=== PATIENT | female | born 1950 | race Caucasian/White ===

== ENCOUNTER 2016-09-05 17:24 | Emergency (ER) | payer MEDICARE, MEDICAID ==
[2016-09-05 17:39] VITALS: BP 122/73
[2016-09-05] MEDS ORDERED: Morphine INJ* 4 MG/ML 1 ML CARPUJECT IM ONE (18:06)
--- NOTE | 2016-09-05 18:09 | ED ---
Lower Extremity - HPI Summary HPI Summary: The patient is a 65 year old female presenting to the ED for complaint of right ankle twisting injury after accidental fall tonight. Reports she was seated in chair for prolonged time with development of paresthesias in left leg. Upon attempting to stand upright, left leg bulged causing her twist her left ankle and land against left hip. Admits to swelling and inability to bear weight on left ankle. Denies significant left hip pain. Denies head injury, chest or abdominal pain, nausea, vomiting, gross hematuria. Chronic paresthesias bilateral arms secondary to cervical radiculopathy. History significant for Breast CA s/p lumpectomy, Uterine CA s/p total hysterectomy, Diverticulitis with perforation s/p partial colectomy, Spinal Stenosis s/p cervical surgery, chronic pain receiving methadone [address] Vargas. Brother with asthma. SH: Current smoker. No alcohol or substance use. - History of Current Complaint Chief Complaint: EDExtremityLower Stated Complaint: ANKLE INJURY Time Seen by Provider: 09/05/16 17:41 Pain Intensity: 7 - Allergies/Home Medications Allergies/Adverse Reactions: Allergies Allergy/AdvReac Type Severity Reaction Status Date / Time Iodine Allergy Intermediate Hives Verified 07/08/16 15:07 Adhesive Tape Allergy See Comment Verified 07/08/16 15:07 PMH/Surg Hx/FS Hx/Imm Hx Endocrine/Hematology History: Denies: Hx Anticoagulant Therapy, Hx Diabetes, Hx Thyroid Disease Cardiovascular History: Denies: Hx Congestive Heart Failure, Hx Coronary Artery Disease, Hx Hypertension, Hx Pacemaker/ICD Respiratory History: Reports: Hx Asthma, Hx Chronic Obstructive Pulmonary Disease (COPD), Other Respiratory Problems/Disorders - nodules seen on recent CT scan of chest Denies: Hx Chronic Bronchitis, Hx Cystic Fibrosis, Hx Lung Cancer, Hx Pleural Effusion, Hx Pneumonia, Hx Pulmonary Edema, Hx Pulmonary Embolism, Hx Seasonal Allergies, Hx Sleep Apnea GI History: Reports: Hx Diverticulosis, Hx Gastroesophageal Reflux Disease, Other GI Disorders - DIVERTICULITIS/COLOSTOMY/REVERSAL Denies: Hx Cirrhosis, Hx Crohn's Disease, Hx Gall Bladder Disease, Hx Gastrointestinal Bleed, Hx Hiatal Hernia, Hx Irritable Bowel, Hx Jaundice, Hx Obstructive Bowel, Hx Ileostomy, Hx Pyloric Stenosis, Hx Ulcer History: Denies: Hx Dialysis, Hx Renal Disease Musculoskeletal History: Reports: Hx Back Problems - cervical degenerative disk disease, Hx Osteoporosis Denies: Hx Arthritis, Hx Rheumatoid Arthritis, Hx Bursitis, Hx Congenital Bone Abnormalities, Hx Fibromyalgia, Hx Gout, Hx Orthopedic Injury, Hx Scoliosis , Hx Tendonitis, Other Musculoskeletal History Sensory History: Reports: Hx Contacts or Glasses - GLASSES Denies: Hx Hearing Aid Opthamlomology History: Reports: Hx Contacts or Glasses - GLASSES Neurological History: Reports: Hx Spinal Cord Injury - per pt Denies: Hx Dementia, Hx Developmental Delay, Hx Headaches, Hx Migraine, Hx Seizures, Hx Transient Ischemic Attacks (TIA), Other Neuro Impairments/Disorders Psychiatric History: Reports: Hx Anxiety, Hx Depression, Hx Bipolar Disorder, Hx Substance Abuse Denies: Hx Eating Disorder, Hx Panic Disorder, Hx of Violent Episodes Against Others - Cancer History Cancer Type, Location and Year: breast cancer; uterine cancer Hx Chemotherapy: No Hx Radiation Therapy: Yes - Surgical History Surgery Procedure, Year, and Place: breast ca- left lumpectomy 2008, hysterectomy 2009, 4 neck surgeries 2010, COLON SURGERY Hx Anesthesia Reactions: No Infectious Disease History: No Infectious Disease History: Denies: Hx Clostridium Difficile, Hx Hepatitis, Hx Human Immunodeficiency Virus (HIV), Hx Shingles, Hx Tuberculosis, Traveled Outside the [place] in Last 30 Days - Family History Known Family History: Positive: Cardiac Disease - Social History Alcohol Use: None Substance Use Type: Reports: None Substance Use Comment - Amount & Last Used: methadone 15mg tid and 10mg qhs. Hx Tobacco Use: Yes Smoking Status (MU): Light Every Day Tobacco Smoker Type: eCigarettes Amount Used/How Often: 1/2 ppd Have You Smoked in the Last Year: Yes Review of Systems Constitutional: Negative Cardiovascular: Negative Respiratory: Negative Gastrointestinal: Negative Genitourinary: Negative Positive: Arthralgia, Decreased ROM, Edema Skin: Negative Positive: Paresthesia Psychological: Normal All Other Systems Reviewed And Are Negative: Yes Physical Exam Triage Information Reviewed: Yes Vital Signs On Initial Exam: Initial Vitals Temp Pulse Resp BP Pulse Ox 98.0 F 86 16 122/73 95 09/05/16 17:29 09/05/16 17:29 09/05/16 17:29 09/05/16 17:29 09/05/16 17:29 Vital Signs Reviewed: Yes Appearance: Positive: Well-Appearing, Pain Distress - Speaking calmly with mild guarded movement of left ankle without grimace, in mild pain., Obese Skin: Positive: Warm, Skin Color Reflects Adequate Perfusion, Dry Head/Face: Positive: Normal Head/Face Inspection Eyes: Positive: Other: - Anicteric ENT: Positive: Hearing grossly normal Neck: Positive: Supple Respiratory/Lung Sounds: Positive: Other - Normal respirations Cardiovascular: Positive: RRR - DP pulse 2+. Negative: Leg Edema Left, Leg Edema Right Musculoskeletal: Positive: Limited @ - decreased AROM left ankle, Pain @ - tenderness left lateral malleolus with 1+ edema without ecchymosis Neurological: Positive: Sensory/Motor Intact, NV Bundle Intact Distally Psychiatric: Positive: Normal AVPU Assessment: Alert Diagnostics - Vital Signs Vital Signs Temp Pulse Resp BP Pulse Ox 09/05/16 17:29 98.0 F 86 16 122/73 95 - Laboratory Lab Statement: Any lab studies that have been ordered have been reviewed, and results considered in the medical decision making process. Lower Extremity Course/Dx - Course Assessment/Plan: X-ray left ankle with nondisplaced distal fibula fracture which is closed. X-ray left hip/pelvis without fracture. Give age and history of spinal stenosis, safest treatment plan to place in cam boot with weight bearing as tolerated. Advised to continue with methadone as Rx by pain specialist and if breakthrough pain, to contact Dr. Vargas for further pain management. Given referral to orthopedist for follow-up within 1 week. - Diagnoses Provider Diagnoses: Fracture, fibula Discharge - Discharge Plan Condition: Stable Disposition: HOME Patient Education Materials: Ankle Fracture (ED) Referrals: Monique Bucio MD [Primary Care Provider] - Anibal Villaseñor MD [Medical Doctor] - 1 Week
--- NOTE | 2016-09-05 19:00 | RAD ---
Indication: Ankle injury. 3 views of the left ankle demonstrates fracture through the distal fibula without significant displacement. Soft tissue swelling is noted. IMPRESSION: Fracture of the distal fibula with soft tissue swelling. No significant displacement is noted.
--- NOTE | 2016-09-05 19:01 | RAD ---
Indication: Blunt injury. Single view of the pelvis and 2 views of the left hip demonstrates no fracture. No other bone or joint abnormality is noted. IMPRESSION: No fracture of the pelvis or left hip is noted.
== END 2016-09-05 21:15 | disposition home or self-care (01) ==
LOC: ED 17:24
DX: S82.402A Unspecified fracture of shaft of left fibula, initial encounter for closed fracture (principal); R20.9 Unspecified disturbances of skin sensation; W19.XXXA Unspecified fall, initial encounter; Y93.9 Activity, unspecified; Y92.9 Unspecified place or not applicable; Y99.9 Unspecified external cause status
CPT/HCPCS: 96372; 99282; J2270

== ENCOUNTER 2017-02-04 18:35 | Observation (INO) | payer MEDICARE, MEDICAID ==
[2017-02-04] MEDS ORDERED: Aspirin Low Dose CHEW TAB* 81 MG PO ONE (18:53)
--- NOTE | 2017-02-04 19:20 | RAD ---
HISTORY: Chest pain COMPARISONS: June 13, 2015 VIEWS:1: Single frontal portable view of the chest at 7:00 PM FINDINGS: LINES AND TUBES: None. CARDIOMEDIASTINAL SILHOUETTE: The cardiomediastinal silhouette is normal for portable technique. PLEURA: The costophrenic angles are sharp. No pleural abnormalities are noted. LUNG PARENCHYMA: There is hyperinflation. ABDOMEN: The upper abdomen is clear. There is no subphrenic gas. BONES AND SOFT TISSUES: The patient is status post anterior cervical fusion IMPRESSION: NO ACTIVE CARDIOPULMONARY DISEASE.
[2017-02-04 19:43] LABS: Hematocrit 39 % (35-47); Hemoglobin 13.2 g/dl (12.0-16.0); Mean Corpuscular HGB Conc 34 g/dl (31-36); Mean Corpuscular Hemoglobin 31 pg (27-31); Mean Corpuscular Volume 90 fL (80-97); Mean Platelet Volume 9 um3 (7.4-10.4); Red Blood Count 4.32 10^6/ul (4.0-5.4); Red Cell Distribution Width 14 % (10.5-15)
[2017-02-04 19:59] LABS: Albumin 3.7 g/dL (3.2-5.2); BUN/Creatinine Ratio 15.2 (8-20); Calcium 9.2 mg/dL (8.6-10.3); EGFR African American 94.2 (>60); EGFR Non-African American 73.3 (>60); Globulin 3.2 g/dL (2-4); Total Bilirubin 0.7 mg/dL (0.2-1.0); Total Protein 6.9 g/dL (6.4-8.9)
[2017-02-04] MEDS ORDERED: HYDROmorphone* 2 MG/ML 1 ML SYR IV SLOW PU ONE (20:14)
[2017-02-04] MEDS ORDERED: Enoxaparin(*) 100 MG/ML SYR SUBCUT ONE (20:16)
[2017-02-04] MEDS ORDERED: Acetaminophen TAB* 325 MG PO PRN (21:21)
[2017-02-04] MEDS ORDERED: Ondansetron INJ* 2 MG/ML VIAL IV PRN (21:21)
[2017-02-04] MEDS ORDERED: HYDROmorphone* 1 MG/ML 1 ML SYR IV SLOW PU PRN (21:27)
[2017-02-04] MEDS ORDERED: Ketorolac INJ* 15 MG/ML 1 ML VIAL IV PUSH ONE (21:27)
[2017-02-04] MEDS ORDERED: LORazepam TAB(*) 1 MG PO PRN (21:28)
[2017-02-04] MEDS ORDERED: Albuterol 2.5 MG/3 ML NEB.SOL* (0.083%) INH PRN (21:32)
[2017-02-04] MEDS: predniSONE TAB* 20 MG PO ONE (21:34)
[2017-02-04] MEDS: predniSONE TAB* 10 MG PO ONE (22:31)
[2017-02-04] MEDS ORDERED: Zolpidem TAB* 10 MG PO PRN (22:37)
[2017-02-04] MEDS: Methadone TAB* 5 MG PO SCH (22:56)
[2017-02-04] MEDS: Docusate CAP* 100 MG PO SCH (22:56)
[2017-02-04] MEDS: Gabapentin CAP(*) 300 MG PO SCH (22:57)
[2017-02-04] MEDS: Ferrous Gluconate TAB* 324 MG TAB PO SCH (22:58)
[2017-02-04] MEDS ORDERED: traZODone TAB* 100 MG PO SCH (23:00)
[2017-02-04] MEDS: Mometasone/Formoter 200/5 MDI INH SCH (23:08)
--- NOTE | 2017-02-05 00:40 | HP ---
CC: Dr. Gilmore * HISTORY AND PHYSICAL: DATE OF ADMISSION: 02/04/17 PRIMARY CARE PROVIDER: Dr. Gilmore. ATTENDING PHYSICIAN WHILE IN THE HOSPITAL: Dr. Pool Ayala * (report dictated by Miguel A Lozada NP). CHIEF COMPLAINT: Chest pain. HISTORY OF PRESENT ILLNESS: Ms. Lomeli is a 66-year-old female patient with history of chronic pain, osteoporosis, asthma, depression, acid reflux, bipolar , breast cancer, and uterine cancer, coming into the ER today with complaints of chest discomfort with sudden onset, right side, worse with taking a deep breath with no associated nausea or chest pain with exertion. She said it is really hard for her to take a deep breath. She denies having any recent trips or travel. Denies having any recent surgeries. States that because of her chronic pain issue, she does not ambulate as much as she probably should. She does sit a lot. She denied having any recent upper respiratory-type symptoms, fevers, or cough. She says that she was concerned because the symptoms just were not getting any better, so she decided to come in today. She came into the ER. She was evaluated and was noted that she had an elevated D-dimer. Unfortunately, she does have an allergy to IV DYE and we were asked to evaluate for admission. PAST MEDICAL HISTORY: Significant for: 1. Osteoporosis. 2. Asthma. 3. Depression. 4. GERD. 5. Chronic pain. 6. Bipolar. 7. Breast cancer. 8. Uterine cancer. PAST SURGICAL HISTORY: 1. She has had exploratory laparotomy. 2. She has had hysterectomy. 3. Lumpectomy. 4. She has had four neck surgeries. MEDICATIONS: Home medications include according to her recall: 1. Trazodone 300 mg p.o. at bedtime. 2. Ambien 10 mg p.o. at bedtime as needed. 3. Singulair 10 mg p.o. daily. 4. Robaxin 500 to 1000 mg p.o. four times a day as needed. 5. Methadone 1-1/2 tablets p.o. t.i.d. 6. Ativan 2 mg p.o. at bedtime as needed. 7. Atrovent 0.5 mg inhaled t.i.d. as needed. 8. Neurontin 900 mg p.o. t.i.d. 9. Ferrous gluconate 325 mg p.o. b.i.d. 10. Nexium 40 mg daily. 11. Colace 100 mg p.o. b.i.d. 12. Cymbalta 60 mg daily. 13. Cod liver oil 1 capsule p.o. daily. 14. Vitamin D 2000 units daily. 15. Symbicort 2 puffs inhaled b.i.d. 16. Vitamin C 1000 mg daily. 17. Fosamax 70 mg p.o. weekly. ALLERGIES TO MEDICATIONS: Include IODINE and CT DYE. FAMILY HISTORY: Her mother had a history of cancer. Father had a history of peritonitis. SOCIAL HISTORY: She is a former smoker. She does not drink alcohol. Surrogate decision maker is her [id number] and daughter. REVIEW OF SYSTEMS: There is no documented fever. She denied having any significant weight change. There was no double vision. She denies having any ear discharge. There was no rhinorrhea. There was no sore throat, no thyroid enlargement. There is chest pain from HPI. There is no chest pain with exertion. There was no orthopnea. There was no nocturnal dyspnea. There was no abdominal pain. No nausea, no vomiting. No dysuria, no frequency. No seizure, there was no loss of consciousness. No pruritus and no skin ulcerations. Review of 14 systems completed, all others negative. PHYSICAL EXAMINATION GENERAL: At this time, Ms. Lomeli is a 66-year-old female patient. She is sitting in the ER stretcher. She does not appear to be in any acute distress. VITAL SIGNS: Blood pressure 108/60 with pulse of 74, respirations 14, O2 sat 94 %, temperature 98.8. HEENT: Head is atraumatic, normocephalic. Eyes: EOMs are intact. Sclerae anicteric, not pale. Throat: Oral mucosa appears to be moist. No oropharyngeal erythema. NECK: Supple. LUNGS: Clear to auscultation bilaterally. No wheezes, rales, or rhonchi. HEART: Sounds S1, S2. Regular rate and rhythm. No murmurs, rubs, or gallops. ABDOMEN: Soft. It was flat, nontender. Bowel sounds present. EXTREMITIES: Pulses 2+ throughout. She had no peripheral edema noted. She is able to move all 4 extremities with 5/5 strength. NEUROLOGIC: The patient is awake, she is alert, she is oriented x3. Tongue midline. Peanut Picker were equal. No gross focal deficits. SKIN: Intact. DIAGNOSTIC STUDIES/LAB DATA: Today revealed WBC 9.0, RBC of 4.32, hemoglobin of 13.2, hematocrit of 39, platelet count of 180. D-dimer was 329. Sodium was 134, potassium was 4, chloride of 105, bicarb 23, BUN 12, creatinine of 0.79, glucose 112, lactate 0.6, calcium 9.2. Total bili 0.7, AST 10, ALT 13, Troponin 0. She had a chest x-ray obtained today, which revealed no active cardiopulmonary disease. There was an EKG, which revealed a normal sinus rhythm with rate of 81. No ST elevations or T-wave inversions were noted. Old medical records reviewed. ASSESSMENT AND PLAN: Ms. Lomeli is a 66-year-old female patient coming into the ER today with complaints of chest pain, sudden onset, to the right side. She will be admitted under observation status for: 1. Chest pain: Again, concerned that this is probably pleuritic-type chest pain. She certainly has risk factors for pulmonary embolism. Unfortunately, she is allergic to IV DYE. My plan is at this point we will premedicate her. She did get a dose because there is high likelihood of possibly having a blood clot. She was premedicated with Lovenox here in the ER. I will go ahead and give her Lovenox again tomorrow morning. We will premedicate her with prednisone and Benadryl per recommendation of Radiology with CTA of the chest. I am ordering ultrasound of the lower extremities. If those are positive, then we do not need to do the CTA presumably as the treatments are the same. I am still going to get an echo because of chest pain. I will trend her troponins and place her on telemetry and continue to follow. 2. Osteoporosis. She can continue with her current medical regimen. 3. Asthma. Continue with inhalers and Symbicort as prescribed. 4. Depression and bipolar. Continue with supportive care and meds as prescribed. 5. Chronic pain. Continue methadone. 6. Gastroesophageal reflux disease. Continue PPI therapy. 7. History of breast cancer and uterine cancer. Follow with primary. 8. DVT prophylaxis. She will be on therapeutic Lovenox, again pending the CTA , I did put her on and give her a dose tomorrow morning. 9. Code status. Full code. 10. Fluids, electrolytes, and nutrition. She can have a regular diet. TIME SPENT: On the admission was approximately 60 minutes; greater than half the time was spent [id number] with the patient obtaining my history and physical, other half the time spent going over the plan of care with the patient and implementing plan of care. I did discuss the plan of care with my attending, Dr. Ayala; he is in agreement. MIGUEL A LOZADA, [employer] EXAMINER [id number]/CPS #: [id number] SARAH
[2017-02-05] MEDS: predniSONE TAB* 10 MG PO ONE (03:13)
[2017-02-05] MEDS: predniSONE TAB* 20 MG PO ONE (03:14)
[2017-02-05] MEDS ORDERED: Omeprazole CAP* 20 MG PO SCH (07:30)
[2017-02-05 07:38] LABS: Hematocrit 38 % (35-47); Hemoglobin 12.9 g/dl (12.0-16.0); Mean Corpuscular HGB Conc 34 g/dl (31-36); Mean Corpuscular Hemoglobin 31 pg (27-31); Mean Corpuscular Volume 91 fL (80-97); Mean Platelet Volume 10 um3 (7.4-10.4); Red Blood Count 4.17 10^6/ul (4.0-5.4); Red Cell Distribution Width 14 % (10.5-15); White Blood Count 6.5 10^3/ul (3.5-10.8)
[2017-02-05 08:00] LABS: BUN/Creatinine Ratio 18.9 (8-20); Calcium 9.2 mg/dL (8.6-10.3); EGFR African American 81.1 (>60); Potassium 4.4 mmol/L (3.5-5.0)
[2017-02-05] MEDS: Mometasone/Formoter 200/5 MDI INH SCH (08:10)
[2017-02-05] MEDS: Gabapentin CAP(*) 300 MG PO SCH ×2 (08:28→14:11)
[2017-02-05] MEDS: Methadone TAB* 5 MG PO SCH ×2 (08:30→14:12)
[2017-02-05] MEDS: Ferrous Gluconate TAB* 324 MG TAB PO SCH (08:32)
[2017-02-05] MEDS: Docusate CAP* 100 MG PO SCH (08:33)
[2017-02-05] MEDS ORDERED: DULoxetine DR CAP* 30 MG CAP.DR PO SCH (09:00)
[2017-02-05] MEDS ORDERED: diPHENhydraMINE PO* 25 MG PO ONE (09:00)
[2017-02-05] MEDS ORDERED: predniSONE TAB* 50 MG PO ONE (09:00)
[2017-02-05] MEDS ORDERED: Enoxaparin(*) 100 MG/ML SYR SUBCUT SCH (09:00)
[2017-02-05] MEDS ORDERED: Iohexol 350* (CONTRAST) 500 ML MDV IV ONE (10:04)
--- NOTE | 2017-02-05 10:42 | RAD ---
INDICATION: Stabbing RIGHT side chest pain with inspiration. Elevated d-dimer. History of breast and uterine cancer. COMPARISON: February 04, 2017 chest radiograph and June 13, 2016 CT. TECHNIQUE: Multidetector CT images were obtained from the lung apices to the upper abdomen with 80 mL Omnipaque 350 IV contrast. Pulmonary angiogram protocol. Multiplanar reformation including with maximum intensity projection. REPORT: Bilateral mild subsegmental atelectasis most prominent at the dependent lung bases. Focal subsegmental peripheral airspace consolidation at the lateral segment of the RIGHT middle lobe. No suspicious focal pulmonary lesions. Only trace bilateral pleural fluid. Negative for thoracic lymphadenopathy, cardiomegaly, pericardial effusion. Upper normal diameter ascending thoracic aorta measuring up to 3.9 cm transverse diameter. Negative for aortic dissection. Multiple acute appearing pulmonary emboli at the segmental pulmonary artery bifurcations with bilateral involvement and corresponding peripheral airspace consolidation at the lateral segment of the RIGHT middle lobe. Negative for thrombus within the RIGHT or LEFT main pulmonary arteries. Limited images through the upper abdomen are remarkable for cholelithiasis. Negative for suspicious thoracic osseous lesions. IMPRESSION: 1. Multiple acute appearing pulmonary emboli at the segmental pulmonary artery bifurcations with bilateral involvement and corresponding peripheral airspace consolidation at the lateral segment of the RIGHT middle lobe consistent with pulmonary ischemia/infarct. Mild to moderate burden of pulmonary embolism. 2. No suspicious focal pulmonary lesions or thoracic lymphadenopathy. Results discussed with Nurse Coto 02/05/2017 10:37 AM EDT
--- NOTE | 2017-02-05 12:29 | PN ---
Subjective Date of Service: 02/05/17 Interval History: Patient seen and examined at bedside. Reports pain with inspiration but feels it is better today. Denies fever/chills, worsening chest pain or SOB, abd pain, n/v. She reports that she does "sit a lot." She denies any recent long travel or recent surgery. Telemetry: SR 70s Family History: Unchanged from Admission Social History: Unchanged from Admission Past Medical History: Unchanged from Admission Objective Active Medications: Acetaminophen (Tylenol Tab*) 650 mg PO Q4H PRN PRN Reason: FEVER/PAIN Albuterol (Ventolin 2.5 Mg/3 Ml Neb.Sia*) 2.5 mg INH Q2H PRN PRN Reason: SOB/WHEEZING Docusate Sodium (Colace Cap*) 100 mg PO BID [facility] Last Admin: 02/05/17 08:33 Dose: 100 mg Duloxetine HCl (Cymbalta Cap*) 60 mg PO DAILY [facility] Last Admin: 02/05/17 08:26 Dose: 60 mg Enoxaparin Sodium (Lovenox(*)) 95 mg SUBCUT Q12H [facility] Last Admin: 02/05/17 08:27 Dose: 95 mg Ferrous Gluconate (Fergon Tab*) 325 mg PO BID [facility] Last Admin: 02/05/17 08:32 Dose: 325 mg Gabapentin (Neurontin Cap(*)) 900 mg PO TID [facility] Last Admin: 02/05/17 08:28 Dose: 900 mg Hydromorphone HCl (Dilaudid Iv*) 1 mg IV SLOW PU Q4H PRN PRN Reason: PAIN Lorazepam (Ativan Tab(*)) 2 mg PO BEDTIME PRN PRN Reason: ANXIETY Last Admin: 02/04/17 22:57 Dose: 2 mg Methadone HCl (Dolophine Tab*) 15 mg PO TID [facility] Last Admin: 02/05/17 08:30 Dose: 15 mg Mometasone Furoate/Formoterol Fumar (Dulera 200/5 Mdi*) 2 puff INH BID [facility] PRN Reason: Protocol Last Admin: 02/05/17 08:10 Dose: 2 puff Montelukast Sodium (Singulair Tab*) 10 mg PO BEDTIME [facility] Omeprazole (Prilosec Cap*) 20 mg PO DAILY@0730 [facility] PRN Reason: Protocol Last Admin: 02/05/17 08:30 Dose: 20 mg Ondansetron HCl (Zofran Inj*) 4 mg IV Q6H PRN PRN Reason: NAUSEA Trazodone HCl (Desyrel Tab*) 300 mg PO BEDTIME [facility] Last Admin: 02/05/17 00:47 Dose: 300 mg Zolpidem Tartrate (Ambien Tab*) 10 mg PO BEDTIME PRN PRN Reason: SLEEP Last Admin: 02/05/17 00:47 Dose: 10 mg Vital Signs 02/04/17 02/04/17 02/04/17 21:12 21:53 22:56 Temperature 98.7 F Pulse Rate 73 Respiratory 16 20 20 Rate Blood Pressure 125/70 (mmHg) O2 Sat by Pulse 97 Oximetry 02/04/17 02/04/17 02/05/17 22:57 23:11 00:11 Temperature 98.7 F Pulse Rate 87 78 Respiratory 20 20 16 Rate Blood Pressure 104/61 (mmHg) O2 Sat by Pulse 98 96 Oximetry 02/05/17 02/05/17 02/05/17 00:56 00:57 02:40 Temperature Pulse Rate 79 Respiratory 18 18 Rate Blood Pressure (mmHg) O2 Sat by Pulse Oximetry 02/05/17 02/05/17 02/05/17 02:57 03:44 03:47 Temperature 98.9 F Pulse Rate 75 Respiratory 18 16 Rate Blood Pressure 113/60 (mmHg) O2 Sat by Pulse 98 92 Oximetry 02/05/17 02/05/17 02/05/17 07:20 08:11 08:12 Temperature 98.2 F Pulse Rate 75 86 75 Respiratory 18 18 18 Rate Blood Pressure 103/62 (mmHg) O2 Sat by Pulse 92 92 92 Oximetry 02/05/17 02/05/17 02/05/17 08:28 08:29 08:30 Temperature Pulse Rate Respiratory 16 16 16 Rate Blood Pressure (mmHg) O2 Sat by Pulse Oximetry 02/05/17 02/05/17 02/05/17 10:28 10:29 10:30 Temperature Pulse Rate Respiratory 16 16 16 Rate Blood Pressure (mmHg) O2 Sat by Pulse Oximetry Oxygen Devices in Use Now: None Appearance: Middle aged female, lying flat in bed, NAD. Speaking in full sentences. Eyes: PERRLA Ears/Nose/Mouth/Throat: Mucous Membranes Moist Respiratory: Symmetrical Chest Expansion and Respiratory Effort, Clear to Auscultation Cardiovascular: NL Sounds; No Murmurs; No JVD, RRR Abdominal: NL Sounds; No Tenderness; No Distention Extremities: No Edema Skin: - - Psoriasis to BLE Neurological: Alert and Oriented x 3 Lines/Tubes/Other Access: Clean, Dry and Intact Peripheral IV Nutrition: Taking PO's Result Diagrams: 02/05/17 07:03 02/05/17 07:03 Diagnostic Imaging: CTA Chest - multiple acute appearing pulmonary emboli at the segmental pulmonary artery bifurcations with bilateral involvement and corresponding peripheral airspace consolidation at the lateral segment of the right middle lobe consistent with pulmonary ischemia/infarct. Mild to moderate burden of pulmonary embolism. Assess/Plan/Problems-Billing Assessment: Ms. Lomeli is a 66 yo female with a PMH significant for OA, asthma, depression, GERD, chronic pain, bipolar disorder, breast and uterine cancer who presented to the ED on 02/05/17 with concern for chest pain and was found to have pulmonary emboli. - Patient Problems (1) Multiple pulmonary emboli Code(s): I26.99 - OTHER PULMONARY EMBOLISM WITHOUT ACUTE COR PULMONALE Comment : Patient started on BID Lovenox on admission. Switch to Xarelto 15 mg BID for 21 days then 20 mg daily. No previous history of provoked or unprovoked PE. CTA chest shows multiple acute appearing pulmonary emboli at the segmental pulmonary artery bifurcations with bilateral involvement and corresponding peripheral airspace consolidation at the lateral segment of the right middle lobe consistent with pulmonary ischemia/infarct. Mild to moderate burden of pulmonary embolism. (2) Chest pain Code(s): R07.9 - CHEST PAIN, UNSPECIFIED Comment: Suspect pleuritic pain secondary to acute PE Troponins negative, no ischemic changes noted to EKG Echocardiogram pending (3) Chronic pain Code(s): G89.29 - OTHER CHRONIC PAIN Comment: Continue home duloxetine, gabapentin, methadone. Hold home prn Robaxin at this time. (4) Asthma Code(s): J45.909 - UNSPECIFIED ASTHMA, UNCOMPLICATED Comment: Stable Continue Dulera and prn albuterol. (5) GERD (gastroesophageal reflux disease) Code(s): K21.9 - GASTRO-ESOPHAGEAL REFLUX DISEASE WITHOUT ESOPHAGITIS Comment : Continue omeprazole. (6) Osteoporosis Code(s): M81.0 - AGE-RELATED OSTEOPOROSIS W/O CURRENT PATHOLOGICAL FRACTURE Comment: Continue alendronate and cholecalciferol. (7) Bipolar disorder Comment: Continue outpatient follow-up Continue trazodone, duloxetine, prn lorazepam (8) Depression Code(s): F32.9 - MAJOR DEPRESSIVE DISORDER, SINGLE EPISODE, UNSPECIFIED Comment: Continue trazodone, duloxetine. (9) Hx of breast cancer Code(s): Z85.3 - PERSONAL HISTORY OF MALIGNANT NEOPLASM OF BREAST Comment: s/p lumpectomy (10) History of uterine cancer Code(s): Z85.42 - PERSONAL HISTORY OF MALIGNANT NEOPLASM OF OTH PRT UTERUS Comment: s/p hysterectomy (11) DVT prophylaxis Comment: SQ Lovenox BID Switch to Xarelto Status and Disposition: OBV admit.
--- NOTE | 2017-02-05 13:01 | ECHO ---
Patient: HERSON DELEON [facility] Rec#: [id number] : 1950 Date: 02/05/2017 Age: 66y Height: 170.18 cm / 67.0 in Weight: 97.52 kg / 214.9 lbs Sex: F BSA: 2.09 Room#: 440 Admit Date#: 02/04/2017 Type: Inpatient Referring: Jerome Lozada NP Reading: Jitendra Rehman DO Reading: Jitendra Rehman DO Airport Utility Worker: Kelly Gilliam RDCS CC: Barron Gilmore MD Transthoracic Echocardiogram Indication: CP BP: 113/60 HR: 66 Rhythm: NSR Findings History: Asthma,depression,GERD,chronic pain, bipolar breast and uterine cancer,former smoker. Technical Comments: The study quality is good. Completed at 1210. Left Ventricle: The left ventricular chamber size is normal. There is no left ventricular hypertrophy. Global left ventricular wall motion and contractility are within normal limits. There is normal left ventricular systolic function. The estimated ejection fraction is 60-65%. Normal left atrial size makes clinically significant diastolic dysfunction unlikely. Left Atrium: The left atrial chamber size is normal. Right Ventricle: The right ventricular chamber size and systolic function are within normal limits. Right Atrium: The right atrial cavity size is normal. Aortic Valve: The aortic valve is trileaflet. There is no evidence of aortic regurgitation. There is no evidence of aortic stenosis. Mitral Valve: The mitral valve leaflets appear normal. There is no evidence of mitral regurgitation. There is no evidence of mitral stenosis. Tricuspid Valve: The tricuspid valve leaflets are normal. There is mild tricuspid regurgitation. No pulmonary hypertension is noted. There is no tricuspid stenosis. Pulmonic Valve: The pulmonic valve structure is not well visualized. There is no evidence of pulmonic regurgitation. There is no pulmonic stenosis. Pericardium: There is no significant pericardial effusion. Aorta: There is mild dilatation of the ascending aorta. There is no dilatation of the aortic arch. There is mild dilatation of the aortic root. Pulmonary Artery: The main pulmonary artery is not well visualized. Venous: The inferior vena cava appears normal in size. There is a greater than 50% respiratory change in the inferior vena cava dimension. Conclusions The left ventricular chamber size is normal. There is normal left ventricular systolic function. The estimated ejection fraction is 60-65%. The left atrial chamber size is normal. The right ventricular chamber size and systolic function are within normal limits. There is mild tricuspid regurgitation. No pulmonary hypertension is noted. There is mild dilatation of the aortic root and ascending aorta. No prior studies available for comparison at time of interpretation. Measurements Name Value Normal Range RVIDd (AP) 2D 2.1 cm (0.9 - 2.6) RVDdMajor (2D) 3.1 cm (2.2 - 4.4) RAd ISD 4CH 5.3 cm (3.4 - 4.9) RA (A4C)W 3.7 cm (2.9 - 4.6) IVSd (2D) 1 cm (0.6 - 1) LVPWd (2D) 1 cm (0.6 - 1) LVIDd (2D) 3.8 cm (3.6 - 5.4) LVIDs (2D) 3.2 cm - Aortic Annulus 2 cm (1.4 - 2.6) Ao root diameter (2D) 3.8 cm (2.1 - 3.5) Ascending Ao 4.1 cm (2.1 - 3.4) Aortic arch 2.5 cm (1.8 - 3.4) Descending Ao 0.7 cm - LA dimension (AP) 2D 3.7 cm (2.3 - 3.8) LAd ISD 4CH 5.9 cm (2.9 - 5.3) LA ISD 4CH W 3.8 cm (2.5 - 4.5) Name Value Normal Range LA ESV SP 4CH (A/L) 33 ml - LA ESV SP 2CH (A/L) 33 ml - LA ESV BP (A/L) 38 ml - LA ESV BP (A/L) index 18.38 ml/m2 - LA ESV SP 4CH (MOD) 30 ml - LA ESV SP 2CH (MOD) 31 ml - Name Value Normal Range MV E-wave Vmax 0.8 m/sec - MV deceleration time 311 msec - MV A-wave Vmax 1.1 m/sec - MV E:A ratio 0.74 ratio - LV septal e' Vmax 0.07 m/sec - LV lateral e' Vmax 0.12 m/sec - LV E:e' septal ratio 11.42 ratio - LV E:e' lateral ratio 6.67 ratio - Name Value Normal Range AV Vmax 1.8 m/sec - AV VTI 45.7 cm - AV peak gradient 13.23 mmHg - AV mean gradient 6.06 mmHg - LVOT Vmax 1.4 m/sec - LVOT VTI 32.1 cm - LVOT peak gradient 7.86 mmHg - LVOT mean gradient 3.58 mmHg - Name Value Normal Range TR Vmax 2.3 m/sec - TR peak gradient 22 mmHg - RAP 3 mmHg - RVSP 25 mmHg - IVC diameter 1.4 cm - Name Value Normal Range PV Vmax 1 m/sec - PV peak gradient 3.96 mmHg -
--- NOTE | 2017-02-05 15:10 | RAD ---
INDICATION: Pulmonary embolus on CT pulmonary angiogram performed today. RIGHT leg symptoms. COMPARISON: February 15, 2016 ultrasound. TECHNIQUE: Lundy scale, color Doppler, and spectral analysis of the deep veins of the BILATERAL lower extremities. Vessel compression, phasicity, and augmentation assessed. REPORT: The RIGHT common femoral, great saphenous, profunda femoral, femoral, popliteal, paired peroneal, and one of the posterior tibial veins appear patent. The second posterior tibial vein could not be visualized. The LEFT common femoral, great saphenous, profunda femoral, femoral, popliteal, paired peroneal, and one of the posterior tibial veins appear patent. The second posterior tibial vein could not be visualized. IMPRESSION: 1. No evidence for RIGHT or LEFT DVT through the popliteal level. 2. Only one of the RIGHT and one of the LEFT posterior tibial veins couldn't be visualized which is a new finding compared with the February 15, 2016 exam. Especially given presence of acute PE documented on CT occlusive thrombosis of solitary bilateral posterior tibial veins likely.
--- NOTE | 2017-02-05 15:43 | ED ---
Van Hamilton Auryana, scribed for Jamarcus Garnica MD on 02/04/17 at 1916 . HPI Chest Pain - HPI Summary HPI Summary: Patient is a 66-year-old female presenting to the ED with a CC of chest pain starting at 00:00 today. Patient reports chest pain with deep breaths, which is located under the right breast. Patient reports she has been at home all day sitting in her recliner chair, which is typical for her. She did not come into the ED immediately because she believed the pain would resolve, but it did not. Patient does report fatigue and mild cough, with no sputum production. She denies fever, chills, diaphoresis, dizziness, lightheadedness, SOB, pain or swelling in her legs. Patient does state she has not been eating and drinking well. Patient denies recent travel or hormone therapy. She states a Hx of breast CA with lumpectomy and uterine CA - pt states she is in remission, and is followed by Dr. Davis. Hx depression. Hx COPD - uses an inhaler. Pt denies Hx CAD, CABG, DVT, PE, cholecystectomy. Pt states she takes methadone. She reports difficulty walking after a neck surgery. - History of Current Complaint Chief Complaint: EDChestPainROMI Time Seen by Provider: 02/04/17 18:53 Hx Obtained From: Patient Onset/Duration: Started Hours Ago, Atraumatic, Still Present Current Severity: Moderate Pain Intensity: 8 Pain Scale Used: 0-10 Numeric Chest Pain Location: Right Anterior Chest Pain Radiates: No Aggravating Factor(s): Deep Breaths Alleviating Factor(s): Nothing Associated Signs and Symptoms: Positive: Cough, Other: - Fatigue. Negative: Dizziness, Shortness of Breath, Fever, Chills, Lightheadedness, Diaphoresis, Nausea - Allergy/Home Medications Allergies/Adverse Reactions: Allergies Allergy/AdvReac Type Severity Reaction Status Date / Time Iodine Allergy Mild Hives Verified 02/04/17 20:53 Iodixanol Allergy Mild Hives Verified 02/04/17 20:53 Adhesive Tape AdvReac Mild See Comment Verified 02/04/17 20:53 Home Medications: Home Medications LORazepam TAB(*) [Ativan 1 MG TAB (*)] 2 mg PO BEDTIME PRN 02/04/17 [History Confirmed 02/04/17] PMH/Surg Hx/FS Hx/Imm Hx Endocrine/Hematology History: Denies: Hx Anticoagulant Therapy, Hx Diabetes, Hx Thyroid Disease Cardiovascular History: Denies: Hx Congestive Heart Failure, Hx Coronary Artery Disease, Hx Hypertension, Hx Pacemaker/ICD Respiratory History: Reports: Hx Asthma, Hx Chronic Obstructive Pulmonary Disease (COPD) GI History: Reports: Hx Diverticulosis, Hx Gastroesophageal Reflux Disease, Other GI Disorders - DIVERTICULITIS/COLOSTOMY/REVERSAL History: Denies: Hx Dialysis, Hx Renal Disease Musculoskeletal History: Reports: Hx Back Problems - cervical degenerative disk disease, Hx Osteoporosis Sensory History: Reports: Hx Contacts or Glasses - GLASSES Denies: Hx Hearing Aid Opthamlomology History: Reports: Hx Contacts or Glasses - GLASSES Neurological History: Reports: Hx Spinal Cord Injury - per pt Psychiatric History: Reports: Hx Anxiety, Hx Depression, Hx Bipolar Disorder, Hx Substance Abuse Denies: Hx Eating Disorder, Hx Panic Disorder, Hx of Violent Episodes Against Others - Cancer History Cancer Type, Location and Year: breast cancer; uterine cancer Hx Chemotherapy: No Hx Radiation Therapy: Yes - Surgical History Surgery Procedure, Year, and Place: breast ca- left lumpectomy 2008, hysterectomy 2009, 4 neck surgeries 2010, COLON SURGERY Hx Anesthesia Reactions: No Infectious Disease History: No Infectious Disease History: Denies: Hx Clostridium Difficile, Hx Hepatitis, Hx Human Immunodeficiency Virus (HIV), Hx Shingles, Hx Tuberculosis, Traveled Outside the [place] in Last 30 Days - Family History Known Family History: Positive: Cardiac Disease - Social History Alcohol Use: None Hx Tobacco Use: Yes Smoking Status (MU): Former Smoker Type: eCigarettes Amount Used/How Often: 1/2 ppd Have You Smoked in the Last Year: Yes Review of Systems Positive: Fatigue. Negative: Fever, Chills, Skin Diaphoresis Negative: Erythema Negative: Sore Throat Positive: Chest Pain Positive: Cough. Negative: Shortness Of Breath Gastrointestinal: Other - decreased PO intake Negative: Abdominal Pain, Vomiting, Nausea Negative: dysuria, hematuria Negative: Myalgia Negative: Rash Neurological: Other - Denies dizziness All Other Systems Reviewed And Are Negative: Yes Physical Exam - Summary Physical Exam Summary: Constitutional: Well-developed, Well-nourished, Alert. (-) Distressed Skin: Warm, Dry HENT: Normocephalic; Atraumatic Eyes: Conjunctiva normal Neck: Musculoskeletal ROM normal neck. (-) JVD, (-) Stridor, (-) Tracheal deviation Cardio: Rhythm regular, rate normal, Heart sounds normal; Intact distal pulses; The pedal pulses are 2+ and symmetric. Radial pulses are 2+ and symmetric. (-) Murmur Pulmonary/Chest wall: Effort normal. (-) Respiratory distress, (-) Wheezes, (+) Crackles in the right lower lung Abd: Soft, (-) Tenderness, (-) Distension, (-) Guarding, (-) Rebound Musculoskeletal: (+) Trace edema in the bilateral extremities Lymph: (-) Cervical adenopathy Neuro: Alert, Oriented x3 Psych: Mood and affect Normal Triage Information Reviewed: Yes Vital Signs On Initial Exam: Initial Vitals Temp Pulse Resp BP Pulse Ox 98.8 F 90 18 119/83 92 02/04/17 18:46 02/04/17 18:46 02/04/17 18:46 02/04/17 18:46 02/04/17 18:46 Vital Signs Reviewed: Yes - [place] Coma Scale Coma Scale Total: 15 Diagnostics - Vital Signs Vital Signs Temp Pulse Resp BP Pulse Ox 02/04/17 18:46 98.8 F 90 18 119/83 92 - Laboratory Result Diagrams: 02/04/17 19:30 02/04/17 19:30 Lab Statement: Any lab studies that have been ordered have been reviewed, and results considered in the medical decision making process. - Radiology CXR Radiology Interpretation Completed By: Radiologist - IMPRESSION: NO ACTIVE CARDIOPULMONARY DISEASE. - EKG 19:09 Cardiac Rate: NL - at 81 bpm EKG Rhythm: Sinus Rhythm EKG Interpretation: No STEMI Re-Evaluation - Re-Evaluation First Eval Re-Evaluation Time: 20:37 Comment: Discussed test results and need for admission with patient. Chest Pain Course/Dx - Course Assessment/Plan: A 66 y/o F presents to the ED with a CC of right anterior chest pain with deep breathing starting at 00:00 today. Pt states she spends most of her time sitting in a recliner chair, and has a Hx breast CA. CXR shows no active disease. EKG shows NSR. D dimer is 329. Case discussed with Dr. Ayala who agrees to admit for further work up and management. - Chest Pain Differential Diagnosis/HQI/PQRI: Pulmonary Embolism, Other: - Pneumonia; Pleurisy - Diagnoses Provider Diagnoses: Elevated d-dimer, Chest pain, unspecified - Provider Notifications Discussed Care Of Patient With: Pool Ayala - Hospitalist Time Discussed With Above Provider: 20:31 - Agrees to admit Discharge - Discharge Plan Condition: Stable Disposition: ADMITTED TO [facility] The documentation as recorded by the Van villar Auryana accurately reflects the service I personally performed and the decisions made by , Jamarcus Garnica MD.
[2017-02-05 17:16] VITALS: BP 113/69
[2017-02-05] MEDS ORDERED: Rivaroxaban TAB(*) 15 MG PO SCH (21:00)
[2017-02-05] MEDS ORDERED: Montelukast Sodium TAB* 10 MG PO SCH (21:00)
--- NOTE | 2017-02-06 03:32 | DS ---
CC: Dr. Gilmore * MEDICINE DISCHARGE SUMMARY: DATE OF ADMISSION: 02/04/17 DATE OF DISCHARGE: 02/05/17 PRIMARY CARE PHYSICIAN: Dr. Gilmore. PROVIDER: Adriana Gray NP ATTENDING PHYSICIAN: Dr. Chacho Garcia *(as dictated by Adriana Gray NP) PRIMARY DISCHARGE DIAGNOSES: 1. Pulmonary emboli. 2. Suspected bilateral deep venous thrombosis. SECONDARY DISCHARGE DIAGNOSES: 1. Osteoporosis. 2. Asthma. 3. Depression. 4. Gastroesophageal reflux disease. 5. Chronic pain. 6. Bipolar disorder. 7. Breast cancer, status post lumpectomy. 8. Uterine cancer, status post hysterectomy. MEDICATIONS AT DISCHARGE: 1. Trazodone 300 mg at bedtime. 2. Zolpidem 10 mg at bedtime p.r.n. 3. Singulair 10 mg daily. 4. Robaxin 500 to 1000 mg four times a day p.r.n. 5. Methadone 15 mg t.i.d. 6. Lorazepam 2 mg at bedtime p.r.n. 7. Atrovent 0.5 mg inhaled t.i.d. p.r.n. 8. Gabapentin 900 mg t.i.d. 9. Ferrous gluconate 325 mg b.i.d. 10. Esomeprazole 40 mg daily. 11. Docusate 100 mg b.i.d. 12. Duloxetine 60 mg daily. 13. Cod liver oil 1 capsule daily. 14. Cholecalciferol 2000 units daily. 15. Symbicort 2 puffs inhaled b.i.d. 16. Ascorbic acid 1000 mg daily. 17. Alendronate 70 mg weekly. 18. Xarelto 15 mg b.i.d. for 21 days, and then start 20 mg daily. This is a new medication. DIAGNOSTIC TESTING DURING THIS ADMISSION: 1. thorax, impression: a. Multiple acute-appearing pulmonary emboli at the segments of pulmonary artery bifurcation with bilateral involvement and corresponding peripheral airspace consolidation at the lateral segment of the right middle lobe consistent with pulmonary ischemia/infarct. [id number] burden of pulmonary embolism. b. No suspicious focal pulmonary lesions or thoracic lymphadenopathy. 2. Venous Doppler study: Impression: a. No evidence for right or left DVT at the popliteal level. b. Only one of the right and one of the left posterior tibial veins could be visualized which is a new finding compared with 02/15/16 exam. Especially given presence of acute PE documented on CT, occlusive thrombosis of solitary bilateral posterior tibial vein is likely. 3. Transthoracic echocardiogram. Conclusion: The left ventricular chamber size is normal. There is normal left ventricular systolic function. The estimated ejection fraction is 60% to 65%. The left atrial chamber size is normal. The right ventricular chamber size and systolic function are within normal limits. There is mild tricuspid regurgitation. No pulmonary hypertension is noted. There is mild dilatation of the aortic root and ascending aorta. No prior studies available for comparison at the time of interpretation. 4. Chest x-ray: No active cardiopulmonary disease. HOSPITAL COURSE OF STAY: For full details, please refer to the H and P provided by Jerome Lozada NP, on 02/04/17. In summary, Ms. Lomeli is a 66-year- old female who presented to the hospital with concern for chest pain. She reports chest discomfort was sudden onset, right sided, that was more with taking a deep breath with no associated nausea or chest pain with exertion. She denied any recent surgeries or trips or travel. She does report being relatively sedentary due to chronic pain issues. She did have elevated D- dimer. The patient was admitted under observation. Her troponins were trended and were negative. No ischemic changes noted to her EKG. The patient was premedicated due to her allergy to IV DYE. She was able to undergo a CTA without difficulty. The findings as previously mentioned showed multiple pulmonary emboli. The patient was admitted and started on Lovenox b.i.d. prophylactically. She was then converted to Xarelto. Prior to starting the Xarelto, the patient and I discussed the medication as well as the diagnosis and importance of being on her Xarelto. We did discuss the risks and benefits of the Xarelto including the risk of bleeding such as gastrointestinal bleeding , bruising, bleeding from gums, and risk for internal bleeding in the case of fall or trauma. The patient verbalized understanding of this. She is in agreement with starting the therapy. Though the patient does have PE, she is tolerating this rather well. Her vital signs are stable. The patient does demonstrate tachycardia with ambulation, but is asymptomatic. She did recover with rest relatively quickly. She is not hypoxic and is able to ambulate. Her O2 sat following ambulation was 91%. Her O2 saturation at rest is 94% and above. The patient's respiratory rate has been recorded as 16 to 20 during her stay. She denies any tachypnea. She does state that she fatigues more easily, has been resting in between activity and does well with this. The patient does not wish to utilize oxygen. She would like to go home and feel safe enough to do so. She is a resident of [facility]. She does report her pain is somewhat better today. She is already on multiple pain medications and has not required much in the way of additional pain medication for her pain. At this time, we have agreed to not add on any additional pain medication, but the patient was advised to follow up with her PCP this week and to certainly inquire about other pain medication in addition to Tylenol and ibuprofen in the event that her pain becomes worse. CONCERNS AT DISCHARGE: Ms. Lomeli will be discharged to home. She has been advised to call her PCP tomorrow to have a followup appointment this week. Her vital signs are stable. She is able to maintain appropriate oxygen saturation, she is stable with ambulation. DIET: Heart-healthy diet. ACTIVITY: As tolerated. CONDITION: Improved, stable. DISPOSITION: To home. TIME SPENT: On this discharge was approximately 45 minutes. Again, this is only a brief summary of the patient's hospital course of stay. For full details, please refer to the full medical record. If you have any further questions or need further assistance, please feel free to contact me at . ADRIANA GRAY NP [id number]/[facility] #: [id number] SARAH
== END 2017-02-05 17:00 | disposition home or self-care (01) ==
LOC: ED 18:35 → MEDTELE 20:33
PROVIDERS: ADMIT Hospitalist; ATTEND Internal Medicine
DX: I26.99 Other pulmonary embolism without acute cor pulmonale (principal); M81.0 Age-related osteoporosis without current pathological fracture; F32.9 Major depressive disorder, single episode, unspecified; G89.29 Other chronic pain; K21.9 Gastro-esophageal reflux disease without esophagitis; R10.9 Unspecified abdominal pain; C50.919 Malignant neoplasm of unspecified site of unspecified female breast; C55 Malignant neoplasm of uterus, part unspecified; K80.80 Other cholelithiasis without obstruction; R53.81 Other malaise; R94.31 Abnormal electrocardiogram [ECG] [EKG]; Z90.12 Acquired absence of left breast and nipple; Z90.710 Acquired absence of both cervix and uterus
CPT/HCPCS: 36415; 71010; 71275; 80048; 80053; 83605; 84484; 85025; 85379; 93005; 93306; 93970; 94640; 94760; 96374; 96375; 99283; A9270-GY; G0378; J1170; J1650; J1885; J7512; Q9967

== ENCOUNTER 2017-06-08 18:48 | Emergency (ER) | payer MEDICARE, MEDICAID ==
--- NOTE | 2017-06-08 19:14 | ED ---
Respiratory - HPI Summary HPI Summary: fell 4 days ago landed on arm of chair with left ribs---hurts to cough and take a deep breath - History of Current Complaint Chief Complaint: EDFlankPain Stated Complaint: RIB PAIN Time Seen by Provider: 06/08/17 19:10 Hx Obtained From: Patient Onset/Duration: Sudden Onset, Lasting Days - 4, Still Present Initial Severity: Moderate Current Severity: Moderate Pain Intensity: 7 Character: Cough (Nonproductive) Sputum Amount: None Aggravating Factor(s): Movement, Deep Breaths Alleviating Factor(s): Other - Methadone Associated Signs and Symptoms: Negative - Allergy/Home Medications Allergies/Adverse Reactions: Allergies Allergy/AdvReac Type Severity Reaction Status Date / Time Iodine Allergy Mild Hives Verified 03/15/17 14:16 Iodixanol Allergy Mild Hives Verified 03/15/17 14:16 Adhesive Tape AdvReac Mild See Comment Verified 03/15/17 14:16 PMH/Surg Hx/FS Hx/Imm Hx Previously Healthy: No Endocrine/Hematology History: Denies: Hx Anticoagulant Therapy, Hx Diabetes, Hx Thyroid Disease Cardiovascular History: Reports: Other Cardiovascular Problems/Disorders - on xarelto for PE Denies: Hx Congestive Heart Failure, Hx Coronary Artery Disease, Hx Hypertension, Hx Pacemaker/ICD Respiratory History: Reports: Hx Asthma, Hx Chronic Obstructive Pulmonary Disease (COPD), Hx Pulmonary Embolism, Other Respiratory Problems/Disorders - lung nodules Denies: Hx Chronic Bronchitis, Hx Cystic Fibrosis, Hx Lung Cancer, Hx Pleural Effusion, Hx Pneumonia, Hx Pulmonary Edema, Hx Seasonal Allergies, Hx Sleep Apnea GI History: Reports: Hx Diverticulosis, Hx Gastroesophageal Reflux Disease, Other GI Disorders - DIVERTICULITIS/COLOSTOMY/REVERSAL Denies: Hx Cirrhosis, Hx Crohn's Disease, Hx Gall Bladder Disease, Hx Gastrointestinal Bleed, Hx Hiatal Hernia, Hx Irritable Bowel, Hx Jaundice, Hx Obstructive Bowel, Hx Ileostomy, Hx Pyloric Stenosis, Hx Ulcer History: Denies: Hx Dialysis, Hx Renal Disease Musculoskeletal History: Reports: Hx Back Problems - cervical degenerative disk disease, Hx Osteoporosis Denies: Hx Arthritis, Hx Rheumatoid Arthritis, Hx Bursitis, Hx Congenital Bone Abnormalities, Hx Fibromyalgia, Hx Gout, Hx Orthopedic Injury, Hx Scoliosis , Hx Tendonitis, Other Musculoskeletal History Sensory History: Reports: Hx Contacts or Glasses - GLASSES Denies: Hx Hearing Aid Opthamlomology History: Reports: Hx Contacts or Glasses - GLASSES Neurological History: Reports: Hx Spinal Cord Injury - per pt Denies: Hx Dementia, Hx Developmental Delay, Hx Headaches, Hx Migraine, Hx Seizures, Hx Transient Ischemic Attacks (TIA), Other Neuro Impairments/Disorders Psychiatric History: Reports: Hx Anxiety, Hx Depression, Hx Bipolar Disorder, Hx Substance Abuse Denies: Hx Eating Disorder, Hx Panic Disorder, Hx of Violent Episodes Against Others - Cancer History Cancer Type, Location and Year: breast cancer; uterine cancer Hx Chemotherapy: No Hx Radiation Therapy: Yes - Surgical History Surgery Procedure, Year, and Place: breast ca- left lumpectomy 2008, hysterectomy 2009, 4 neck surgeries 2010, COLON SURGERY Hx Anesthesia Reactions: No Infectious Disease History: No Infectious Disease History: Denies: Hx Clostridium Difficile, Hx Hepatitis, Hx Human Immunodeficiency Virus (HIV), Hx Shingles, Hx Tuberculosis, Traveled Outside the in Last 30 Days - Family History Known Family History: Positive: Cardiac Disease - Social History Occupation: Retired Lives: With Family Alcohol Use: None Substance Use Type: Reports: None Substance Use Comment - Amount & Last Used: methadone 15mg tid and 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 Hx Tobacco Use: Yes Smoking Status (MU): Light Every Day Tobacco Smoker Type: eCigarettes Amount Used/How Often: 10 cig per day Have You Smoked in the Last Year: Yes Review of Systems Constitutional: Negative Eyes: Negative ENT: Negative Cardiovascular: Negative Respiratory: Other Positive: Cough Gastrointestinal: Negative Genitourinary: Negative Positive: no symptoms reported Musculoskeletal: Other Positive: Arthralgia Skin: Negative Neurological: Negative Psychological: Normal All Other Systems Reviewed And Are Negative: Yes Physical Exam Triage Information Reviewed: Yes Vital Signs On Initial Exam: Initial Vitals Temp Pulse Resp BP Pulse Ox 97.6 F 80 16 113/64 95 06/08/17 18:57 06/08/17 18:57 06/08/17 18:57 06/08/17 18:57 06/08/17 18:57 Vital Signs Reviewed: Yes Appearance: Positive: Well-Appearing, Well-Nourished, Pain Distress - mild Skin: Positive: Warm, Skin Color Reflects Adequate Perfusion Head/Face: Positive: Normal Head/Face Inspection Eyes: Positive: Normal, EOMI, CANDI, Conjunctiva Clear ENT: Positive: Normal ENT inspection, Hearing grossly normal. Negative: Nasal congestion, Nasal drainage, TMs normal, Trismus, Muffled/hoarse voice Neck: Positive: Supple, Nontender, No Lymphadenopathy Respiratory/Lung Sounds: Positive: Clear to Auscultation, Breath Sounds Present Cardiovascular: Positive: Normal, RRR, Pulses are Symmetrical in both Upper and Lower Extremities Abdomen Description: Positive: Nontender, No Organomegaly, Soft. Negative: CVA Tenderness (R), CVA Tenderness (L) Bowel Sounds: Positive: Present Musculoskeletal: Positive: Normal, Strength/ROM Intact, Limited @ Neurological: Positive: Normal, Sensory/Motor Intact, Alert, Oriented to Person Place, Time, CN Intact II-III Psychiatric: Positive: Normal, Affect/Mood Appropriate AVPU Assessment: Alert - [place] Coma Scale Best Eye Response: 4 - Spontaneous Best Motor Response: 6 - Obeys Commands Best Verbal Response: 5 - Oriented Diagnostics - Vital Signs Vital Signs Temp Pulse Resp BP Pulse Ox 06/08/17 18:57 97.6 F 80 16 113/64 95 - Laboratory Lab Statement: Any lab studies that have been ordered have been reviewed, and results considered in the medical decision making process. - Radiology No standard instances Xray Interpretation: Positive (See Comments) - left rib fx Radiology Interpretation Completed By: Radiologist Disposition - Course Assessment/Plan: incentive spirometry, ice, continue pain med as rx, follow with pcp - Diagnoses Provider Diagnoses: Rib fracture Discharge - Discharge Plan Condition: Stable Disposition: HOME Patient Education Materials: How to Use an Incentive Spirometer (ED), Insect Bite or Sting (ED), Rib Fracture (ED), Warm Compress or Soak (ED) Referrals: Barron Gilmore MD [Primary Care Provider] - If Needed
--- NOTE | 2017-06-08 20:02 | RAD ---
Indication: LEFT side chest pain. On Xarelto for PE. Comparison: February 05, 2017 CT. Technique: Dual energy PA chest and 3 dedicated LEFT rib views. Report: Inferior lateral skin marker noted indicating the site of clinical concern. Subtle contour irregularity at the LEFT seventh rib anterolaterally consistent with a nondisplaced fracture. No additional rib fractures evident. Elevated lung volumes. Small LEFT dependent pleural effusion and basilar atelectasis similar magnitude to the prior CT. The heart, pulmonary vasculature, and mediastinal contours are unremarkable. Anterior cervical fusion hardware. IMPRESSION: 1. Subtle nondisplaced LEFT anterolateral rib fracture. 2. Small dependent LEFT pleural effusion and basilar atelectasis similar magnitude to the prior CT.
[2017-06-08] MEDS ORDERED: Mupirocin 2% CREAM* 15 GM TOPICAL ONE (20:30)
[2017-06-08] MEDS ORDERED: Mupirocin 2% OINT* TUBE TOPICAL ONE (21:00)
[2017-06-08 21:12] VITALS: BP 117/69
== END 2017-06-08 21:11 | disposition home or self-care (01) ==
LOC: ED 18:48
DX: S22.32XA Fracture of one rib, left side, initial encounter for closed fracture (principal); X58.XXXA Exposure to other specified factors, initial encounter; Y93.9 Activity, unspecified; Y92.9 Unspecified place or not applicable; F17.210 Nicotine dependence, cigarettes, uncomplicated
CPT/HCPCS: 99282; A9270-GY

== ENCOUNTER 2017-08-12 19:42 | Emergency (ER) | payer MEDICARE, MEDICAID ==
--- NOTE | 2017-08-12 21:05 | RAD ---
INDICATION: Diverticulitis COMPARISON: None TECHNIQUE: Erect and supine views of the abdomen are submitted. FINDINGS: Bones: There are no acute bony findings. There is a scoliotic deformity. Soft tissues: The soft tissues appear normal. The psoas margins are sharp. Bowel gas pattern: Air within both large and small bowel without distention. Scattered air-fluid levels. Early small bowel obstruction is not excluded. Calcifications: There are no abnormal calcifications. Other: None IMPRESSION: SCATTERED AIR-FLUID LEVELS. EARLY OR PARTIAL SMALL BOWEL OBSTRUCTION NOT EXCLUDED. SUGGEST FOLLOW-UP INDICATED.
--- NOTE | 2017-08-12 21:06 | RAD ---
INDICATION: Increasing shortness of breath COMPARISON: February 04, 2017 TECHNIQUE: PA and lateral dual-energy views were obtained. FINDINGS: Bones/Soft Tissues: There are no acute bony findings. Cardiomediastinal: The cardiomediastinal silhouette is normal. Lungs: There are no infiltrates. Pleura: There are no pleural effusions. Other: None IMPRESSION: NO ACTIVE DISEASE.
[2017-08-12 21:29] LABS: Urine Appearance Clear; Urine Blood Negative (Negative); Urine Color Yellow; Urine Ketones Negative (Negative); Urine Protein Negative (Negative); Urine Specific Gravity 1.002 (1.010-1.030); Urine Urobilinogen Negative (Negative)
[2017-08-12 21:54] LABS: ABS Basophils 0 10^3/ul (0-0.2); ABS Eosinophils 0.1 10^3/ul (0-0.6); ABS Lymphocytes 1.3 10^3/ul (1.0-4.8); ABS Monocytes 0.4 10^3/ul (0-0.8); ABS Neutrophils 4.4 10^3/ul (1.5-7.7); ABS Nucleated RBC 0 10^3/ul; Eosinophil % 1.5 % (0-6); Hematocrit 37 % (35-47); Hemoglobin 12.8 g/dl (12.0-16.0); Lymphocyte % 21.1 % (25-47); Mean Corpuscular HGB Conc 34 g/dl (31-36); Mean Corpuscular Hemoglobin 31 pg (27-31); Mean Corpuscular Volume 91 fL (80-97); Mean Platelet Volume 8 um3 (7.4-10.4); Nucleated Red Blood Cells % 0; Platelet Count 209 10^3/ul (150-450); Red Blood Count 4.09 10^6/ul (4.0-5.4); Red Cell Distribution Width 13 % (10.5-15); White Blood Count 6.3 10^3/ul (3.5-10.8)
[2017-08-12 22:06] LABS: EGFR Non-African American 71.2 (>60)
[2017-08-13 03:10] VITALS: BP 118/62
--- NOTE | 2017-08-13 03:41 | ED ---
Baldo Hamilton Jason, scribed for Orville Jean Baptiste on 08/13/17 at 0216 . Progress - Progress Note Progress Note: This patient was signed out from Dr. Paiz, pending disposition, awaiting Troponin and CT abdomen and Pelvis without contrast. Troponin is normal and CT Abdomen and Pelvis without contrast reveals Punctate stones bilateral kidneys, new on left compared to 06/05/15. No ureterolithiasis or obstructive uropathy. No blader calculi. Unremarkable pancreas. Cholelithiasis. No bowel obstruction, colitis, free fluid or free air. Normal appendix. Diverticulosis colon without acute diverticulitis. The patients condition is stable and will be discharged to home with Dx of non specific abdominal pain and gallstones. The patient is agreeable with this plan. - Results/Orders Results/Orders: CT Abdomen and Pelvis without contrast reveals Punctate stones bilateral kidneys , new on left compared to 06/05/15. No ureterolithiasis or obstructive uropathy. No blader calculi. Unremarkable pancreas. Cholelithiasis. No bowel obstruction, colitis, free fluid or free air. Normal appendix. Diverticulosis colon without acute diverticulitis. ED physician has reviewed this radiology report. - EKG/XRAY/CT CT: Abdomen and Pelvis Course/Dx - Diagnoses Provider Diagnoses: Abdominal pain, Cholelithiasis The documentation as recorded by the Baldo villar Jason accurately reflects the service I personally performed and the decisions made by Ita talavera Emmanuel.
--- NOTE | 2017-08-13 08:03 | RAD ---
CLINICAL HISTORY: Abnormal plain film, abdominal pain COMPARISON: CT dated November 27, 2013, abdominal series dated August 12, 2017 TECHNIQUE: Multiple contiguous axial CT scans were obtained of the abdomen and pelvis, without intravenous contrast enhancement. Coronal and sagittal multiplanar reformations are submitted for review. Oral contrast was administered. FINDINGS: The study is limited by the lack of intravenous contrast. This limits evaluation of the solid organs and vasculature. LUNG BASES: There is minimal linear atelectasis of the right lung base. There is a small pericardial effusion. LIVER: The liver is normal in shape, size, contour, and attenuation. BILE DUCTS: There is no intrahepatic or extrahepatic biliary dilatation. GALLBLADDER: A gallstone is noted. There is no pericholecystic inflammatory change. PANCREAS: The pancreas is normal, without mass or ductal dilatation. SPLEEN: Normal in size and appearance. UPPER GI TRACT: Evaluation of the gastrointestinal tract is limited by incomplete gastric distention. The upper GI tract is unremarkable. SMALL BOWEL AND MESENTERY: The small bowel is normal in contour, course, and caliber. There is no obstruction or dilatation. COLON: There are multiple diverticula of the sigmoid colon. There is no pericolonic inflammatory change. There is a tubular, vermiform, hollow viscus that is blind ending, and originates from the cecum, consistent with a normal appendix. There is no periappendiceal inflammatory change. This is best seen on axial image 52 through 56. ADRENALS: Normal bilaterally. KIDNEYS: There are punctate bilateral renal calyceal stones measuring up to 0.2 cm. There is no hydronephrosis. BLADDER: The bladder is smooth in contour. PELVIC ORGANS: The pelvic organs are not visualized. AORTA: There is calcific atherosclerotic disease of the abdominal aorta and its branches, without aneurysmal dilatation IVC: Unremarkable LYMPH NODES: There is no lymphadenopathy by size criteria. ABDOMINAL WALL: There are fat-containing ventral and umbilical hernias. BONES AND SOFT TISSUES: There is a scoliotic curvature of the spine. Degenerative changes are noted. OTHER: None IMPRESSION: 1. CHOLELITHIASIS. 2. DIVERTICULOSIS. 3. FAT-CONTAINING VENTRAL AND UMBILICAL HERNIAS. 4. BILATERAL NEPHROLITHIASIS WITHOUT HYDRONEPHROSIS.
--- NOTE | 2017-08-31 18:24 | ED ---
Janae Hamilton Gabriel, scribed for Jonathan Paiz MD on 08/12/17 at 2035 . Respiratory - HPI Summary HPI Summary: This patient is a 66 year old F [facility] to [facility] with a chief complaint of chest congestion pain since 5 days ago. The patient rates the pain 5/10 in severity. Patient reports cough, SOB, ABD pain, and constipation. Patient denies fever, CP, and chills. Pt saw her PCP and was put on Augmentin recently. She is also using a Neb 3 times a day. She has a history of diverticulitis and 4 years ago had surgery for it. - History of Current Complaint Chief Complaint: EDAbdPain Stated Complaint: ABD PAIN Time Seen by Provider: 08/12/17 19:58 Hx Obtained From: Patient Onset/Duration: Lasting Days - 5, Still Present Pain Intensity: 5 Character: Cough (Nonproductive) Sputum Amount: None Associated Signs and Symptoms: SOB, Chest Pain, Wheezing - Allergy/Home Medications Allergies/Adverse Reactions: Allergies Allergy/AdvReac Type Severity Reaction Status Date / Time Iodine Allergy Mild Hives Verified 08/07/17 15:20 Iodixanol Allergy Mild Hives Verified 08/07/17 15:20 Adhesive Tape AdvReac Mild See Comment Verified 08/07/17 15:20 PMH/Surg Hx/FS Hx/Imm Hx Previously Healthy: No Endocrine/Hematology History: Denies: Hx Anticoagulant Therapy, Hx Diabetes, Hx Thyroid Disease Cardiovascular History: Reports: Other Cardiovascular Problems/Disorders - on xarelto for PE Denies: Hx Congestive Heart Failure, Hx Coronary Artery Disease, Hx Hypertension, Hx Pacemaker/ICD Respiratory History: Reports: Hx Asthma, Hx Chronic Obstructive Pulmonary Disease (COPD), Hx Pulmonary Embolism, Other Respiratory Problems/Disorders - lung nodules Denies: Hx Chronic Bronchitis, Hx Cystic Fibrosis, Hx Lung Cancer, Hx Pleural Effusion, Hx Pneumonia, Hx Pulmonary Edema, Hx Seasonal Allergies, Hx Sleep Apnea GI History: Reports: Hx Diverticulosis, Hx Gastroesophageal Reflux Disease, Other GI Disorders - DIVERTICULITIS/COLOSTOMY/REVERSAL Denies: Hx Cirrhosis, Hx Crohn's Disease, Hx Gall Bladder Disease, Hx Gastrointestinal Bleed, Hx Hiatal Hernia, Hx Irritable Bowel, Hx Jaundice, Hx Obstructive Bowel, Hx Ileostomy, Hx Pyloric Stenosis, Hx Ulcer History: Denies: Hx Dialysis, Hx Renal Disease Musculoskeletal History: Reports: Hx Back Problems - cervical degenerative disk disease, Hx Osteoporosis Denies: Hx Arthritis, Hx Rheumatoid Arthritis, Hx Bursitis, Hx Congenital Bone Abnormalities, Hx Fibromyalgia, Hx Gout, Hx Orthopedic Injury, Hx Scoliosis , Hx Tendonitis, Other Musculoskeletal History Sensory History: Reports: Hx Contacts or Glasses - GLASSES Denies: Hx Hearing Aid Opthamlomology History: Reports: Hx Contacts or Glasses - GLASSES Neurological History: Reports: Hx Spinal Cord Injury - per pt Denies: Hx Dementia, Hx Developmental Delay, Hx Headaches, Hx Migraine, Hx Seizures, Hx Transient Ischemic Attacks (TIA), Other Neuro Impairments/Disorders Psychiatric History: Reports: Hx Anxiety, Hx Depression, Hx Bipolar Disorder, Hx Substance Abuse Denies: Hx Eating Disorder, Hx Panic Disorder, Hx of Violent Episodes Against Others - Cancer History Cancer Type, Location and Year: breast cancer; uterine cancer Hx Chemotherapy: No Hx Radiation Therapy: Yes - Surgical History Surgery Procedure, Year, and Place: breast ca- left lumpectomy 2008, hysterectomy 2009, 4 neck surgeries 2010, COLON SURGERY Hx Anesthesia Reactions: No Infectious Disease History: No Infectious Disease History: Denies: Hx Clostridium Difficile, Hx Hepatitis, Hx Human Immunodeficiency Virus (HIV), Hx Shingles, Hx Tuberculosis, Traveled Outside the [place] in Last 30 Days - Family History Known Family History: Positive: Cardiac Disease - Social History Alcohol Use: None Substance Use Type: Reports: None Substance Use Comment - Amount & Last Used: methadone 15mg tid and 10mg qhs. Hx Tobacco Use: Yes Smoking Status (MU): Current Every Day Smoker Type: eCigarettes Amount Used/How Often: Less then 10 cigarettes daily Have You Smoked in the Last Year: Yes Review of Systems Negative: Fever, Chills Negative: Chest Pain Positive: Shortness Of Breath, Cough, Other - chest congestion Positive: Abdominal Pain, Other - constipated All Other Systems Reviewed And Are Negative: Yes Physical Exam - Summary Physical Exam Summary: Appearance: Well-appearing, Well-nourished Skin: Warm, Dry, No rash Eyes: Normal, PERRL, EOMI, sclera anicteric ENT: Normal Neck: Supple, nontender Respiratory: Clear to auscultation . Expiratory wheezing Cardiovascular: S1, S2, no murmur, no rub, no gallop Abdomen: Soft, nontender, no organomegaly Bowel sounds: Present Musculoskeletal: Normal, Strength/ROM Intact, no edema, pulses symmetrical Neurological: Normal, A&Ox3, cranial nerves II-XII WNL, follows commands, gait not tested, sensation intact to pin and light touch Psychiatric: affect normal, behavior appropriate, dressed appropriately, judgment intact Triage Information Reviewed: Yes Vital Signs On Initial Exam: Initial Vitals Temp Pulse Resp BP Pulse Ox 98.5 F 95 16 111/71 92 08/12/17 19:56 08/12/17 19:56 08/12/17 19:56 08/12/17 19:56 08/12/17 19:56 Vital Signs Reviewed: Yes - [place] Coma Scale Coma Scale Total: 15 Diagnostics - Vital Signs Vital Signs Temp Pulse Resp BP Pulse Ox 08/12/17 20:08 96 132/106 93 08/12/17 19:56 98.5 F 95 16 111/71 92 - Laboratory Lab Results: Lab Results 08/12/17 08/12/17 08/12/17 Range/Units 21:14 21:14 21:14 WBC 6.3 (3.5-10.8) 10^3/ul RBC 4.09 (4.0-5.4) 10^6/ul Hgb 12.8 (12.0-16.0) g/dl Hct 37 (35-47) % MCV 91 (80-97) fL MCH 31 (27-31) pg MCHC 34 (31-36) g/dl RDW 13 (10.5-15) % Plt Count 209 (150-450) 10^3/ul MPV 8 (7.4-10.4) um3 Neut % (Auto) 69.9 (38-83) % Lymph % (Auto) 21.1 L (25-47) % [place] % (Auto) 6.8 (1-9) % Eos % (Auto) 1.5 (0-6) % Baso % (Auto) 0.7 (0-2) % Absolute Neuts (auto) 4.4 (1.5-7.7) 10^3/ul Absolute Lymphs (auto) 1.3 (1.0-4.8) 10^3/ul Absolute Monos (auto) 0.4 (0-0.8) 10^3/ul Absolute Eos (auto) 0.1 (0-0.6) 10^3/ul Absolute Basos (auto) 0 (0-0.2) 10^3/ul Absolute Nucleated RBC 0 10^3/ul Nucleated RBC % 0 Sodium 134 (133-145) mmol/L Potassium 3.8 (3.5-5.0) mmol/L Chloride 104 (101-111) mmol/L Carbon Dioxide 23 (22-32) mmol/L Anion Gap 7 (2-11) mmol/L BUN 7 (6-24) mg/dL Creatinine 0.81 (0.51-0.95) mg/dL Est GFR ( Amer) 91.6 (>60) Est GFR (Non-Af Amer) 71.2 (>60) BUN/Creatinine Ratio 8.6 (8-20) Glucose 96 (70-100) mg/dL Calcium 9.2 (8.6-10.3) mg/dL Total Bilirubin 0.40 (0.2-1.0) mg/dL AST 13 (13-39) U/L ALT 14 (7-52) U/L Alkaline Phosphatase 63 (34-104) U/L Troponin I 0.00 (<0.04) ng/mL Total Protein 6.8 (6.4-8.9) g/dL Albumin 3.6 (3.2-5.2) g/dL Globulin 3.2 (2-4) g/dL Albumin/Globulin Ratio 1.1 (1-3) Lipase < 10 L (11.0-82.0) U/L Urine Color Yellow Urine Appearance Clear Urine pH 6.0 (5-9) Ur Specific [place] 1.002 L (1.010-1.030) Urine Protein Negative (Negative) Urine Ketones Negative (Negative) Urine Blood Negative (Negative) Urine Nitrate Negative (Negative) Urine Bilirubin Negative (Negative) Urine Urobilinogen Negative (Negative) Ur Leukocyte Esterase Negative (Negative) Urine Glucose Negative (Negative) Urine Ascorbic Acid * H (Negative) Result Diagrams: 08/12/17 21:14 08/12/17 21:14 Lab Statement: Any lab studies that have been ordered have been reviewed, and results considered in the medical decision making process. - Radiology ABD Xray Radiology Interpretation Completed By: Radiologist - SCATTERED AIR-FLUID LEVELS. EARLY OR PARTIAL SMALL BOWEL OBSTRUCTION NOT EXCLUDED. SUGGEST FOLLOW- UP INDICATED. ED physician has reviewed this radiology report. CXR Radiology Interpretation Completed By: Radiologist - NO ACTIVE DISEASE. ED physician has reviewed this radiology report. - EKG 2038 Cardiac Rate: NL EKG Rhythm: Sinus Rhythm - at 84 BPM EKG Interpretation: abnormal R wave progression in the anterior lead Disposition - Diagnoses Provider Diagnoses: Abdominal pain, Cholelithiasis Discharge - Discharge Plan Condition: Stable Disposition: HOME Discharge Disposition Comment: Patient is signed out to Dr. Jean Baptiste, pending disposition, awaiting CT. Prescriptions: Pantoprazole TAB (NF) [Protonix TAB (NF)] 40 mg PO DAILY #30 tab Patient Education Materials: Gallstones (ED), Abdominal Pain (ED) Referrals: Barron Gilmore MD [Primary Care Provider] - 3 Days Additional Instructions: Follow up with PCP in 3 days. RETURN TO THE EMERGENCY DEPARTMENT FOR CHANGING OR WORSENING SYMPTOMS. The documentation as recorded by the Janae villar Gabriel accurately reflects the service I personally performed and the decisions made by me, Jonathan Paiz MD.
== END 2017-08-13 03:09 ==
LOC: ED 19:42
DX: K80.20 Calculus of gallbladder without cholecystitis without obstruction (principal); K57.30 Diverticulosis of large intestine without perforation or abscess without bleeding; K43.9 Ventral hernia without obstruction or gangrene; K42.9 Umbilical hernia without obstruction or gangrene; N20.0 Calculus of kidney; F17.210 Nicotine dependence, cigarettes, uncomplicated; Z88.8 Allergy status to other drugs, medicaments and biological substances
CPT/HCPCS: 36415; 71020; 74020; 74176; 80053; 81003; 83690; 84484; 85025; 93005; 99284

== ENCOUNTER 2018-10-14 07:16 | Inpatient (IN) | payer MEDICARE, MEDICAID ==
[2018-10-14 07:47] LABS: ABS Basophils 0 10^3/ul (0-0.2); ABS Eosinophils 0.1 10^3/ul (0-0.6); ABS Lymphocytes 0.8 10^3/ul (1.0-4.8); ABS Monocytes 0.3 10^3/ul (0-0.8); ABS Neutrophils 2.9 10^3/ul (1.5-7.7); ABS Nucleated RBC 0 10^3/ul; Eosinophil % 1.4 %; Hematocrit 35 % (35-47); Hemoglobin 12.3 g/dl (12.0-16.0); Lymphocyte % 20.8 %; Mean Corpuscular HGB Conc 35 g/dl (31-36); Mean Corpuscular Hemoglobin 32 pg (27-31); Mean Corpuscular Volume 92 fL (80-97); Mean Platelet Volume 8.9 fL (7.4-10.4); Nucleated Red Blood Cells % 0.2; Platelet Count 169 10^3/ul (150-450); Red Blood Count 3.86 10^6/ul (4.00-5.40); Red Cell Distribution Width 14 % (10.5-15)
[2018-10-14 07:57] LABS: Activated Partial Thrombo Time 26.7 seconds (26.0-36.3); INR 0.93 (0.77-1.02)
[2018-10-14 08:03] LABS: Influenza A Molecular NEGATIVE (Negative); Influenza B Molecular NEGATIVE (Negative)
--- OUTSIDE RECORDS SUMMARY | 2018-10-14 08:07 | XMS REPORT | Continuity of Care Document ---
:1950 External Reference #:[id number] Author Name Arlette Carlos Care Team Providers Name Role Phone Barron Gilmore MD Primary Care Physician Unavailable Payers Date Identification Numbers Payment Provider Subscriber Effective: 2000 Policy Number: [id number] Medicare Herson Lomeli PayID: [id number] [address] [place] [address] Policy Number: [id number] Medicaid Herson Lomeli PayID: [id number] [address] [place] [address] Advance Directives Description No Information Available Problems Date Description Provider Status Onset: 08/06/2013 Spinal stenosis in cervical region Ayo Chase M.D. Active Onset: 08/06/2013 Postsurgical Status Other Ayo Chase M.D. Active Onset: 08/06/2013 Cervical spondylosis with myelopathy Ayo Chase M.D. Active Onset: 08/19/2015 Arthrodesis status Ayo Chase M.D. Active Onset: 09/23/2015 Dyspnea Ashly Pryor MD Active Onset: 09/23/2015 Obstructive sleep apnea syndrome Ashly Pryor MD Active Onset: 09/23/2015 Disorder of lung Ashly Pryor MD Active Onset: 09/23/2015 Tobacco user Ashly Pryor MD Active Onset: 11/30/2015 Obesity Ashly Pryor MD Active Onset: 06/20/2016 Emphysema, unspecified Ashly Pryor MD Active Onset: 06/25/2018 Localized, primary osteoarthritis Michelle Petersen M.D. Active Onset: 06/25/2018 Acquired genu cornelius Michelle Petersen M.D. Active Family History Date Family Member(s) Observation Comments General Cancer Father at age 35 peritonitis Mother Breast cancer at age 56 Siblings 3 Siblings All healthy Social History Type Date Description Comments Sex Unknown Marital Status Single Lives With Alone Occupation Not working Tobacco Use Start: Unknown Light tobacco smoker (10 or fewer cigarettes/day) Smoking Status Reviewed: 10/05/18 Light tobacco smoker (10 or fewer cigarettes/day) ETOH Use Denies alcohol use Tobacco Use Start: Unknown Light tobacco smoker (10 or fewer cigarettes/day) Recreational Drug Use Denies Drug Use Exercise Type/Frequency Exercises sporadically Allergies, Adverse Reactions, Alerts Date Description Reaction Status Severity Comments 03/23/2012 Tizanidine drowsiness Active Mild 08/06/2013 Contrast Dye Active 09/16/2016 Latex Active 09/16/2016 Adhesive Tape Active Medications Medication Date Status Form Strength Qnty SIG Indications Ordering Provider Metolazone 08/28/ Active Tablets 2.5mg 1 every Jitendra S. 2019 other day DO KATHE Rehman Ibuprofen 06/27/ Active Tablets 800mg 60tab take 1 by Michelle 2018 s mouth three Nicola, times a day M.D. as needed for pain. take with food Trelegy Ellipta 05/17/ Active Aerosol 100-62.5- 60uni 1 puff Ashly 2018 25mcg/Inh ts daily MD Roya Ipratropium 09/01/ Active Solution 0.02% 187.5 1 vial in J43.9 Ashly [place] 2018 ml nebulizer 2 Roya, times a day Vitamin D3 11/26/ Active Capsules 1000Unit 30cap po qd Unknown 2015 s Robaxin 11/26/ Active Tablets 500mg 1 four Unknown 2016 times a day as needed Mucinex 11/26/ Active Tablets ER 600mg 1 tab twice Unknown 2015 12HR a day by mouth as needed Zofran Odt 11/26/ Active Tablets 4mg 1 tab by Unknown 2016 Dispers mouth every 6 hours as needed nausea Miralax 11/26/ Active Powder 3350NF 17 gm every Unknown 2016 day mixed w/ 8 oz water/juice Clobetasol 11/26/ Active topical Unknown Propionate 2015 every day as needed Cinnamon 09/22/ Active Tablets 500mg by mouth Unknown 2016 once a day Gabapentin / Active Tablets 600mg 90tab 1 po tid Unknown 0000 s (take with 300 for total of 900 tid) Gabapentin / Active Capsules 300mg 90cap 1 po tid Unknown 0000 s with the 600 mg dose for a total of 900 mg tid Methadone HCL / Active Tablets 5mg 90tab 2 tablets Unknown 0000 s Am and PM, 1 tablets 2pm Aspirin / Active Tablets 81mg 100ta 1 po qd Unknown 0000 bs Docqlace / Active Capsules 100mg 90cap 1 po tid Unknown 0000 s Singulair / Active Tablets 10mg 90tab 1 po qd Unknown 0000 s Nexium / Active Capsules DR 40mg 30cap 1 po qd Unknown 0000 s Alendronate / Active Tablets 70mg 12tab 1 po weekly Unknown Sodium 0000 s Ambien / Active Tablets 10mg 30tab 1 po qhs Unknown 0000 s prn sleep insomnia Ativan / Active Tablets 1mg 3tabs 1 tab by Unknown 0000 mouth during the day and 1-2 at bedtime. Ferrous / Active Tablets 324(38Fe) 60tab po daily Unknown Gluconate 0000 mg s Vitamin C / Active Tablets 2000mg 1 po qd Unknown 0000 Cod Liver Oil / Active Tablet 1 tab daily Unknown 0000 Pristiq / Active Tablets ER 100mg 1 by mouth Unknown 0000 24HR every day Furosemide / Active Tablets 40mg 1 by mouth Unknown 0000 every day Calcium 600+D / Active Tablets 600-400mg 1 by mouth Unknown High Potency 0000 -Unit daily Bactrim DS 09/05/ Hx Tablets 800-160mg 6tabs take 1 by Michelle 2019 - mouth twice Nicola, 10/04/ a day for 3 M.D. 2019 days [place] 06/21/ Hx Capsules 150mg take 1 Unknown Carbonate 2016 - capsule by 05/13/ mouth 2018 daily Duloxetine HCL 11/26/ Hx Caps DR 60mg 1 by mouth Unknown 2015 - Part every day 2015 Zyrtec Allergy 11/26/ Hx Tablets 10mg 1 by mouth Unknown 2016 - every day 2017 Acyclovir 11/26/ Hx Ointment 5% apply as Unknown 2015 - directed/as 08/29/ needed 2019 Lamotrigine 11/26/ Hx Tablets 150mg 1 by mouth Unknown 2015 - once a day 2017 Omnaris 11/26/ Hx Suspension 50mcg/Act 1 sprays Unknown 2015 - each eltitia 05/13/ daily 2018 Xopenex 11/26/ Hx Nebulizer 0.63mg/3M 144ml instill to [facility] 2016 - L nebulizer Roya, 05/13/ three times MD 2018 per day and as needed for shortness of breath. Symbicort 09/22/ Hx Aerosol 160-4.5mc 2 puff Unknown 2015 - g/Act inhaled 05/17/ twice a day 2018 Tizanidine HCL 12/10/ Hx Capsules 4mg 60cap Take 2 Ayo Gr 2012 - s capsules by Salvatore, 08/06/ mouth every M.D. 2013 6 hours prn for muscle spasm up toTID. Start at 1 tab tid and increase as needed. Baclofen 03/23/ Hx Tablets 10mg 90tab 1/2 to 1 Ayo Gr 2011 - s tablet po Salvatore, 12/10/ tid prn. M.D. 2012 start with 1/2 tablet at bedtime x 3 days then increase as tolerated. Tizanidine HCL 10/25/ Hx Tablets 4mg 60tab take 1 Ayo Gr 2011 - s tablet po Salvatore, 03/23/ tid for M.D. 2012 spasm. may add one additional pill every two days up to 8 mg tid Methocarbamol 09/26/ Hx Tablets 750mg 60tab one to two Ayo Gr 2011 - s qid prn Salvatore, 08/06/ spasm M.D. 2013 Oxycodone HCL 05/09/ Hx Tablets 5mg 240ta 1-2 po qid Ayo Gr 2010 - bs prn Salvatore, 08/06/ M.D. 2013 [place] 03/31/ Hx Tablets 5-325mg 40tab 1-2 po q4h Ayo Gr 2010 - s prn Salvatore, 08/06/ M.D. 2013 Methocarbamol 03/10/ Hx Tablets 500mg 90tab one to two Ayo Gr 2010 - s up to qid Salvatore, 09/26/ prn for M.D. 2011 spasm Oxycodone HCL / Hx Tablets 10mg 1 tablet po Unknown 0000 - q6hrs prn 2014 Cymbalta 00/00/ Hx Caps DR 60mg 90cap 1 po qd Unknown 0000 - Part s 2017 Lamictal 00/ Hx Tablets 150mg 30tab 1/2 po qd Unknown 0000 - s 2017 Trazodone HCL /00/ Hx Tablets 400mg 1 po daily Unknown 0000 - 2017 Bevespi 00/00/ Hx Aerosol 9-4.8mcg/ 2 puffs Unknown Aerosphere 0000 - Act twice daily 2018 Xopenex HFA /00/ Hx Aerosol 45mcg/Act 2 puffs Unknown 0000 - inhaled 08/29/ every 4-6h 2018 as needed for shortness of breath. Trazodone HCL 00/ Hx Tablets 100mg take 4 Unknown 0000 - tablet by 08/29/ mouth every 2018 night bedtime for insomnia Immunizations CPT Code Status Date Vaccine Lot # [id number] Given 05/11/2016 Influenza Virus Vaccine, Quadrivalent, Split, Preservative Free [id number] Given 09/23/2015 Fluvirin Im 3Yrs And Older [id number] Given 09/23/2015 Pneumonia Vaccine Vital Signs Date Vital Result Comment 10/05/2018 1:21pm Height 67 inches 5'7" Weight 215.00 lb BP Systolic 117 mmHg BP Diastolic 79 mmHg Respiratory Rate 16 /min Pain Level 4 BMI (Body Mass Index) 33.7 kg/m2 09/03/2018 1:12pm Height 67 inches 5'7" Weight 220.00 lb BP Systolic 126 mmHg BP Diastolic 83 mmHg Respiratory Rate 16 /min Pain Level 8 BMI (Body Mass Index) 34.5 kg/m2 08/30/2018 2:51pm Height 67 inches 5'7" Weight 217.00 lb Heart Rate 76 /min BP Systolic Sitting 100 mmHg Lue lg cuff BP Diastolic Sitting 70 mmHg Lue lg cuff BP Systolic Standing 98 mmHg Lue lg cuff BP Diastolic Standing 62 mmHg Lue lg cuff BMI (Body Mass Index) 34.0 kg/m2 Ejection Fraction 55-60% Echo 08/06/18 06/25/2018 1:13pm Height 67 inches 5'7" Weight 225.00 lb Heart Rate 82 /min BP Systolic 130 mmHg BP Diastolic 64 mmHg Body Temperature 98.1 F Pain Level 8 BMI (Body Mass Index) 35.2 kg/m2 05/14/2018 2:10pm Height 67 inches 5'7" Weight 233.00 lb Heart Rate 76 /min BP Systolic Sitting 126 mmHg BP Diastolic Sitting 80 mmHg Respiratory Rate 14 /min O2 % BldC Oximetry 97 % BMI (Body Mass Index) 36.5 kg/m2 04/11/2017 3:10pm Height 67 inches 5'7" Weight 212.00 lb Heart Rate 84 /min BP Systolic Sitting 108 mmHg BP Diastolic Sitting 70 mmHg Respiratory Rate 14 /min O2 % BldC Oximetry 96 % BMI (Body Mass Index) 33.2 kg/m2 10/14/2016 3:21pm Height 67 inches 5'7" Weight 220.00 lb Heart Rate 81 /min BP Systolic Sitting 127 mmHg BP Diastolic Sitting 80 mmHg Respiratory Rate 16 /min Body Temperature 99.3 F Pain Level 0 BMI (Body Mass Index) 34.5 kg/m2 09/16/2016 2:20pm Height 67 inches 5'7" Weight 220.00 lb Heart Rate 80 /min BP Systolic 119 mmHg BP Diastolic 89 mmHg Pain Level 1 BMI (Body Mass Index) 34.5 kg/m2 06/20/2016 1:52pm Height 67 inches 5'7" Weight 218.00 lb Heart Rate 94 /min BP Systolic 130 mmHg BP Diastolic 84 mmHg Respiratory Rate 14 /min O2 % BldC Oximetry 98 % BMI (Body Mass Index) 34.1 kg/m2 02/22/2016 2:59pm Weight 217.00 lb Heart Rate 90 /min BP Systolic Sitting 132 mmHg BP Diastolic Sitting 80 mmHg Respiratory Rate 15 /min Pain Level 3 O2 % BldC Oximetry 97 % 11/30/2015 1:20pm Height 67 inches 5'7" Weight 220.00 lb Heart Rate 96 /min BP Systolic Sitting 134 mmHg BP Diastolic Sitting 80 mmHg Respiratory Rate 20 /min O2 % BldC Oximetry 98 % BMI (Body Mass Index) 34.5 kg/m2 09/23/2015 2:33pm Height 67 inches 5'7" Weight 220.00 lb Heart Rate 69 /min BP Systolic Sitting 136 mmHg BP Diastolic Sitting 84 mmHg Respiratory Rate 18 /min O2 % BldC Oximetry 96 % BMI (Body Mass Index) 34.5 kg/m2 08/19/2015 3:28pm Height 67 inches 5'7" Weight 215.00 lb Heart Rate 82 /min BP Systolic Sitting 130 mmHg BP Diastolic Sitting 86 mmHg BMI (Body Mass Index) 33.7 kg/m2 12/16/2014 3:18pm Height 67 inches 5'7" Weight 217.00 lb Heart Rate 68 /min BP Systolic Sitting 118 mmHg BP Diastolic Sitting 72 mmHg Respiratory Rate 16 /min BMI (Body Mass Index) 34.0 kg/m2 09/01/2014 3:31pm Height 67 inches 5'7" Weight 214.00 lb Heart Rate 76 /min BP Systolic Sitting 130 mmHg BP Diastolic Sitting 88 mmHg Pain Level 3 neck BMI (Body Mass Index) 33.5 kg/m2 08/06/2013 1:56pm Height 67 inches 5'7" Weight 207.00 lb BP Systolic 110 mmHg BP Diastolic 70 mmHg Pain Level 3 arms and legs BMI (Body Mass Index) 32.4 kg/m2 Results Test Date Facility Test Result H/L Range Note CBC Auto Diff 09/03/2018 [facility] White Blood 6.5 10^3/uL N 3.5-10.[address] [place] [address] [phone] Red Blood Count 4.51 10^6/uL N 4.00-5.40 Hemoglobin 14.8 g/dL N 12.0-16.0 Hematocrit 41 % N 35-47 Mean Corpuscular Volume 91 fL N 80-97 Mean Corpuscular Hemoglobin 33 pg High 27-31 Mean Corpuscular HGB Conc 36 g/dL N 31-36 Red Cell Distribution Width 13 % N 10.5-15 Platelet Count 272 10^3/uL N 150-450 Mean Platelet Volume 9.2 fL N 7.4-10.4 Abs Neutrophils 3.7 10^3/uL N 1.5-7.7 Abs Lymphocytes 1.9 10^3/uL N 1.0-4.8 Abs Monocytes 0.5 10^3/uL N 0-0.8 Abs Eosinophils 0.3 10^3/uL N 0-0.6 Abs Basophils 0.1 10^3/uL N 0-0.2 Abs Nucleated RBC 0 10^3/uL Granulocyte % 57.1 % Lymphocyte % 29.8 % Monocyte % 7.6 % Eosinophil % 4.3 % Basophil % 1.2 % Nucleated Red Blood Cells % 0 Urinalysis Profile 09/03/2018 [facility] Urine Color Yellow [address] [place] [address] [phone] Urine Appearance Cloudy Urine Specific [place] 1.013 N 1.010-1.030 Urine pH 7.0 N 5-9 Urine Urobilinogen Negative Negative Urine Ketones Negative Negative Urine Protein Negative Negative Urine Leukocytes 1+ Abnormal Negative Urine Blood Negative Negative * * Abnormal Negative 1 Urine Nitrite Negative Negative Urine Bilirubin Negative Negative Urine Glucose Negative Negative Urine White Blood Cell Trace(0-5/hpf) Absent Urine Red Blood Cell Absent Absent Urine Bacteria Absent Absent Urine Squamous Epithelial Cell Present Abnormal Absent Urine Renal Epithelial Cells Present Abnormal Absent Urine Hyaline Casts Present Abnormal Absent Inr/Protime 09/03/2018 [facility] Inr 0.91 N 0.77-1.[address] [place] [address] [phone] Laboratory test 09/03/2018 [facility] Partial 28.6 seconds N 26.0-36.[address] [place] [address] PTT [phone] Type & Screen 09/03/2018 [facility] Patient A Positive DRIVE Blood Type [place], [place] [id number] [phone] Antibody Screen NEGATIVE Urine Culture And 09/03/2018 [facility] Urine Culture SEE RESULT [address] [place] [address] [phone] Comp Metabolic 09/03/2018 [facility] Sodium 138 mmol/L N 135- [address] [place] [address] [phone] Potassium 3.4 mmol/L Low 3.5-5.0 Chloride 97 mmol/L Low 101-111 Co2 Carbon Dioxide 31 mmol/L N 22-32 Anion Gap 10 mmol/L N 2-11 Glucose 91 mg/dL N 70-100 Blood Urea Nitrogen 15 mg/dL N 6-24 Creatinine 0.84 mg/dL N 0.51-0.95 BUN/Creatinine Ratio 17.9 N 8-20 Calcium 9.8 mg/dL N 8.6-10.3 Total Protein 6.7 g/dL N 6.4-8.9 Albumin 4.1 g/dL N 3.2-5.2 Globulin 2.6 g/dL N 2-4 Albumin/Globulin Ratio 1.6 N 1-3 Total Bilirubin 0.50 mg/dL N 0.2-1.0 Alkaline Phosphatase 91 U/L N 34-104 Alt 21 U/L N 7-52 Ast 19 U/L N 13-39 Egfr Non- 68.0 >60 Egfr 82.3 >60 3 Lipid Profile 09/03/2018 [facility] Triglycerides 225 mg/dL 4 (Trig/Chol/HDL) [address] [place] [address] [phone] Cholesterol 198 mg/dL 5 HDL Cholesterol 51.1 mg/dL 6 LDL Cholesterol 102 mg/dL 7 Laboratory test 09/03/2018 [facility] Magnesium 2.2 mg/dL N 1.9-2.[address] [place] [address] [phone] Iron (Fe) 75 g/dL N 50-212 TSH (Thyroid Stim Horm) 0.83 mcIU/mL N 0.34-5.60 Xray 08/03/[address] [facility] [address] Lung <pending> [address] Screening[place] [address] [phone] CBC Auto 04/01/2014 [facility] White Blood Count 6.0 10^3/uL N 4.8-[address] [place] [address] [phone] Red Blood Count 4.02 10^6/uL N 4.0-5.4 Hemoglobin 12.7 g/dL N 12.0-16.0 Hematocrit 36 % N 35-47 Mean Corpuscular Volume 90 fL N 80-97 Mean Corpuscular Hemoglobin 32 pg High 27-31 Mean Corpuscular HGB Conc 35 g/dL N 31-36 Red Cell Distribution Width 14 % N 10.5-15 Platelet Count 233 10^3/uL N 150-450 Mean Platelet Volume 8 um3 N 7.4-10.4 Abs Neutrophils 4.4 10^3/uL N 1.5-7.7 Abs Lymphocytes 1.1 10^3/uL N 1.0-4.8 Abs Monocytes 0.4 10^3/uL N 0-0.8 Abs Eosinophils 0.1 10^3/uL N 0-0.6 Abs Basophils 0.1 10^3/uL N 0-0.2 Abs Nucleated RBC 0 10^3/uL N Granulocyte % 72.3 % N 38-83 Lymphocyte % 17.7 % Low 25-47 Monocyte % 6.6 % N 1-9 Eosinophil % 2.3 % N 0-6 Basophil % 1.1 % N 0-2 Nucleated Red Blood Cells % 0 N Comp Metabolic Panel 04/01/2014 [facility] Sodium 136 mmol/L N 133-[address] [place] [address] [phone] Potassium 3.8 mmol/L N 3.7-5.6 Chloride 105 mmol/L N 101-111 Co2 Carbon Dioxide 25 mmol/L N 22-32 Anion Gap 6 mmol/L N 2-11 Glucose 104 mg/dL High 70-100 Blood Urea Nitrogen 7 mg/dL N 6-24 Creatinine 0.69 mg/dL N 0.51-0.95 BUN/Creatinine Ratio 10.1 N 8-20 Calcium 8.7 mg/dL N 8.6-10.3 Total Protein 6.7 g/dL N 6.4-8.9 Albumin 3.7 g/dL N 3.2-5.2 Globulin 3.0 g/dL N 2-4 Albumin/Globulin Ratio 1.2 N 1-3 Total Bilirubin 0.30 mg/dL N 0.2-1.0 Alkaline Phosphatase 65 U/L N 34-104 Alt 14 U/L N 7-52 Ast 13 U/L N 13-39 Egfr Non- 86.5 N >60 Egfr 111.2 N >60 8 Laboratory test 04/01/2014 [facility] B Type 57 pg/mL N [address] [place] [address] Peptide [phone] Surgical 06/30/2011 [facility] Surgical [address] Pathology ------ [place] [address] <SEE NOTE> [phone] CBC No Diff 06/23/2011 [facility] White Blood 3.7 CUMM Low 4.8 -[address] Count 0[address]8 [place] [address] [phone] Red Cell Count 4.23 CUMM 4.2-5.4 Hemoglobin 13.1 g/dL 12.0-16.0 Hematocrit 38 % 35-47 Mean Corpuscular Volume 89 um3 79-97 Mean Corpuscular Hemoglob 31 pg 27-31 Mean Corpuscular HGB Cone 35 g/dL 32-36 Redcell Distribution WDTH 14 % 10.5-15 Platelet Count 231 CUMM 150-450 Mean Platelet Volume 8.9 um3 7.4-10.4 Protime 06/23/2011 [facility] Inr 0.91 0.88-1.[address] [place] [address] [phone] Protime 10.7 SEC 10.3-13.5 13 Laboratory test 06/23/2011 [facility] PTT (Aptt) 27.2 25.15- 38.[address] [place] [address] [phone] Basic Metabolic 06/23/2011 [facility] Sodium 136 mmol/L 135- [address] [place] [address] [phone] Potassium 4.4 mmol/L 3.5-5.0 Chloride 104 mmol/L 101-111 Co2 (Carbon Dioxide) 24.0 mmol/L 22-32 Anion Gap 8.0 mmol/L 2-11 14 Glucose 90 mg/dL 70-100 BUN 13 mg/dL 6-24 Creatinine 0.8 mg/dL 0.50-1.40 One Over Creatinine 1.25 BUN/Creatinine Ratio 16.3 8-20 Calcium 9.3 mg/dL 8.1-9.9 eGFR Non- 73.7 > 60 eGFR 94.7 > 60 15 Type And Screen 06/23/2011 [facility] Patient Blood A POSITIVE (Pre-Adm) [address] [place] [address] [phone] Antibody Screen NEGATIVE Specimen Discard Date 07/07/11 16 Surgical 04/05/2011 [facility] Surgical [address] Pathology <SEE NOTE> [place] [address] [phone] Surgical 03/24/2011 [facility] Surgical [address] Pathology <SEE NOTE> [place] [address] [phone] Type And 03/17/2011 [facility] Patient Blood A POSITIVE 19 Screen Type (Pre-Adm) [place] [address] [phone] Antibody Screen NEGATIVE Specimen Discard Date 03/31/11 20 Basic Metabolic Panel 03/17/2011 [facility] Sodium 136 mmol/L 135-[address] [place] [address] [phone] Potassium 4.0 mmol/L 3.5-5.0 Chloride 104 mmol/L 101-111 Co2 (Carbon Dioxide) 23.0 mmol/L 22-32 Anion Gap 9.0 mmol/L 2-11 21 Glucose 166 mg/dL High 70-100 BUN 10 mg/dL 6-24 Creatinine 1.00 mg/dL 0.50-1.40 One Over Creatinine 1.00 BUN/Creatinine Ratio 10.0 8-20 Calcium 9.2 mg/dL 8.1-9.9 eGFR Non- 56.9 > 60 eGFR 73.2 > 60 22 Laboratory test 03/17/2011 [facility] PTT (Aptt) 27.8 25.15- 38.[address] [place] [address] [phone] Protime 03/17/2011 [facility] Inr 0.94 0.82-1.17 [address] [place] [address] [phone] Protime 11.0 SEC 10.2-14.8 24 CBC No Diff 03/17/2011 [facility] White Blood 4.3 CUMM Low 4.8 -10.8 [place] [address] [phone] Red Cell Count 4.05 CUMM Low 4.2-5.4 Hemoglobin 12.6 g/dL 12.0-16.0 Hematocrit 37 % 35-47 Mean Corpuscular Volume 92 um3 79-97 Mean Corpuscular Hemoglob 31 pg 27-31 Mean Corpuscular HGB Cone 34 g/dL 32-36 Redcell Distribution WDTH 13 % 10.5-15 Platelet Count 225 CUMM 150-450 Mean Platelet Volume 8.8 um3 7.4-10.4 1 *Ascorbic acid is present which may interfere with detection of blood. 2 SEE RESULT BELOW Name: HERSON LOMELI : [address]: Michelle Petersen MD Acct: [id number] Unit: [id number] AGE: 67 Location: [facility] Re09/03/18 SEX: F Status: REG REF SPEC: [id number] XENIA: 09/03/18-160 [facility] DR: Michelle Petersen MD REQ: [id number] RECD: 09/03/18 STATUS: DEEPAK PEPPER DR: Barron Gilmore MD _ SOURCE: URINE SPDESC: ORDERED: Urine Culture QUERIES: Urine Source: Clean Catch Procedure Result Reported Site Urine Culture Final 09/04/18- 1242 ML Organism 1 STREP GROUP B [place] Count 10-25,000 (Moderate) CFU/ML Susceptibility testing of penicillins and other B-lactams approved by FDA for treatment of Streptococcus pyogenes (Group A Strep) and Streptococcus agalactiae (Group B Strep) is not necessary for clinical purposes and need not be done routinely, since as with vancomycin, resistant strains have not been recognized. (CLSI P132-U83;p.66) Positive isolates will be saved for one week. Please call the Microbiology Laboratory if further susceptibility testing is needed. * ML - Main Lab . END OF REPORT DEPARTMENT OF PATHOLOGY, [address] [place] [address] Ion Trotter M.D. Director [facility] # [id number] 3 Because ethnic data is not always readily available, this report includes an eGFR for both -Americans and non- Americans. The National Kidney Disease Education Program (NKDEP) does not endorse the use of the MDRD equation for patients that are not between the ages of 18 and 70, are , have extremes of body size, muscle mass, or nutritional status, or are non- or non-. According to the National Kidney Foundation, irrespective of diagnosis, the stage of the disease is based on the level of kidney function: Stage Description GFR(mL/min/1.73 m(2)) 1 Kidney damage with normal or decreased GFR 90 2 Kidney damage with mild decrease in GFR 60-89 3 Moderate decrease in GFR 30-59 4 Severe decrease in GFR 15-29 5 Kidney failure <15 (or dialysis) 4 Desirable: <150 Borderline High: 150-199 High: 200-499 Very High: >500 5 Desirable: <200 Borderline High: 200-239 High: >239 6 Low: <40 Desirable: 40-60 High: >60 7 Desirable: <100 Near Optimal: 100-129 Borderline High: 130-159 High: 160-189 Very High: >189 8 Because ethnic data is not always readily available, this report includes an eGFR for both -Americans and non- Americans. The National Kidney Disease Education Program (NKDEP) does not endorse the use of the MDRD equation for patients that are not between the ages of 18 and 70, are , have extremes of body size, muscle mass, or nutritional status, or are non- or non-. According to the National Kidney Foundation, irrespective of diagnosis, the stage of the disease is based on the level of kidney function: Stage Description GFR(mL/min/1.73 m(2)) 1 Kidney damage with normal or decreased GFR 90 2 Kidney damage with mild decrease in GFR 60-89 3 Moderate decrease in GFR 30-59 4 Severe decrease in GFR 15-29 5 Kidney failure <15 (or dialysis) 9 >100 to <200 pg/mL: likely compensated congestive heart failure (CHF) 200 to 400 pg/mL: likely moderate CHF >400 pg/mL: likely moderate to severe CHF [facility] ---- RUN DATE: 07/12/11 [facility] NMI LIVE PAGE 1 RUN TIME: 1528 Specimen Inquiry RUN USER: INTERFACE -- [id number] Status: DIS IN Re06/30/11 Age/Sex: 60/F Unit#: [id number] Location: [facility]. : 54 -- Specimen: [id number] SOUT Spec Date: 06/30/[address]: Aoy ott MD Spec Type: SURGICAL P Received: 07/01/11 Copies to: SPECIMEN C3-C4 LAMINA HISTORY PRE-OP DIAGNOSIS: C3/4 cervical stenosis GROSS DESCRIPTION The specimen is received in formalin labelled Herson Lomeli, C3-C4 Lamina, and consists of several fragments of bone measuring in aggregate 3.5 x 2.5 x 2.0 cm. Wool Classer section, one cassette after decalcification. DIAGNOSIS Bone, C3-C4, laminectomy: A. Bone and ligament tissue with severe degenerative osteoarthritic changes. B. Reactive bony changes. C. Normocellular bone marrow elements with mixed trilineal hematopoiesis. Signed Electronically by: ION TROTTER MD 07/12/11 1522 -- -- DEPARTMENT OF PATHOLOGY, [address] [place] [address] [facility] Permit #[id number] Ion Trotter M.D. Director May Sanderson M.D. Package Wrapper Dir lynda -- 11 06/30 12 Recommended INR for Patients on Oral Anticoagulants Prophylaxis 2.0 - 3.0 Treatment of thrombosis 2.0 - 3.0 Prevention of embolism 2.0 - 3.0 Prevention of embolism from prosthetic heart valves 2.5 - 3.5 13 DIAGNOSIS,TREATMENT,AND THERAPY MUST BE BASED ON THE INR VALUE ALONE. 14 Anion gap measurement may be of limited value in the presence of any alkalosis, especially in a combined acid base disorder. . 15 Because ethnic data is not always readily available, this report includes an eGFR for both -Americans and non- Americans. The National Kidney Disease Education Program (NKDEP) does not endorse the use of the MDRD equation for patients that are not between the ages of 18 and 70, are , have extremes of body size, muscle mass, or nutritional status, or are non- or non-. According to the National Kidney Foundation, irrespective of diagnosis, the stage of the disease is based on the level of kidney function: Stage Description GFR(mL/min/1.73 m(2)) 1 Kidney damage with normal or decreased GFR 90 2 Kidney damage with mild decrease in GFR 60-89 3 Moderate decrease in GFR 30-59 4 Severe decrease in GFR 15-29 5 Kidney failure <15 (or dialysis) 16 PREADMISSION TESTING SAMPLES FOR BLOOD BANK WILL BE HELD FOR 14 DAYS FROM THE DATE OF COLLECTION *IF* THE FOLLOWING CRITERIA ARE MET: 1) THE PATIENT HAS *NOT* BEEN IN THE LAST 3 MONTHS. 2) THE PATIENT HAS *NOT* BEEN TRANSFUSED IN THE LAST 3 MONTHS. PREADMISSION TESTING SAMPLES WILL *NOT* BE HELD FOR 14 DAYS FROM PATIENTS WHO IN THE LAST 3 MONTHS: 1) HAVE BEEN 2) HAVE BEEN TRANSFUSED THESE PATIENTS *MUST* BE COLLECTED WITHIN 3 DAYS OF THE SURGERY DATE. 17 ---- RUN DATE: 04/08/11 [facility] NMI LIVE PAGE 1 RUN TIME: 1997 Specimen Inquiry RUN USER: INTERFACE -- Name: HERSON LOMELI Acc[place]#: [id number] Status: DIS IN Re04/03/11 Age/Sex: 60/F Unit#: [id number] Location: [facility] : 52 -- Specimen: [id number] SOUT Spec Date: 04/05/11 Woodrow Mclean: Stephon Ngo MD Spec Type: SURGICAL P Received: 04/06/11 Copies to: SPECIMEN C5-C6 LAMINA HISTORY PRE-OP DIAGNOSIS: Neck pain GROSS DESCRIPTION The specimen is received in formalin labelled Herson Villagran [place], C5-C6 Lamina, and consists of two bone and soft tissue fragments measuring 4.2 x 2.5 x 1.8 cm. Wool Classer section, one cassette after decal. DIAGNOSIS C5-6 vertebral lamina, laminectomy: A. Degenerative osteoarthritic changes. B. Bony remodeling. C. Normocellular bone marrow with mixed trilineal hematopoiesis. Signed Electronically by: ION TROTTER MD 04/08/11 1504 -- -- DEPARTMENT OF PATHOLOGY, [address] [place] [address] [facility] Permit #[id number] Ion Trotter M.D. Director May Sanderson M.D. Package Wrapper Dir howell -- 18 ---- RUN DATE: 03/25/11 [facility] NMI LIVE PAGE 1 RUN TIME: 1322 Specimen Inquiry RUN USER: INTERFACE -- Name: HERSON LOMELI Status: DIS IN Re03/24/11 Age/Sex: 60/F Unit#: [id number] Location: [facility]. : 52 -- Specimen: [id number] SOUT Spec Date: 03/24/[address]: Ayo ott MD Spec Type: SURGICAL P Received: 03/24/11-4806 Copies to: SPECIMEN C5-6 DISC HISTORY PRE-OP DIAGNOSIS: C5-6 cord compression. GROSS DESCRIPTION The specimen is received in formalin labelled Herson Lomeli, C5-C6 Disc, and consists of multiple fragments of firm pink tissue measuring in aggregate 2.0 x 2.0 x 0.8 cm. Wool Classer section, one cassette. DIAGNOSIS Disc, C5-C6, discectomy: Fibrohyaline cartilage with regenerative changes. Signed Electronically by: MAY SANDERSON 03/25/11 1322 -- -- DEPARTMENT OF PATHOLOGY, [address] [place] [address] [facility] Permit #[id number] Ion Trotter M.D. Director May Sanderson M.D. Package Wrapper Dir howell -- 01/22/11 20 PREADMISSION TESTING SAMPLES FOR BLOOD BANK WILL BE HELD FOR 14 DAYS FROM THE DATE OF COLLECTION *IF* THE FOLLOWING CRITERIA ARE MET: 1) THE PATIENT HAS *NOT* BEEN IN THE LAST 3 MONTHS. 2) THE PATIENT HAS *NOT* BEEN TRANSFUSED IN THE LAST 3 MONTHS. PREADMISSION TESTING SAMPLES WILL *NOT* BE HELD FOR 14 DAYS FROM PATIENTS WHO IN THE LAST 3 MONTHS: 1) HAVE BEEN 2) HAVE BEEN TRANSFUSED THESE PATIENTS *MUST* BE COLLECTED WITHIN 3 DAYS OF THE SURGERY DATE. 21 Anion gap measurement may be of limited value in the presence of any alkalosis, especially in a combined acid base disorder. . 22 Because ethnic data is not always readily available, this report includes an eGFR for both -Americans and non- Americans. The National Kidney Disease Education Program (NKDEP) does not endorse the use of the MDRD equation for patients that are not between the ages of 18 and 70, are , have extremes of body size, muscle mass, or nutritional status, or are non- or non-. According to the National Kidney Foundation, irrespective of diagnosis, the stage of the disease is based on the level of kidney function: Stage Description GFR(mL/min/1.73 m(2)) 1 Kidney damage with normal or decreased GFR 90 2 Kidney damage with mild decrease in GFR 60-89 3 Moderate decrease in GFR 30-59 4 Severe decrease in GFR 15-29 5 Kidney failure <15 (or dialysis) 23 Recommended INR for Patients on Oral Anticoagulants Prophylaxis 2.0 - 3.0 Treatment of thrombosis 2.0 - 3.0 Prevention of embolism 2.0 - 3.0 Prevention of embolism from prosthetic heart valves 2.5 - 3.5 24 DIAGNOSIS,TREATMENT,AND THERAPY MUST BE BASED ON THE INR VALUE ALONE. Procedures Date Code Description Status 09/06/2018 18613 Treadmill Interp/Report Only Completed 09/06/2018 76313 Treadmill Interp/Report Only Completed 09/06/2018 27277 Stress Test Supervsn W/Out I/R Completed 09/06/2018 26986 Stress Test Supervsn W/Out I/R Completed 08/30/2018 97967 EKG Tracing & Interpretation Completed 08/06/2018 59538 ECHO Transthoracic, Real-Time 2D With Doppler And Color Completed Flow 08/06/2018 31453 ECHO Transthoracic, Real-Time 2D With Doppler And Color Completed Flow 06/06/2018 36738 Diffusing Capacity Completed 06/06/2018 54821 Plethysmography Determination Lung Volumes & Per Airway Completed Resist 06/06/2018 43482 Pulmonary Stress Testing, Inc Measurement Heart Rate, Completed Oximetry 02/05/2017 05834 ECHO Transthorasic Realtime 2D W Doppler & Color Flow Hosp Completed 02/05/2017 34251 EKG, Interpretation Only Completed 09/16/2016 58001 CLSD TX Distal Fib FX (Lateral Malleolus) w/o manipulation Completed 10/14/2015 06168 Pulmonary Function><Bronchodil Completed 10/14/2015 27865 Plethysmography Determination Lung Volumes & Per Airway Completed Resist 10/14/2015 82777 Diffusing Capacity Completed 06/30/2011 02774 Silva/Facet/Foraminotomy;Ea Addl Segment; Cerv, Thora, Or Completed Lumbar 06/30/2011 62334 Silva/Facet/Forainotomy;Single Vertebral Segment; Cervical Completed 04/05/2011 77263 Silva/Facet/Foraminotomy;Ea Addl Segment; Cerv, Thora, Or Completed Lumbar 04/05/2011 14351 Silva/Facet/Forainotomy;Single Vertebral Segment; Cervical Completed 04/03/2011 93585 Removal Of Anterior Instrumentation Completed 04/03/201172554 Anterior Instrumentation 2-3 Vertebral Segments Completed 04/03/2011 44728 arthrodesis,anterior interbody incl disc space Completed prep,discectomy,de 04/03/201133699 Allograft For Spine Surgery,Structural (Bone Bank) Completed 03/24/201167800 Anterior Instrumentation 2-3 Vertebral Segments Completed 03/24/2011 91719 arthrodesis,anterior interbody incl disc space Completed prep,discectomy,de 03/24/2011 42141 Allograft For Spine Surgery,Structural (Bone Bank) Completed Encounters Type Date Location Provider Dx Diagnosis Office Visit 08/30/2018 [facility] Jitendra Rehman, R06.02 Shortness of 3:00p Of Policy Services Representative DO FACC breath Z72.0 Tobacco use J44.9 Chronic obstructive pulmonary disease, unspecified G47.33 Obstructive sleep apnea (adult) (pediatric) E66.8 Other obesity Z86.711 Personal history of pulmonary embolism Office Visit 06/25/2018 1:00p [facility] Michelle Petersen, M25.561 Pain in right [facility] M.D. knee M25.461 Effusion, right knee M17.11 Unilateral primary osteoarthritis, right knee M21.061 Valgus deformity, not elsewhere classified, right knee Office Visit 05/14/2018 2:30p Pulmonology And Ashly R06.02 Shortness of Sleep Services Of MD maximus Pryor Policy Services Representative J44.9 Chronic obstructive pulmonary disease, unspecified Office Visit 04/11/2017 3:15p Pulmonology And Ashly G47.33 Obstructive sleep Sleep Services Of MD Roya apnea (adult) Policy Services Representative (pediatric) J43.9 Emphysema, unspecified Office Visit 02/05/2017 12:37p [facility] I26.99 Other pulmonary Assoc,pc Etta, BL[employer]ER embolism Hospitalists without acute cor pulmonale R07.9 Chest pain, unspecified M81.0 Age-related osteoporosis w/o current pathological fracture F32.9 Major depressive disorder, single episode, unspecified Office Visit 02/04/2017 [facility] Artem R07.9 Chest pain, 12:36p Assoc,pc Neville, N.P. unspecified Hospitalists G89.29 Other chronic pain M81.0 Age-related osteoporosis w/o current pathological fracture F32.9 Major depressive disorder, single episode, unspecified Office Visit 06/20/2016 1:45p Pulmonology And Ashly J43.9 Emphysema, Sleep Services Of MD Roya unspecified Policy Services Representative G47.33 Obstructive sleep apnea (adult) (pediatric) Office Visit 02/22/2016 Neurosurgery Rajiv Narvaez, M47.12 Other spondylosis 3:00p Services Of Liseth Torres with myelopathy, cervical region Office Visit 11/30/2015 Pulmonology And Ashly R06.02 Shortness of 1:15p Sleep Services Of MD maximus Pryor Policy Services Representative G47.33 Obstructive sleep apnea (adult) (pediatric) F17.210 Nicotine dependence, cigarettes, uncomplicated E66.09 Other obesity due to excess calories Office Visit 09/23/2015 2:45p Pulmonology And Ashly R06.02 Shortness of Sleep Services Of MD maximus Pryor Policy Services Representative G47.33 Obstructive sleep apnea (adult) (pediatric) J98.4 Other disorders of lung F17.210 Nicotine dependence, cigarettes, uncomplicated Office Visit 08/19/2015 Neurosurgery Ayo Gr M47.12 Other spondylosis 3:40p Services Of Liseth Chase M.D. with myelopathy, cervical region Z98.1 Arthrodesis status Office Visit 12/16/2014 3:00p [facility] Rajiv S. 721.1 Spondylosis Services Of Liseth Palma M.D. Cervical W/ Myelopathy 338.0 Central Pain Syndrome Office Visit 09/01/2014 3:20p Neurosurgery Ayo Gr 721.1 Spondylosis Services Of Liseth Chase M.D. Cervical W/ Myelopathy Office Visit 08/06/2013 1:40p Neurosurgery Ayo Gr 723.0 Stenosis Spinal Services Of Liseth Chase M.D. Cervical Region V45.89 Postsurgical Status Other 721.1 Spondylosis Cervical W/ Myelopathy Office Visit 12/10/2012 Neurosurgery Ayo JKatelin 723.0 Stenosis Spinal 3:20p Services Of Liseth Chase M.D. Cervical Region Office Visit 04/23/2012 Neurosurgery Ayo Gr 723.0 Stenosis Spinal 2:00p Services Of Liseth Chase M.D. Cervical Region Office Visit 01/24/2012 Neurosurgery Ayo Gr 723.0 Stenosis Spinal 3:00p Services Of Liseth Chase M.D. Cervical Region Office Visit 10/25/2011 Neurosurgery Ayo Gr 723.0 Stenosis Spinal 3:00p Services Of Liseth Chase M.D. Cervical Region Office Visit 03/10/2011 Neurosurgery Ayo Gr 722.0 Intervertebral Disc 2:00p Services Of Liseth Chase M.D. Displacement Cervical W/O Myelopathy Plan of Treatment Future Appointment(s):10/26/2018 2:00 pm - Michelle Petersen M.D. at [facility]10/16/2018 2:30 pm - YENIFER Velasquez at [facility]10/16/2018 2:30 pm - RIGOBERTO White at [facility]10/16/2018 2:30 pm - Michelle Petersen M.D. at [facility]
[2018-10-14 08:09] LABS: Albumin 3.4 g/dL (3.2-5.2); Albumin/Globulin Ratio 1.1 (1-3); BUN/Creatinine Ratio 14.5 (8-20); Calcium 8.6 mg/dL (8.6-10.3); EGFR African American 83.2 (>60); EGFR Non-African American 68.8 (>60); Magnesium 1.8 mg/dL (1.9-2.7); Potassium 3.2 mmol/L (3.5-5.0); Total Bilirubin 0.4 mg/dL (0.2-1.0); Total Protein 6.4 g/dL (6.4-8.9)
[2018-10-14 08:27] LABS: T4, Total 9.16 g/dL (6.09-12.23)
[2018-10-14 08:31] LABS: TSH (Thyroid Stimulating Horm) 1.97 mcIU/mL (0.34-5.60)
[2018-10-14] MEDS ORDERED: Dexamethasone IV* 10 MG in NS 0.9% 50 ML* 50 ML IVPB ONE (09:14)
[2018-10-14] MEDS ORDERED: Albuterol/Ipratropium NEB.SOL* Albuterol 2.5 MG/Ipratropium 0.5 MG 3 ML INH ONE ×2 (09:15→10:02)
[2018-10-14] MEDS ORDERED: ED Azithromycn 500 mg/250 ml 500 MG/250 ML PREMIX.SET IVPB ONE (09:15)
--- NOTE | 2018-10-14 09:19 | ED ---
Influenza-Like Illness - HPI Summary HPI Summary: This patient is a 68 year old female brought in by [facility] to [facility] with a CC of flu like sx that began a week ago and have gotten worse. Pt states a week ago she began having n/v and was unable to keep food down. She then began having myalgia and weakness. A few days after this she began having increasing cough and SOB. She does have hx of COPD but does not use O2 at home. Pt also c/ o of an intermittent fever with a max temp of 102 Fahrenheit that is responsive to ibuprofen. This morning she states she was so weak that she was unable to walk and this prompted her to contact EMS. Pt denies CP, ABD pain, and urinary sx. NKDA She is having knee replacement surgery in two days with Dr Petersen and is concerned she may not be able to have them. Hx PE and is not on blood thinners - History of Current Complaint Chief Complaint: EDFluSymptoms Time Seen by Provider: 10/14/18 07:20 Hx Obtained From: Patient Onset/Duration: Lasting Weeks, Still Present Severity: Moderate Associated Signs & Symptoms: Fever, Myalgia, Cough, Vomiting - Allergy/Home Medications Allergies/Adverse Reactions: Allergies Allergy/AdvReac Type Severity Reaction Status Date / Time Iodinated Contrast- Oral and Allergy Hives Verified 10/14/18 13:45 IV Dye iodine Allergy Hives Verified 10/14/18 13:45 iodixanol Allergy Hives Verified 10/14/18 13:45 Adhesive Tape AdvReac Mild See Comment Verified 10/14/18 13:45 Home Medications: Home Medications Alendronate (NF) [Fosamax (NF)] 70 mg PO SA 10/14/18 [History Confirmed 10/14/18 ] PMH/Surg Hx/FS Hx/Imm Hx Endocrine/Hematology History: Denies: Hx Anticoagulant Therapy, Hx Diabetes, Hx Thyroid Disease Cardiovascular History: Reports: Other Cardiovascular Problems/Disorders - on xarelto for PE Denies: Hx Congestive Heart Failure, Hx Coronary Artery Disease, Hx Hypertension, Hx Pacemaker/ICD Respiratory History: Reports: Hx Asthma, Hx Chronic Obstructive Pulmonary Disease (COPD) - INHAILER, Hx Pulmonary Embolism, Other Respiratory Problems/ Disorders - lung nodules Denies: Hx Chronic Bronchitis, Hx Cystic Fibrosis, Hx Lung Cancer, Hx Pleural Effusion, Hx Pneumonia, Hx Pulmonary Edema, Hx Seasonal Allergies, Hx Sleep Apnea GI History: Reports: Hx Diverticulosis, Hx Gastroesophageal Reflux Disease, Other GI Disorders - DIVERTICULITIS/COLOSTOMY/REVERSAL Denies: Hx Cirrhosis, Hx Crohn's Disease, Hx Gall Bladder Disease, Hx Gastrointestinal Bleed, Hx Hiatal Hernia, Hx Irritable Bowel, Hx Jaundice, Hx Obstructive Bowel, Hx Ileostomy, Hx Pyloric Stenosis, Hx Ulcer History: Denies: Hx Dialysis, Hx Renal Disease Musculoskeletal History: Reports: Hx Back Problems - cervical degenerative disk disease, Hx Osteoporosis Denies: Hx Arthritis, Hx Rheumatoid Arthritis, Hx Bursitis, Hx Congenital Bone Abnormalities, Hx Fibromyalgia, Hx Gout, Hx Orthopedic Injury, Hx Scoliosis , Hx Tendonitis, Other Musculoskeletal History Sensory History: Reports: Hx Contacts or Glasses - GLASSES Denies: Hx Hearing Aid Opthamlomology History: Reports: Hx Contacts or Glasses - GLASSES Neurological History: Reports: Hx Spinal Cord Injury - per pt Denies: Hx Dementia, Hx Developmental Delay, Hx Headaches, Hx Migraine, Hx Seizures, Hx Transient Ischemic Attacks (TIA), Other Neuro Impairments/Disorders Psychiatric History: Reports: Hx Anxiety, Hx Depression, Hx Bipolar Disorder, Hx Substance Abuse Denies: Hx Eating Disorder, Hx Panic Disorder, Hx of Violent Episodes Against Others - Cancer History Cancer Type, Location and Year: breast cancer; uterine cancer Hx Chemotherapy: No Hx Radiation Therapy: Yes - Surgical History Surgery Procedure, Year, and Place: breast ca- left lumpectomy 2008, hysterectomy 2009, 4 neck surgeries 2010, COLON SURGERY Hx Anesthesia Reactions: No Infectious Disease History: No Infectious Disease History: Denies: Hx Clostridium Difficile, Hx Hepatitis, Hx Human Immunodeficiency Virus (HIV), Hx Shingles, Hx Tuberculosis, Traveled Outside the [place] in Last 30 Days - Family History Known Family History: Positive: Cardiac Disease - Social History Alcohol Use: None Substance Use Type: Reports: 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 Negative: Abdominal Pain Positive: no symptoms reported Positive: Myalgia Positive: Weakness All Other Systems Reviewed And Are Negative: Yes Physical Exam - Summary Physical Exam Summary: GENERAL: Patient is a well-developed and nourished F who is lying comfortable in the stretcher. Patient is not in any acute respiratory distress. Pt does appear ill HEAD AND FACE: Normocephalic EYES: PERRLA, EOMI x 2. EARS: Hearing grossly intact. MOUTH: Oropharynx within normal limits. NECK: Supple, trachea is midline, no adenopathy, no JVD, no carotid bruit. CHEST: Symmetric, no tenderness at palpation LUNGS: general wheezing through out. CVS: Regular rate and rhythm, S1 and S2 present, no murmurs or gallops appreciated. ABDOMEN: Soft, non-tender. Bowel sounds are normal. No abdominal abnormal pulsations. EXTREMITIES: Full ROM in all major joints, no edema, no cyanosis or clubbing. NEURO: Alert and oriented x 3. No acute neurological deficits. Speech is normal and follows commands. SKIN: Dry and warm Triage Information Reviewed: Yes Vital Signs On Initial Exam: Initial Vitals Temp Pulse Resp BP Pulse Ox 99.6 F 88 22 108/68 94 10/14/18 07:24 10/14/18 07:24 10/14/18 07:24 10/14/18 07:24 10/14/18 07:24 Vital Signs Reviewed: Yes Diagnostics - Vital Signs Vital Signs Temp Pulse Resp BP Pulse Ox 10/14/18 09:00 84 13 91 10/14/18 08:54 80 25 103/63 95 10/14/18 08:42 95 10/14/18 08:24 80 26 112/67 96 10/14/18 08:00 23 10/14/18 07:54 95 19 95/69 96 10/14/18 07:24 99.6 F 95 22 108/68 93 - Laboratory Lab Results: Lab Results 10/14/18 10/14/18 10/14/18 Range/Units 07:30 07:30 07:30 WBC 4.0 (3.5-10.8) 10^3/ul RBC 3.86 L (4.00-5.40) 10^6/ul Hgb 12.3 (12.0-16.0) g/dl Hct 35 (35-47) % MCV 92 (80-97) fL MCH 32 H (27-31) pg MCHC 35 (31-36) g/dl RDW 14 (10.5-15) % Plt Count 169 (150-450) 10^3/ul MPV 8.9 (7.4-10.4) fL Neut % (Auto) 70.5 % Lymph % (Auto) 20.8 % Rowan % (Auto) 6.7 % Eos % (Auto) 1.4 % Baso % (Auto) 0.6 % Absolute Neuts (auto) 2.9 (1.5-7.7) 10^3/ul Absolute Lymphs (auto) 0.8 L (1.0-4.8) 10^3/ul Absolute Monos (auto) 0.3 (0-0.8) 10^3/ul Absolute Eos (auto) 0.1 (0-0.6) 10^3/ul Absolute Basos (auto) 0 (0-0.2) 10^3/ul Absolute Nucleated RBC 0 10^3/ul Nucleated RBC % 0.2 INR (Anticoag Therapy) 0.93 (0.77-1.02) APTT 26.7 (26.0-36.3) seconds Sodium 133 L (135-145) mmol/L Potassium 3.2 L (3.5-5.0) mmol/L Chloride 97 L (101-111) mmol/L Carbon Dioxide 27 (22-32) mmol/L Anion Gap 9 (2-11) mmol/L BUN 12 (6-24) mg/dL Creatinine 0.83 (0.51-0.95) mg/dL Est GFR ( Amer) 83.2 (>60) Est GFR (Non-Af Amer) 68.8 (>60) BUN/Creatinine Ratio 14.5 (8-20) Glucose 119 H (70-100) mg/dL Lactic Acid (0.5-2.0) mmol/L Calcium 8.6 (8.6-10.3) mg/dL Magnesium 1.8 L (1.9-2.7) mg/dL Total Bilirubin 0.40 (0.2-1.0) mg/dL AST 24 (13-39) U/L ALT 25 (7-52) U/L Alkaline Phosphatase 69 (34-104) U/L Troponin I 0.00 (<0.04) ng/mL B-Natriuretic Peptide (<=100) pg/mL Total Protein 6.4 (6.4-8.9) g/dL Albumin 3.4 (3.2-5.2) g/dL Globulin 3.0 (2-4) g/dL Albumin/Globulin Ratio 1.1 (1-3) TSH 1.97 (0.34-5.60) mcIU/mL Thyroxine (T4) 9.16 (6.09-12.23) g/dL Influenza A (Rapid) (Negative) Influenza B (Rapid) (Negative) 10/14/18 10/14/18 10/14/18 Range/Units 07:30 07:30 07:52 WBC (3.5-10.8) 10^3/ul RBC (4.00-5.40) 10^6/ul Hgb (12.0-16.0) g/dl Hct (35-47) % MCV (80-97) fL MCH (27-31) pg MCHC (31-36) g/dl RDW (10.5-15) % Plt Count (150-450) 10^3/ul MPV (7.4-10.4) fL Neut % (Auto) % Lymph % (Auto) % Rowan % (Auto) % Eos % (Auto) % Baso % (Auto) % Absolute Neuts (auto) (1.5-7.7) 10^3/ul Absolute Lymphs (auto) (1.0-4.8) 10^3/ul Absolute Monos (auto) (0-0.8) 10^3/ul Absolute Eos (auto) (0-0.6) 10^3/ul Absolute Basos (auto) (0-0.2) 10^3/ul Absolute Nucleated RBC 10^3/ul Nucleated RBC % INR (Anticoag Therapy) (0.77-1.02) APTT (26.0-36.3) seconds Sodium (135-145) mmol/L Potassium (3.5-5.0) mmol/L Chloride (101-111) mmol/L Carbon Dioxide (22-32) mmol/L Anion Gap (2-11) mmol/L BUN (6-24) mg/dL Creatinine (0.51-0.95) mg/dL Est GFR ( Amer) (>60) Est GFR (Non-Af Amer) (>60) BUN/Creatinine Ratio (8-20) Glucose (70-100) mg/dL Lactic Acid 1.6 (0.5-2.0) mmol/L Calcium (8.6-10.3) mg/dL Magnesium (1.9-2.7) mg/dL Total Bilirubin (0.2-1.0) mg/dL AST (13-39) U/L ALT (7-52) U/L Alkaline Phosphatase (34-104) U/L Troponin I (<0.04) ng/mL B-Natriuretic Peptide 65 (<=100) pg/mL Total Protein (6.4-8.9) g/dL Albumin (3.2-5.2) g/dL Globulin (2-4) g/dL Albumin/Globulin Ratio (1-3) TSH (0.34-5.60) mcIU/mL Thyroxine (T4) (6.09-12.23) g/dL Influenza A (Rapid) Negative (Negative) Influenza B (Rapid) Negative (Negative) Result Diagrams: 10/15/18 07:35 10/15/18 07:35 Lab Statement: Any lab studies that have been ordered have been reviewed, and results considered in the medical decision making process. - Radiology CXR Radiology Interpretation Completed By: Radiologist Summary of Radiographic Findings: HYPERINFLATION, CONSISTENT WITH COPD. NO ACTIVE CARDIOPULMONARY DISEASE. ED physician has reviewed this report. - EKG 0746 Cardiac Rate: NL EKG Rhythm: Sinus Rhythm - at 85 BPM Summary of EKG Findings: nml axis. Flu Symptom Course/Dx - Course Assessment/Plan: This patient is a 68 year old female brought in by [facility] to [facility] with a CC of flu like sx that began a week ago and have gotten worse. CXR reveals, HYPERINFLATION, CONSISTENT WITH COPD. NO ACTIVE CARDIOPULMONARY DISEASE. EKG shows NSR. Bloodwork reviewed and patient was mildly deficient in magnesium and potassium. She was given both in the ED. Along with those she was given breathing treatments and IV fluids with improvement. Pt was negative for influenza. Albterol given in the ED course. At this point I discussed the case with the hospitalist, Dr Marquez and he has accepted the patient for admission. - Diagnoses Provider Diagnoses: COPD (chronic obstructive pulmonary disease) - Physician Notifications Discussed Care Of Patient With: Javi Marquez Time Discussed With Above Provider: 11:06 Instructed by Provider To: Admit As Inpatient Discharge - Sign-Out/Discharge Documenting (check all that apply): Patient Departure - admitted All imaging exams completed and their final reports reviewed: Yes Patient Received Moderate/Deep Sedation with Procedure: No - Discharge Plan Condition: Fair Disposition: ADMITTED TO [facility] - Billing Disposition and Condition Condition: FAIR Disposition: Admitted to [facility] - Attestation Statements Document Initiated by Scribe: Yes Documenting Scribe: Syd Cardoso Provider For Whom Scribe is Documenting (Include Credential): Opal Blake MD Scribe Attestation: Syd Hamilton , scribed for Opal Blake MD on 10/15/18 at 1722. Scribe Documentation Reviewed: Yes Provider Attestation: The documentation as recorded by the scribeSyd accurately reflects the service I personally performed and the decisions made by me, Opal Blake MD Status of Scribe Document: Viewed
[2018-10-14] MEDS ORDERED: Dexamethasone IV* 4 MG/ML 5 ML VIAL (20 MG) IVPB ONE (09:30)
[2018-10-14] MEDS: NS 0.9% 1000 ML** 1,000 ML IV ONE ×2 (09:51→11:37)
[2018-10-14] MEDS ORDERED: Magnesium Sulfate IV* 0.5 GM/ML 2 ML VIAL (1 GM) IVPB ONE (09:56)
[2018-10-14] MEDS ORDERED: Potassium Chlor TAB* 20 MEQ TAB.ER PO ONE (09:56)
[2018-10-14] MEDS ORDERED: Magnesium Sulfate 2 GM IV* 2 GM/50 ML BAG ONE (11:34)
[2018-10-14] MEDS ORDERED: Ibuprofen TAB* 800 MG PO PRN (14:26)
--- NOTE | 2018-10-14 16:51 | HP ---
CC: Dr. Barron Gilmore * HISTORY AND PHYSICAL: DATE OF ADMISSION: 10/14/18 PRIMARY CARE PROVIDER: Dr. Barron Gilmore. ATTENDING PHYSICIAN: Dr. Javi Marquez * (dictated by Michaela Murillo NP) . CHIEF COMPLAINT: Flu-like symptoms for 1 week. HISTORY OF PRESENT ILLNESS: Ms. Lomeli is a 68-year-old female with a past medical history significant for COPD, PE in 2017, diverticulosis, GERD, osteoporosis, chronic pain, cervical degenerative disk disease, anxiety, depression, bipolar disorder, breast cancer, and uterine cancer who presented to the emergency room with complaints of flu-like symptoms for 1 week. Ms. Lomeli states that when her illness started approximately a week ago, she was having fevers and chills with a temperature max of 102 at home, but these have resolved. She denies any chest pain. She reports cough for a week with production of clear to spivey sputum. She has shortness of breath mostly with exertion, but occasionally at rest. She has also had nausea and vomiting for 1 week. She denies abdominal pain. She denies urinary symptoms such as urgency, dysuria, or changes in urinary frequency. She reports myalgia and arthralgias. She is feeling generally weak. She reports being unable to keep p.o. fluids down. She denies any rashes. She also reports that she is scheduled for a knee surgery in [address] Petersen. Due to her symptoms, she presented to the emergency room for further evaluation. While in the emergency room, she had labs showing hypokalemia, hypomagnesium, troponin of 0.00 x2, mild hyponatremia, influenza A and B negative, no leukocytosis. She was not tachycardic. She was afebrile. She was noted to have intermittent tachypnea. Her oxygen saturation is in the 90s on 3 L of oxygen via nasal cannula. Her blood pressures have been on the soft side with systolic blood pressures in the 90s to 100s. She received 2 DuoNebs, azithromycin, Decadron, magnesium, potassium. She states she is feeling better after receiving these treatments. Due to her presentation, she was referred to the hospitalist service for admission. PAST MEDICAL HISTORY: 1. COPD. 2. Pulmonary embolus in 2017. 3. Diverticulosis. 4. GERD. 5. Osteoporosis. 6. Chronic pain. 7. Cervical degenerative disk disease. 8. Anxiety. 9. Depression. 10. Bipolar disorder. 11. Breast cancer. 12. Uterine cancer. PAST SURGICAL HISTORY: 1. Status post a bowel resection and colostomy and subsequent colostomy reversal. 2. Left breast lumpectomy. 3. Status post hysterectomy. 4. Status post 4 neck surgeries. HOME MEDICATIONS: Include: 1. Metolazone 25 mg oral every other day. 2. Ambien 10 mg oral daily at bedtime as needed for sleep. 3. Multivitamin with minerals 1 tablet oral daily at bedtime. 4. Robaxin 500 to 1000 mg by mouth 4 times daily as needed for muscle spasms. 5. Methadone 20 mg oral in the morning, 10 mg oral at noon, 15 mg oral at 5 p.m., and 15 mg oral at bedtime. 6. Xopenex 1.25 mg/0.5 mL nebulizer 1.25 mg inhalation every 6 hours as needed for shortness of breath. 7. Lorazepam 1 mg oral 3 times daily as needed for anxiety. 8. Ibuprofen 800 mg oral every 8 hours as needed for pain. 9. Neurontin 900 mg oral 3 times daily. 10. Furosemide 40 mg oral every morning. 11. Trelegy Ellipta 100/6.25/25 one puff inhalation every morning. 12. Ferrous gluconate 325 mg oral twice daily. 13. Colace 100 mg oral twice daily. 14. Pristiq 100 mg oral every morning. 15. Cod liver oil 1 capsule oral daily. 16. Cinnamon bark 1 packet by mouth daily. 17. Vitamin D3 2000 units oral daily at bedtime. 18. Calcium carbonate 600 mg oral daily at bedtime. 19. Aspirin 81 mg oral every morning. 20. Vitamin C 2000 mg oral every morning. 21. Fosamax 70 mg by mouth every Monday. ALLERGIES: CONTRAST DYE and adhesive tape. FAMILY HISTORY: She denies family history of heart disease or diabetes. Her mother with a history of breast cancer. SOCIAL HISTORY: She is a former smoker. She had a 15 year 1 pack a day smoking history, then quit for 10 years and then smoked again for 5 years, smoking approximately half a pack a day. She reports quitting 1 month ago. She denies alcohol or recreational drug use. She does not want to elect a surrogate decision maker at this time. REVIEW OF SYSTEMS: I performed an 11-point review of systems. All the pertinent positives and negatives are mentioned in the history of present illness. Remaining review of systems are negative. PHYSICAL EXAMINATION GENERAL APPEARANCE: The patient is alert, pleasant, appears to be in no acute distress. VITAL SIGNS: Temperature 99.6, heart rate 84, respiratory rate 16, O2 sat 95% on 3 L via nasal cannula, blood pressure 90/59. HEENT: Normocephalic, atraumatic. Pupils are equal and reactive to light. Extraocular movements are intact. RESPIRATORY: There is no accessory muscle use. The lungs have expiratory wheezing bilateral throughout. CARDIOVASCULAR: Regular rate and rhythm. S1 and S2 present. There are no murmurs, rubs, or gallops heard. ABDOMEN: Soft, nontender, nondistended. There are bowel sounds present x4. EXTREMITIES: There is trace bilateral lower extremity edema. DP and PT pulses are 1+ and symmetric. MUSCULOSKELETAL: There is no clubbing or cyanosis noted. There is no edema or redness of any extremities. NEUROLOGIC: The patient is alert and oriented x4. Cranial nerves II through XII are grossly intact. PSYCHOLOGICAL: Calm and cooperative. SKIN: There are no rashes or abnormalities seen. DIAGNOSTIC STUDIES/LAB DATA: Sodium 133, potassium 3.2, chloride 97, CO2 of 27 , BUN 12, creatinine 0.83, glucose 119. Magnesium 1.8. Troponin 0.00 x2. Influenza A and B negative. White blood cell count 4.0, hemoglobin 12.3, hematocrit 35, platelet count 169. ABG; pH 7.48, pCO2 of 38, pO2 of 82, HCO3 of 28.5, O2 sat 98.3 on 3 L nasal cannula, base excess 4.6. EKG shows a sinus rhythm, rate of 85. There are no acute signs of ischemia. This EKG is similar to previous EKG from 08/12/17. Chest x-ray from today. Radiologist's impression: Hypoinflation, consistent with COPD. No active cardiopulmonary disease. IMPRESSION: Ms. Lomeli is a 68-year-old female with past medical history significant for chronic obstructive pulmonary disease, pulmonary embolus, diverticulosis, gastroesophageal reflux disease, osteoporosis, chronic pain, cervical degenerative disk disease, anxiety, depression, bipolar disorder, breast cancer, uterine cancer who presented to the emergency room with complaints of flu-like symptoms. She will be admitted as an inpatient for chronic obstructive pulmonary disease exacerbation and weakness. ASSESSMENT/PLAN: 1. Chronic obstructive pulmonary disease exacerbation. The patient is afebrile , has no leukocytosis with significant wheezing. I suspect this represents a chronic obstructive pulmonary disease exacerbation. Continue her on azithromycin, Xopenex nebulizers around the clock while awake, Solu-Medrol, supplemental oxygen as needed. We will also continue her on her Trelegy Ellipta or hospital equivalent. 2. Dehydration. I suspect that the patient is dehydrated in the setting of vomiting for 4 days. We placed her on some IV fluids. We will recheck her labs in the morning. I am going to hold her metolazone and furosemide while we give her hydration, this can be resumed when she no longer needs hydration. 3. Mild hyponatremia. I suspect this is secondary to dehydration. 4. Electrolyte abnormality. She has hypokalemia and hypomagnesium. I suspect this is secondary to her vomiting. She has received replacement in the ER. We will recheck her labs tomorrow. 5. Weakness. The patient has generalized weakness. I suspect this is secondary to her chronic obstructive pulmonary disease exacerbation and possible viral illness that contributed to her chronic obstructive pulmonary disease exacerbation. We will ask for physical therapy evaluation. 6. Right knee pain. The patient is scheduled to have a right total knee arthroplasty with Dr. Petersen on 10/16/18. I feel at this time the surgery should be cancelled until she is recovered from this chronic obstructive pulmonary disease exacerbation, at which time the surgery can be rescheduled. I have discussed this with the patient and she is agreeable to the plan. 7. Pulmonary embolus. She had a pulmonary embolus in 2017. She is no longer anticoagulated. I do not feel that her shortness of breath represents a pulmonary embolus at this time, but we will follow her closely and will have a low threshold for a CTA if her shortness of breath changes, if she has other symptoms of a pulmonary embolism. 8. Gastroesophageal reflux disease. She is not currently on medications, will have supportive care. 9. Osteoporosis. I am going to hold her Fosamax while she is in the hospital. 10. Anxiety, depression, and bipolar disorder. She will be continued on Pristiq, Ativan as needed. We will hold for this sedation. 11. Breast cancer and uterine cancer. Noted she should continue to follow with her PCP for followup. 12. Chronic pain. We will continue her on her home methadone dosing, but with parameters to hold for sedation. 13. Fluids, electrolytes, and nutrition. She will be on a regular diet. 14. Code status. Full code. 15. DVT prophylaxis. She is a high risk, will have subcu heparin. 16. Disposition: Inpatient. TIME SPENT: Time for this admission was approximately 60 minutes, greater than half of that was spent with the patient discussing medications, past medical history, the events leading to her arrival today, and performing a physical examination. The case has been reviewed with the attending, Dr. Marquez, who agrees with the plan of care. MICHAELA MURILLO, SHEREE [id number]/CPS #: [id number] SARAH
[2018-10-14 17:21] LABS: Urine Appearance Clear; Urine Bilirubin Negative (Negative); Urine Blood Negative (Negative); Urine Color Yellow; Urine Glucose Negative (Negative); Urine Ketones Negative (Negative); Urine Nitrite Negative (Negative); Urine Protein Negative (Negative); Urine Specific Gravity 1.008 (1.010-1.030); Urine Urobilinogen Negative (Negative)
[2018-10-14] MEDS: Methadone TAB* 10 MG PO SCH ×2 (17:27→20:55)
[2018-10-14] MEDS: Heparin VIAL(*) 5000 UNITS/ML VIAL (FIVE THOUSAND) SUBCUT SCH ×2 (17:29→22:11)
[2018-10-14] MEDS: Levalbuterol 1.25MG/0.5ML NEB INH SCH (19:29)
[2018-10-14] MEDS: Multivitamins/Minerals TAB PO SCH (20:58)
[2018-10-14] MEDS: Gabapentin CAP(*) 300 MG PO SCH (20:58)
[2018-10-14] MEDS: Ferrous Gluconate TAB* 324 MG TAB PO SCH (20:59)
[2018-10-14] MEDS: Cholecalciferol TAB* 1000 UNITS PO SCH (20:59)
[2018-10-14] MEDS ORDERED: LORazepam TAB(*) 1 MG PO SCH (21:00)
[2018-10-14] MEDS: Docusate CAP* 100 MG PO SCH (21:00)
[2018-10-14] MEDS: Zolpidem TAB* 10 MG PO PRN ×2 (21:01→23:11)
[2018-10-14] MEDS: LORazepam TAB(*) 1 MG PO PRN (23:11)
[2018-10-15] MEDS: NS 0.9% 1000 ML** 1,000 ML IV SCH ×2 (01:11→13:42)
[2018-10-15] MEDS: Levalbuterol 1.25MG/0.5ML NEB INH SCH ×5 (01:42→19:31)
[2018-10-15] MEDS: Heparin VIAL(*) 5000 UNITS/ML VIAL (FIVE THOUSAND) SUBCUT SCH ×2 (06:01→15:32)
[2018-10-15 07:47] LABS: ABS Basophils 0 10^3/ul (0-0.2); ABS Eosinophils 0 10^3/ul (0-0.6); ABS Monocytes 0.3 10^3/ul (0-0.8); ABS Neutrophils 2.3 10^3/ul (1.5-7.7); ABS Nucleated RBC 0 10^3/ul; Eosinophil % 0.1 %; Hematocrit 30 % (35-47); Hemoglobin 10.7 g/dl (12.0-16.0); Mean Corpuscular HGB Conc 35 g/dl (31-36); Mean Corpuscular Hemoglobin 33 pg (27-31); Mean Corpuscular Volume 92 fL (80-97); Mean Platelet Volume 8.4 fL (7.4-10.4); Nucleated Red Blood Cells % 0.1; Platelet Count 177 10^3/ul (150-450); Red Blood Count 3.28 10^6/ul (4.00-5.40); Red Cell Distribution Width 14 % (10.5-15); White Blood Count 3.6 10^3/ul (3.5-10.8)
[2018-10-15 08:06] LABS: BUN/Creatinine Ratio 18.6 (8-20); Calcium 8.2 mg/dL (8.6-10.3); EGFR African American 123.4 (>60); Magnesium 2.1 mg/dL (1.9-2.7); Potassium 3.6 mmol/L (3.5-5.0)
[2018-10-15] MEDS: Ascorbic Acid TAB* 500 MG PO SCH (09:37)
[2018-10-15] MEDS: Ferrous Gluconate TAB* 324 MG TAB PO SCH ×3 (09:38→21:45)
[2018-10-15] MEDS: Aspirin EC TAB* 81 MG TAB.EC PO SCH (09:38)
[2018-10-15] MEDS: Docusate CAP* 100 MG PO SCH ×2 (09:39→21:44)
[2018-10-15] MEDS: CMC: Desvenlafaxine (NF) 50 MG TAB PO SCH (09:39)
[2018-10-15] MEDS: methylPREDNISolone SOD 40 MG* 1 ML VIAL IV SCH ×2 (09:44→17:23)
[2018-10-15] MEDS: Azithromycin IV(*) 250 MG in NS 0.9% 250 ML* 250 ML IVPB SCH (09:47)
[2018-10-15] MEDS: Gabapentin CAP(*) 300 MG PO SCH ×3 (09:55→21:43)
[2018-10-15] MEDS: Methadone TAB* 10 MG PO SCH ×4 (09:56→21:45)
[2018-10-15] MEDS: VILANTER INH SCH (11:22)
[2018-10-15] MEDS: FLUTICASONE INH SCH (11:22)
[2018-10-15] MEDS: UMECLIDIN INH SCH (11:22)
--- NOTE | 2018-10-15 16:40 | PN ---
Subjective Date of Service: 10/15/18 Interval History: Notified by nurse that Methodone has been held occasionally due to over sedation. I agree with this plan. On assessment patient is resting in chair. Reports she feels very fatigued and continues to have shortness of breath with exertion. In addition she continues to have occasional non productive cough. Denies cp, palpitations, nausea, vomiting, diarrhea, abd pain, fever, chills, urinary symptoms Objective Active Medications: Ascorbic Acid (Vitamin C Tab*) 2,000 mg PO QAM [facility] Last Admin: 10/15/18 09:37 Dose: 2,000 mg Aspirin (Aspirin Ec Tab*) 81 mg PO QAM [facility] Last Admin: 10/15/18 09:38 Dose: 81 mg Cholecalciferol (Vitamin D Tab*) 2,000 units PO BEDTIME [facility] Last Admin: 10/14/18 20:59 Dose: 2,000 units Desvenlafaxine Succinate (Pristiq (Nf)) [facility] Last Admin: 10/15/18 09:39 Dose: 100 mg Docusate Sodium (Colace Cap*) 100 mg PO BID [facility] Last Admin: 10/15/18 09:39 Dose: 100 mg Ferrous Gluconate (Fergon Tab*) 324 mg PO BID [facility] Last Admin: 10/15/18 09:57 Dose: Not Given Gabapentin (Neurontin Cap(*)) 900 mg PO TID [facility] Last Admin: 10/15/18 15:31 Dose: 900 mg Heparin Sodium (Porcine) (Heparin Vial(*)) 5,000 units SUBCUT Q8HR [facility] Last Admin: 10/15/18 15:32 Dose: 5,000 units Sodium Chloride (Ns 0.9% 1000 Ml) 1,000 mls @ 100 mls/hr IV PER RATE [facility] Last Admin: 10/15/18 13:42 Dose: 100 mls/hr Azithromycin 250 mg/ Sodium (Chloride) 250 mls @ 250 mls/hr IVPB Q24H [facility] Last Admin: 10/15/18 09:47 Dose: 250 mls/hr Ibuprofen (Motrin Tab*) 800 mg PO Q8H PRN PRN Reason: PAIN Levalbuterol HCl (Xopenex 1.25 Mg/0.5 Ml Neb.Sia*) 1.25 mg INH [id number] AWAKE [facility] Last Admin: 10/15/18 16:02 Dose: 1.25 mg Lorazepam (Ativan Tab(*)) 1 mg PO TID PRN PRN Reason: ANXIETY Last Admin: 10/14/18 23:11 Dose: 1 mg Lorazepam (Ativan Tab(*)) 2 mg PO BEDTIME [facility] Last Admin: 10/14/18 20:58 Dose: 2 mg Methadone HCl (Dolophine Tab*) 10 mg PO 1200 [facility] Last Admin: 10/15/18 11:33 Dose: Not Given Methadone HCl (Dolophine Tab*) 15 mg PO 1700 [facility] Last Admin: 10/14/18 17:27 Dose: 15 mg Methadone HCl (Dolophine Tab*) 15 mg PO BEDTIME [facility] Last Admin: 10/14/18 20:55 Dose: 15 mg Methadone HCl (Dolophine Tab*) 20 mg PO QAM [facility] Last Admin: 10/15/18 09:56 Dose: Not Given Methylprednisolone Sodium Succinate (Solu-Medrol 40 Mg) 40 mg IV Q8H [facility] Last Admin: 10/15/18 09:44 Dose: 40 mg Multivitamins/Minerals (Theragran/Minerals Tab*) 1 tab PO BEDTIME [facility] Last Admin: 10/14/18 20:58 Dose: 1 tab Pto: (Fluticasone/Umeclidin/Vilanter [ Trelegy Ellipta 100- 62.5-25] 1 Puff) 1 puff INH QAM [facility] Last Admin: 10/15/18 11:22 Dose: Not Given Zolpidem Tartrate (Ambien Tab*) 10 mg PO BEDTIME PRN PRN Reason: SLEEP Last Admin: 10/14/18 23:11 Dose: 10 mg Vital Signs - 8 hr 10/15/18 10/15/18 10/15/18 10:54 15:31 15:55 Temperature 97.8 F Pulse Rate 65 74 Respiratory 16 20 Rate Blood Pressure 92/49 (mmHg) O2 Sat by Pulse 98 100 Oximetry Oxygen Devices in Use Now: Nasal Cannula Appearance: NAD Eyes: No Scleral Icterus Ears/Nose/Mouth/Throat: Clear Oropharnyx, Mucous Membranes Moist Neck: NL Appearance and Movements; NL JVP Respiratory: Symmetrical Chest Expansion and Respiratory Effort, - - Wheezing and rhonchi throughout. Rhonchi improves mildly with cough. Cardiovascular: NL Sounds; No Murmurs; No JVD, RRR, No Edema Abdominal: NL Sounds; No Tenderness; No Distention Lymphatic: No Cervical Adenopathy Extremities: No Edema Skin: No Rash or Ulcers Neurological: Alert and Oriented x 3 Nutrition: Taking PO's Result Diagrams: 10/15/18 07:35 10/15/18 07:35 Additional Lab and Data: Laboratory Results - last 24 hr 10/14/18 10/15/18 10/15/18 16:06 07:35 07:35 WBC 3.6 RBC 3.28 L Hgb 10.7 L Hct 30 L MCV 92 MCH 33 H MCHC 35 RDW 14 Plt Count 177 MPV 8.4 Neut % (Auto) 63.1 Lymph % (Auto) 28.0 [place] % (Auto) 8.0 Eos % (Auto) 0.1 Baso % (Auto) 0.8 Absolute Neuts (auto) 2.3 Absolute Lymphs (auto) 1.0 Absolute Monos (auto) 0.3 Absolute Eos (auto) 0 Absolute Basos (auto) 0 Absolute Nucleated RBC 0 Nucleated RBC % 0.1 Sodium 136 Potassium 3.6 Chloride 107 Carbon Dioxide 26 Anion Gap 3 BUN 11 Creatinine 0.59 Est GFR ( Amer) 123.4 Est GFR (Non-Af Amer) 102.0 BUN/Creatinine Ratio 18.6 Glucose 102 H Calcium 8.2 L Magnesium 2.1 Urine Color Yellow Urine Appearance Clear Urine pH 6.0 Ur Specific [place] 1.008 L Urine Protein Negative Urine Ketones Negative Urine Blood Negative Urine Nitrate Negative Urine Bilirubin Negative Urine Urobilinogen Negative Ur Leukocyte Esterase Negative Urine Glucose Negative Microbiology and Other Data: Microbiology 10/14/18 10:54 Blood Venous Aerobic Blood Culture - Preliminary No Growth Day 1 10/14/18 10:54 Blood Venous Anaerobic Blood Culture - Preliminary No Growth Day 1 10/14/18 07:53 Blood Venous Aerobic Blood Culture - Preliminary No Growth Day 1 10/14/18 07:53 Blood Venous Anaerobic Blood Culture - Preliminary No Growth Day 1 10/14/18 07:35 Nasal Influenza Types A,B Antigen - Final Specimen received for Influenza A/B Molecular testing Assess/Plan/Problems-Billing Assessment: 68 yr old female with pmh significant for COPD, PE, diverticulitis, Gerd, Osteoporosis; who presented to the ED with c/o flu like symptoms x 1 week - Patient Problems (1) COPD (chronic obstructive pulmonary disease) Comment: - Chest Xray consistent with COPD - Requiring supplemental O2, although she is 100% on 2L currently so order placed to wean and maintain O2 saturation > 92% - Cont scheduled nebs - Cont Azithromycin - Cont IV steriods, start taper when more improvement noted - Cont home inhalers (2) Dehydration Comment: - 2/2 4 days of vomiting. - Labs improving with IVF. - Consider restarting Metolozone and Furosimide tomorrow (3) Hyponatremia Comment: - Resolved with IVF (4) Electrolyte abnormality Comment: - K+ and Mag low on admission and replaced. Now wnl. - Cont to monitor and replace as needed (5) Weakness Comment: - 2/2 COPD exacerbation - PT consulting (6) Right knee pain Comment: - Had planned Right TKR for 10/16/18, but cancelled given patient's current condition (7) History of pulmonary embolus (PE) Comment: - Hx of PE in 2017 and no longer on anticoaguation - Low suspicion for PE currently - Monitor closely and have low thershold for CTA (8) Chronic pain Comment: - Continue home methadone; I have called patient's pharmacy and adjusted medications accordingly (20 mg morning, 10 mg after, and 15 mg evening) - Cont to hold for sedation - Cont Gabapentin (9) GERD (gastroesophageal reflux disease) Comment: - Supportive care (10) Osteoporosis Comment: - Hold Fosamax while hospitalized (11) Depression Comment: - Cont Prestiqu. - Cont Ativan PRN. Verified with pharmacy and dose is 1 mg TID PRN, therefore, bedtime dose discontinued given sedation (12) Insomnia Comment: - Ambien prn - Hold for sedation (13) DVT prophylaxis Comment: - Cont subq Heparin Attending: Pranav Bradley
[2018-10-15] MEDS: LORazepam TAB(*) 1 MG PO PRN ×2 (16:42→21:44)
[2018-10-15] MEDS ORDERED: NS 0.9% 1000 ML** 1,000 ML IV SCH (16:47)
[2018-10-15] MEDS: Multivitamins/Minerals TAB PO SCH (21:44)
[2018-10-15] MEDS: Cholecalciferol TAB* 1000 UNITS PO SCH (21:45)
[2018-10-15] MEDS: Zolpidem TAB* 10 MG PO PRN (21:45)
[2018-10-16] MEDS: Zolpidem TAB* 10 MG PO PRN
[2018-10-16] MEDS: methylPREDNISolone SOD 40 MG* 1 ML VIAL IV SCH ×2 (01:06→09:46)
[2018-10-16] MEDS: Levalbuterol 1.25MG/0.5ML NEB INH SCH ×4 (01:53→21:13)
[2018-10-16] MEDS: LORazepam TAB(*) 1 MG PO PRN ×4 (03:50→20:21)
[2018-10-16] MEDS: Heparin VIAL(*) 5000 UNITS/ML VIAL (FIVE THOUSAND) SUBCUT SCH ×4 (06:01→22:14)
[2018-10-16 07:44] LABS: ABS Basophils 0 10^3/ul (0-0.2); ABS Eosinophils 0 10^3/ul (0-0.6); ABS Lymphocytes 0.7 10^3/ul (1.0-4.8); ABS Monocytes 0.4 10^3/ul (0-0.8); ABS Neutrophils 4.4 10^3/ul (1.5-7.7); ABS Nucleated RBC 0 10^3/ul; Eosinophil % 0 %; Hematocrit 30 % (35-47); Hemoglobin 10.4 g/dl (12.0-16.0); Lymphocyte % 12.8 %; Mean Corpuscular HGB Conc 35 g/dl (31-36); Mean Corpuscular Hemoglobin 32 pg (27-31); Mean Corpuscular Volume 92 fL (80-97); Mean Platelet Volume 8.5 fL (7.4-10.4); Nucleated Red Blood Cells % 0; Platelet Count 186 10^3/ul (150-450); Red Blood Count 3.23 10^6/ul (4.00-5.40); Red Cell Distribution Width 14 % (10.5-15); White Blood Count 5.5 10^3/ul (3.5-10.8)
[2018-10-16 07:55] LABS: BUN/Creatinine Ratio 21.8 (8-20); Calcium 8.5 mg/dL (8.6-10.3); EGFR African American 133.8 (>60); EGFR Non-African American 110.6 (>60); Potassium 4.5 mmol/L (3.5-5.0)
[2018-10-16] MEDS: Ascorbic Acid TAB* 500 MG PO SCH (09:36)
[2018-10-16] MEDS: Aspirin EC TAB* 81 MG TAB.EC PO SCH (09:37)
[2018-10-16] MEDS: Docusate CAP* 100 MG PO SCH ×2 (09:38→20:07)
[2018-10-16] MEDS: CMC: Desvenlafaxine (NF) 50 MG TAB PO SCH (09:38)
[2018-10-16] MEDS: Ferrous Gluconate TAB* 324 MG TAB PO SCH ×2 (09:39→20:07)
[2018-10-16] MEDS: Gabapentin CAP(*) 300 MG PO SCH ×3 (09:40→20:07)
[2018-10-16] MEDS: Methadone TAB* 10 MG PO SCH ×3 (09:42→20:08)
[2018-10-16] MEDS: Azithromycin IV(*) 250 MG in NS 0.9% 250 ML* 250 ML IVPB SCH (09:46)
[2018-10-16] MEDS: FLUTICASONE INH SCH (12:04)
[2018-10-16] MEDS: UMECLIDIN INH SCH (12:04)
[2018-10-16] MEDS: VILANTER INH SCH (12:04)
--- NOTE | 2018-10-16 16:34 | PN ---
Subjective Date of Service: 10/16/18 Interval History: Patient is much more alert today. Reports shortness of breath with exertion has improved since yesterday. Per nursing notes patient ambulated to bathroom without s/s of dyspnia. In addition patient has maintain O2 saturation on room air. Patient continues to have occasional cough. Denies dizziness, weakness, cp, palpitations, nausea, vomiting, diarrhea, fever , chills Objective Active Medications: Ascorbic Acid (Vitamin C Tab*) 2,000 mg PO QAM [facility] Last Admin: 10/16/18 09:36 Dose: 2,000 mg Aspirin (A[facility]in Ec Tab*) [facility] Last Admin: 10/16/18 09:37 Dose: 81 mg Cholecalciferol (Vitamin D Tab*) 2,000 units PO BEDTIME [facility] Last Admin: 10/15/18 21:45 Dose: 2,000 units Desvenlafaxine Succinate (Pristiq (Nf)) 100 mg PO [facility] Last Admin: 10/16/18 09:38 Dose: 100 mg Docusate Sodium (Colace Cap*) 100 mg PO BID [facility] Last Admin: 10/16/18 09:38 Dose: 100 mg Ferrous Gluconate (Fergon Tab*) 324 mg PO BID [facility] Last Admin: 10/16/18 09:39 Dose: 324 mg Gabapentin (Neurontin Cap(*)) 900 mg PO TID [facility] Last Admin: 10/16/18 13:44 Dose: 900 mg Heparin Sodium (Porcine) (Heparin Vial(*)) 5,000 units SUBCUT Q8HR [facility] Last Admin: 10/16/18 13:45 Dose: 5,000 units Azithromycin 250 mg/ Sodium (Chloride) 250 mls @ 250 mls/hr IVPB Q24H [facility] Last Admin: 10/16/18 09:46 Dose: 250 mls/hr Ibuprofen (Motrin Tab*) 800 mg PO Q8H PRN PRN Reason: PAIN Levalbuterol HCl (Xopenex 1.25 Mg/0.5 Ml Neb.Sia*) 1.25 mg INH [id number] AWAKE [facility] Last Admin: 10/16/18 13:15 Dose: 1.25 mg Lorazepam (Ativan Tab(*)) 1 mg PO TID PRN PRN Reason: ANXIETY Last Admin: 10/16/18 11:17 Dose: 1 mg Methadone HCl (Dolophine Tab*) 10 mg PO 1200 [facility] Last Admin: 10/16/18 12:06 Dose: 10 mg Methadone HCl (Dolophine Tab*) 15 mg PO BEDTIME [facility] Last Admin: 10/15/18 21:45 Dose: 15 mg Methadone HCl (Dolophine Tab*) 20 mg PO QAM [facility] Last Admin: 10/16/18 09:42 Dose: 20 mg Methylprednisolone Sodium Succinate (Solu-Medrol 40 Mg) 40 mg IV Q12H [facility] Stop: 10/17/18 00:01 Multivitamins/Minerals (Theragran/Minerals Tab*) 1 tab PO BEDTIME [facility] Last Admin: 10/15/18 21:44 Dose: 1 tab Pto: (Fluticasone/Umeclidin/Vilanter [ Trelegy Ellipta 100- 62.5-25] 1 Puff) 1 puff INH QAM [facility] Last Admin: 10/16/18 12:04 Dose: Not Given Prednisone (Deltasone Tab*) 60 mg PO DAILY [facility] Zolpidem Tartrate (Ambien Tab*) 10 mg PO BEDTIME PRN PRN Reason: SLEEP Last Admin: 10/16/18 00:00 Dose: 10 mg Vital Signs - 8 hr 10/16/18 10/16/18 10/16/18 08:49 09:40 09:42 Temperature 98.0 F Pulse Rate 57 Respiratory 16 16 16 Rate Blood Pressure 117/60 (mmHg) O2 Sat by Pulse 98 Oximetry 10/16/18 10/16/18 10/16/18 11:17 11:51 12:06 Temperature 98.3 F Pulse Rate 53 Respiratory 16 20 16 Rate Blood Pressure 142/62 (mmHg) O2 Sat by Pulse 99 Oximetry 10/16/18 10/16/18 10/16/18 13:17 13:44 15:37 Temperature 98.3 F Pulse Rate 68 51 Respiratory 18 18 18 Rate Blood Pressure 139/68 (mmHg) O2 Sat by Pulse 99 96 Oximetry Oxygen Devices in Use Now: Nasal Cannula Appearance: Comfortable, NAD Eyes: No Scleral Icterus Ears/Nose/Mouth/Throat: Clear Oropharnyx, Mucous Membranes Moist Neck: NL Appearance and Movements; NL JVP Respiratory: Symmetrical Chest Expansion and Respiratory Effort, - - Wheezing and rhonchi throughout. Rhonchi clears mildly with cough. Cardiovascular: NL Sounds; No Murmurs; No JVD, RRR, No Edema Abdominal: NL Sounds; No Tenderness; No Distention Lymphatic: No Cervical Adenopathy Extremities: No Clubbing, Cyanosis Skin: No Rash or Ulcers Neurological: Alert and Oriented x 3 Nutrition: Taking PO's Result Diagrams: 10/16/18 07:12 10/16/18 07:12 Additional Lab and Data: Laboratory Results - last 24 hr 10/16/18 10/16/18 07:12 07:12 WBC 5.5 RBC 3.23 L Hgb 10.4 L Hct 30 L MCV 92 MCH 32 H MCHC 35 RDW 14 Plt Count 186 MPV 8.5 Neut % (Auto) 80.1 Lymph % (Auto) 12.8 [place] % (Auto) 6.9 Eos % (Auto) 0 Baso % (Auto) 0.2 Absolute Neuts (auto) 4.4 Absolute Lymphs (auto) 0.7 L Absolute Monos (auto) 0.4 Absolute Eos (auto) 0 Absolute Basos (auto) 0 Absolute Nucleated RBC 0 Nucleated RBC % 0 Sodium 136 Potassium 4.5 Chloride 108 Carbon Dioxide 23 Anion Gap 5 BUN 12 Creatinine 0.55 Est GFR ( Amer) 133.8 Est GFR (Non-Af Amer) 110.6 BUN/Creatinine Ratio 21.8 H Glucose 152 H Calcium 8.5 L Magnesium 2.0 Microbiology and Other Data: Microbiology 10/14/18 10:54 Blood Venous Aerobic Blood Culture - Preliminary No Growth Day 2 10/14/18 10:54 Blood Venous Anaerobic Blood Culture - Preliminary No Growth Day 2 10/14/18 07:53 Blood Venous Aerobic Blood Culture - Preliminary No Growth Day 2 10/14/18 07:53 Blood Venous Anaerobic Blood Culture - Preliminary No Growth Day 2 Assess/Plan/Problems-Billing Assessment: 68 yr old female with pmh significant for COPD, PE, diverticulitis, Gerd, Osteoporosis; who presented to the ED with c/o flu like symptoms x 1 week - Patient Problems (1) COPD (chronic obstructive pulmonary disease) Comment: - Chest Xray consistent with COPD - Per nursing notes patient has been weaned successfully off of O2 and maintaining O2 saturation > 92%. - Order placed to ambulate patient on room air while monitoring O2 - Cont scheduled nebs; patient has nebs at home - Cont Azithromycin - Cont IV steriods, start taper - Cont home inhalers (2) Dehydration Comment: - Improved - Restart home Metolozone and Furosimide tomorrow (3) Hyponatremia Comment: - Resolved (4) Electrolyte abnormality Comment: - K+ and Mag low on admission and replaced. Now wnl. - Cont to monitor and replace as needed (5) Weakness Comment: - Improving - 2/2 COPD exacerbation - PT consulted - At baseline (6) Right knee pain Comment: - Had planned Right TKR for 10/16/18, but cancelled given patient's current condition (7) History of pulmonary embolus (PE) Comment: - Hx of PE in 2017 and no longer on anticoaguation - Low suspicion for PE currently - Monitor closely and have low thershold for CTA (8) Chronic pain Comment: - Continue home methadone; I have called patient's pharmacy and adjusted medications accordingly (20 mg morning, 10 mg after, and 15 mg evening) - Cont to hold for sedation - Cont Gabapentin - Less sedated today (9) GERD (gastroesophageal reflux disease) Comment: - Supportive care (10) Osteoporosis Comment: - Hold Fosamax while hospitalized (11) Depression Comment: - Cont Prestiqu. - Cont Ativan PRN. Verified with pharmacy and dose is 1 mg TID PRN, therefore, bedtime dose discontinued given sedation (12) Insomnia Comment: - Ambien prn - Hold for sedation (13) DVT prophylaxis Comment: - Cont subq Heparin Attending: Javi Marquez
[2018-10-16] MEDS: Cholecalciferol TAB* 1000 UNITS PO SCH (20:06)
[2018-10-16] MEDS: Multivitamins/Minerals TAB PO SCH (20:07)
[2018-10-16] MEDS ORDERED: methylPREDNISolone SOD 40 MG* 1 ML VIAL IV SCH (21:00)
[2018-10-17] MEDS: Levalbuterol 1.25MG/0.5ML NEB INH SCH ×2 (01:46→06:31)
[2018-10-17] MEDS: Zolpidem TAB* 10 MG PO PRN ×2 (01:47→22:51)
[2018-10-17] MEDS: LORazepam TAB(*) 1 MG PO PRN ×2 (01:47→22:51)
[2018-10-17 04:32] LABS: ABS Basophils 0.1 10^3/ul (0-0.2); ABS Eosinophils 0 10^3/ul (0-0.6); ABS Lymphocytes 0.9 10^3/ul (1.0-4.8); ABS Monocytes 0.4 10^3/ul (0-0.8); ABS Neutrophils 5.5 10^3/ul (1.5-7.7); ABS Nucleated RBC 0 10^3/ul; Eosinophil % 0.1 %; Hematocrit 32 % (35-47); Lymphocyte % 12.8 %; Mean Corpuscular HGB Conc 35 g/dl (31-36); Mean Corpuscular Hemoglobin 32 pg (27-31); Mean Corpuscular Volume 93 fL (80-97); Mean Platelet Volume 8.1 fL (7.4-10.4); Nucleated Red Blood Cells % 0; Platelet Count 226 10^3/ul (150-450); Red Blood Count 3.42 10^6/ul (4.00-5.40); Red Cell Distribution Width 14 % (10.5-15); White Blood Count 6.9 10^3/ul (3.5-10.8)
[2018-10-17] MEDS: Heparin VIAL(*) 5000 UNITS/ML VIAL (FIVE THOUSAND) SUBCUT SCH ×2 (06:03→13:57)
[2018-10-17] MEDS: predniSONE TAB* 20 MG PO SCH (08:27)
[2018-10-17] MEDS: Furosemide TAB* 40 MG PO SCH (08:27)
[2018-10-17] MEDS: Ferrous Gluconate TAB* 324 MG TAB PO SCH ×2 (08:27→22:52)
[2018-10-17] MEDS: Ascorbic Acid TAB* 500 MG PO SCH (08:28)
[2018-10-17] MEDS: Methadone TAB* 10 MG PO SCH ×3 (08:30→22:53)
[2018-10-17] MEDS: Docusate CAP* 100 MG PO SCH ×2 (08:31→22:52)
[2018-10-17] MEDS: Gabapentin CAP(*) 300 MG PO SCH ×3 (08:31→22:51)
[2018-10-17] MEDS: Aspirin EC TAB* 81 MG TAB.EC PO SCH (08:32)
[2018-10-17] MEDS: CMC: Desvenlafaxine (NF) 50 MG TAB PO SCH (08:40)
[2018-10-17] MEDS ORDERED: Metolazone TAB* 5 MG PO SCH (09:00)
[2018-10-17] MEDS: UMECLIDIN INH SCH (09:52)
[2018-10-17] MEDS: FLUTICASONE INH SCH (09:52)
[2018-10-17] MEDS: VILANTER INH SCH (09:52)
[2018-10-17] MEDS: Azithromycin IV(*) 250 MG in NS 0.9% 250 ML* 250 ML IVPB SCH (11:33)
--- NOTE | 2018-10-17 16:44 | PN ---
Subjective Date of Service: 10/17/18 Interval History: Per nursing patient ambulated unit on room air and saturation remained above 90% . Nursing also states that patient had significant shortness of breath after ambulating the entire unit. Patient reports she continues to have sob with exertion especially long distances. Fortunately patient lives in a small, one level apartment and has an elevator to get to her floor. Patient is no longer on supplemental O2 at rest or with exertion. Patient reports she continues to also have weakness and occasional cough Patient reports she has had mild improvement since admission. Denies cp, palpitations, fever, chills, dizziness, headache, sore throat, congestion, n/v/d. Objective Active Medications: Ascorbic Acid (Vitamin C Tab*) [facility] [place] [place] Admin: 10/17/18 08:28 Dose: 2,000 mg Aspirin (Aspirin Ec Tab*) [facility] [place] Admin: 10/17/18 08:32 Dose: 81 mg Cholecalciferol (Vitamin D Tab*) 2,000 units PO BEDTIME [facility] Last Admin: 10/16/18 20:06 Dose: 2,000 units Desvenlafaxine Succinate (Pristiq (Nf)) 100 [facility] [place] Admin: 10/17/18 08:40 Dose: 100 mg Docusate Sodium (Colace Cap*) 100 mg PO BID [facility] Last Admin: 10/17/18 08:31 Dose: 100 mg Ferrous Gluconate (Fergon Tab*) 324 mg PO BID [facility] Last Admin: 10/17/18 08:27 Dose: 324 mg Furosemide (Lasix Tab*) 40 mg PO QAM [facility] Last Admin: 10/17/18 08:27 Dose: 40 mg Gabapentin (Neurontin Cap(*)) 900 mg PO TID [facility] Last Admin: 10/17/18 13:56 Dose: 900 mg Heparin Sodium (Porcine) (Heparin Vial(*)) 5,000 units SUBCUT Q8HR [facility] Last Admin: 10/17/18 13:57 Dose: 5,000 units Azithromycin 250 mg/ Sodium (Chloride) 250 mls @ 250 mls/hr IVPB Q24H [facility] Last Admin: 10/17/18 11:33 Dose: 250 mls/hr Ibuprofen (Motrin Tab*) 800 mg PO Q8H PRN PRN Reason: PAIN Last Admin: 10/17/18 13:29 Dose: 800 mg Lorazepam (Ativan Tab(*)) 1 mg PO TID PRN PRN Reason: ANXIETY Last Admin: 10/17/18 01:47 Dose: 1 mg Methadone HCl (Dolophine Tab*) 10 mg PO 1200 [facility] Last Admin: 10/17/18 13:29 Dose: 10 mg Methadone HCl (Dolophine Tab*) 15 mg PO BEDTIME [facility] Last Admin: 10/16/18 20:08 Dose: 15 mg Methadone HCl (Dolophine Tab*) 20 mg PO QAM [facility] Last Admin: 10/17/18 08:30 Dose: 20 mg Metolazone (Zaroxolyn Tab*) 2.5 mg PO EVERY OTHER DAY [facility] Last Admin: 10/17/18 08:34 Dose: 2.5 mg Multivitamins/Minerals (Theragran/Minerals Tab*) 1 tab PO BEDTIME [facility] Last Admin: 10/16/18 20:07 Dose: 1 tab Pto: (Fluticasone/Umeclidin/Vilanter [ Trelegy Ellipta 100- 62.5-25] 1 Puff) 1 puff INH QAM [facility] Last Admin: 10/17/18 09:52 Dose: Not Given Prednisone (Deltasone Tab*) 60 mg PO DAILY [facility] Last Admin: 10/17/18 08:27 Dose: 60 mg Zolpidem Tartrate (Ambien Tab*) 10 mg PO BEDTIME PRN PRN Reason: SLEEP Last Admin: 10/17/18 01:47 Dose: 10 mg Vital Signs - 8 hr 10/17/18 10/17/18 10/17/18 10:30 11:14 13:29 Temperature 98.5 F Pulse Rate 64 Respiratory 20 16 18 Rate Blood Pressure 137/72 (mmHg) O2 Sat by Pulse 98 Oximetry 10/17/18 10/17/18 13:56 14:20 Temperature 97.9 F Pulse Rate 59 Respiratory 18 18 Rate Blood Pressure 125/67 (mmHg) O2 Sat by Pulse Oximetry Oxygen Devices in Use Now: None Appearance: Comfortable, NAD Eyes: No Scleral Icterus Ears/Nose/Mouth/Throat: Clear Oropharnyx, Mucous Membranes Moist Neck: NL Appearance and Movements; NL JVP Respiratory: Symmetrical Chest Expansion and Respiratory Effort, - - Rhonchi and wheezing throughout Cardiovascular: NL Sounds; No Murmurs; No JVD, RRR, No Edema Abdominal: NL Sounds; No Tenderness; No Distention Lymphatic: No Cervical Adenopathy Extremities: No Clubbing, Cyanosis Skin: No Rash or Ulcers Neurological: Alert and Oriented x 3 Nutrition: Taking PO's Result Diagrams: 10/17/18 04:26 10/16/18 07:12 Additional Lab and Data: Laboratory Results - last 24 hr 10/17/18 04:26 WBC 6.9 RBC 3.42 L Hgb 11.0 L Hct 32 L MCV 93 MCH 32 H MCHC 35 RDW 14 Plt Count 226 MPV 8.1 Neut % (Auto) 79.8 Lymph % (Auto) 12.8 [place] % (Auto) 6.4 Eos % (Auto) 0.1 Baso % (Auto) 0.9 Absolute Neuts (auto) 5.5 Absolute Lymphs (auto) 0.9 L Absolute Monos (auto) 0.4 Absolute Eos (auto) 0 Absolute Basos (auto) 0.1 Absolute Nucleated RBC 0 Nucleated RBC % 0 Microbiology and Other Data: Microbiology 10/14/18 10:54 Blood Venous Aerobic Blood Culture - Preliminary No Growth Day 3 10/14/18 10:54 Blood Venous Anaerobic Blood Culture - Preliminary No Growth Day 3 10/14/18 07:53 Blood Venous Aerobic Blood Culture - Preliminary No Growth Day 3 10/14/18 07:53 Blood Venous Anaerobic Blood Culture - Preliminary No Growth Day 3 Assess/Plan/Problems-Billing Assessment: 68 yr old female with pmh significant for COPD, PE, diverticulitis, Gerd, Osteoporosis; who presented to the ED with c/o flu like symptoms x 1 week - Patient Problems (1) COPD (chronic obstructive pulmonary disease) Comment: - Chest Xray consistent with COPD - Per nursing notes patient has been weaned successfully off of O2 and maintaining O2 saturation > 92%. - Ambulated unit on room air and maintained O2 saturation, but was short of breath - Cont scheduled nebs; patient has nebs at home - Cont Azithromycin - Cont PO steriods - Cont home inhalers - If no more improvement in lung sounds tomorrow may obtain CT of chest (2) Dehydration Comment: - Improved - Cont Metolozone and Furosimide (3) Hyponatremia Comment: - Resolved (4) Electrolyte abnormality Comment: - K+ and Mag low on admission and replaced. Now wnl. - Cont to monitor and replace as needed (5) Weakness Comment: - Improving - 2/2 COPD exacerbation - PT consulted - At baseline (6) Right knee pain Comment: - Had planned Right TKR for 10/16/18, but cancelled given patient's current condition (7) History of pulmonary embolus (PE) Comment: - Hx of PE in 2017 and no longer on anticoaguation - Low suspicion for PE currently - Monitor closely and have low thershold for CTA (8) Chronic pain Comment: - Continue home methadone; I have called patient's pharmacy and adjusted medications accordingly (20 mg morning, 10 mg after, and 15 mg evening) - Cont to hold for sedation - Cont Gabapentin - Less sedated today (9) GERD (gastroesophageal reflux disease) Comment: - Supportive care (10) Osteoporosis Comment: - Hold Fosamax while hospitalized (11) Depression Comment: - Cont Prestiqu. - Cont Ativan PRN. Verified with pharmacy and dose is 1 mg TID PRN, therefore, bedtime dose discontinued given sedation (12) Insomnia Comment: - Ambien prn - Hold for sedation (13) DVT prophylaxis Comment: - Cont subq Heparin Attending: Albino Victoria
[2018-10-17] MEDS: Multivitamins/Minerals TAB PO SCH (22:52)
[2018-10-17] MEDS: Cholecalciferol TAB* 1000 UNITS PO SCH (22:53)
[2018-10-18] MEDS: Heparin VIAL(*) 5000 UNITS/ML VIAL (FIVE THOUSAND) SUBCUT SCH ×3 (00:30→13:24)
[2018-10-18] MEDS ORDERED: Albuterol 2.5 MG/3 ML NEB.SOL* (0.083%) INH PRN (01:40)
[2018-10-18] MEDS: LORazepam TAB(*) 1 MG PO PRN (04:45)
[2018-10-18 06:12] LABS: ABS Basophils 0 10^3/ul (0-0.2); ABS Eosinophils 0 10^3/ul (0-0.6); ABS Lymphocytes 2.1 10^3/ul (1.0-4.8); ABS Monocytes 0.8 10^3/ul (0-0.8); ABS Neutrophils 5.3 10^3/ul (1.5-7.7); ABS Nucleated RBC 0 10^3/ul; Eosinophil % 0.2 %; Hematocrit 35 % (35-47); Hemoglobin 11.7 g/dl (12.0-16.0); Lymphocyte % 25.5 %; Mean Corpuscular HGB Conc 34 g/dl (31-36); Mean Corpuscular Hemoglobin 31 pg (27-31); Mean Corpuscular Volume 93 fL (80-97); Mean Platelet Volume 8.4 fL (7.4-10.4); Nucleated Red Blood Cells % 0.1; Platelet Count 258 10^3/ul (150-450); Red Blood Count 3.76 10^6/ul (4.00-5.40); Red Cell Distribution Width 14 % (10.5-15); White Blood Count 8.2 10^3/ul (3.5-10.8)
[2018-10-18 06:29] LABS: BUN/Creatinine Ratio 24.7 (8-20); EGFR African American 96.5 (>60); EGFR Non-African American 79.8 (>60); Potassium 3.2 mmol/L (3.5-5.0)
[2018-10-18] MEDS ORDERED: Potassium Chlor TAB* 20 MEQ TAB.ER PO ONE (08:10)
[2018-10-18] MEDS: UMECLIDIN INH SCH (09:36)
[2018-10-18] MEDS: VILANTER INH SCH (09:36)
[2018-10-18] MEDS: FLUTICASONE INH SCH (09:36)
[2018-10-18] MEDS: Ascorbic Acid TAB* 500 MG PO SCH (09:37)
[2018-10-18] MEDS: Gabapentin CAP(*) 300 MG PO SCH ×2 (09:37→13:22)
[2018-10-18] MEDS: predniSONE TAB* 20 MG PO SCH (09:38)
[2018-10-18] MEDS: Docusate CAP* 100 MG PO SCH (09:38)
[2018-10-18] MEDS: Methadone TAB* 10 MG PO SCH ×2 (09:38→13:51)
[2018-10-18] MEDS: Ferrous Gluconate TAB* 324 MG TAB PO SCH (09:38)
[2018-10-18] MEDS: Aspirin EC TAB* 81 MG TAB.EC PO SCH (09:39)
[2018-10-18] MEDS: Furosemide TAB* 40 MG PO SCH (09:39)
[2018-10-18] MEDS: CMC: Desvenlafaxine (NF) 50 MG TAB PO SCH (09:39)
[2018-10-18] MEDS: Azithromycin IV(*) 250 MG in NS 0.9% 250 ML* 250 ML IVPB SCH (09:58)
[2018-10-18] MEDS ORDERED: Azithromycin TAB* 250 MG PO SCH (10:00)
[2018-10-18 13:41] VITALS: BP 101/69
--- NOTE | 2018-10-18 20:34 | DS ---
CC: Dr. Barron Gilmore; Dr. Pryor.* DISCHARGE SUMMARY: DATE OF ADMISSION: 10/14/18 DATE OF DISCHARGE: 10/18/18 PRIMARY CARE PROVIDER: Dr. Gilmore. OUTSIDE FENCE INSTALLER FOREMAN: Dr. Pryor. ATTENDING PHYSICIAN: Dr. Albino Victoria * (dictated by Marek Majano NP). PRIMARY DIAGNOSES: 1. Chronic obstructive pulmonary disease exacerbation. 2. Dehydration. 3. Electrolyte abnormality. 4. Weakness. SECONDARY DIAGNOSES: 1. Right knee pain. 2. Pulmonary embolism. 3. Gastroesophageal reflux disease. 4. Osteoporosis. 5. Anxiety, depression and bipolar. 6. Breast cancer and uterine cancer. 7. Chronic pain. CONSULTATIONS WHILE IN THE HOSPITAL: No consultations. PROCEDURES DONE WHILE IN THE HOSPITAL: No procedures. STUDIES DONE WHILE IN THE HOSPITAL: 1. Chest x-ray. Impression: Hyperinflation with COPD. No active cardiopulmonary disease. Obtained on 10/14/18. 2. Chest x-ray. Impression: Hyperinflation consistent with COPD. No active cardiopulmonary disease. Exam date 10/18/18. DISCHARGE HOME MEDICATIONS: New home medication: Prednisone taper 60 mg x3 days, 40 mg x3 days, 20 mg x3 days, 10 mg x3 days. Continued home medications: 1. Metolazone 25 mg orally every other day. 2. Ambien 10 mg orally daily at bedtime. 3. Multivitamin with minerals 1 tablet oral daily at bedtime. 4. Robaxin 500 to 1000 mg by mouth 4 times a day as needed for muscle spasms. 5. Methadone 20 mg in the morning, 10 mg afternoon, 15 mg in the evening. 6. Xopenex 1.25 mg/0.5 mL nebulizer every 6 hours as needed for shortness of breath. 7. Xanax 1 mg orally t.i.d. as needed for anxiety. 8. Ibuprofen 800 mg orally every 8 hours as needed for pain. 9. Neurontin 900 mg orally 2 times a day. 10. Furosemide 40 mg orally every day. 11. Trelegy Ellipta 100/6.25/25 one puff inhalation every morning. 12. Ferrous gluconate 325 mg orally twice a day. 13. Colace 100 mg orally twice a day. 14. Pristiq 100 mg orally every day. 15. Cod liver oil 1 capsule orally every day. 16. Cinnamon bark 1 pack by mouth daily. 17. Vitamin D3 2000 units orally at bedtime. 18. Calcium carbonate 600 mg orally at bedtime. 19. Aspirin 81 mg orally every morning. 20. Vitamin C 2000 mg orally every morning. 21. Fosamax 70 mg by mouth every Monday. Changed home medications: No home medications changed. Discontinued home medications: No home medications discontinued. HISTORY OF PRESENT ILLNESS/HOSPITAL COURSE: Ms. Lomeli is a 68-year-old female with past medical history significant for COPD, PE in 2017, diverticulosis, GERD , osteoporosis, chronic pain, cervical degenerative disk disease, anxiety, depression, bipolar disorder, breast cancer, uterine cancer who presents to the emergency room on 10/14/18 with a week of flu-like symptoms. Please see the history and physical by Selina Mcdonald for a complete summary of events leading to hospitalization, but in short, the patient reported that about a week prior to presenting to the emergency department, she started having fever and chills, with a max temp of 102 at home, which had resolved. In addition, she reports a cough for about a week with clear to spivey sputum and shortness of breath with exertion, but occasionally at rest. In addition, she also reported some nausea and vomiting prior to her presentation to the emergency department. She also reported some myalgias and arthralgias. While in the emergency room, labs revealed hypokalemia, hypomagnesia and mild hyponatremia. Her flu A and B were negative. She had no leukocytosis and she was not tachycardic. She complained of no chest pain. The troponins were 0.00 x2. She was also afebrile. She was noted to require 3 L of nasal cannula in order to maintain a saturation above 90 and her blood pressure also soft. Therefore, hospitalist team was asked to evaluate her for admission. While inpatient, the patient has received nebulizers, azithromycin, steroids, magnesium, potassium, IV fluids. Over the past several days, the patient has improved as she is no longer experiencing the significant shortness of breath as she was on admission. In addition, she is no longer requiring oxygen to maintain her oxygen saturation. For example, the patient has been reported to ambulate in the unit on room air and maintaining a saturation of 95% or greater. The patient is no longer hypotensive. Her blood pressures have normalized. The patient has also not been afebrile or had any episodes of tachycardia. The patient had a chest x-ray on admission as mentioned above. The reason I repeated this chest x-ray as even though patient clinically is improving, lung sounds still continue to have some wheezing and rhonchi. Rhonchi did clear with cough, which was reassuring, but I did repeat a chest x- ray to be sure. There is no change in the chest x-ray and no concern for bacterial process. In addition, the patient has had no leukocytosis, no tachycardia and no fever. I also was considering pulmonary embolism due to the patient's history, but this is a very low suspicion. The patient's D-dimer is 288, which I suspect is only mildly elevated due to her COPD, but not greater than that would be corrected for age. In addition, she is not tachycardic. Also, she has maintained oxygen saturation on room air. She is able to ambulate without difficulty. Hence, her Wells score for a PE is low risk at 1.5. Therefore, I had held off on obtaining a CTA as this is a very low risk. The patient is stable for discharge home today. The patient reports she feels ready for discharge home today. Vital Signs: Temp 97.2, pulse 57, RR 16, O2 sat 97% on room air, BP 121/65. REVIEW OF SYSTEMS: The patient reports occasional cough, but less severe and less frequent than previously. The patient reports very minor shortness of breath with exertion, but once again this has improved since admission. The patient denied chest pain, palpitations, nausea, vomiting, diaphoresis, weakness , dizziness, fever, chills. A 12-point review of systems was completed and all were negative. PHYSICAL EXAMINATION: General: Ms. Lomeli is a 68-year-old female who was seen in bed on room air. She appears to be in no acute distress. She appears stated age. HEENT: EOMs intact. PERRLA. Oral mucosa is moist without lesions. Posterior pharynx is clear without erythema, exudate or lesions. Neck : Supple. No lymphadenopathy. Cardiac: S1 and S2 present. Regular rate and rhythm. No murmurs, rubs or gallops. Respiratory: The patient has sporadic wheezes and rhonchi throughout, but improved from previously. Rhonchi also does clear greatly with cough. The patient has good aeration. No signs of dyspnea. No crackles or rubs. Abdomen: Soft, nontender. Bowel sounds x4. Extremities: No edema. No clubbing or cyanosis. No pain or deformities. Skin : Skin is intact. Neuro: No focal weakness or deficits. Ambulating with a steady gait. LABORATORY DATA: WBC 8.2, hemoglobin 11.7, hematocrit 35, platelets 268,000. Sodium 134, potassium 3.2, chloride 99, carbon dioxide 27, BUN 18, creatinine 0.73, glucose 82, magnesium 2.0. DISCHARGE PLAN/FOLLOWUP: 1. COPD exacerbation. The patient is slowly improving. She has completed a course of azithromycin. I will discharge her on a long steroid taper. I have also set up an appointment for her to see Dr. Pryor on 10/26/18 at 10:30. I have encouraged the patient to continue her nebulizers at home, deep breaths, cough. I have also encouraged the patient to stay hydrated. The patient should also continue her home inhalers as seen. 2. Dehydration. She was initially dehydrated on presentation to the emergency room due to vomiting x4 days. She was placed on IV fluids and has responded well. 3. Mild hyponatremia. Again, the patient did respond well to IV fluids today. She is only slightly hyponatremic with a sodium of 134. Therefore, I will encourage the patient to continue to drink fluids and eat her normal diet. 4. Electrolyte abnormality. The patient was noted to have hypomagnesium on admission with a magnesium of 1.8. This is repleted and her magnesium is now 2.0. The patient is mildly hypokalemic today at 3.2. I have provided her with p.o. potassium this morning. I have encouraged the patient to follow up with her primary care next week and have a repeat BMP. 5. Weakness. The patient was initially weak on presentation, which was suspected to be secondary to her viral illness. The patient has improved greatly and has been noted to ambulate in the unit with steady gait and rolling walker, which is her baseline. The patient has a single-level apartment and an elevator to get to her apartment at [employer]. The patient reports her apartment is small, therefore she is not needed to walk long distances. 6. Right knee pain. The patient was initially scheduled to have a right total knee arthroplasty with Dr. Petersen on 10/16/18, but this was canceled due to the patient's COPD exacerbation. The patient will need to follow up with primary care regarding being cleared to reschedule. 7. History of pulmonary embolism. The patient has a history of pulmonary embolism in 2017 as she is no longer anticoagulated. Once again, I do not feel that the patient's symptoms are consistent with pulmonary embolism at this time as she has a low Wells score, is not tachycardic, has maintained her O2 saturation, and has decent endurance. 8. GERD. The patient should continue diet appropriate for GERD at home. 9. Osteoporosis. The patient could resume her Fosamax at home. 10. Anxiety/depression and bipolar disorder. The patient should continue her home medication as seen. 11. History of breast cancer and uterine cancer. The patient should continue to follow with her PCP. 12. Chronic pain. The patient should continue her methadone dosing at home for sedation. 13. Education: I discussed signs and symptoms of worsening condition and when to return to the emergency department at length with the patient. She states understanding. PLAN: This plan was discussed with my attending, Dr. Albino Victoria, who agrees with my plan. TIME SPENT: Approximately 35 minutes was spent on this discharge, greater than half of that time was spent [id number] with the patient discussing discharge plan and instructions. MAREK MAJANO, SHEREE [id number]/CPS #: [id number] SARAH
== END 2018-10-18 18:00 | disposition home or self-care (01) | DRG 191 ==
LOC: ED 07:16 → MED 12:03
PROVIDERS: ADMIT Internal Medicine; ATTEND Internal Medicine
DX: J44.1 Chronic obstructive pulmonary disease with (acute) exacerbation (principal); E87.1 Hypo-osmolality and hyponatremia; E86.0 Dehydration; M25.561 Pain in right knee; K21.9 Gastro-esophageal reflux disease without esophagitis; M81.0 Age-related osteoporosis without current pathological fracture; K57.90 Diverticulosis of intestine, part unspecified, without perforation or abscess without bleeding; F41.9 Anxiety disorder, unspecified; F31.9 Bipolar disorder, unspecified; G89.29 Other chronic pain; G47.00 Insomnia, unspecified; M50.30 Other cervical disc degeneration, unspecified cervical region; E87.6 Hypokalemia; E83.42 Hypomagnesemia; B34.9 Viral infection, unspecified; Z91.041 Radiographic dye allergy status; Z88.8 Allergy status to other drugs, medicaments and biological substances; Z91.048 Other nonmedicinal substance allergy status; R91.8 Other nonspecific abnormal finding of lung field; Z92.3 Personal history of irradiation; Z90.710 Acquired absence of both cervix and uterus; Z82.49 Family history of ischemic heart disease and other diseases of the circulatory system; Z87.891 Personal history of nicotine dependence; Z80.3 Family history of malignant neoplasm of breast; Z53.09 Procedure and treatment not carried out because of other contraindication; Z85.3 Personal history of malignant neoplasm of breast; Z85.42 Personal history of malignant neoplasm of other parts of uterus; Z79.51 Long term (current) use of inhaled steroids; Z79.82 Long term (current) use of aspirin; Z86.711 Personal history of pulmonary embolism
CPT/HCPCS: 36415; 71046; 80048; 80053; 81003; 82803; 83605; 83735; 83880; 84436; 84443; 84484; 85025; 85379; 85610; 85730; 87040; 93005; 94640; 99283; A9270-GY; G8978-GP-CI; G8979-GP-CI; G8980-GP-CI; J0456; J1100; J1644; J2920; J3475; J7512

== ENCOUNTER 2018-10-16 13:30 | Inpatient (IN) | payer MEDICARE, MEDICAID ==
--- NOTE | 2018-10-09 12:03 | HP ---
HISTORY AND PHYSICAL: DATE OF ADMISSION/SURGERY: 10/16/18. DATE OF OFFICE VISIT: 10/05/18. SURGEON: Dr. Michelle Petersen.* (DICTATED BY RIGOBERTO NELSON) PROCEDURE: Right total knee arthroplasty. CHIEF COMPLAINT: Right knee pain. HISTORY OF PRESENT ILLNESS: Ms. Lomeli is a 68-year-old female with continued complaints of right knee pain secondary to endstage osteoarthritis. She has failed conservative treatment and elected to proceed with a right total knee arthroplasty. PAST MEDICAL HISTORY: Pulmonary embolism, COPD, depression, anxiety, breast and uterine cancer, spinal cord injury, diverticulitis. PAST SURGICAL HISTORY: Cervical surgery x4, colostomy, hysterectomy, and lumpectomy. CURRENT MEDICATIONS: 1. Metolazone 2.5 mg every other day. 2. Ibuprofen 800 mg as needed. 3. Trelegy Ellipta inhaler. 4. Ipratropium bromide 2 times a day. 5. Vitamin D3. 6. Robaxin 500 mg 4 times a day as needed. 7. Mucinex 600 mg twice a day as needed. 8. Zofran 4 mg every 6 hours as needed. 9. MiraLAX as needed. 10. Clobetasol as needed. 11. Cinnamon 500 mg daily. 12. Gabapentin 900 mg 3 times a day. 13. Methadone 5 mg 2 tabs in the morning, 2 tabs in the evening, 1 tab at 2 p.m. 14. Aspirin 81 mg daily. 15. Dulcolax 100 mg 3 times a day. 16. Singulair 10 mg daily. 17. Nexium 40 mg daily. 18. Alendronate sodium 70 mg weekly. 19. Ambien 10 mg nightly as needed. 20. Ativan 1 mg as needed. 21. Ferrous gluconate daily. 22. Vitamin C. 23. Cod liver oil. 24. Pristiq 100 mg daily. 25. Furosemide 40 mg daily. 26. Calcium with vitamin D. ALLERGIES: To CONTRAST DYE, LATEX, and ADHESIVE TAPE. FAMILY HISTORY: Of cancer. SOCIAL HISTORY: She is a 68-year-old female. She lives alone. She smokes 12 to 15 cigarettes per day. She denies use of drugs or alcohol. REVIEW OF SYSTEMS: A complete 14-point review of systems was reviewed with the patient. It was positive for history of a pulmonary embolism, shortness of breath, and COPD. She denies a history of hepatitis, HIV, or anesthesia problems. PHYSICAL EXAMINATION GENERAL: She is well-developed, well-nourished, in no acute distress. VITAL SIGNS: She stands 67 inches tall, weighs 215 pounds. Her blood pressure is 117/79 and her heart rate is 72. HEENT: Normocephalic, atraumatic. NECK: Supple. No palpable lymph nodes. PULMONARY: There is expiratory wheezes along the right lung bases. CARDIO: Regular rate and rhythm. Strong S1, S2. ABDOMEN: Soft, nontender, and nondistended. NEUROLOGICAL: She is alert and oriented x3. MUSCULOSKELETAL: Right lower extremity, the skin is intact. There are no wounds or abrasions. There is a moderate joint effusion of the right knee. Tenderness over the medial and lateral joint lines. She has some decreased range of motion from the knee. Her calf is soft and nontender. She has 2+ dorsalis pedis pulse. Lower extremity muscle groups' strength is intact at 5/5. She has intact sensation. ASSESSMENT AND PLAN: Ms. Lomeli is a 68-year-old female with endstage osteoarthritis of the right knee. She is scheduled for a right total knee arthroplasty with Dr. Petersen on 10/16/18. Dr. Petersen discussed the risks and benefits of the surgery at today's visit and all of her questions were answered. She will follow up with Dr. Petersen 2 weeks after the surgery. We will not use TXA with this patient. RIGOBERTO NELSON [id number]/[facility] #: [id number] [facility] HOSPITALRomario
--- NOTE | 2019-05-05 19:11 | HP ---
PREOPERATIVE HISTORY AND PHYSICAL: DATE OF ADMISSION/SURGERY: 05/09/19 SURGEON: Michelle Petersen MD.* (DICTATED BY RIGOBERTO HUGHES) PROCEDURE: Right total knee replacement. CHIEF COMPLAINT: Right knee pain. HISTORY OF PRESENT ILLNESS: Ms. Lomeli is a 68-year-old female with severe right knee osteoarthritis that has been managed conservatively without relief. She has 8/10 pain along the joint lines that becomes severe with any walking, even 1 block. She has difficulty with stair climbing, prolonged standing, and has failed conservative treatment. She is seeking surgical intervention with Dr. Petersen. PAST MEDICAL HISTORY: 1. Cervical stenosis. 2. Breast cancer. 3. Uterine cancer. 4. Anxiety. 5. Depression. 6. Osteopenia. 7. COPD. 8. Emphysema. 9. Chronic pain syndrome. 10. Morbid obesity. 11. Right leg, left arm fractures as well as broken ribs. 12. She has had a pulmonary embolus in the past but no DVT. PAST SURGICAL HISTORY: 1. Cervical spine surgery. 2. Left breast surgery for cancer. 3. Total abdominal hysterectomy in 2009. 4. She did have a colostomy bag in place with subsequent reversal. She denies anesthetic complication with any of these procedures. CURRENT MEDICATIONS: 1. Ventolin HFA 108 (90 base) mcg/act 1 to 2 inhalations every 4 to 6 hours as needed. 2. Metolazone 2.5 mg 1 tab every other day. 3. Ibuprofen 800 mg 1 tab by mouth 3 times daily as needed for pain. 4. Trelegy Ellipta 100/62.5/25 mcg/inhalation 1 puff daily. 5. Ipratropium bromide 0.02% 1 vial nebulizers 2 times daily as needed. 6. Vitamin D3 1000 units p.o. daily. 7. Robaxin 500 mg 1 tab 4 times daily as needed. 8. Mucinex 600 mg 1 tab twice daily by mouth as needed. 9. Zofran ODT 4 mg 1 tab by mouth every 6 hours as needed for nausea. 10. MiraLAX 3350 NF 17 g every day mixed with 8 ounces of water/juice p.r.n. 11. Clobetasol propionate topical, use topically daily as needed. 12. Gabapentin 600 mg 1 tab p.o. 3 times daily. 13. Gabapentin 300 mg 1 tab p.o. 3 times daily in addition to the 600 mg dose. 14. Methadone HCl 10 mg 1 tab p.o. 3 times daily. 15. Aspirin 81 mg 1 tab p.o. daily. 16. 100 mg 1 tab p.o. 3 times daily. 17. Singulair 10 mg 1 tab p.o. daily. 18. Ambien 10 mg 1 tab p.o. q.h.s. p.r.n. sleep insomnia. 19. Ativan 1 mg 1 tab by mouth during the day and 1 to 2 at bedtime. 20. Ferrous gluconate 324 (38 Fe) mg 1 tab p.o. daily. 21. Vitamin C 2000 mg 1 tab p.o. daily. 22. Cod liver oil 1 tab p.o. daily. 23. Pristiq 100 mg 1 tab p.o. daily. 24. Furosemide 400 mg 1 tab p.o. every other day. 25. Calcium 600 plus D, high potency 600/400 mg per unit 1 tab p.o. daily. ALLERGIES: TIZANIDINE, CONTRAST DYE, ADHESIVE TAPE. FAMILY HISTORY: Positive for cancer. No diabetes or heart disease. SOCIAL HISTORY: She lives alone and will have friends helping to care for her postoperatively. She does not work. She smokes e-cigarettes regularly, less than a pack a day, and denies alcohol or recreational drug use. She normally ambulates with a cane at baseline. REVIEW OF SYSTEMS: Fourteen systems were reviewed with the patient and are positive for right knee pain, chronic back and neck pain, anxiety, shortness of breath related to her COPD and emphysema. She denies fevers, chills, chest pain , and all other systems are negative today. PHYSICAL EXAMINATION GENERAL: The patient is a well-developed, heavy set female, seated in exam chair, in no acute distress with appropriate affect. VITAL SIGNS: Height is 67 inches, weight 223, pulse 60, blood pressure 108/82 with respirations of 16. HEENT: Normocephalic, atraumatic. Hearing and vision are grossly intact with extraocular movements intact. NECK: The trachea is midline and symmetrical. LUNGS: Clear to auscultation. No wheezes, rales, or rhonchi appreciated. CARDIO: Regular rate and rhythm. Normal S1, S2. No murmurs, rubs, or gallops noted. ABDOMEN: Nondistended, although body habitus is limiting. Bowel sounds present. GENITOURINARY: Deferred. MUSCULOSKELETAL: The right lower extremity skin is pink, dry, and intact with no abrasions or open wounds. There is a valgus deformity present with moderate effusion and tenderness along the medial and lateral joint lines. She has some MCL laxity, but no varus or valgus instability. She extends the knee to 5 degrees, flexes to 120 with pain and patello-femoral crepitus. She has 5/5 strength against resistance in 4 planes in the ankle with intact sensation and 2 + dorsalis pedis pulse. IMPRESSION: Right knee severe end-stage arthritis and valgus deformity. PLAN: Right total knee replacement with Dr. Petersen. The patient's questions were answered and she would like to proceed. Dr. Petersen discussed the risks and benefits of surgery at today's visit. The patient will follow up postoperatively. RIGOBERTO HUGHES [id number]/CPS #: [id number] MTDD
[2019-05-08] MEDS ORDERED: Buffered Lidocaine 1% SYRIN* 1 ML/SYRINGE INTRADERM ONE (10:20)
[2019-05-09] MEDS ORDERED: Lactated Ringers 1000 ML Bag* 1,000 ML IV SCH (06:00)
--- OUTSIDE RECORDS SUMMARY | 2019-05-09 07:30 | XMS REPORT | Continuity of Care Document ---
:1950 External Reference #:[id number] Author Name Michelle Petersen M.D. 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 Onset: 08/06/2013 Postsurgical Status Other Ayo Chase M.D. Onset: 08/06/2013 Cervical spondylosis with myelopathy Ayo Chase M.D. Onset: 08/06/2013 Arthrodesis status Ayo Chase M.D. Onset: 08/19/2015 Dyspnea Ashly Pryor MD Onset: 09/23/2015 Obstructive sleep apnea syndrome Ashly Pryor MD Onset: 09/23/2015 Disorder of lung Ashly Pryor MD Onset: 09/23/2015 Tobacco user Ashly Pyror MD Onset: 09/23/2015 Obesity Ashly Pryor MD Onset: 11/30/2015 Emphysema, unspecified Ashly Pryor MD Onset: 06/20/2016 Localized, primary osteoarthritis Michelle Petersen M.D. Onset: 06/25/2018 Acquired genu valgum Michelle Petersen M.D. Onset: 06/25/2018 Social History Type Date Description Comments Sex Unknown Tobacco Use Start: Unknown End: Former Cigarette Smoker Unknown ETOH Use Denies alcohol use Recreational Drug Use Denies Drug Use Tobacco Use Start: Unknown Patient is a current smoker, smokes some days Smoking Status Reviewed: 05/03/19 Patient is a current smoker, smokes some days Exercise Type/Frequency Exercises sporadically Allergies, Adverse Reactions, Alerts Active Allergies Reaction Severity Comments Date Tizanidine drowsiness Mild 03/23/2012 Contrast Dye 08/06/2013 Latex 09/16/2016 Adhesive Tape 09/16/2016 Medications Active Medications SIG Qnty Indications Ordering Date Provider Neelam HFA 1 to 2 inhalations 8gm J44.9 Santa 12/10/2018 every 4 to 6 hours SHEREE Pan 108(90Base) mcg/Act as needed Aerosol Metolazone 1 every other day Jitendra Rehman, 08/28/2018 2.5mg DO FACC Tablets Ibuprofen Take 1 Tablet By 90tabs Michelle Petersen, 06/27/2018 800mg Mouth Three Times M.D. Tablets Daily With Food as Needed For Pain. Maximum Daily Dose Is 3 Trelegy Ellipta 1 puff daily 60units Ashly Pryor, 05/17/2018 100-62.5-25mcg/Inh Aerosol Ipratropium [place] 1 vial in nebulizer 187.5ml J43.9 Ashly Pryor, 12/2017 2 times a day 0.02% Solution Clobetasol topical every day Unknown 11/27/2015 Propionate as needed Miralax 17 gm every day Unknown 11/27/2015 3350NF mixed w/ 8 oz Powder water/juice prn Zofran Odt 1 tab by mouth Unknown 11/27/2015 4mg every 6 hours as Tablets Dispers needed nausea Mucinex 1 tab twice a day Unknown 11/27/2015 600mg by mouth as needed Tablets ER 12HR Robaxin 1 four times a day Unknown 11/27/2015 500mg as needed Tablets Vitamin D3 po qd 30caps Unknown 11/27/2015 1000Unit Capsules Cinnamon by mouth once a day Unknown 09/22/2015 500mg Tablets Calcium 600+D High 1 by mouth daily Unknown Potency [id number] Tablets Furosemide 1 by mouth every Unknown 40mg other day Tablets Pristiq 1 by mouth every Unknown 100mg day Tablets ER 24HR Cod Liver Oil 1 tab daily Unknown Tablet Vitamin C 1 po qd Unknown 2000mg Tablets Ferrous Gluconate po daily 60tabs Unknown 324(38Fe) mg Tablets Ativan 1 tab by mouth 3tabs Unknown 1mg Tablets during the day and 1-2 at bedtime. Ambien 1 po qhs prn sleep 30tabs Unknown 10mg Tablets insomnia Singulair 1 po qd 90tabs Unknown 10mg Tablets Docqlace 1 po tid 90caps Unknown 100mg Capsules Aspirin 1 po qd 100tabs Unknown 81mg Tablets Methadone HCL 1 tab po tid 90tabs Unknown 10mg Tablets Gabapentin 1 po tid with the 90caps Unknown 300mg 600 mg dose for a Capsules total of 900 mg tid Gabapentin 1 po tid (take with 90tabs Unknown 600mg 300 for total of Tablets 900 tid) History Medications Hypersal use as needed for 720ml J44.9 Santa 12/10/2018 - 3.5% loosening SHEREE Pan 03/20/2019 Nebulizer secretions after albuterol treatment Medications Administered in Office Medication SIG Qnty Indications Ordering Provider Date Depomedrol 40MG Michelle Petersen M.D. 02/01/2019 Injection Immunizations CPT Code Status Date Vaccine Lot # [id number] Given 05/11/2016 Influenza Virus Vaccine, Quadrivalent, Split, Preservative Free [id number] Given 09/23/2015 Fluvirin Im 3Yrs And Older [id number] Given 09/23/2015 Pneumonia Vaccine Vital Signs Date Vital Result Comment 05/03/2019 1:21pm Height 67 inches 5'7" Weight 223.00 lb Heart Rate 60 /min BP Systolic 108 mmHg BP Diastolic 82 mmHg Respiratory Rate 16 /min Body Temperature 97.8 F Pain Level 8 BMI (Body Mass Index) 34.9 kg/m2 04/01/2019 3:25pm Height 67 inches 5'7" Weight 220.00 lb Heart Rate 88 /min BP Systolic 138 mmHg BP Diastolic 78 mmHg Body Temperature 97.2 F Pain Level 8 BMI (Body Mass Index) 34.5 kg/m2 Results Description No Information Available Procedures Date Code Description Status 03/21/2019 70892 EKG Tracing & Interpretation Completed 02/01/2019 91942 Inject/Drain Joint/Bursa Major W/O US Completed Medical Devices Description No Information Available Encounters Type Date Location Provider Dx Diagnosis Office Visit 04/01/2019 Orthopedic Michelle Nicola, M25.561 Pain in right 3:00p [facility] Torres knee M25.461 Effusion, right knee M17.11 Unilateral primary osteoarthritis, right knee Office Visit 03/21/2019 Lida Flanagan Z01.811 Encounter for 3:40p Cardiology Of DO Ori preprocedural [facility] FACC respiratory examination Z72.0 Tobacco use J44.9 Chronic obstructive pulmonary disease, unspecified E66.8 Other obesity R60.0 Localized edema G47.33 Obstructive sleep apnea (adult) (pediatric) Z86.711 Personal history of pulmonary embolism Office Visit 02/12/2019 Pulmonology And Ashly Z01.811 Encounter for 1:45p Sleep [facility] Of [facility] Roya preprocedural [facility] respiratory examination J44.9 Chronic obstructive pulmonary disease, unspecified F17.210 Nicotine dependence, cigarettes, uncomplicated Office Visit 02/01/2019 3:00p Orthopedic Services Michelle Petersen, M25.561 Pain in right Of C.Rakesh VillagranDKatelin knee M25.461 Effusion, right knee M17.11 Unilateral primary osteoarthritis, right knee M21.061 Valgus deformity, not elsewhere classified, right knee Office Visit 12/10/2018 2:15p Pulmonology And Ashly J44.9 Chronic Sleep [facility] obstructive Journalism Instructor pulmonary disease, unspecified F17.210 Nicotine dependence, cigarettes, uncomplicated Z12.2 Encntr screen for malignant neoplasm of respiratory organs Assessments Date Code Description Provider 05/03/2019 M25.561 Pain in right knee Michelle Petersen M.D. 05/03/2019 M17.11 Unilateral primary osteoarthritis, right Michelle Petersen M.D. knee 04/01/2019 M25.561 Pain in right knee Michelle Petersen M.D. 04/01/2019 M25.461 Effusion, right knee Michelle Petersen M.D. 04/01/2019 M17.11 Unilateral primary osteoarthritis, right Michelle Petersen M.D. knee 03/21/2019 Z01.811 Encounter for preprocedural respiratory Jitendra Rehman DO FACC examination 03/21/2019 Z72.0 Tobacco use Jitendra Rehman, DO [facility] 03/21/2019 J44.9 Chronic obstructive pulmonary disease, Jitendra Rehman, DO [facility] unspecified 03/21/2019 E66.8 Other obesity Jitendra Rehman, DO [facility] 03/21/2019 R60.0 Localized edema Jitendra Rehman, DO [facility] 03/21/2019 G47.33 Obstructive sleep apnea (adult) Jitendra Rehman, DO [facility] (pediatric) 03/21/2019 Z86.711 Personal history of pulmonary embolism Jitendra Rehman, DO [facility] 02/12/2019 Z01.811 Encounter for preprocedural respiratory Ashly Pryor MD examination 02/12/2019 J44.9 Chronic obstructive pulmonary disease, Ashly Pryor MD unspecified 02/12/2019 F17.210 Nicotine dependence, cigarettes, Ashly Pryor MD uncomplicated 02/01/2019 M25.561 Pain in right knee Michelle Petersen M.D. 02/01/2019 M25.461 Effusion, right knee Michelle Petersen M.D. 02/01/2019 M17.11 Unilateral primary osteoarthritis, right Michelle Petersen M.D. knee 02/01/2019 M21.061 Valgus deformity, not elsewhere Michelle Peteresn M.D. classified, right knee 12/10/2018 J44.9 Chronic obstructive pulmonary disease, Ashly Pryor MD unspecified 12/10/2018 F17.210 Nicotine dependence, cigarettes, Ashly Pryor MD uncomplicated 12/10/2018 Z12.2 Encounter for screening for malignant Ashly Pryor MD neoplasm of respirator Plan of Treatment Future Appointment(s):05/20/2019 3:15 pm - Michelle Petersen M.D. at [facility]05/09/2019 9:30 am - [facility] 9:30 am - Tank Osei PA-C at [facility].05/09/2019 9:30 am - Michelle Petersen M.D. at [facility]/03/2019 - Michelle Petersen M.D.M25.561 Pain in right kneeNew Xrays:Kneeright 4+ VWS, Ordered: 05/03/19Follow up:Follow up: 10 -14 days [id number] Unilateral primary osteoarthritis, right kneeNew Xrays: Kneeright 4+ VWS, Ordered: 05/03/19 Functional Status Description No Information Available Mental Status Description No Information Available Referrals Description No Information Available
--- OUTSIDE RECORDS SUMMARY | 2019-05-09 07:30 | XMS REPORT | Continuity of Care Document ---
:1950 External Reference #:[id number] Author Name Barron Gilmore M.D. Address [address] [place] [address] Care Team Providers Name Role Phone Barron Gilmore MD - Family Medicine Care Team Information Source Water Protection Specialist [phone] certified paralegal - Obstetrics & Gynecology Care Team Information Source Water Protection Specialist [phone] [facility] - Care Team Information Source Water Protection Specialist [phone] [place] [facility] [place] - Diagnostic Care Team Information Source Water Protection Specialist [phone] Radiology Weston Blair - Endocrinology, Diabetes & Care Team Information Source Water Protection Specialist Metabolism Efra Davis - Oncology Care Team Information Source Water Protection Specialist [phone] Rajiv Narvaez MD - Neurological Care Team Information Source [employer] Protection Specialist Surgery Sander Newman MD - Dermatology Care Team Information Source Water Protection Specialist [phone] Mary Jo Mayorga MD - Psychiatry Care Team Information Source [employer] Protection Specialist Antonieta Hatch MD - Cardiovascular Care Team Information Source Water Protection Specialist Disease Problems Active Problems Provider Date Depressive disorder Carissa Suárez M.D. Onset: 05/18/2011 Personal history of primary malignant Barron Gilmore M.D. Onset: 2011 neoplasm of breast Gastroesophageal reflux disease Barron Gilmore M.D. Onset: 09/20/2011 Hyperlipidemia Barron Gilmore M.D. Onset: 06/28/2012 History of malignant neoplasm of female Barron Gilmore M.D. Onset: 2012 genital organ Backache Barron Gilmore M.D. Onset: 03/18/2013 Chronic pain syndrome Barron Gilmore M.D. Onset: 07/04/2017 Edema Barron Gilmore M.D. Onset: 06/26/2018 Obstructive sleep apnea syndrome Barron Gilmore M.D. 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 Onset: 11/20/2018 Knee pain Barron Gilmore M.D. Onset: 11/20/2018 Restless legs Barron Gilmore M.D. Onset: 04/25/2019 Inactive Problems Disorder of bone Barron Gilmore M.D. Onset: 11/20/2018 Inactive: 04/25/2019 Social History Type Date Description Comments Sex Unknown Tobacco Use Start: Unknown End: Former Cigarette Smoker Now using nicotine Unknown 1/2 Pack Daily vapor Smoking Status Reviewed: 06/22/18 Former Cigarette Smoker Now using nicotine 1/2 Pack Daily vapor Tobacco Use Start: Unknown Patient has never smoked Allergies, Adverse Reactions, Alerts Active Allergies Reaction Severity Comments Date Adhesives 04/19/2010 IV Iodine Contrast [id number] 08/17/2010 Medications Active Medications SIG Qnty Indications Ordering Date Provider Desvenlafaxine take 1 tablet by 90tabs Barron FKatelin 02/15/2019 Succinate ER mouth at bedtime Brian Gilmore 100mg Tablets ER 24HR Furosemide take 1 tablet by 90tabs I50.22 Barron FKatelin 02/09/2019 40mg Tablets mouth once daily Brian Gilmore Clonidine HCL Take 1 Tablet By 60tabs Barron FKatelin 01/25/2019 0.1mg Mouth Twice Daily Brian Gilmore Tablets as Needed Montelukast Sodium 1 by mouth every 90tabs Barron FKatelin 01/15/2019 10mg day Brian Gilmore Tablets Note needs Acapella 1units Barron FKatelin 11/20/2018 valve for copd Brian Gilmore Trelegy Ellipta inhale 1 puff by 60units Barron FKatelin 08/23/2018 mouth once daily Brian Gilmore 100-62.5-25mcg/Inh for obstructive Aerosol lung disease Metolazone take 1 tablet by 60tabs Barron FKatelin 07/31/2018 2.5mg mouth once daily Brian Gilmore Tablets with furosemide Rojelio Aspirin Ec Low 1 by mouth every 100tabs Barron FKatelin 07/03/2018 Dose day Brian Gilmore 81mg Tablets DR Mucinex 1 tab by mouth 30tabs Barron F. 06/26/2018 600mg Tablets twice daily as Brian Gilmore ER 12HR needed for congestion mdd=2x/day/x2days Zolpidem Tartrate take 1 tablet by 30tabs Nini CKatelin 04/04/2018 10mg mouth at bedtime SHEREE Manzano Tablets if needed for sleep maximum daily dose of 1 Ativan 1 by mouth three 90tabs Nini CKatelin 10/10/2017 1mg Tablets times a day as SHEREE Manzano needed Calcium 600 High 1 tablet by mouth Barron FKatelin 06/06/2017 Potency daily Brian Gilmore 600mg Tablets Zofran Odt 1-2 by mouth every 60tabs R11.0 Anamika 03/11/2014 4mg Tablets 6 hours as needed JONELLE Montemayor Dispers nausea mdd 8 Gabapentin 1 by mouth three 90caps Barron F. 02/19/2014 300mg times a day Brian Gilmore Capsules Gabapentin take 1 tablet by 90tabs Barron FKatelin 08/03/2013 600mg mouth three times Brian Gilmore Tablets a day Miralax 17 gm in 8 oz 527units Barron F. 03/26/2013 3350NF Powder water daily as Brian Gilmore needed for constipation Ferrous Gluconate 1 by mouth twice a 60tabs R53.83 Barron FKatelin 12/28/2012 day Brian Gilmore 324(38Fe) mg Tablets Thera M Plus 1 by mouth every 100tabs Anamika 12/05/2012 Tablets day JONELLE Montemayor Docqlace take one capsule 60caps Barron F. 09/28/2012 100mg Capsules by mouth twice a Brian Gilmore day Nexium take 1 capsule by 30caps Barron F. 09/13/[address] mouth once daily Brian Gilmore Clobetasol Propionate Apply To The 180units Barron FKatelin 02/18/2010 Affected Area Brian Gilmore 0.05% Cream Twice A Day Robaxin 1 by mouth four 60tabs Barronkateryna Cornelius 500mg Tablets times a day as Brian Gilmore needed Vitamin D-3 1 po qd Unknown 1000Unit Capsules Vitamin C 1 po qd Unknown Capsules Methadone HCL 2 in the morning, Unknown 10mg 1 1/2 in the Tablets afternoon and [facility] History Medications Alendronate Sodium Take 1 Tablet By 12tabs Barron Gilmore, 01/25/2019 - 70mg Mouth Every Week M.DKatelin 02/23/2019 Tablets Medications Administered in Office Medication SIG Qnty Indications Ordering Provider Date TB Intradermal Test [place]ira Wilks 01/27/1997 Injection Immunizations CPT Code Status Date Vaccine Lot # [id number] Given 06/03/2018 Influenza Vac, Quad[place], [place] [address] Given 05/12/2017 Influenza Vac, Quadrivalent, Slit Virus, Im [id number] 85985 Given 10/06/2016 Pneumococcal Immunization [id number] 86820 Given 05/13/2016 Influenza Vac, Quadrivalent, Slit Virus, Im [id number] 26712 Given 06/04/2015 Influenza Vac, [place], [place] [address] Given 06/04/2015 Pneumococcal Conjugate Vacc-13 56827 Given 06/23/2014 Zostivax [id number] 95788 Given 04/11/2014 DO Not Use Split Influenza Virus Vaccine Q2038 Given 06/17/2013 Split Influenza Medicare: Fluzone [id number] 29705 Given 06/28/2012 DO Not Use Split Influenza Virus Vaccine [id number] 97448 Given 06/28/2012 Tdap Tetanus, W Pertussis [id number] Q2038 Given 06/14/2012 Split Influenza Medicare: Fluzone [id number] Q2038 Given 06/16/2011 Split Influenza Medicare: Fluzone [id number] Q2036 Given 09/22/2010 Split Influenza Medicare Flulaval [id number] 48588 Given 06/21/2007 DO Not Use Split Influenza Virus Vaccine 30168 Given 06/28/2006 DO Not Use Split Influenza Virus Vaccine 20529 Given 07/06/2004 Pneumococcal Immunization 90261 Given 06/28/2004 DO Not Use Split Influenza Virus Vaccine 31021 Given 06/24/2003 Td Immunization, For Use In Individuals 7 Years Or Older 12168 Given 06/24/2003 DO Not Use Split Influenza Virus Vaccine Vital Signs Date Vital Result Comment 04/25/2019 4:18pm BP Systolic 118 mmHg BP Diastolic 72 mmHg Heart Rate 86 /min Body Temperature 97.3 F Respiratory Rate 20 /min Height 67.5 inches 5'7.50" Weight 221.00 lb BMI (Body Mass Index) 34.1 kg/m2 02/23/2019 10:14am BP Systolic 112 mmHg BP Diastolic 68 mmHg Heart Rate 80 /min Body Temperature 97.9 F Respiratory Rate 16 /min Height 67.5 inches 5'7.50" Weight 213.00 lb BMI (Body Mass Index) 32.9 kg/m2 Results Description No Information Available Procedures Date Code Description Status 03/28/2018 14333182 Mammogram Completed 03/14/2017 [id number] Mammogram Completed 10/19/2015 [id number] Mammogram Completed 07/30/2015 775930616 Bone Mineral Density Test Completed 09/11/2014 66828069 Mammogram Completed 08/23/2013 [id number] Mammogram Completed 07/06/2012 [id number] Mammogram Completed 11/21/2011 [id number] Colonoscopy Completed 10/06/2011 [id number] Mammogram Completed 05/26/2010 [id number] Mammogram Completed 11/20/2009 96010130 Mammogram Completed 10/07/2009 20393666 Mammogram Completed 11/20/2008 [id number] Mammogram Completed 05/22/2007 [id number] Colonoscopy Completed Medical Devices Description No Information Available Encounters Type Date Location Provider Dx Diagnosis Office Visit 02/23/2019 [facility] Office Allyson Dove J44.9 Chronic obstructive 10:15a SHEREE Atkins pulmonary disease, unspecified M85.80 Oth disrd of bone density and structure, unspecified site Z85.44 Personal history of malig neoplasm of female genital organs F32.89 Other specified depressive episodes G89.4 Chronic pain syndrome R60.0 Localized edema M17.11 Unilateral primary osteoarthritis, right knee Office Visit 11/20/2018 6:40p Main Office Barron Gilmore, J44.9 Chronic obstructive M.D. pulmonary disease, unspecified M85.80 Oth disrd of bone density and structure, unspecified site Z85.44 Personal history of malig neoplasm of female genital organs F32.89 Other specified depressive episodes M25.561 Pain in right knee G89.4 Chronic pain syndrome Assessments Date Code Description Provider 04/25/2019 J44.9 Chronic obstructive pulmonary disease, Barron Gilmore M.D. unspecified 04/25/2019 Z85.44 Personal history of malignant neoplasm of Barron Gilmore M.D. other female genit 04/25/2019 F32.89 Other specified depressive episodes Barron Gilmore M.D. 04/25/2019 G89.4 Chronic pain syndrome Barron Gilmore M.D. 04/25/2019 M25.561 Pain in right knee Barron Gilmore M.D. 04/25/2019 G25.81 Restless legs syndrome Barron Gilmore M.D. 02/23/2019 J44.9 Chronic obstructive pulmonary disease, Allyson Atkins NP unspecified 02/23/2019 M85.80 Other specified disorders of bone density Allyson Atkins NP and structure, uns 02/23/2019 Z85.44 Personal history of malignant neoplasm of Allyson Atkins NP other female genit 02/23/2019 F32.89 Other specified depressive episodes Allyson Atkins NP 02/23/2019 G89.4 Chronic pain syndrome Allyson Atkins NP 02/23/2019 R60.0 Localized edema Allyson Atkins NP 02/23/2019 M17.11 Unilateral primary osteoarthritis, right Allyson Atkins NP knee 11/20/2018 J44.9 Chronic obstructive pulmonary disease, Barron Gilmore M.D. unspecified 11/20/2018 M85.80 Other specified disorders of bone density Barron Gilmore M.D. and structure, uns 11/20/2018 Z85.44 Personal history of malignant neoplasm of Barron Gilmore M.D. other female genit 11/20/2018 F32.89 Other specified depressive episodes Barron Gilmore M.D. 11/20/2018 M25.561 Pain in right knee Barron Gilmore M.D. 11/20/2018 G89.4 Chronic pain syndrome Barron Gilmore M.D. Plan of Treatment 04/25/2019 - Barron Gilmore M.D.J44.9 Chronic obstructive pulmonary disease, unspecifiedComments:Patient had a recent consultation with Dr. Pryor and is cleared from a pulmonary standpoint for herright knee boswhdnF16.44 Personal history of malignant neoplasm of other female genitComments:Continue followup with Dr. DavisF32.89 Other specified depressive episodesComments:Continue present jnycigcvuzlQ13.4 Chronic pain syndromeComments:Is a patient of Dr. Vargas at the pain clinic,continues on methadone, patient had a [address] Palma regarding her left-sided pcqbbcqoT52.561 Pain in right kneeNew Labs:Urinalysis W/RFL To Micro, Ordered: 04/25/19Urine Culture ( [facility]), Ordered: 04/25/19Comments:I feel she is medically stable for the planned total right knee replacement by Dr. PetersenG25.81 Restless legs syndromeNew Labs:Iron, Total ([facility]), Ordered: 04/25/19TSH ([facility]), Ordered: 04/25/19CBC Electronic ([facility] New), Ordered: 04/25/19Comp Metabolic-ALL Lab [facility], Ordered: 04/25/19B12 ([facility]), Ordered: 04/25/19Comments: Check iron studies, consider ropinirole if symptoms persistAllComments: Medication Management Patient Understands medications she's taking? Yes No Are there Barriers to Adherence? Yes No Has the patient been asked about herbal supplements and therapies, and OTC meds? Yes NoFollow up: 3 months Functional Status Description No Information Available Mental Status Description No Information Available Referrals Refer to Reason for Referral Status Appt Date Nicola SOLANO, Michelle right knee arthritis jw Scheduled 12/03/2018 [facility] [address] [address] [phone]
[2019-05-09] MEDS ORDERED: Bupivacaine 0.25% SDV* 30 ML ONE (07:42)
[2019-05-09] MEDS ORDERED: ceFAZolin 2 GM in NS PREMIX(*) 2 GM/100 ML BAG IVPB ONE (07:58)
[2019-05-09] MEDS ORDERED: Midazolam* 1 MG/ML 5 ML VIAL (5 MG) ONE ×2 (10:24→11:02)
[2019-05-09] MEDS ORDERED: ROPIVACAINE 5 MG/ML 30 ML BTL (0.5%) ONE ×2 (10:25→11:12)
[2019-05-09] MEDS ORDERED: fentaNYL* 50 MCG/ML 2 ML VIAL (100 MCG VIAL) ONE ×4 (10:51→14:25)
[2019-05-09] MEDS ORDERED: Dexamethasone IV* 4 MG/ML 1 ML (4 MG) ONE (11:18)
[2019-05-09] MEDS ORDERED: Naloxone* 0.4 MG/ML 1 ML VIAL IV PRN (12:13)
[2019-05-09] MEDS ORDERED: HYDROmorphone INJ1* 1 MG/ML SYRINGE IV PRN (12:13)
[2019-05-09] MEDS ORDERED: Ondansetron INJ* 2 MG/ML VIAL IV PRN ×2 (12:13→13:32)
[2019-05-09] MEDS ORDERED: fentaNYL* 50 MCG/ML 2 ML VIAL (100 MCG VIAL) IV PRN (12:13)
[2019-05-09] MEDS ORDERED: DiMENhydriNATE IV* 50 MG/ML VIAL IV PUSH PRN (12:13)
[2019-05-09] MEDS ORDERED: Acetaminophen IV 1GM/100ML * 1,000 MG/100 ML VIAL IVPB ONE (12:13)
[2019-05-09] MEDS ORDERED: Morphine INJ* 2 MG/ML 1 ML SYRINGE (TWO MG - NEW SYRINGE VERSION) IV PRN (13:32)
[2019-05-09] MEDS ORDERED: diPHENhydraMINE PO* 25 MG PO PRN (13:32)
[2019-05-09] MEDS ORDERED: Ondansetron ODT TAB* 4 MG PO PRN (13:32)
[2019-05-09] MEDS ORDERED: Temazepam CAP* 15 MG PO PRN (13:32)
[2019-05-09] MEDS ORDERED: oxyCODONE/Acetamin 5/325 MG* TAB PO PRN (13:32)
[2019-05-09] MEDS ORDERED: Polyethylene Glycol 3350* 17 GM PACKET PO PRN (13:32)
[2019-05-09] MEDS ORDERED: diPHENhydraMINE IV* 50 MG/ML 1 ml VIAL (BENADRYL) IV PRN (13:32)
[2019-05-09] MEDS ORDERED: Magnesium Hydroxide LIQ* 30 ML UDC PO PRN (13:32)
[2019-05-09] MEDS ORDERED: Levalbuterol 1.25MG/0.5ML NEB INH PRN (14:25)
[2019-05-09] MEDS: Cyclobenzaprine TAB* 10 MG PO PRN ×2 (15:47→23:44)
[2019-05-09] MEDS: oxyCODONE/Acetamin 5/325 MG* TAB PO PRN ×3 (15:47→23:43)
[2019-05-09] MEDS: Lactated Ringers 1000 ML Bag* 1,000 ML IV SCH (15:51)
[2019-05-09] MEDS: Methadone TAB* 10 MG PO SCH ×2 (16:05→21:27)
[2019-05-09] MEDS: LORazepam TAB(*) 1 MG PO PRN (16:05)
--- NOTE | 2019-05-09 16:14 | CONS ---
CC: Dr. Gilmore; Dr. Petersen * CONSULTATION REPORT: DATE OF CONSULT: 05/09/19 PRIMARY CARE PROVIDER: Dr. Gilmore. REQUESTING PHYSICIAN: Dr. Petersen. REASON FOR CONSULT: Medicine co-management of a patient status post elective right knee replacement. CHIEF COMPLAINT: "Still numb." HISTORY OF PRESENT ILLNESS: Tiffanie Lomeli is a 68-year-old female with history of osteoarthritis as well as chronic pain, under the care of Dr. Vargas, who is status post elective right knee replacement with Dr. Petersen. She received spinal anesthesia and she still feels numb in bilateral lower extremities. She also feels very cold postoperatively, but otherwise she has no complaints. She is going to be seen by our service for medical co-management of her history of COPD and PE. Of note, please note that the patient is not using oxygen at home at baseline. PAST MEDICAL HISTORY: 1. History of COPD, not oxygen dependent. 2. History of PE in 2017. 3. Diverticulosis. 4. Gastroesophageal reflux disease. 5. Osteoporosis with chronic pain. 6. Cervical degenerative disk disease. 7. Anxiety. 8. Depression. 9. Bipolar disorder. 10. Breast cancer. 11. Uterine cancer. PAST SURGICAL HISTORY: 1. History of bowel resection and colostomy and colostomy reversal for colon cancer. 2. History of breast lumpectomy. 3. Hysterectomy. 4. History of 4 neck surgeries. MEDICATIONS AT HOME: Include: 1. Ventolin inhaler on a p.r.n. basis. 2. Metolazone 2.5 mg, take before furosemide on a daily basis. 3. Acetaminophen on a p.r.n. basis. 4. Ambien 10 mg at bedtime p.r.n. 5. Oregano oil 1 tablet daily. 6. Methadone 10 mg 3 times a day. 7. Xopenex nebulizer every 6 hours p.r.n. 8. Lorazepam 1 mg t.i.d. p.r.n. 9. Gabapentin 900 mg 3 times a day. 10. Furosemide 40 mg in the a.m. 11. Trelegy Ellipta 100/62.5/25 one puff inhalation in the a.m. 12. Ferrous gluconate 325 mg b.i.d. 13. Colace 100 mg b.i.d. 14. Pristiq 100 mg daily. 15. Cod liver oil 1 capsule daily. 16. Cinnamon bark 1 packet daily. 17. Vitamin D3 2000 units daily. 18. Calcium carbonate 600 mg at bedtime. 19. Aspirin 81 mg q.a.m. 20. Ascorbic acid 2000 mg q.a.m. ALLERGIES: CONTRAST DYE and ADHESIVE TAPE. FAMILY HISTORY: Mother with history of breast cancer. SOCIAL HISTORY: The patient has history of 15-pack year smoking and she quit several months ago. She denies any alcohol use. She denies any drug use. She does not have a surrogate decision maker at this time. REVIEW OF SYSTEMS: Please see history of present illness. All the remaining 12 systems were reviewed with the patient and were otherwise negative. PHYSICAL EXAM: Blood pressure of 138/75, heart rate of 78 and regular, respiratory rate 16, oxygen saturation 97% on room air, temperature of 99.5. General: The patient is a very pleasant 68-year-old female who is in no acute distress. The patient is alert and oriented x3, mildly sedated. HEENT: Head: Atraumatic, normocephalic. Eyes: Pupils are equal, reactive to light and accommodation. Oropharynx is clear. Mucosa moist. Neck: Supple. No JVD. No bruits bilaterally. Cardiovascular: Regular rate and rhythm. No murmur. Respiratory: Clear to auscultation bilaterally. Abdomen: Soft, nontender. Bowel sounds are present in all 4 quadrants. Extremities: There is bilateral nonpitting pedal edema at +1. No clubbing, no cyanosis. The right knee has postoperative dressings in place that were not removed for evaluation. LABORATORY DATA: None obtained today. ASSESSMENT AND PLAN: 1. In regards to the patient's postoperative management status post knee replacement, it is up to Dr. Petersen's service. 2. In regards to the patient's pain management, the patient is going to be continued on her methadone as well as narcotic painkillers as prescribed by the orthopedic service. 3. The patient has chronic obstructive pulmonary disease, does not appear to be in exacerbation. The patient is going to be continued on her outpatient medications and inhalers. 4. The patient has history of chronic leg edema, for which she takes metolazone and furosemide. The diuretics are going to be continued throughout her hospital stay. 5. In regards to the patient's DVT prophylaxis, the patient already was started on Eliquis by the primary service, which I agree with. Thank you very much for allowing me to see your patient in Medicine consultation. We will follow on a daily basis. TIME SPENT: Approximately 65 minutes was spent on consultation of this patient. [id number] #: [id number] [email or web address]
[2019-05-09] MEDS: Acetaminophen TAB* 325 MG PO SCH (17:15)
--- NOTE | 2019-05-09 17:57 | OP ---
Operative Report - Blank - Operative Report Date of Operation: 05/09/19 Note: HERSON DELEON 1950 Date of Surgery: 05/09/19 Michelle Petersen MD Plastic Surgery Nurse: Jadon FRANKLIN did help throughout the procedure with preparation of the knee, wound retraction, manipulation of the knee, and wound closure. Anesthesiologist: Jyoti Peters Anesthesia Type: Spinal Preoperative Diagnosis: Right severe degenerative osteoarthritis of the knee with valgus deformity Postoperative Diagnosis: As above Procedure Performed: Right Total Knee Arthroplasty Tourniquet time: 39 minutes Complications: None Specimen: Bone and cartilage from the right knee joint sent to pathology. Hardware Used: Cemented [employer] total knee hardware was used - For the femur a size 5 narrow right oxinium legion posterior stabilized femoral component, for the tibia a size 3 right al II tibial baseplate, for the insert a size 11 mm 3-4 posterior stabilized articular polyethylene insert, and for the patella a size 29 3-peg all poly patella. Brief History/Indication: HERSON DELEON was known in clinic and had a history of severe right knee pain and swelling. She failed conservative treatment with anti-inflammatories, pain pills, intra-articular injections and physical therapy. She elected to undergo right total knee arthroplasty due to continued pain and decreased quality of life. Radiographs showed severe end stage osteoarthritis of the knee with bone on bone contact. Informed consent was obtained from the patient. She understood the risks of surgery included but were not limited to: bleeding, infection, damage to nearby structures, intraoperative fracture, nerve palsy, failure of the hardware, early loosening, knee stiffness or loss of motion, anesthesia complications, stroke, heart attack , blood clot and . She wished to proceed. Intra-Operative Findings: Intraoperatively the patient was noted to have severe loss of cartilage in all 3 compartments of the knee. She had preoperative valgus deformity of 15 degrees and mcl laxity. Description of the Procedure: HERSON DELEON was identified in the preanesthesia unit. Her right knee was marked as the correct operative side. Informed consent was signed and placed in the chart. The patient was taken to the operating room and placed under anesthesia without complication. A austin catheter was placed. A tourniquet was placed on the right thigh. The right lower extremity was prepped and draped in the usual sterile fashion. Preoperative time-out was made to correctly identify the patient, side and site. Appropriate intraoperative antibiotics were given within one hour of incision. Tourniquet was inflated. A midline incision was made and carried sharply down to the extensor mechanism. A new 10 blade was used to make a standard medial parapatellar arthrotomy. The patella was subluxed laterally. Electrocautery was used to dissect soft tissue off the superomedial tibia to the midsagittal plane. The knee was flexed up. The anterior horn of the lateral meniscus and the ACL were sharply incised. A drill was used to enter the distal femur. The intramedullary distal femoral cutting guide was pinned on the distal femur. The oscillating saw was used to make the distal femoral cut. The external rotation guide was pinned on the distal femur and the distal femur was sized to a size 5. The size 5 multi-cutting jig was pinned on the distal femur. The oscillating saw was used to make the appropriate 4 chamfer cuts. Next the PCL was completely released. The extramedullary tibial cutting guide was pinned on the proximal tibia and the oscillating saw was used to make the proximal tibial cut perpendicular to the mechanical axis of the tibia. The bone was carefully removed. The knee was brought out into full extension. The spacer block was placed and had excellent fit with the knee in full extension. The medial and lateral ligaments were well balanced. The flexion and extension gaps were well balanced. The knee was flexed up. Lamina video effects editor was placed both medially and laterally. Any remaining meniscus was removed with electrocautery. Curved osteotome was used to remove any posterior osteophytes. The tibial tray and drop vania were placed and confirmed a satisfactory tibial cut. The size 5 right narrow femoral trial was impacted onto the distal femur. This trial had excellent fit and stability. The box for the posterior stabilized implant was prepared using a box cut osteotome and a reamer. Next a tibial tray trial and 9 mm insert trial was placed. The knee was taken through a range of motion and had full extension to 130 degrees of flexion. Patellofemoral tracking was satisfactory. The patella was inverted and sized to a size 29. Three peg holes were drilled through the size 29 drill guide. The trial patella was placed and the knee was taken through a range of motion. There was satisfactory patellofemoral tracking. All trials were removed. The tibia was subluxed anteriorly and sized to a size 3. The proximal tibial was prepared with a size 3 keel punch. All bony cut surfaces were irrigated with sterile saline and dried. Final implants were cemented into place starting with the tibia, followed by the femur, and last the patella. A 9 mm insert trial was placed and the knee was brought into full extension. Tourniquet was turned down and the knee was copiously irrigated with sterile saline. Electrocautery was used to obtain meticulous hemostasis. Once the cement had fully cured, the insert trial was removed. Any excess cement was removed from around the hardware and capsule. Final insert chosen was a 11 mm posterior stabilized Al II articular insert size 3-4. Stability of the insert was checked and noted to be stable. The extensor mechanism was closed using number 1 vicryls. The rest of the incision was closed in a layered fashion using 0 and 2-0 vicryls. The skin was closed using 3-0 nylon suture. Sterile xeroform, 4x4s and webril were used to cover the incision. Reinier wrap and cold pack were used to cover the dressings. The patients anesthesia was reversed without difficulty. She was taken to the PACU in stable condition. Intended weight-bearing will be as tolerated.
--- NOTE | 2019-05-09 18:29 | PN ---
Progress Note - Progress Note Date of Service: 05/09/19 - Post-op Note: Post-op: Patient resting comfortably in joint chair. Denies CP, SOB or dizziness. She can actively DF/PF, sensation intact with 2+ DP pulse. Continue pain management and PT. Will monitor. Appreciate medicine's guidance.
[2019-05-09] MEDS: oxyCODONE TAB* 5 MG TAB PO PRN ×2 (19:30→23:44)
[2019-05-09] MEDS: ceFAZolin 1 GM ADVAN(*) 1 GM in NS 0.9% 50 ML* 50 ML IVPB SCH (19:30)
[2019-05-09] MEDS ORDERED: Docusate CAP* 100 MG PO SCH (21:00)
[2019-05-09] MEDS ORDERED: Ferrous Gluconate TAB* 324 MG TAB PO SCH (21:00)
[2019-05-09] MEDS ORDERED: Calcium Carbonate TAB* 1250 MG (CALCIUM 500 MG) PO SCH ×2 (21:00→21:30)
[2019-05-09] MEDS: Cholecalciferol TAB* 1000 UNITS PO SCH (21:21)
[2019-05-09] MEDS: Magnesium Hydroxide LIQ* 30 ML UDC PO SCH (21:27)
[2019-05-09] MEDS: Docusate CAP* 100 MG PO SCH (21:27)
[2019-05-09] MEDS: Gabapentin CAP(*) 300 MG PO SCH (21:27)
[2019-05-09] MEDS ORDERED: Calcium Carbonate CHEW TAB* 500 MG (TUMS) PO SCH (21:30)
[2019-05-09] MEDS: Ferrous Sulfate TAB* 325 MG PO SCH (21:34)
[2019-05-09] MEDS: Calcium Carbonate CHEW TAB* 500 MG (TUMS) PO SCH (21:36)
[2019-05-10] MEDS: LORazepam TAB(*) 1 MG PO PRN ×3 (00:09→20:42)
[2019-05-10] MEDS: Zolpidem TAB* 10 MG PO PRN (01:34)
[2019-05-10] MEDS: Lactated Ringers 1000 ML Bag* 1,000 ML IV SCH (01:35)
[2019-05-10] MEDS: Acetaminophen TAB* 325 MG PO SCH ×3 (02:20→14:25)
[2019-05-10] MEDS: ceFAZolin 1 GM ADVAN(*) 1 GM in NS 0.9% 50 ML* 50 ML IVPB SCH ×2 (03:35→11:50)
[2019-05-10] MEDS: oxyCODONE/Acetamin 5/325 MG* TAB PO PRN ×3 (03:45→12:35)
[2019-05-10] MEDS: oxyCODONE TAB* 5 MG TAB PO PRN ×3 (05:29→18:20)
[2019-05-10 06:42] LABS: Hematocrit 27 % (35-47); Hemoglobin 9.7 g/dL (12.0-16.0); Mean Platelet Volume 7.9 fL (7.4-10.4); Platelet Count 215 10^3/uL (150-450)
[2019-05-10 06:59] LABS: Calcium 8.2 mg/dL (8.6-10.3); EGFR African American 88.1 (>60); EGFR Non-African American 72.8 (>60); Potassium 3.8 mmol/L (3.5-5.0)
[2019-05-10] MEDS: CMCS: Desvenlafaxine (NF) 50 MG TAB PO SCH (07:32)
[2019-05-10] MEDS: Furosemide TAB* 40 MG PO SCH (07:33)
[2019-05-10] MEDS: Gabapentin CAP(*) 300 MG PO SCH ×3 (07:33→20:29)
[2019-05-10] MEDS: Ascorbic Acid TAB* 500 MG PO SCH (07:33)
[2019-05-10] MEDS: Ferrous Sulfate TAB* 325 MG PO SCH ×2 (07:33→20:30)
[2019-05-10] MEDS: Docusate CAP* 100 MG PO SCH ×2 (07:33→20:29)
[2019-05-10] MEDS: Vitamin THERAPEUTIC TAB PO SCH (07:33)
[2019-05-10] MEDS: Magnesium Hydroxide LIQ* 30 ML UDC PO SCH ×2 (07:34→20:30)
[2019-05-10] MEDS: Methadone TAB* 10 MG PO SCH (07:34)
[2019-05-10] MEDS: Apixaban* 2.5 MG TAB PO SCH ×2 (07:34→20:28)
[2019-05-10] MEDS: Cyclobenzaprine TAB* 10 MG PO PRN (08:18)
[2019-05-10] MEDS ORDERED: Metolazone TAB* 5 MG PO SCH (08:30)
[2019-05-10] MEDS: PTO: FLUTICASONE/UMECLIDIN/VILANTER 1 PUFF MDI INH SCH (09:52)
--- NOTE | 2019-05-10 09:57 | PN ---
Subjective Date of Service: 05/10/19 Interval History: Pt feels well, it was painful with PT, but she thinks she did well. Objective Active Medications: Acetaminophen (Tylenol Tab*) 975 mg PO Q8H [facility] Last Admin: 05/10/19 07:21 Dose: Not Given Apixaban (Eliquis*) 2.5 mg PO BID [facility] Last Admin: 05/10/19 07:34 Dose: 2.5 mg Ascorbic Acid (Vitamin C Tab*) 2,000 mg PO QAM [facility] Last Admin: 05/10/19 07:33 Dose: 2,000 mg Bisacodyl (Dulcolax Supp*) 10 mg UT DAILY PRN PRN Reason: CONSTIPATION Calcium Carbonate (Tums*) 500 mg PO 2100 [facility] Last Admin: 05/09/19 21:36 Dose: 500 mg Cholecalciferol (Vitamin D Tab*) 2,000 units PO BEDTIME [facility] Last Admin: 05/09/19 21:21 Dose: 2,000 units Cyclobenzaprine HCl (Flexeril Tab*) 10 mg PO Q6H PRN PRN Reason: SPASMS Last Admin: 05/10/19 08:18 Dose: 10 mg Desvenlafaxine Succinate (Pristiq (Nf)) 100 mg PO QAM [facility] Last Admin: 05/10/19 07:32 Dose: 100 mg Diphenhydramine HCl (Benadryl Iv*) 25 mg IV Q6H PRN PRN Reason: PRURITIS Diphenhydramine HCl (Benadryl Po*) 25 mg PO Q6H PRN PRN Reason: PRURITIS Docusate Sodium (Colace Cap*) 100 mg PO BID [facility] Last Admin: 05/10/19 07:33 Dose: 100 mg Ferrous Sulfate (Ferrous Sulfate Tab*) 325 mg PO BID [facility] Last Admin: 05/10/19 07:33 Dose: 325 mg Furosemide (Lasix Tab*) 40 mg PO QAM [facility] Last Admin: 05/10/19 07:33 Dose: 40 mg Gabapentin (Neurontin Cap(*)) 900 mg PO TID [facility] Last Admin: 05/10/19 07:33 Dose: 900 mg Cefazolin Sodium 1 gm/ Sodium (Chloride) 50 mls @ 200 mls/hr IVPB Q8H [facility] Stop: 05/10/19 11:44 Last Admin: 05/10/19 03:35 Dose: 200 mls/hr Lactated Ringer's (Lactated Ringers 1000 Ml Bag*) 1,000 mls @ 100 mls/hr IV PER RATE [facility] Last Admin: 05/10/19 01:35 Dose: 100 mls/hr Lactulose (Lactulose*) 30 ml PO BID PRN PRN Reason: CONSTIPATION Levalbuterol HCl (Xopenex 1.25 Mg/0.5 Ml Neb.Sia*) 1.25 mg INH Q6H PRN PRN Reason: SOB/WHEEZING Lorazepam (Ativan Tab(*)) 1 mg PO TID PRN PRN Reason: ANXIETY Last Admin: 05/10/19 00:09 Dose: 1 mg Magnesium Hydroxide (Milk Of Magnesia Liq*) 30 ml PO BID [facility] Last Admin: 05/10/19 07:34 Dose: 30 ml Magnesium Hydroxide (Milk Of Magnesia Liq*) 30 ml PO Q6H PRN PRN Reason: CONSTIPATION Methadone HCl (Dolophine Tab*) 10 mg PO TID [facility] Last Admin: 05/10/19 07:34 Dose: 10 mg Morphine Sulfate (Morphine Inj (Syringe))*) 2 mg IV Q4H PRN PRN Reason: Pain - Unrelieved Multivitamins (Theragran Tab*) 1 tab PO DAILY [facility] Last Admin: 05/10/19 07:33 Dose: 1 tab Ondansetron HCl (Zofran Inj*) 4 mg IV Q6H PRN PRN Reason: NAUSEA Ondansetron HCl (Zofran Odt Tab*) 4 mg PO Q6H PRN PRN Reason: NAUSEA Last Admin: 05/09/19 15:47 Dose: 4 mg Oxycodone HCl (Roxycodone Tab*) 10 mg PO Q4H PRN PRN Reason: Pain - Breakthrough Last Admin: 05/10/19 05:29 Dose: 10 mg Oxycodone/Acetaminophen (Percocet 5/325 Tab*) 1 tab PO Q4H PRN PRN Reason: PAIN - MODERATE Oxycodone/Acetaminophen (Percocet 5/325 Tab*) 2 tab PO Q4H PRN PRN Reason: PAIN - SEVERE Last Admin: 05/10/19 08:15 Dose: 2 tab Polyethylene Glycol/Electrolytes (Miralax*) 17 gm PO DAILY PRN PRN Reason: Constipation Tramadol HCl (Ultram*) 50 mg PO Q6HR PRN PRN Reason: PAIN - MODERATE Zolpidem Tartrate (Ambien Tab*) 10 mg PO BEDTIME PRN PRN Reason: SLEEP Last Admin: 05/10/19 01:34 Dose: 10 mg Vital Signs - 8 hr 05/10/19 05/10/19 05/10/19 03:31 03:36 03:37 Temperature 98.7 F Pulse Rate 89 Respiratory 17 17 17 Rate Blood Pressure 116/58 (mmHg) O2 Sat by Pulse Oximetry 05/10/19 05/10/19 05/10/19 03:45 05:29 07:31 Temperature Pulse Rate Respiratory 17 17 18 Rate Blood Pressure (mmHg) O2 Sat by Pulse Oximetry 05/10/19 05/10/19 05/10/19 07:33 07:34 07:59 Temperature 100.3 F Pulse Rate 71 Respiratory 18 18 16 Rate Blood Pressure 107/57 (mmHg) O2 Sat by Pulse 97 Oximetry 05/10/19 05/10/19 08:15 08:18 Temperature Pulse Rate Respiratory 18 18 Rate Blood Pressure (mmHg) O2 Sat by Pulse Oximetry Oxygen Devices in Use Now: None Appearance: 68 yo f in nAD, AAOx3 Eyes: No Scleral Icterus, PERRLA Ears/Nose/Mouth/Throat: NL Teeth, Lips, Gums, Mucous Membranes Moist Neck: NL Appearance and Movements; NL JVP, Trachea Midline Respiratory: Symmetrical Chest Expansion and Respiratory Effort, - - rhonchi at ARIANNE clear with cough Cardiovascular: NL Sounds; No Murmurs; No JVD Abdominal: NL Sounds; No Tenderness; No Distention, No Hepatosplenomegaly Lymphatic: No Cervical Adenopathy Extremities: No Clubbing, Cyanosis, - - b/l LE's lymphoededema , R knee in poast op dressings-not removed Skin: No Nodules or Sclerosis Neurological: Alert and Oriented x 3, NL Muscle Strength and Tone Result Diagrams: 05/10/19 06:21 05/10/19 06:21 Assess/Plan/Problems-Billing Assessment: 68 yo F with h/o lymphoedema b/l LE's((on Lasix and metolazone), COPD(ot on ), chronic pain on methadone, s/p elective R knee replacement on 08/15 - Patient Problems (1) Knee joint replacement status Comment: as per DR. Petersen (2) Postoperative anemia due to acute blood loss Comment: Hb down due to dilution and recent surgery, no evidence of hematoma, cont to monitor (3) COPD (chronic obstructive pulmonary disease) Comment: not in exacerbation, cont home meds (4) History of pulmonary embolus (PE) Comment: - Hx of PE in 2017 and no longer on anticoagulation at home (5) Hyponatremia Comment: - mild, cont to monitor (6) Acquired lymphedema of leg Comment: b/l , chronic, cont lasix from home , holding metolazone for low normal SBP today (7) DVT prophylaxis Comment: rubia
--- NOTE | 2019-05-10 10:39 | PN ---
Progress Note - Progress Note Date of Service: 05/10/19 SOAP: Subjective: Pt is doing well. Pain controlled. Doing well with PT. Reports thigh pain. Denies F/C CP/SOB or calf pain. Has not yet had BM Objective: PE- 68 y/o WDWN F NAD RLE- dressing c/d/i, calf soft NT, +DF/PF ankle, +2 DP pulse, SILT distally Vital Signs Temp Pulse Resp BP Pulse Ox 100.3 F 71 18 107/57 97 05/10/19 07:59 05/10/19 07:59 05/10/19 10:22 05/10/19 07:59 05/10/19 07:59 Laboratory Results - last 24 hr 05/10/19 05/10/19 06:21 06:21 Hgb 9.7 L Hct 27 L Plt Count 215 MPV 7.9 Sodium 132 L Potassium 3.8 Chloride 100 L Carbon Dioxide 28 Anion Gap 4 BUN 15 Creatinine 0.79 Est GFR ( Amer) 88.1 Est GFR (Non-Af Amer) 72.8 BUN/Creatinine Ratio 19.0 Glucose 154 H Calcium 8.2 L Assessment: POD 1 S/P Right total knee arthroplasty Plan: WBAT- cont PT/OT Cont to monitor labs DVT prophylaxis with Eliquis Cont pain control with percocet Spoke with therapist who states patient is unsteady sit to stand and would benefit from a few more sessions Plan DC to home with VNS 05/11
[2019-05-10] MEDS: traMADol TAB* 50 MG PO PRN ×2 (11:54→20:30)
[2019-05-10] MEDS ORDERED: HYDROmorphone INJ* 0.5 MG/0.5 ML SYRINGE IV SLOW PU PRN (11:55)
--- NOTE | 2019-05-10 13:48 | CONSULT ---
Consult Consult: INPATIENT PAIN CONSULTATION Tiffanie Lomeli is a 68 year old female. She has a medical history significant of asthma and bipolar disease. In early 2010, she developed painful upper extremity paresthesias and then progressed to difficulty walking and opening her hand. She eventually had an MRI of her cervical spine showing cord compression at C5/6. She went to the OR with Dr. Chase on 03/24/11 for an ACDF at C5/6. She was sent home after surgery but then developed more difficulty walking and using her hands. She returned to the OR for a posterior decompressive laminectomy at C5/6. She was left with pain in her neck down both arms and spasticity in her legs. She has been seeing the [facility] since 2012. She had been changed from OxyContin 40 BID to Methadone. She got as high as Methadone 20 mg TID. She was going to move in with her daughter in [place] and her daughter would not allow her to move in with her while she was on Methadone. She attempted to taper off it. She eventually decided she could not do it and was on Methadone 10 mg TID. She had a spastic gait and usually walked with a walking stick. She has had pain in both knees. She has seen Dr. ePtersen. She had x-rays showing OA. She tried injections and PT. She was admitted May 09, 2019 and had an elective Right TKA. I am asked to see her for pain control, as she has had a lot of pain post-op. She is on Percocet, 1-2 tabs Q 4 PRN, Methadone, 10 TID and Gabapentin 900 mg TID PAST MEDICAL HISTORY: Bipolar Disease, Asthma, Cervical myelopathy, COPD, Breast Cancer, Uterine Ca, Hysterectomy, JOSE JUAN, Pulmonary Embolus Allergies Allergy/AdvReac Type Severity Reaction Status Date / Time Iodinated Contrast Media Allergy Hives Verified 05/09/19 08:03 [Iodinated Contrast- Oral and IV Dye] iodine Allergy Hives Verified 05/09/19 08:03 iodixanol Allergy Hives Verified 05/09/19 08:03 Adhesive Tape AdvReac Mild See Comment Verified 05/09/19 08:03 Current Medications Acetaminophen (Tylenol Tab*) 975 mg PO Q8H [facility] Last Admin: 05/10/19 07:21 Dose: Not Given Apixaban (Eliquis*) 2.5 mg PO BID [facility] Last Admin: 05/10/19 07:34 Dose: 2.5 mg Ascorbic Acid (Vitamin C Tab*) 2,000 mg PO QAM [facility] Last Admin: 05/10/19 07:33 Dose: 2,000 mg Bisacodyl (Dulcolax Supp*) 10 mg NE DAILY PRN PRN Reason: CONSTIPATION Calcium Carbonate (Tums*) 500 mg PO 2100 [facility] Last Admin: 05/09/19 21:36 Dose: 500 mg Cholecalciferol (Vitamin D Tab*) 2,000 units PO BEDTIME [facility] Last Admin: 05/09/19 21:21 Dose: 2,000 units Cyclobenzaprine HCl (Flexeril Tab*) 10 mg PO Q6H PRN PRN Reason: SPASMS Last Admin: 05/10/19 08:18 Dose: 10 mg Desvenlafaxine Succinate (Pristiq (Nf)) [facility] [place] [facility] Last Admin: 05/10/19 07:32 Dose: 100 mg Diphenhydramine HCl (Benadryl Iv*) 25 mg IV Q6H PRN PRN Reason: PRURITIS Diphenhydramine HCl (Benadryl Po*) 25 mg PO Q6H PRN PRN Reason: PRURITIS Docusate Sodium (Colace Cap*) 100 mg PO BID [facility] Last Admin: 05/10/19 07:33 Dose: 100 mg Ferrous Sulfate (Ferrous Sulfate Tab*) 325 mg PO BID [facility] Last Admin: 05/10/19 07:33 Dose: 325 mg Furosemide (Lasix Tab*) 40 mg PO QAM [facility] Last Admin: 05/10/19 07:33 Dose: 40 mg Gabapentin (Neurontin Cap(*)) 900 mg PO TID [facility] Last Admin: 05/10/19 07:33 Dose: 900 mg Lactated Ringer's (Lactated Ringers 1000 Ml Bag*) 1,000 mls @ 100 mls/hr IV PER RATE [facility] Last Admin: 05/10/19 01:35 Dose: 100 mls/hr Lactulose (Lactulose*) 30 ml PO BID PRN PRN Reason: CONSTIPATION Levalbuterol HCl (Xopenex 1.25 Mg/0.5 Ml Neb.Sia*) 1.25 mg INH Q6H PRN PRN Reason: SOB/WHEEZING Lorazepam (Ativan Tab(*)) 1 mg PO TID PRN PRN Reason: ANXIETY Last Admin: 05/10/19 10:06 Dose: 1 mg Magnesium Hydroxide (Milk Of Magnesia Liq*) 30 ml PO BID [facility] Last Admin: 05/10/19 07:34 Dose: 30 ml Magnesium Hydroxide (Milk Of Magnesia Liq*) 30 ml PO Q6H PRN PRN Reason: CONSTIPATION Methadone HCl (Dolophine Tab*) 10 mg PO TID [facility] Multivitamins (Theragran Tab*) 1 tab PO DAILY [facility] Last Admin: 05/10/19 07:33 Dose: 1 tab Ondansetron HCl (Zofran Inj*) 4 mg IV Q6H PRN PRN Reason: NAUSEA Ondansetron HCl (Zofran Odt Tab*) 4 mg PO Q6H PRN PRN Reason: NAUSEA Last Admin: 05/09/19 15:47 Dose: 4 mg Oxycodone HCl (Roxycodone Tab*) 10 mg PO Q4H PRN PRN Reason: Pain - Breakthrough Last Admin: 05/10/19 10:37 Dose: 10 mg Oxycodone/Acetaminophen (Percocet 5/325 Tab*) 1 tab PO Q4H PRN PRN Reason: PAIN - MODERATE Oxycodone/Acetaminophen (Percocet 5/325 Tab*) 2 tab PO Q4H PRN PRN Reason: PAIN - SEVERE Last Admin: 05/10/19 12:35 Dose: 2 tab Polyethylene Glycol/Electrolytes (Miralax*) 17 gm PO DAILY PRN PRN Reason: Constipation Tramadol HCl (Ultram*) 50 mg PO Q6HR PRN PRN Reason: PAIN - MODERATE Last Admin: 05/10/19 11:54 Dose: 50 mg Zolpidem Tartrate (Ambien Tab*) 10 mg PO BEDTIME PRN PRN Reason: SLEEP Last Admin: 05/10/19 01:34 Dose: 10 mg SOCIAL HISTORY: Lives alone at [facility]. Non smoker, vapes. No alcohol Vital Signs Temp Pulse Resp BP Pulse Ox 100.8 F 76 18 98/44 95 05/10/19 11:31 05/10/19 11:31 05/10/19 12:37 05/10/19 11:31 05/10/19 11:31 EXAM: GENERAL: Minimal distress LUNGS: Clear HEART: Reg rhythm ABDOMEN: Soft EXTREMITIES: Right knee bandaged NEUROLOGIC: A&O. Can move all 4 extremities ASSESSMENT: 1. Right TKA 2. Chronic pain from cervical cord compression and myelopathy PLAN: I will increase her Methadone to 15 mg three times a day. Will d/c percocet and use oxycodone 10-15 mg every 4 hours for breakthrough pain. I will order bowel medications for constipation. She may need a muscle relaxant
[2019-05-10] MEDS ORDERED: oxyCODONE TAB* 5 MG TAB PO PRN (14:09)
[2019-05-10] MEDS: Methadone TAB* 5 MG PO SCH ×2 (14:30→20:28)
[2019-05-10] MEDS: Methocarbamol TAB* 500 MG PO PRN (20:28)
[2019-05-10] MEDS: Cholecalciferol TAB* 1000 UNITS PO SCH (20:30)
[2019-05-10] MEDS: Calcium Carbonate CHEW TAB* 500 MG (TUMS) PO SCH (20:30)
[2019-05-10] MEDS: Senna TAB 8.6 mg* TAB PO SCH (20:30)
[2019-05-11] MEDS: oxyCODONE TAB* 5 MG TAB PO PRN ×4 (00:25→19:03)
[2019-05-11] MEDS: Acetaminophen TAB* 325 MG PO SCH ×3 (00:26→17:04)
[2019-05-11] MEDS: Zolpidem TAB* 10 MG PO PRN (00:27)
[2019-05-11 06:21] LABS: Hematocrit 27 % (35-47); Hemoglobin 9.6 g/dL (12.0-16.0); Mean Platelet Volume 8.1 fL (7.4-10.4); Platelet Count 194 10^3/uL (150-450)
[2019-05-11 06:33] LABS: Calcium 8.3 mg/dL (8.6-10.3); Potassium 3.1 mmol/L (3.5-5.0)
[2019-05-11 06:39] LABS: BUN/Creatinine Ratio 16.9 (8-20); EGFR African American 83.2 (>60); EGFR Non-African American 68.8 (>60)
[2019-05-11] MEDS: PTO: FLUTICASONE/UMECLIDIN/VILANTER 1 PUFF MDI INH SCH (07:46)
[2019-05-11] MEDS: Magnesium Hydroxide LIQ* 30 ML UDC PO SCH ×2 (07:47→21:08)
[2019-05-11] MEDS: Ascorbic Acid TAB* 500 MG PO SCH (07:48)
[2019-05-11] MEDS: Ferrous Sulfate TAB* 325 MG PO SCH ×2 (07:48→21:06)
[2019-05-11] MEDS: Methadone TAB* 5 MG PO SCH ×3 (07:48→21:07)
[2019-05-11] MEDS: Furosemide TAB* 40 MG PO SCH (07:48)
[2019-05-11] MEDS: Docusate CAP* 100 MG PO SCH ×2 (07:48→21:07)
[2019-05-11] MEDS: Apixaban* 2.5 MG TAB PO SCH ×2 (07:48→21:07)
[2019-05-11] MEDS: CMCS: Desvenlafaxine (NF) 50 MG TAB PO SCH (07:48)
[2019-05-11] MEDS: Vitamin THERAPEUTIC TAB PO SCH (07:48)
[2019-05-11] MEDS: Gabapentin CAP(*) 300 MG PO SCH ×3 (07:50→21:09)
[2019-05-11] MEDS ORDERED: Potassium Chlor TAB* 20 MEQ TAB.ER PO ONE (09:10)
[2019-05-11] MEDS: traMADol TAB* 50 MG PO PRN (09:49)
[2019-05-11] MEDS: LORazepam TAB(*) 1 MG PO PRN ×2 (09:49→21:07)
--- NOTE | 2019-05-11 10:46 | PN ---
Progress Note - Progress Note Date of Service: 05/11/19 SOAP: Subjective: Pt seen at bedside. No complaint of pain. No new complaint otherwise. States she would like to go to SNF instead of going home by herself. Denies CP, SOB, F/C. Vital Signs: Temp Pulse Resp BP Pulse Ox 98.7 F 92 18 116/61 94 05/11/19 08:10 05/11/19 08:10 05/11/19 09:49 05/11/19 08:10 05/11/19 08:10 Laboratory Last Values Hgb 9.6 g/dL (12.0-16.0) L 05/11/19 06:04 Hct 27 % (35-47) L 05/11/19 06:04 Plt Count 194 10^3/uL (150-450) 05/11/19 06:04 MPV 8.1 fL (7.4-10.4) 05/11/19 06:04 Sodium 131 mmol/L (135-145) L 05/11/19 06:04 Potassium 3.1 mmol/L (3.5-5.0) L 05/11/19 06:04 Chloride 95 mmol/L (101-111) L 05/11/19 06:04 Carbon Dioxide 29 mmol/L (22-32) 05/11/19 06:04 Anion Gap 7 mmol/L (2-11) 05/11/19 06:04 BUN 14 mg/dL (6-24) 05/11/19 06:04 Creatinine 0.83 mg/dL (0.51-0.95) 05/11/19 06:04 Est GFR ( Amer) 83.2 (>60) 05/11/19 06:04 Est GFR (Non-Af Amer) 68.8 (>60) 05/11/19 06:04 BUN/Creatinine Ratio 16.9 (8-20) 05/11/19 06:04 Glucose 102 mg/dL (70-100) H 05/11/19 06:04 Calcium 8.3 mg/dL (8.6-10.3) L 05/11/19 06:04 Objective: A&O x3, NAD Dressing changed, Incision C/D/I, Calves soft and nontender, no edema, NVI distally. Assessment: 68 yo female s/p right TKA POD #2 Plan: OOB, PT/OT WBAT Pain control DVT prophylaxis - Eliquis 2.5mg BID Plan for D/C to [facility] likely Monday
[2019-05-11] MEDS ORDERED: Bisacodyl SUPP* 10 MG SUPP PR PRN (13:32)
--- NOTE | 2019-05-11 13:54 | PN ---
Subjective Date of Service: 05/11/19 Interval History: Pt feels well, no BM since admission Objective Active Medications: Acetaminophen (Tylenol Tab*) 975 mg PO Q8H [facility] Last Admin: 05/11/19 07:53 Dose: 975 mg Apixaban (Eliquis*) 2.5 mg PO BID [facility] Last Admin: 05/11/19 07:48 Dose: 2.5 mg Ascorbic Acid (Vitamin C Tab*) 2,000 mg PO QAM [facility] Last Admin: 05/11/19 07:48 Dose: 2,000 mg Bisacodyl (Dulcolax Supp*) 10 mg IN DAILY PRN PRN Reason: CONSTIPATION Calcium Carbonate (Tums*) 500 mg PO 2100 [facility] Last Admin: 05/10/19 20:30 Dose: 500 mg Cholecalciferol (Vitamin D Tab*) 2,000 units PO BEDTIME [facility] Last Admin: 05/10/19 20:30 Dose: 2,000 units Desvenlafaxine Succinate (Pristiq (Nf)) 100 mg PO QAM [facility] Last Admin: 05/11/19 07:48 Dose: 100 mg Diphenhydramine HCl (Benadryl Iv*) 25 mg IV Q6H PRN PRN Reason: PRURITIS Diphenhydramine HCl (Benadryl Po*) 25 mg PO Q6H PRN PRN Reason: PRURITIS Docusate Sodium (Colace Cap*) 100 mg PO BID [facility] Last Admin: 05/11/19 07:48 Dose: 100 mg Ferrous Sulfate (Ferrous Sulfate Tab*) 325 mg PO BID [facility] Last Admin: 05/11/19 07:48 Dose: 325 mg Furosemide (Lasix Tab*) 40 mg PO QAM [facility] Last Admin: 05/11/19 07:48 Dose: 40 mg Gabapentin (Neurontin Cap(*)) 900 mg PO TID [facility] Last Admin: 05/11/19 13:46 Dose: 900 mg Lactulose (Lactulose*) 30 ml PO BID PRN PRN Reason: CONSTIPATION Levalbuterol HCl (Xopenex 1.25 Mg/0.5 Ml Neb.Sia*) 1.25 mg INH Q6H PRN PRN Reason: SOB/WHEEZING Lorazepam (Ativan Tab(*)) 1 mg PO TID PRN PRN Reason: ANXIETY Last Admin: 05/11/19 09:49 Dose: 1 mg Magnesium Hydroxide (Milk Of Magnesia Liq*) 30 ml PO BID [facility] Last Admin: 05/11/19 07:47 Dose: 30 ml Magnesium Hydroxide (Milk Of Magnesia Liq*) 30 ml PO Q6H PRN PRN Reason: CONSTIPATION Methadone HCl (Dolophine Tab*) 15 mg PO TID [facility] Last Admin: 05/11/19 13:45 Dose: 15 mg Methocarbamol (Robaxin Tab*) 1,000 mg PO Q6H PRN PRN Reason: SPASMS Last Admin: 05/10/19 20:28 Dose: 1,000 mg Multivitamins (Theragran Tab*) 1 tab PO DAILY [facility] Last Admin: 05/11/19 07:48 Dose: 1 tab Ondansetron HCl (Zofran Inj*) 4 mg IV Q6H PRN PRN Reason: NAUSEA Ondansetron HCl (Zofran Odt Tab*) 4 mg PO Q6H PRN PRN Reason: NAUSEA Last Admin: 05/09/19 15:47 Dose: 4 mg Oxycodone HCl (Roxycodone Tab*) 10 mg PO Q4H PRN PRN Reason: PAIN - MODERATE Oxycodone HCl (Roxycodone Tab*) 15 mg PO Q4H PRN PRN Reason: PAIN - SEVERE Last Admin: 05/11/19 06:26 Dose: 15 mg Polyethylene Glycol/Electrolytes (Miralax*) 17 gm PO DAILY PRN PRN Reason: Constipation Senna (Senokot 8.6 Mg Tab*) 2 tab PO BEDTIME [facility] Last Admin: 05/10/19 20:30 Dose: 2 tab Tramadol HCl (Ultram*) 50 mg PO Q6HR PRN PRN Reason: PAIN - MODERATE Last Admin: 05/11/19 09:49 Dose: 50 mg Zolpidem Tartrate (Ambien Tab*) 10 mg PO BEDTIME PRN PRN Reason: SLEEP Last Admin: 05/11/19 00:27 Dose: 10 mg Vital Signs - 8 hr 05/11/19 05/11/19 05/11/19 06:26 07:48 07:50 Temperature Pulse Rate Respiratory 16 18 18 Rate Blood Pressure (mmHg) O2 Sat by Pulse Oximetry 05/11/19 05/11/19 05/11/19 07:59 08:00 08:10 Temperature 98.7 F Pulse Rate 92 Respiratory 18 18 18 Rate Blood Pressure 116/61 (mmHg) O2 Sat by Pulse 94 Oximetry 05/11/19 05/11/19 05/11/19 09:44 09:45 09:49 Temperature Pulse Rate Respiratory 18 18 18 Rate Blood Pressure (mmHg) O2 Sat by Pulse Oximetry 05/11/19 05/11/19 05/11/19 11:31 11:55 13:45 Temperature 98.7 F Pulse Rate 105 Respiratory 18 18 18 Rate Blood Pressure 109/54 (mmHg) O2 Sat by Pulse 93 Oximetry 05/11/19 13:46 Temperature Pulse Rate Respiratory 18 Rate Blood Pressure (mmHg) O2 Sat by Pulse Oximetry Oxygen Devices in Use Now: None Appearance: 68 yo F in NAD, aAOx3 Eyes: No Scleral Icterus, PERRLA Ears/Nose/Mouth/Throat: NL Teeth, Lips, Gums Neck: NL Appearance and Movements; NL JVP Respiratory: Symmetrical Chest Expansion and Respiratory Effort Cardiovascular: NL Sounds; No Murmurs; No JVD, RRR Abdominal: NL Sounds; No Tenderness; No Distention, No Hepatosplenomegaly Lymphatic: No Cervical Adenopathy Extremities: No Clubbing, Cyanosis, - - b/l lymphoedema Skin: No Nodules or Sclerosis, - - R knee dressings not removed Neurological: Alert and Oriented x 3, NL Muscle Strength and Tone Result Diagrams: 05/11/19 06:04 05/11/19 06:04 Assess/Plan/Problems-Billing Assessment: 68 yo F with h/o lymphoedema b/l LE's((on Lasix and metolazone), COPD(ot on ), chronic pain on methadone, s/p elective R knee replacement on 08/15 - Patient Problems (1) Knee joint replacement status Comment: as per DR. Petersen (2) Postoperative anemia due to acute blood loss Comment: Hb down due to dilution and recent surgery, no evidence of hematoma, cont to monitor (3) COPD (chronic obstructive pulmonary disease) Comment: not in exacerbation, cont home meds (4) History of pulmonary embolus (PE) Comment: - Hx of PE in 2017 and no longer on anticoagulation at home (5) Hyponatremia Comment: - mild, cont to monitor (6) Acquired lymphedema of leg Comment: b/l , chronic, cont lasix from home , holding metolazone for low normal SBP (7) DVT prophylaxis Comment: eliquis Status and Disposition: Medicine consult
[2019-05-11] MEDS: Methocarbamol TAB* 500 MG PO PRN (17:04)
[2019-05-11] MEDS: Cholecalciferol TAB* 1000 UNITS PO SCH (21:07)
[2019-05-11] MEDS: Senna TAB 8.6 mg* TAB PO SCH (21:07)
[2019-05-11] MEDS: Calcium Carbonate CHEW TAB* 500 MG (TUMS) PO SCH (21:11)
[2019-05-12] MEDS: Acetaminophen TAB* 325 MG PO SCH ×2 (00:14→08:30)
[2019-05-12] MEDS: oxyCODONE TAB* 5 MG TAB PO PRN ×2 (03:33→08:31)
[2019-05-12] MEDS: Methocarbamol TAB* 500 MG PO PRN ×2 (03:34→11:35)
[2019-05-12] MEDS: LORazepam TAB(*) 1 MG PO PRN (05:54)
[2019-05-12 06:17] LABS: Hematocrit 27 % (35-47); Hemoglobin 9.6 g/dL (12.0-16.0); Mean Platelet Volume 7.7 fL (7.4-10.4); Platelet Count 199 10^3/uL (150-450)
[2019-05-12] MEDS: PTO: FLUTICASONE/UMECLIDIN/VILANTER 1 PUFF MDI INH SCH (07:07)
[2019-05-12 07:43] VITALS: BP 96/55
[2019-05-12] MEDS: Ferrous Sulfate TAB* 325 MG PO SCH (08:30)
[2019-05-12] MEDS: Ascorbic Acid TAB* 500 MG PO SCH (08:31)
[2019-05-12] MEDS: Methadone TAB* 5 MG PO SCH (08:31)
[2019-05-12] MEDS: Vitamin THERAPEUTIC TAB PO SCH (08:31)
[2019-05-12] MEDS: Docusate CAP* 100 MG PO SCH (08:31)
[2019-05-12] MEDS: CMCS: Desvenlafaxine (NF) 50 MG TAB PO SCH (08:31)
[2019-05-12] MEDS: Magnesium Hydroxide LIQ* 30 ML UDC PO SCH (08:32)
[2019-05-12] MEDS: Furosemide TAB* 40 MG PO SCH (08:32)
[2019-05-12] MEDS: Apixaban* 2.5 MG TAB PO SCH (08:32)
[2019-05-12] MEDS: Gabapentin CAP(*) 300 MG PO SCH (08:32)
[2019-05-12] MEDS ORDERED: Influenza VAC *QUAD* 2019-20* 0.5 ML SYRINGE IM ONE (09:00)
--- NOTE | 2019-05-12 10:38 | DS ---
Orthopedic Discharge Summary - Discharge Summary Date of Admission:05/09/19 Date of Discharge: 05/12/19 Date of Surgery: 05/09/19 Attending Orthopedic Provider: Dr. Michelle Petersen Pre-operative Diagnosis: Right knee osteoarthritis Operative Procedure: Right total knee replacement Disposition of Patient: STR Condition of Patient: Stable History: HERSON DELEON is a 68 year old F with years of increasingly severe right pain. Patient has failed conservative management and has elected to undergo a right total knee replacement Hospital Course: HERSON was admitted to [facility] on 05/09/19. Patient underwent a Right total knee replacement without complication followed by a brief recovery in PACU and transfer to the Short Stay Surgical Unit in stable condition. Our hospitalist service, physical therapy and occupational therapy also participated in this patients care. Post-op day 1: patient was alert and in no acute distress. Dressing was clean, dry and intact. Operative extremity dorsiflexion and plantarflexion intact, sensation intact to light touch distally, DP2+. Post-op day two: dressing was changed, incision was clean , dry and intact. Patient wanted to go to rehab and was deemed to be medically and orthopedically stable for discharge on POD #3. Physical therapy goals were met. Home Medications Medication Instructions Recorded Confirmed Type Ascorbic Acid TAB* [Vitamin C 2,000 mg PO QAM 06/12/13 05/09/19 History TAB*] Docusate CAP* [Colace Cap*] 100 mg PO BID 12/17/14 05/09/19 History Ferrous Gluconate TAB* [Fergon 325 mg PO BID 12/17/14 05/09/19 History TAB*] Gabapentin CAP(*) [Neurontin 300 900 mg PO TID 12/17/14 05/09/19 History CAP(*)] Zolpidem TAB* [Ambien*] 10 mg PO BEDTIME PRN 12/17/14 05/09/19 History Cholecalciferol (Vitamin D3) 2,000 unit PO BEDTIME 10/05/15 05/09/19 History [Vitamin D3] Calcium Carbonate [Calcium] 600 mg PO BEDTIME 06/05/17 05/09/19 History Desvenlafaxine Succinate [Pristiq] 100 mg PO QAM 02/21/18 05/09/19 History LORazepam TAB(*) [Ativan 1 MG TAB 1 mg PO TID PRN 07/06/18 05/09/19 History (*)] Fluticasone/Umeclidin/Vilanter 1 puff INH QAM 09/03/18 05/09/19 History [Trelegy Ellipta 100-62.5-25] Furosemide TAB* [Lasix TAB*] 40 mg PO QAM 09/03/18 05/09/19 History Levalbuterol 1.25MG/0.5ML NEB* 1.25 mg INH Q6H PRN 09/03/18 05/09/19 History [Xopenex 1.25 MG/0.5 ML NEB.MELE*] Cinnamon Bark 1 pkt PO 1200 09/06/18 05/09/19 History Cod Liver Oil 1 cap PO 1200 09/06/18 05/09/19 History Methadone TAB* [Dolophine TAB*] 10 mg PO TID 09/21/18 05/09/19 History Oregano Oil [Oil of Oregano] 1,500 mg PO 1200 11/15/18 05/09/19 History Apixaban* [Eliquis*] 2.5 mg PO BID tab 05/12/19 Rx oxyCODONE TAB* [Roxycodone TAB 5 10 mg PO Q4H PRN tab 05/12/19 Rx mg*] oxyCODONE TAB* [Roxycodone TAB 5 15 mg PO Q4H PRN tab 05/12/19 Rx mg*] Discharge Instructions following Orthopedic Surgery: Activity: * Weight Bearing as tolerated * Continue physical therapy and occupational therapy exercises as shown Wound care: * OK to shower on post-op day 3, no bathing, swimming, or submerging wound. * Use gentle soap, pat dry. Cover with gauze, MERRILL wrap or tape. * Visiting home nurse to do wound checks. Call Orthopedic office for: * Increased drainage * Redness * Increased pain * Fever Go to ER with shortness of breath or chest pain. Diet: * Regular diet * Increase fluids and fiber to prevent constipation. * Continue to use stool softeners, call office if no bowel motion within 48 hours. Medications See Home Medication List in your packet for medications that you should take after discharge. DVT Prophylaxis: Eliquis Dosin.5 mg, 1 tab every 12 hours x 30 days DO NOT take aspirin or ibuprofen while on Eliquis Pain Control: Percocet Dosin/325 mg 1-2 tabs by mouth every 4-6 hours as needed for pain. Maximum of 10 tabs per day. Please note that Percocet contains Tylenol (acetaminophen). Maximum daily dose of Tylenol is 4000 mg from all sources. Continue Methodone as you would usually take it for chronic pain. Use the percocet as needed for additional pain Antibiotics are required prior to any dental work. FOLLOW UP: Follow up with Dr. Petersen Within 10-14 days, call for appointment Please call our office with any questions or concerns ([phone])
[2019-05-12] MEDS: traMADol TAB* 50 MG PO PRN (11:37)
--- NOTE | 2019-05-23 15:22 | PN ---
Progress Note - Progress Note Date of Service: 05/12/19 SOAP: Subjective: Pt seen sitting in chair. No complaint of pain. No complaint otherwise. Denies CP, SOB, F/C Vital Signs: Temp Pulse Resp BP Pulse Ox 99.3 F 93 18 96/55 92 05/12/19 07:42 05/12/19 07:42 05/12/19 11:37 05/12/19 07:42 05/12/19 08:00 Laboratory Last Values Hgb 9.6 g/dL (12.0-16.0) L 05/12/19 05:56 Hct 27 % (35-47) L 05/12/19 05:56 Plt Count 199 10^3/uL (150-450) 05/12/19 05:56 MPV 7.7 fL (7.4-10.4) 05/12/19 05:56 Sodium 131 mmol/L (135-145) L 05/11/19 06:04 Potassium 3.1 mmol/L (3.5-5.0) L 05/11/19 06:04 Chloride 95 mmol/L (101-111) L 05/11/19 06:04 Carbon Dioxide 29 mmol/L (22-32) 05/11/19 06:04 Anion Gap 7 mmol/L (2-11) 05/11/19 06:04 BUN 14 mg/dL (6-24) 05/11/19 06:04 Creatinine 0.83 mg/dL (0.51-0.95) 05/11/19 06:04 Est GFR ( Amer) 83.2 (>60) 05/11/19 06:04 Est GFR (Non-Af Amer) 68.8 (>60) 05/11/19 06:04 BUN/Creatinine Ratio 16.9 (8-20) 05/11/19 06:04 Glucose 102 mg/dL (70-100) H 05/11/19 06:04 Calcium 8.3 mg/dL (8.6-10.3) L 05/11/19 06:04 Objective: A&O X3, NAD Dressing changed, Incision C/D/I, Calves soft and nontender Assessment: 68 yo female s/p right TKA POD #3 Plan: OOB, PT/OT WBAT Pain control DVT prophylaxis PMRU today
--- NOTE | 2019-06-04 04:11 | DS ---
DISCHARGE SUMMARY: DATE OF ADMISSION: 05/09/19 DATE OF DISCHARGE: 05/12/19 ATTENDING PROVIDER: Michelle Petersen MD * (DICTATED BY RIGOBERTO RUTLEDGE) ADDENDUM: Tiffanie Lomeli was discharged on 05/12/[address] [facility] for rehab in a stable condition. RIGOBERTO RUTLEDGE [id number]/[facility] #: [id number] MTDD
== END 2019-05-12 11:45 | DRG 470 ==
LOC: AA 05-09 07:26 → SSU 05-09 14:46
PROVIDERS: ADMIT Orthopaedic Surgery Adult Reconstructive Orthopaedic Surgery; ATTEND Orthopaedic Surgery Adult Reconstructive Orthopaedic Surgery
PROC: 0SRC069 Replacement of Right Knee Joint with Oxidized Zirconium on Polyethylene Synthetic Substitute, Cemented, Open Approach (ICD-10-PCS; principal; 2019-05-09 11:00)
DX: M17.11 Unilateral primary osteoarthritis, right knee (principal); D62 Acute posthemorrhagic anemia; E87.1 Hypo-osmolality and hyponatremia; F41.9 Anxiety disorder, unspecified; J43.9 Emphysema, unspecified; G89.4 Chronic pain syndrome; E66.01 Morbid (severe) obesity due to excess calories; M85.80 Other specified disorders of bone density and structure, unspecified site; F17.290 Nicotine dependence, other tobacco product, uncomplicated; M54.9 Dorsalgia, unspecified; M54.2 Cervicalgia; M21.061 Valgus deformity, not elsewhere classified, right knee; M25.461 Effusion, right knee; K21.9 Gastro-esophageal reflux disease without esophagitis; M25.761 Osteophyte, right knee; G25.81 Restless legs syndrome; L40.9 Psoriasis, unspecified; F31.9 Bipolar disorder, unspecified; G47.33 Obstructive sleep apnea (adult) (pediatric); I89.0 Lymphedema, not elsewhere classified; K59.00 Constipation, unspecified; M81.0 Age-related osteoporosis without current pathological fracture; Z85.038 Personal history of other malignant neoplasm of large intestine; Z91.040 Latex allergy status; Z98.1 Arthrodesis status; Z68.35 Body mass index [BMI] 35.0-35.9, adult; Z86.711 Personal history of pulmonary embolism; Z85.3 Personal history of malignant neoplasm of breast; Z85.42 Personal history of malignant neoplasm of other parts of uterus; Z90.710 Acquired absence of both cervix and uterus; Z88.8 Allergy status to other drugs, medicaments and biological substances; Z91.041 Radiographic dye allergy status; Z91.048 Other nonmedicinal substance allergy status; Z80.9 Family history of malignant neoplasm, unspecified; Z80.3 Family history of malignant neoplasm of breast
CPT/HCPCS: 36415; 80048; 85014; 85018; 85049; 88305; 88311; 90686; 94640; A9270-GY; C1776; G8978-GP-CJ; G8979-GP-CI; G8987-GO-CI; G8988-GO-CI; G8989-GO-CI; J0690; J1100; J2250; J2270; J2795; J3010; J3490

== ENCOUNTER 2019-05-12 10:00 | Inpatient (IN) | payer MEDICARE, MEDICAID ==
[2019-05-12] MEDS ORDERED: Acetaminophen TAB* 325 MG PO PRN (12:08)
[2019-05-12] MEDS ORDERED: Magnesium Hydroxide LIQ* 30 ML UDC PO PRN (12:18)
[2019-05-12] MEDS ORDERED: Polyethylene Glycol 3350* 17 GM PACKET PO PRN (12:25)
[2019-05-12] MEDS ORDERED: Ipratropium 0.5MG/2.5ML NEB* 0.5 MG/2.5 ML NEB.SOLN INH PRN (12:29)
[2019-05-12] MEDS ORDERED: Ondansetron ODT TAB* 4 MG PO PRN (12:29)
--- NOTE | 2019-05-12 14:10 | HP ---
CC: Dr. Gilmore; Dr. Petersen * REHABILITATION ADMISSION: DATE OF ADMISSION: 05/12/19 PRIMARY CARE PROVIDER: Dr. Gilmore. ORTHOPEDIC SURGEON: Dr. Petersen. REASON FOR ADMISSION: Right total knee replacement secondary to osteoarthritis. 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 She was found to have osteoarthritis and failed conservative treatment. She was admitted by Dr. Petersen on 05/09/19 for elective right total knee replacement. On postop day 2, she was having difficulty mobilizing due to worsening pain. She has chronic pain and is normally followed by Dr. Vargas in the pain center at [facility]. He increased her methadone and adjusted her oxycodone. That was helpful. She has been noted to have some acute postoperative anemia, but has not required transfusion. She has had hyponatremia as well as hypokalemia. The potassium was replaced. She has had some lower blood pressures, and therefore, one of her diuretics that she normally takes for lymphedema has been held. Prior to admission, she was independent with mobility using a rolling walker. She started using the walker approximately 6 months ago when her balance worsened due to increasing right knee pain. Prior to this, she was able to use a single-point cane due to her impaired balance from cervical myelopathy. With occupational therapy, she required contact guard assistance for transfers on postop day 1, but on subsequent visits with physical therapy, she has required minimal amount of assistance for bed mobility, min to mod assist for transferring, and contact guard assistance for ambulating with a rolling walker up to 200 feet. PAST MEDICAL HISTORY: 1. Incomplete cervical spinal cord injury with chronic left greater than right arm and leg weakness and impaired sensation in the hands from 2010, status post ACDF at C5-6 and posterior laminectomy. 3. Asthma and COPD. 4. Breast cancer, status post lumpectomy in 2008 and radiation therapy. 5. Uterine cancer, status post hysterectomy in 2009. 6. Anxiety. 7. Depression. 8. Osteopenia. 9. Chronic pain and spasticity related to spinal cord injury. 10. Obesity. 11. History of fracture of right leg, left arm, and rib. 12. History of pulmonary embolism. 13. History of colostomy with reversal. 14. Lymphedema. MEDICATIONS: Currently: 1. Ventolin MDI 2 puffs q.4 hours p.r.n. shortness of breath. 2. Trelegy Ellipta 100/62.5/25 one puff q. day. 3. Ipratropium 0.2% nebulizer q.4 hours p.r.n. shortness of breath. 4. Vitamin D 2000 units q.h.s. 5. Robaxin 1000 mg q.6 hours p.r.n. muscle spasm. 6. Zofran 4 mg q.6 hours p.r.n. nausea. 7. MiraLAX p.r.n. 8. Gabapentin 900 mg t.i.d. 9. Methadone 15 mg t.i.d. scheduled. 10. Ambien 10 mg q.h.s. p.r.n. insomnia. 11. Ativan 1 mg t.i.d. p.r.n. anxiety. 12. Ferrous gluconate 324 mg q. day. 13. Vitamin C 2000 mg q. day. 14. Pristiq 100 mg q. day. 15. Furosemide 40 mg q. day. 16. Oxycodone 10 to 15 mg q.4 hours p.r.n. [id number] pain (she takes 10 mg for moderate pain and 15 mg for severe pain). 17. Acetaminophen 650 mg q.4 hours p.r.n. mild pain or temperature of greater than 101. 18. Eliquis 2.5 mg b.i.d. for DVT prophylaxis. 19. Tums 500 mg q.h.s. 20. Colace 100 mg b.i.d. 21. Senna 2 tablets q.h.s. 22. Multivitamin q. day. ALLERGIES: IODINE, IODINATED CONTRAST, TAPE, TIZANIDINE. FAMILY HISTORY: Mother, breast cancer. Sister, meningioma. SOCIAL HISTORY: She lives alone at [facility]. If she cannot make decisions for herself, her daughter, Stephani Ayala, in [place] is her healthcare proxy and next of kin. Her phone number is [phone]. She has quit her e-cigarettes and smoking with this admission. She does not want any nicotine replacement treatment. No alcohol. She lives at [facility] in a 1-level apartment. There is an elevator. She has a home health aide 2 to 3 times per week for shopping and cleaning. She has been on disability primarily since her spinal cord injury. 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 REVIEW OF SYSTEMS: The remainder of a 13-system review was completed. No other significant findings. She acknowledges having a bowel movement this morning. PHYSICAL EXAMINATION GENERAL: Well developed, well nourished, appearing stated age. Mental Status: No acute distress. Alert and oriented x3. VITAL SIGNS: Temperature 99.3, pulse 93, respirations 20, oxygenation 92% on room air, blood pressure 96/55. HEENT: Normocephalic, atraumatic. Oropharynx is clear. Moist mucous membranes. LUNGS: Clear to auscultation bilaterally. HEART: Regular rate and rhythm. ABDOMEN: Active bowel sounds. Soft, nontender, nondistended. EXTREMITIES: No clubbing or cyanosis. She has lymphedema affecting both legs. MUSCULOSKELETAL: She has functional range of motion of all of her major joints with limited testing of the right knee secondary to pain and recent surgery. She does have some increased tone in her left quadriceps. NEUROLOGICAL: Cranial nerves II through XII intact. Bilateral upper and lower extremities are 4/5 with 4-/5 at the left ECR, 3/5 ADM, and left hip flexion, left knee extension, and left dorsiflexion and EHL. Sensation is impaired in both hands, C6 through C8. SKIN: Her right knee incision is sutured. Sutures are intact and there is some mild sanguineous drainage. LABORATORY DATA: Today, her hemoglobin is 9.6, hematocrit 27, platelets 199. IMPRESSION: A 68-year-old woman with chronic incomplete cervical spinal cord injury and quadriplegia, who is now status post right total knee replacement secondary to osteoarthritis. She will be admitted to [facility] so that she can return to living independently. PLAN: 1. Status post right total knee replacement. Follow up with Dr. Petersen. She will have physical therapy and occupational therapy. 2. DVT prophylaxis and history of pulmonary embolism. Continue with Eliquis for 30 days. 3. Acute postoperative anemia. Monitor her CBC with routine labs. 4. Chronic pain management. Her methadone has already been increased from 10 to 15 mg t.i.d. She has Roxicodone on a p.r.n. basis. Hopefully, we can wean her back to her regular home regimen by discharge or soon thereafter. 5. Hyponatremia and hypokalemia. Repeat labs tomorrow and replace as necessary. 6. Lymphedema. She is currently on Lasix daily. It looks like her home dosing of this was actually every other day and she also used metolazone 2.5 mg 4 times daily. Monitor her blood pressure for the ability to restart her home regimen. In the future, she might be a candidate for Lymphedema Clinic. 7. Muscle spasm. Continue with Robaxin on an as-needed basis. This is also higher dose than she was on previously at home. 8. COPD and asthma. Continue with her current medications and as needed inhalers and nebulizers. 9. Advance directives: She is a full code. If she cannot make decisions for herself, her daughter, Stephani Ayala, in [place] is her healthcare proxy. Her number is [phone]. ESTIMATED LENGTH OF STAY: 7 to 10 days and then return to home. [id number]/[facility] #: [id number] SARAH
[2019-05-12] MEDS: Gabapentin CAP(*) 300 MG PO SCH ×2 (14:12→20:25)
[2019-05-12] MEDS: oxyCODONE TAB* 5 MG TAB PO PRN ×2 (14:13→23:37)
[2019-05-12] MEDS: Methadone TAB* 10 MG PO SCH ×2 (14:14→20:26)
[2019-05-12] MEDS: LORazepam TAB(*) 1 MG PO PRN (15:10)
[2019-05-12] MEDS: Apixaban* 2.5 MG TAB PO SCH (20:24)
[2019-05-12] MEDS: Docusate CAP* 100 MG PO SCH (20:24)
[2019-05-12] MEDS: Senna TAB 8.6 mg* TAB PO SCH (20:25)
[2019-05-12] MEDS: Calcium Carbonate CHEW TAB* 500 MG (TUMS) PO SCH (20:27)
[2019-05-12] MEDS: Zolpidem TAB* 10 MG PO PRN (23:38)
[2019-05-13] MEDS: oxyCODONE TAB* 5 MG TAB PO PRN ×2 (04:41→15:19)
[2019-05-13 05:38] LABS: Albumin 3.1 g/dL (3.2-5.2); Albumin/Globulin Ratio 1.1 (1-3); BUN/Creatinine Ratio 12.5 (8-20); Calcium 8.4 mg/dL (8.6-10.3); EGFR African American 86.8 (>60); EGFR Non-African American 71.8 (>60); Globulin 2.9 g/dL (2-4); Potassium 3.5 mmol/L (3.5-5.0); Total Bilirubin 0.6 mg/dL (0.2-1.0)
[2019-05-13 06:22] LABS: ABS Basophils 0.1 10^3/ul (0-0.2); ABS Eosinophils 0.1 10^3/ul (0-0.6); ABS Lymphocytes 1.2 10^3/ul (1.0-4.8); ABS Monocytes 0.5 10^3/ul (0-0.8); Eosinophil % 1.3 %; Hematocrit 26 % (35-47); Hemoglobin 9.5 g/dL (12.0-16.0); Lymphocyte % 14.8 %; Mean Corpuscular HGB Conc 36 g/dL (31-36); Mean Corpuscular Hemoglobin 32 pg (27-31); Mean Corpuscular Volume 90 fL (80-97); Mean Platelet Volume 8.5 fL (7.4-10.4); Platelet Count 242 10^3/uL (150-450); Red Blood Count 2.94 10^6 /uL (3.70-4.87); Red Cell Distribution Width 15 % (10-15); White Blood Count 7.8 10^3/uL (3.5-10.8)
[2019-05-13] MEDS: Methocarbamol TAB* 500 MG PO PRN ×2 (06:39→16:21)
[2019-05-13] MEDS: Gabapentin CAP(*) 300 MG PO SCH ×3 (09:49→21:30)
[2019-05-13] MEDS: Methadone TAB* 10 MG PO SCH ×3 (09:49→21:30)
[2019-05-13] MEDS: Ascorbic Acid TAB* 500 MG PO SCH (09:50)
[2019-05-13] MEDS: Apixaban* 2.5 MG TAB PO SCH ×2 (09:51→21:29)
[2019-05-13] MEDS: Cholecalciferol TAB* 1000 UNITS PO SCH (09:51)
[2019-05-13] MEDS: Vitamin THERAPEUTIC TAB PO SCH (09:51)
[2019-05-13] MEDS: Docusate CAP* 100 MG PO SCH ×2 (09:51→21:29)
[2019-05-13] MEDS: Ferrous Gluconate TAB* 324 MG TAB PO SCH (11:02)
[2019-05-13] MEDS: Furosemide TAB* 40 MG PO SCH (11:02)
[2019-05-13] MEDS: PTO:FLUTICASONE/UMECLIDIN/VILANTER 1 PUFF MDI INH SCH ×2 (11:02→11:12)
[2019-05-13] MEDS: DESVENLAFAXINE 50 MG PO SCH (11:02)
[2019-05-13] MEDS: Albuterol HFA INHALER* 8 gm MDI INH PRN (11:09)
[2019-05-13] MEDS: LORazepam TAB(*) 1 MG PO PRN ×2 (11:11→21:36)
--- NOTE | 2019-05-13 20:40 | PN ---
Progress Note Date of Service: 05/13/19 Note: HERSON DELEON was visited. Therapy notes read and reviewed. She looks better without complaints. She thinks her pain is better controlled. Her Na is a little low (127). Current Medications: Active Medications Generic Name Dose Route Start Last Admin Trade Name Freq PRN Reason Stop Dose Admin Acetaminophen 650 mg 05/12/19 12:28 Tylenol Tab* PO Q4H PRN Fever >101 or Mild pain Albuterol 2 puff 05/12/19 12:28 05/13/19 11:09 Ventolin Hfa Inhaler* INH 2 puff Q4H PRN Administration SOB/WHEEZING Apixaban 2.5 mg 05/12/19 21:00 05/13/19 09:51 Eliquis* PO 2.5 mg BID MAREN Administration Ascorbic Acid 2,000 mg 05/13/19 09:00 05/13/19 09:50 Vitamin C Tab* PO 2,000 mg DAILY MAREN Administration Calcium Carbonate 500 mg 05/12/19 21:00 05/12/19 20:27 Tums* PO 500 mg 2100 MAREN Administration Cholecalciferol 2,000 units 05/13/19 09:00 05/13/19 09:51 Vitamin D Tab* PO 2,000 units DAILY MAREN Administration Desvenlafaxine Succinate 100 mg 05/13/19 09:00 05/13/19 11:02 Pristiq (Nf) PO 100 mg DAILY [facility] Administration Docusate Sodium 100 mg 05/12/19 21:00 05/13/19 09:51 Colace Cap* PO 100 mg BID MAREN Administration Ferrous Gluconate 324 mg 05/13/19 09:00 05/13/19 11:02 Fergon Tab* PO 324 mg DAILY [facility]EN Administration Furosemide 40 mg 05/13/19 09:00 05/13/19 11:02 Lasix Tab* PO 40 mg DAILY [facility] Administration Gabapentin 900 mg 05/12/19 14:00 05/13/19 15:00 Neurontin Cap(*) PO 900 mg TID MAREN Administration Ipratropium Bailey 0.5 mg 05/12/19 12:29 Atrovent 0.5 Mg Neb.Sia* INH Q4H PRN SOB/WHEEZING Lorazepam 1 mg 05/12/19 12:24 05/13/19 11:11 Ativan Tab(*) PO 1 mg TID PRN Administration ANXIETY Magnesium Hydroxide 30 ml 05/12/19 12:18 Milk Of Magnesia Liq* PO Q6H PRN CONSTIPATION Methadone HCl 15 mg 05/12/19 14:00 05/13/19 15:01 Dolophine Tab* PO 15 mg TID MAREN Administration Methocarbamol 1,000 mg 05/12/19 12:25 05/13/19 16:21 Robaxin Tab* PO 1,000 mg Q6H PRN Administration muscle spasm Multivitamins 1 tab 05/13/19 09:00 05/13/19 09:51 Theragran Tab* PO 1 tab DAILY MAREN Administration Ondansetron HCl 4 mg 05/12/19 12:29 Zofran Odt Tab* PO Q6H PRN NAUSEA Oxycodone HCl 10 mg 05/12/19 12:26 05/13/19 15:19 Roxycodone Tab* PO 10 mg Q4H PRN Administration PAIN - MODERATE Oxycodone HCl 15 mg 05/12/19 12:27 05/13/19 04:41 Roxycodone Tab* PO 15 mg Q4H PRN Administration PAIN - SEVERE Polyethylene Glycol/Electrolytes 17 gm 05/12/19 12:25 Miralax* PO DAILY PRN CONSTIPATION Senna 2 tab 05/12/19 21:00 05/12/19 20:25 Senokot 8.6 Mg Tab* PO 2 tab BEDTIME MAREN Administration Zolpidem Tartrate 10 mg 05/12/19 12:24 05/12/19 23:38 Ambien Tab* PO 10 mg BEDTIME PRN Administration INSOMNIA Vital Signs: Vital Signs Temp Pulse Resp BP Pulse Ox 98.2 F 95 18 117/53 91 05/13/19 17:01 05/13/19 17:01 05/13/19 16:21 05/13/19 17:01 05/13/19 17:01 Lab Results: Laboratory Results - last 24 hr 05/13/19 05/13/19 05:04 05:04 WBC 7.8 RBC 2.94 L Hgb 9.5 L Hct 26 L MCV 90 MCH 32 H MCHC 36 RDW 15 Plt Count 242 MPV 8.5 Neut % (Auto) 76.4 Lymph % (Auto) 14.8 [place] % (Auto) 6.4 Eos % (Auto) 1.3 Baso % (Auto) 1.1 Absolute Neuts (auto) 6.0 Absolute Lymphs (auto) 1.2 Absolute Monos (auto) 0.5 Absolute Eos (auto) 0.1 Absolute Basos (auto) 0.1 Absolute Nucleated RBC 0.0 Nucleated RBC % 0.0 Sodium 127 L Potassium 3.5 Chloride 91 L Carbon Dioxide 28 Anion Gap 8 BUN 10 Creatinine 0.80 Est GFR ( Amer) 86.8 Est GFR (Non-Af Amer) 71.8 BUN/Creatinine Ratio 12.5 Glucose 100 Calcium 8.4 L Total Bilirubin 0.60 AST 21 ALT 16 Alkaline Phosphatase 79 Total Protein 6.0 L Albumin 3.1 L Globulin 2.9 Albumin/Globulin Ratio 1.1 Exam: GENERAL: No distress LUNGS: Clear bilaterally HEART: reg rhythm ABDOMEN: Soft +BS EXTREMITIES: Right knee wound looks clean. SOme increased tone in LEs NEUROLOGIC: A&O. Muscle strength 5/5 UE, 4+/5 LLE 4/5 RLE Assessment/Plan: 1. Right total knee replacement: PT/OT. 2. Analgesia: Have increased her methadone to 15 mg TID and she takes oxycodone 10-15 mg Q4 PRN 3. DVT Prophylaxis: Eliquis 4. Bipolar/depression: Pristiq 5. Cervical Myelopathy with spasticity: Have adjusted pain meds. Robaxin. 6. Advance Directives: Full code 7. Hyponatremia: Will recheck. COuld be SIADH from opioids. 8. History of lymphedema: On Lasix 05/13/19 20:37 05/13/19 20:39 05/13/19 20:41
[2019-05-13] MEDS: Senna TAB 8.6 mg* TAB PO SCH (21:29)
[2019-05-13] MEDS: Calcium Carbonate CHEW TAB* 500 MG (TUMS) PO SCH (21:29)
[2019-05-14] MEDS: oxyCODONE TAB* 5 MG TAB PO PRN ×3 (00:55→12:27)
[2019-05-14] MEDS: Zolpidem TAB* 10 MG PO PRN ×2 (00:55→23:18)
[2019-05-14] MEDS: Cholecalciferol TAB* 1000 UNITS PO SCH (08:15)
[2019-05-14] MEDS: Apixaban* 2.5 MG TAB PO SCH ×2 (08:15→20:14)
[2019-05-14] MEDS: Docusate CAP* 100 MG PO SCH ×2 (08:15→20:13)
[2019-05-14] MEDS: Ascorbic Acid TAB* 500 MG PO SCH (08:15)
[2019-05-14] MEDS: Vitamin THERAPEUTIC TAB PO SCH (08:15)
[2019-05-14] MEDS: Methadone TAB* 10 MG PO SCH ×3 (08:16→20:12)
[2019-05-14] MEDS: DESVENLAFAXINE 50 MG PO SCH (08:16)
[2019-05-14] MEDS: Methocarbamol TAB* 500 MG PO PRN (08:17)
[2019-05-14] MEDS: Ferrous Gluconate TAB* 324 MG TAB PO SCH (08:18)
[2019-05-14] MEDS: Gabapentin CAP(*) 300 MG PO SCH ×3 (08:18→20:13)
[2019-05-14] MEDS: Furosemide TAB* 40 MG PO SCH (08:18)
[2019-05-14] MEDS: PTO:FLUTICASONE/UMECLIDIN/VILANTER 1 PUFF MDI INH SCH (08:19)
[2019-05-14] MEDS: Albuterol HFA INHALER* 8 gm MDI INH PRN (08:19)
[2019-05-14] MEDS: LORazepam TAB(*) 1 MG PO PRN ×2 (12:27→22:35)
--- NOTE | 2019-05-14 12:45 | PMRUTEAM ---
PMRU: Team Meeting Current Status: Nursing: Current Status Skin Deviations [Right Knee] Incision Skin Deviation Description [ intact with sutures Right Knee] Bladder Current Status voiding Bowel Current Status colace given Nutrition Current Status appetite good Medication Current Status needs reinforcement Physical Therapy: Current Status Bed Mobility Assistance Supervision Transfer Mobility Assistance Supervision Transfer/Bed Mobility Rolling Walker Recommended Devices Ambulation Assistance Supervision Ambulation Assistive Devices Rolling Walker Number of Feet Patient 150 Ambulated Stairs Assistance Contact Guard Assist Stairs Recommended Devices Two Rails Number of Stairs 5 Occupational Therapy: Current Status Upper Body Dressing Supervision Lower Body Dressing Supervision Bathing Supervision Toileting Ind with Adaptive Equip Toilet Transfer Supervision Shower Transfer Supervision Eating Independent Rec Therapy: Current Status Summary of Assessment and Recreation Therapy services introduced and Clinical Impression assessment completed. Pt. is very interested in recreation groups and activities while on the unit as well as pet therapy. Provided pt. with leisure material (crocheting) for her room as she requested. Treatment Goals Pt. will engage in leisure activities while on the unit. Treatment Plan Provide recreation therapy services and encourage involvement. Goals: Physical Therapy: Initial Goals Bed Mobility Assistance Independent Transfer Mobility Assistance Independent Transfer/Bed Mobility Rolling Walker Recommended Devices Ambulation Independent Ambulation Recommended Devices Rolling Walker Ambulation Distance 150 Stairs Assistance Independent Stair Recommended Devices Two Rails Number of Stairs 5 Home Exercise Program Independent Assistance Physical Therapy: Updated Goals Transfer/Bed Mobility Rolling Walker Recommended Devices Occupational Therapy: Initial Goals Goals to be Completed in (Days 1-3 days ) Upper Body Bathing Routine Modified Independent with Lower Body Bathing Routine Modified Independent with Upper Body Dressing Routine Independent Lower Body Dressing Routine Modified Independent with Toilet Hygeine and Clothing Modified Independent with Management Routine Toilet Transfer Routine Modified Independent with Tub Transfer Routine Modified Independent with Functional Transfers for ADL Modified Independent with Grooming Routine Independent Feeding Routine Independent Nursing: Goals Bladder Goal independent Bowel Goal independent Nutrition Goal 100% of all meals consumed Medication Goal independent Care Plan: Care Plan ADL's - Improve/Maintain Start: 05/12/19 16:45 Freq: DAILY@[id number],1900 Status: Active Target: 05/15/19 Protocol: Activity Type Activity Date Activity User E-Sign Co-Sign Detail Recorded Client Recorded Date Recorded By Document 05/13/19 14:09 [id number] [email or web address] 05/13/19 14:09 [id number] 05/13/19 14:09 PMRU Outcome: ADL's/ADL Transfers Orders/Interventions Occupational Therapy Evaluation & Treatment Device Yes Patient to receive OT 5x/wk for 60-120 Therex min/day Self Care Management Group Therapy Neuromuscular ReEducation OT Therapy Orders Comment R TKA UE/LE ADL's with Assist Yes ADL Transfers with Assist Yes Toileting: Transfers,Clothing Management Yes ,Hygeine w/Assist Light Kitchen/Laundry w/Assist Yes Other Outcome/Goals Pt is a 68 y/o female s/p R TKA presenting with limited endurance, decreased strength, balance deficits and WBAT RLE affecting LB dressing, bathing and functional mobilty/ transfers. Pt lives alone but states her PARTS COUNTER ASSOCIATE will be with her 2x/week and will be able to assist with bathing as needed. Pt has a TTB at the apartment and she verbalizes understanding how to use it. Pt completesm morning ADL routine as reported above. Pt will benefit from skille OT services in a rehabiliation setting to maximize independence and safety with ADL routine. Progression Toward Outcome/Goals Progressing Cardiovascular- Improve/Maintain Start: 05/13/19 04:03 Freq: [id number] Status: Active Target: 05/13/19 Protocol: Activity Type Activity Date Activity User E-Sign Co-Sign Detail Recorded Client Recorded Date Recorded By Document 05/13/19 23:48 [id number] 05/13/19 23:48 [id number] 05/13/19 23:48 PMRU Outcome: Cardiovascular Vital Signs q Shift for 48hrs Then BID No Daily Weight Ordered Yes Current Cardiovascular Outcome/Goal Maintain/ Achieve Baseline HR, BP , Perfusion Improve HR Within Prescribed Parameters Maintain/ Improve Perfusion Progression Toward Outcome/Goal Progressing Coping/Psych-Improve/Maintain Start: 05/13/19 04:03 Freq: DAILY@[id number] Status: Active Target: 05/13/19 Protocol: Activity Type Activity Date Activity User E-Sign Co-Sign Detail Recorded Client Recorded Date Recorded By Document 05/13/19 23:48 [id number] 05/13/19 23:48 [id number] 05/13/19 23:48 PMRU Outcome: Coping/Psychosocial Current Coping Outcome/Goals Verbalization of Acceptance of Rehab Admit Verbalization of Sense of Control Over Health Status Utilization of Appropriate Problem Solving Techniques Willingness to Participate in Treatment Plan and Basic Needs Progression Toward Outcome/Goals Progressing Current Psychosocial Outcome/Goals Maintain/ Improve Emotional Health Demonstrates Knowledge of Healthy Coping Mechanisms Available Cooperate/ Participate in Plan Progression Toward Outcome/Goals Progressing Discharge Planning - Improve/Maintain Start: 05/12/19 16:45 Freq: [id number] Status: Active Target: 05/13/19 Protocol: Activity Type Activity Date Activity User E-Sign Co-Sign Detail Recorded Client Recorded Date Recorded By Document 05/13/19 23:48 [id number] 05/13/19 23:48 [id number] 05/13/19 23:48 PMRU Outcome: Discharge Planning Update Patient Family No Current Discharge Planning Outcome/Goals Demonstrates Understanding of Discharge Plan Progression Toward Outcome/Goals Progressing Education-Improve/Maintain Start: 05/12/19 16:45 Freq: [id number] Status: Active Target: 05/13/19 Protocol: Activity Type Activity Date Activity User E-Sign Co-Sign Detail Recorded Client Recorded Date Recorded By Document 05/13/19 23:48 [id number] 05/13/19 23:48 [id number] 05/13/19 23:48 PMRU Outcome: Education Current Education Outcome/Goals Demonstrate/ Verbalize Understanding of Written Discharge Instructions Demonstrates Skills Encourage Questions Progression Toward Outcome/Goals Progressing Medication Administration Start: 05/12/19 16:45 Freq: [id number] Status: Active Target: 05/13/19 Protocol: Activity Type Activity Date Activity User E-Sign Co-Sign Detail Recorded Client Recorded Date Recorded By Document 05/13/19 23:48 [id number] 05/13/19 23:48 [id number] 05/13/19 23:48 PMRU Outcome: Medication Administration Assess Patient Knowledge/Teach Med No Education for all Meds Current Director Of Community Services Outcome/Goals Patient Independent with Medication Administration at Home Demonstrates Understanding Progression Towards Outcome/Goals Progressing Is Patient Going Home on Lovenox? No Mobility- Improve/Maintain Start: 05/12/19 16:45 Freq: DAILY@[id number] Status: Active Target: 05/17/19 Protocol: Activity Type Activity Date Activity User E-Sign Co-Sign Detail Recorded Client Recorded Date Recorded By Document 05/14/19 08:43 [id number] 05/14/19 08:44 [id number] 05/14/19 08:43 PMRU Outcome: Mobility Physical Therapy Evaluation and Yes Treatment Activity OOB with Assistance Yes WBAT Yes Device Yes: FWW Assistance Yes: S-CGA Patient to be seen 5x/wk for 60-120 min/ Therex day for: Mobility Training Gait Training Balance Current Mobility Outcome/Goals Maintain/ Achieve Baseline Mobility Status Improve Mobility Status Demonstrates Proper Use of Assistive Devices Free from Complications of Immobility Progression Toward Outcome/Goals Goal Initiation Bed Mobility Yes: Ind Transfers Yes: Ind with FWW Gait x ft Yes: Ind with FWW x150ft Up/Down Stairs Yes: Ind with 1 rail [id number] With HEP Yes: Ind Pain/Comfort- Improve/Maintain Start: 05/12/19 16:45 Freq: DAILY@[id number] Status: Active Target: 05/13/19 Protocol: Activity Type Activity Date Activity User E-Sign Co-Sign Detail Recorded Client Recorded Date Recorded By Document 05/13/19 23:48 [id number] 05/13/19 23:48 [id number] 05/13/19 23:48 PMRU Outcome: Pain/Comfort Current Pain/Comfort Outcome/Goals Demonstrates Knowledge and Use of Available Comfort Measures Achieves Acceptable Comfort/Pain Level as Determined by Patient/Condit Maintain Comfort Level Allowing Patient to Fully Participate in Rehab Progression Toward Outcome/Goals Progressing Outcome/Goals Met Comment pain medication given as requested PRN Rec Therapy- Improve/Maintain Start: 05/13/19 15:08 Freq: DAILY@[id number] Status: Active Target: 05/14/19 Protocol: Activity Type Activity Date Activity User E-Sign Co-Sign Detail Recorded Client Recorded Date Recorded By Document 05/13/19 15:08 [id number] 05/13/19 15:08 [id number] 05/13/19 15:08 PMRU Outcome: Recreation Therapy Current Rec Ther Outcome/Goals Complete Rec Therapy Assessment Meet with Patient Regularly for Support Encourage Leisure Involvement Progression Toward Outcome/Goals Goal Initiation Respiratory - Improve/Maintain Start: 05/12/19 16:45 Freq: DAILY@[id number] Status: Active Target: 05/13/19 Protocol: Activity Type Activity Date Activity User E-Sign Co-Sign Detail Recorded Client Recorded Date Recorded By Document 05/13/19 23:48 [id number] 05/13/19 23:48 [id number] 05/13/19 23:48 PMRU Outcome: Respiratory Does Patient Have a Trach No Current Respiratory Outcome/Goals Maintain/ Improve O2 Sat per MD Order Maintain/ Improve Baseline Respiratory Status Maintain/ Improve Activity Tolerance Progression Toward Outcome/Goals Progressing Safety- Improve/Maintain Start: 05/12/19 13:09 Freq: DAILY@0700,1900 Status: Active Target: 05/13/19 Protocol: Activity Type Activity Date Activity User E-Sign Co-Sign Detail Recorded Client Recorded Date Recorded By Document 05/13/19 23:48 [id number] 05/13/19 23:48 [id number] 05/13/19 23:48 PMRU Outcome: Safety Current Safety Outcome/Goals Remain Free of Injury or Harm Cooperates with Safety Measures for Least Restrictive Environment Prevent Falls/ Injury Progression Toward Outcome/Goals Progressing Skin- Improve/Maintain Start: 05/12/19 16:45 Freq: DAILY@0700,1900 Status: Active Target: 05/13/19 Protocol: Activity Type Activity Date Activity User E-Sign Co-Sign Detail Recorded Client Recorded Date Recorded By Document 05/13/19 23:48 [id number] 05/13/19 23:48 [id number] 05/13/19 23:48 PMRU Outcome: Skin Skin Risk Level Mild Risk Skin Orders Dressing Change Skin Orders Comment cyro unit in use Current Skin Outcome/Goals Maintain/ Improve Skin Integrity Surgical Incisions Healing Progression Toward Outcome/Goals Progressing Medicine Note: Length of Stay: 2 days Anticipated Discharge Destination: Tentative Discharge Date: 05/16/19 Discharged to: Home
--- NOTE | 2019-05-14 14:27 | PN ---
Progress Note Date of Service: 05/14/19 Note: HERSON DELEON was visited. Therapy notes read and reviewed. She was discussed in interdisciplinary team rounds. She is having a little bit more pain but functionally is doing well. Hope to get her home by Current Medications: Active Medications Generic Name Dose Route Start Last Admin Trade Name Freq PRN Reason Stop Dose Admin Acetaminophen 650 mg 05/12/19 12:28 Tylenol Tab* PO Q4H PRN Fever >101 or Mild pain Albuterol 2 puff 05/12/19 12:28 05/14/19 08:19 Ventolin Hfa Inhaler* INH 2 puff Q4H PRN Administration SOB/WHEEZING Apixaban 2.5 mg 05/12/19 21:00 05/14/19 08:15 Eliquis* PO 2.5 mg BID MAREN Administration Ascorbic Acid 2,000 mg 05/13/19 09:00 05/14/19 08:15 Vitamin C Tab* PO 2,000 mg DAILY MAREN Administration Calcium Carbonate 500 mg 05/12/19 21:00 05/13/19 21:29 Tums* PO 500 mg 2100 MAREN Administration Cholecalciferol 2,000 units 05/13/19 09:00 05/14/19 08:15 Vitamin D Tab* PO 2,000 units DAILY MAREN Administration Desvenlafaxine Succinate 100 mg 05/13/19 09:00 05/14/19 08:16 Pristiq (Nf) PO 100 mg DAILY MAREN Administration Docusate Sodium 100 mg 05/12/19 21:00 05/14/19 08:15 Colace Cap* PO 100 mg BID MAREN Administration Ferrous Gluconate 324 mg 05/13/19 09:00 05/14/19 08:18 Fergon Tab* PO 324 mg DAILY MAREN Administration Furosemide 40 mg 05/13/19 09:00 05/14/19 08:18 Lasix Tab* PO 40 mg DAILY MAREN Administration Gabapentin 900 mg 05/12/19 14:00 05/14/19 13:41 Neurontin Cap(*) PO 900 mg TID MAREN Administration Ipratropium [place] 0.5 mg 05/12/19 12:29 Atrovent 0.5 Mg Neb.Sia* INH Q4H PRN SOB/WHEEZING Lorazepam 1 mg 05/12/19 12:24 05/14/19 12:27 Ativan Tab(*) PO 1 mg TID PRN Administration ANXIETY Magnesium Hydroxide 30 ml 05/12/19 12:18 Milk Of Magnesia Liq* PO Q6H PRN CONSTIPATION Methadone HCl 15 mg 05/12/19 14:00 05/14/19 13:39 Dolophine Tab* PO 15 mg TID MAREN Administration Methocarbamol 1,000 mg 05/12/19 12:25 05/14/19 08:17 Robaxin Tab* PO 1,000 mg Q6H PRN Administration muscle spasm Multivitamins 1 tab 05/13/19 09:00 05/14/19 08:15 Theragran Tab* PO 1 tab DAILY MAREN Administration Ondansetron HCl 4 mg 05/12/19 12:29 Zofran Odt Tab* PO Q6H PRN NAUSEA Oxycodone HCl 10 mg 05/12/19 12:26 05/14/19 00:55 Roxycodone Tab* PO 10 mg Q4H PRN Administration PAIN - MODERATE Oxycodone HCl 15 mg 05/12/19 12:27 05/14/19 12:27 Roxycodone Tab* PO 15 mg Q4H PRN Administration PAIN - SEVERE Polyethylene Glycol/Electrolytes 17 gm 05/12/19 12:25 Miralax* PO DAILY PRN CONSTIPATION Senna 2 tab 05/12/19 21:00 05/13/19 21:29 Senokot 8.6 Mg Tab* PO 2 tab BEDTIME MAREN Administration Zolpidem Tartrate 10 mg 05/12/19 12:24 05/14/19 00:55 Ambien Tab* PO 10 mg BEDTIME PRN Administration INSOMNIA Vital Signs: Vital Signs Temp Pulse Resp BP Pulse Ox 98.4 F 79 18 115/54 98 05/14/19 05:50 05/14/19 05:50 05/14/19 13:41 05/14/19 05:50 05/14/19 05:50 Exam: GENERAL: No distress LUNGS: Clear bilaterally HEART: reg rhythm ABDOMEN: Soft +BS EXTREMITIES: Right knee wound looks clean. SOme increased tone in LEs NEUROLOGIC: A&O. Muscle strength 5/5 UE, 4+/5 LLE 4/5 RLE Assessment/Plan: 1. Right total knee replacement: PT/OT. 2. Analgesia: Have increased her methadone to 15 mg TID and she takes oxycodone 10-15 mg Q4 PRN 3. DVT Prophylaxis: Eliquis 4. Bipolar/depression: Pristiq 5. Cervical Myelopathy with spasticity: Have adjusted pain meds. Robaxin. May need Baclofen 6. Advance Directives: Full code 7. Hyponatremia: Will recheck in am. Could be SIADH from opioids. 8. History of lymphedema: On Lasix 05/14/19 14:27
[2019-05-14] MEDS ORDERED: Baclofen TAB* 10 MG PO ONE (16:27)
[2019-05-14] MEDS: Baclofen TAB* 10 MG PO SCH (20:13)
[2019-05-14] MEDS: Calcium Carbonate CHEW TAB* 500 MG (TUMS) PO SCH (20:14)
[2019-05-14] MEDS: Senna TAB 8.6 mg* TAB PO SCH (20:14)
[2019-05-15 05:34] LABS: BUN/Creatinine Ratio 17.6 (8-20); Calcium 8.1 mg/dL (8.6-10.3); EGFR African American 104.7 (>60); EGFR Non-African American 86.6 (>60); Potassium 2.9 mmol/L (3.5-5.0)
[2019-05-15] MEDS: oxyCODONE TAB* 5 MG TAB PO PRN ×2 (06:17→11:13)
[2019-05-15] MEDS: Acetaminophen TAB* 325 MG PO PRN ×2 (06:23→11:40)
[2019-05-15] MEDS ORDERED: Potassium Chlor TAB* 20 MEQ TAB.ER PO ONE (09:48)
[2019-05-15] MEDS: Gabapentin CAP(*) 300 MG PO SCH ×3 (11:16→21:08)
[2019-05-15] MEDS: Methadone TAB* 10 MG PO SCH ×3 (11:19→21:07)
[2019-05-15] MEDS: DESVENLAFAXINE 50 MG PO SCH (11:39)
[2019-05-15] MEDS: Docusate CAP* 100 MG PO SCH ×2 (11:39→21:09)
[2019-05-15] MEDS: Furosemide TAB* 40 MG PO SCH (11:40)
[2019-05-15] MEDS: Ascorbic Acid TAB* 500 MG PO SCH (11:40)
[2019-05-15] MEDS: Baclofen TAB* 10 MG PO SCH ×3 (11:40→21:11)
[2019-05-15] MEDS: Ferrous Gluconate TAB* 324 MG TAB PO SCH (11:43)
[2019-05-15] MEDS: Cholecalciferol TAB* 1000 UNITS PO SCH (11:44)
[2019-05-15] MEDS: Vitamin THERAPEUTIC TAB PO SCH (11:44)
[2019-05-15] MEDS: Albuterol HFA INHALER* 8 gm MDI INH PRN (11:44)
[2019-05-15] MEDS: PTO:FLUTICASONE/UMECLIDIN/VILANTER 1 PUFF MDI INH SCH (11:45)
[2019-05-15] MEDS: Apixaban* 2.5 MG TAB PO SCH ×2 (12:02→21:09)
[2019-05-15] MEDS: LORazepam TAB(*) 1 MG PO PRN (16:36)
[2019-05-15] MEDS: Senna TAB 8.6 mg* TAB PO SCH (21:09)
[2019-05-15] MEDS: Potassium Chlor TAB* 20 MEQ TAB.ER PO SCH (21:09)
[2019-05-15] MEDS: Calcium Carbonate CHEW TAB* 500 MG (TUMS) PO SCH (21:11)
--- NOTE | 2019-05-15 21:33 | PN ---
Progress Note Date of Service: 05/15/19 Note: HERSON DELEON was visited. Therapy notes read and reviewed. She is doing much better. Pain controlled and spasms have stopped after Baclofen. Ready for d/c. Her K+ is low. Have ordered replacement. Current Medications: Active Medications Generic Name Dose Route Start Last Admin Trade Name Freq PRN Reason Stop Dose Admin Acetaminophen 650 mg 05/12/19 12:28 05/15/19 11:40 Tylenol Tab* PO 650 mg Q4H PRN Administration Fever >101 or Mild pain Albuterol 2 puff 05/12/19 12:28 05/15/19 11:44 Ventolin Hfa Inhaler* INH 2 puff Q4H PRN Administration SOB/WHEEZING Apixaban 2.5 mg 05/12/19 21:00 05/15/19 21:09 Eliquis* PO 2.5 mg BID MAREN Administration Ascorbic Acid 2,000 mg 05/13/19 09:00 05/15/19 11:40 Vitamin C Tab* PO 2,000 mg DAILY MAREN Administration Baclofen 10 mg 05/14/19 21:00 05/15/19 21:11 Lioresal Tab* PO Not Given TID MAREN Calcium Carbonate 500 mg 05/12/19 21:00 05/15/19 21:11 Tums* PO Not Given 2100 MAREN Cholecalciferol 2,000 units 05/13/19 09:00 05/15/19 11:44 Vitamin D Tab* PO 2,000 units DAILY MAREN Administration Desvenlafaxine Succinate 100 mg 05/13/19 09:00 05/15/19 11:39 Pristiq (Nf) PO 100 mg DAILY MAREN Administration Docusate Sodium 100 mg 05/12/19 21:00 05/15/19 21:09 Colace Cap* PO 100 mg BID MAREN Administration Ferrous Gluconate 324 mg 05/13/19 09:00 05/15/19 11:43 Fergon Tab* PO 324 mg DAILY MAREN Administration Furosemide 40 mg 05/13/19 09:00 05/15/19 11:40 Lasix Tab* PO 40 mg DAILY MAREN Administration Gabapentin 900 mg 05/12/19 14:00 05/15/19 21:08 Neurontin Cap(*) PO 900 mg TID MAREN Administration Ipratropium [place] 0.5 mg 05/12/19 12:29 Atrovent 0.5 Mg Neb.Sia* INH Q4H PRN SOB/WHEEZING Lorazepam 1 mg 05/12/19 12:24 05/15/19 16:36 Ativan Tab(*) PO 1 mg TID PRN Administration ANXIETY Magnesium Hydroxide 30 ml 05/12/19 12:18 Milk Of Magnesia Liq* PO Q6H PRN CONSTIPATION Methadone HCl 15 mg 05/12/19 14:00 05/15/19 21:07 Dolophine Tab* PO 15 mg TID MAREN Administration Multivitamins 1 tab 05/13/19 09:00 05/15/19 11:44 Theragran Tab* PO 1 tab DAILY MAREN Administration Ondansetron HCl 4 mg 05/12/19 12:29 Zofran Odt Tab* PO Q6H PRN NAUSEA Oxycodone HCl 10 mg 05/12/19 12:26 05/15/19 11:13 Roxycodone Tab* PO 10 mg Q4H PRN Administration PAIN - MODERATE Oxycodone HCl 15 mg 05/12/19 12:27 05/14/19 12:27 Roxycodone Tab* PO 15 mg Q4H PRN Administration PAIN - SEVERE Polyethylene Glycol/Electrolytes 17 gm 05/12/19 12:25 Miralax* PO DAILY PRN CONSTIPATION Potassium Chloride 20 meq 05/15/19 21:00 05/15/19 21:09 Klor Con Er Tab* PO 20 meq BID MAREN Administration Senna 2 tab 05/12/19 21:00 05/15/19 21:09 Senokot 8.6 Mg Tab* PO 2 tab BEDTIME MAREN Administration Zolpidem Tartrate 10 mg 05/12/19 12:24 05/14/19 23:18 Ambien Tab* PO 10 mg BEDTIME PRN Administration INSOMNIA Vital Signs: Vital Signs Temp Pulse Resp BP Pulse Ox 98.2 F 83 18 116/51 96 05/15/19 15:49 05/15/19 15:49 05/15/19 21:08 05/15/19 15:49 05/15/19 15:49 Lab Results: Laboratory Results - last 24 hr 05/15/19 04:30 Sodium 133 L Potassium 2.9 L Chloride 96 L Carbon Dioxide 33 H Anion Gap 4 BUN 12 Creatinine 0.68 Est GFR ( Amer) 104.7 Est GFR (Non-Af Amer) 86.6 BUN/Creatinine Ratio 17.6 Glucose 96 Calcium 8.1 L Exam: GENERAL: No distress LUNGS: Clear bilaterally HEART: reg rhythm ABDOMEN: Soft +BS EXTREMITIES: Right knee wound looks clean. SOme increased tone in LEs NEUROLOGIC: A&O. Muscle strength 5/5 UE, 4+/5 LLE 4+/5 RLE Assessment/Plan: 1. Right total knee replacement: PT/OT. 2. Analgesia: Have increased her methadone to 15 mg TID and she takes oxycodone 10-15 mg Q4 PRN 3. DVT Prophylaxis: Eliquis 4. Bipolar/depression: Pristiq 5. Cervical Myelopathy with spasticity: Have adjusted pain meds. Baclofen 6. Advance Directives: Full code 7. Hypokalemia: Replace K 8. History of lymphedema: On Lasix 05/15/19 21:33
[2019-05-15] MEDS ORDERED: oxyCODONE TAB* 5 MG TAB PO PRN (21:36)
[2019-05-16] MEDS: LORazepam TAB(*) 1 MG PO PRN (00:08)
[2019-05-16] MEDS: Baclofen TAB* 10 MG PO SCH ×2 (00:11→09:52)
[2019-05-16 05:54] LABS: BUN/Creatinine Ratio 13.9 (8-20); Calcium 8.6 mg/dL (8.6-10.3); EGFR African American 98.1 (>60); Potassium 3.2 mmol/L (3.5-5.0)
[2019-05-16] MEDS: oxyCODONE TAB* 5 MG TAB PO PRN ×2 (06:15→10:50)
[2019-05-16] MEDS: PTO:FLUTICASONE/UMECLIDIN/VILANTER 1 PUFF MDI INH SCH (09:46)
[2019-05-16] MEDS: Albuterol HFA INHALER* 8 gm MDI INH PRN (09:49)
[2019-05-16] MEDS: Apixaban* 2.5 MG TAB PO SCH (09:51)
[2019-05-16] MEDS: Ascorbic Acid TAB* 500 MG PO SCH (09:55)
[2019-05-16] MEDS: DESVENLAFAXINE 50 MG PO SCH (09:56)
[2019-05-16] MEDS: Furosemide TAB* 40 MG PO SCH (09:56)
[2019-05-16] MEDS: Potassium Chlor TAB* 20 MEQ TAB.ER PO SCH (09:57)
[2019-05-16] MEDS: Docusate CAP* 100 MG PO SCH (09:57)
[2019-05-16] MEDS: Cholecalciferol TAB* 1000 UNITS PO SCH (09:58)
[2019-05-16] MEDS: Gabapentin CAP(*) 300 MG PO SCH (09:59)
[2019-05-16] MEDS: Methadone TAB* 10 MG PO SCH (10:00)
[2019-05-16] MEDS: Acetaminophen TAB* 325 MG PO PRN (10:00)
[2019-05-16] MEDS: Ferrous Gluconate TAB* 324 MG TAB PO SCH (10:03)
[2019-05-16] MEDS: Vitamin THERAPEUTIC TAB PO SCH (10:03)
[2019-05-16 18:53] VITALS: BP 124/51
--- NOTE | 2019-05-16 21:48 | DS ---
CC: Dr. Barron Gilmore * DISCHARGE SUMMARY: DATE OF ADMISSION: 05/12/19 DATE OF DISCHARGE: 05/16/19 DISCHARGE DIAGNOSES: 1. Right total knee replacement. 2. Cervical myelopathy/incomplete cervical spinal cord injury. 3. Chronic obstructive pulmonary disease. 4. Bipolar disease. 5. Breast cancer. 6. Uterine cancer. 7. History of chronic opioid use. HISTORY OF ILLNESS AND HOSPITAL COURSE: For complete history of the events leading up to her rehab stay, please see the history and physical dictated by Dr. Sanam Stringer on 05/12/19. While on the rehab unit, the patient remained medically stable. She was maintained on Eliquis for DVT prophylaxis. The patient did develop an episode of hyponatremia and hypokalemia. Her sodium came back to normal. She had ongoing issues with hypokalemia. She had potassium supplementations ordered. Her potassium was 3.2 on the day of discharge. The patient otherwise was medically stable. She was seen by both physical and occupational therapy, and made good gains with both disciplines. With physical therapy at the time of admission, the patient required min-assist to bed mobility, contact guard for transfers, contact guard to ambulate with a rolling walker. With occupational therapy at the time of admission, the patient required supervision for upper body dressings, min-assist for lower body dressing, supervision for toileting and toilet transfers. By the time of discharge, the patient was independent in all activities. She was able to ambulate 150 feet with the rolling walker. Also of note, the patient had some difficulties with pain control. Her pain medications were increased accordingly. She was on chronic methadone for her neuropathic pain from her spinal cord injury. The patient was discharged to her own home on 05/16/19. DISPOSITION: Home. DISCHARGE DIET: Regular. DISCHARGE MEDICATIONS: 1. Pristiq 100 mg orally daily. 2. Lasix is 40 mg daily. 3. Zaroxolyn 2.5 mg daily. 4. Ativan 1 mg 3 times a day as needed. 5. Methadone 15 mg 3 times a day. 6. Oxycodone 5 to 10 mg every 4 hours a day with the maximum daily dose of 6. 7. Gabapentin 900 mg 3 times a day. 8. Baclofen 10 mg 3 times a day. 9. Eliquis 2.5 mg twice daily. 10. Ventolin HFA inhaler 2 puffs every 6 hours as needed. 11. Potassium chloride 20 mEq daily. SERVICES AFTER DISCHARGE: Through visiting nurse service, she will have home physical therapy, and home health aide and home nursing as well. FOLLOWUP: The patient will follow up with Dr. Petersen next week. She will also follow up with her primary care doctor, Dr. Barron Gilmore. CONDITION ON DISCHARGE: Stable. TIME SPENT: Time for this discharge was approximately 50 minutes, greater than half of that was spent with the patient explaining post-rehabilitation medications, therapies, and services. [id number]/[facility] #: [id number] MTDD
== END 2019-05-16 13:20 | disposition home health service (06) | DRG 559 ==
LOC: PMRU 13:00
PROVIDERS: ADMIT Physical Medicine & Rehabilitation; ATTEND Physical Medicine & Rehabilitation
PROC: F07Z5ZZ Bed Mobility Treatment (ICD-10-PCS; principal; 2019-05-12)
PROC: F07Z9ZZ Gait Training/Functional Ambulation Treatment (ICD-10-PCS; 2019-05-12)
PROC: F07Z8ZZ Transfer Training Treatment (ICD-10-PCS; 2019-05-12)
PROC: F08Z0ZZ Bathing/Showering Techniques Treatment (ICD-10-PCS; 2019-05-12)
PROC: F08Z1ZZ Dressing Techniques Treatment (ICD-10-PCS; 2019-05-12)
PROC: F08Z3ZZ Feeding/Eating Treatment (ICD-10-PCS; 2019-05-12)
DX: Z47.1 Aftercare following joint replacement surgery (principal); G82.54 Quadriplegia, C5-C7 incomplete; G95.89 Other specified diseases of spinal cord; E87.1 Hypo-osmolality and hyponatremia; Z96.651 Presence of right artificial knee joint; J44.9 Chronic obstructive pulmonary disease, unspecified; F31.9 Bipolar disorder, unspecified; E87.6 Hypokalemia; J45.909 Unspecified asthma, uncomplicated; F41.9 Anxiety disorder, unspecified; M85.80 Other specified disorders of bone density and structure, unspecified site; G89.29 Other chronic pain; M62.830 Muscle spasm of back; E66.9 Obesity, unspecified; I89.0 Lymphedema, not elsewhere classified; F17.290 Nicotine dependence, other tobacco product, uncomplicated; Z92.3 Personal history of irradiation; Z85.42 Personal history of malignant neoplasm of other parts of uterus; Z85.3 Personal history of malignant neoplasm of breast; Z68.34 Body mass index [BMI] 34.0-34.9, adult; Z86.711 Personal history of pulmonary embolism; Z79.1 Long term (current) use of non-steroidal anti-inflammatories (NSAID); Z79.899 Other long term (current) drug therapy; Z91.041 Radiographic dye allergy status; Z88.8 Allergy status to other drugs, medicaments and biological substances; Z91.048 Other nonmedicinal substance allergy status; Z80.3 Family history of malignant neoplasm of breast; Z80.8 Family history of malignant neoplasm of other organs or systems
CPT/HCPCS: 36415; 80048; 80053; 85025; A9270-GY

== ENCOUNTER 2019-06-11 14:21 | Emergency (ER) | payer MEDICARE, MEDICAID ==
[2019-06-11] MEDS ORDERED: NS 0.9% 1000 ML** 1,000 ML IV ONE (15:30)
[2019-06-11] MEDS ORDERED: Ondansetron INJ* 2 MG/ML VIAL IV ONE (15:33)
[2019-06-11] MEDS ORDERED: Morphine 4 MG/ML VIAL (1 ml) 4 MG/ML VIAL IV ONE (15:33)
[2019-06-11 15:47] LABS: ABS Basophils 0.1 10^3/ul (0-0.2); ABS Eosinophils 0.1 10^3/ul (0-0.6); ABS Lymphocytes 0.8 10^3/ul (1.0-4.8); ABS Monocytes 0.3 10^3/ul (0-0.8); ABS Neutrophils 3.8 10^3/ul (1.5-7.7); Eosinophil % 1.4 %; Hematocrit 29 % (35-47); Hemoglobin 9.9 g/dL (12.0-16.0); Mean Corpuscular HGB Conc 34 g/dL (31-36); Mean Corpuscular Hemoglobin 29 pg (27-31); Mean Corpuscular Volume 87 fL (80-97); Mean Platelet Volume 7.2 fL (7.4-10.4); Platelet Count 313 10^3/uL (150-450); Red Cell Distribution Width 17 % (10-15); White Blood Count 5.1 10^3/uL (3.5-10.8)
--- NOTE | 2019-06-11 15:54 | ED ---
Lower Extremity - HPI Summary HPI Summary: Pt is a 68 y/o F presenting to the ED with a chief complaint of R knee pain initially onset after her surgery on 05/09/19. She states she has been home for 3 -4 weeks after her surgery with Dr. Petersen, and has been taking 10g Oxycodone up to 4x/day without relief. She also takes Methadone for nerve pain from a spinal cord injury. The pain has increased in severity over this period of time. She denies fever. Pain aggravated by movement. - History of Current Complaint Chief Complaint: EDExtremityLower Stated Complaint: RIGHT KNEE PAIN Time Seen by Provider: 06/11/19 15:17 Hx Obtained From: Patient Mechanism Of Injury: Other - post-surgery Onset/Duration: Still Present Severity Initially: Moderate Severity Currently: Severe Pain Intensity: 8 Pain Scale Used: 0-10 Numeric Timing: Constant, Lasting Weeks Location: Is Discrete @ - R knee Associated Signs And Symptoms: Positive: Swelling, Knee Pain. Negative: Fever Aggravating Factor(s): Movement Alleviating Factor(s): Nothing - Allergies/Home Medications Allergies/Adverse Reactions: Allergies Allergy/AdvReac Type Severity Reaction Status Date / Time Iodinated Contrast Media Allergy Hives Verified 06/11/19 14:38 [Iodinated Contrast- Oral and IV Dye] iodine Allergy Hives Verified 06/11/19 14:38 iodixanol Allergy Hives Verified 06/11/19 14:38 Adhesive Tape AdvReac Mild See Comment Verified 06/11/19 14:38 Home Medications: Home Medications Aspirin EC TAB* [Ecotrin EC Low Dose 81 MG*] 81 mg PO DAILY 06/11/19 [History Confirmed 06/11/19] Cholecalciferol (Vitamin D3) [Vitamin D3] 1,000 unit PO DAILY 06/11/19 [History Confirmed 06/11/19] Clobetasol 0.05% OINT* 1 applic TOPICAL BID 06/11/19 [History Confirmed 06/11/19 ] Desvenlafaxine (NF) [Pristiq (NF)] 100 mg PO BEDTIME 06/11/19 [History Confirmed 06/11/19] Docusate Sodium [Doc-Q-Lace] 100 mg PO BID 06/11/19 [History Confirmed 06/11/19] Esomeprazole(NF) [NexIUM(NF)] 40 mg PO DAILY 06/11/19 [History Confirmed ] Ferrous Gluconate TAB* [Fergon TAB*] 325 mg PO DAILY 06/11/19 [History Confirmed 06/11/19] Gabapentin CAP(*) [Neurontin 300 CAP(*)] 600 mg PO BID PRN 06/11/19 [History Confirmed 06/11/19] Gabapentin TAB(NF) [Neurontin 600 mg TAB(NF)] 600 mg PO TID 06/11/19 [History Confirmed 06/11/19] Methadone TAB* [Dolophine TAB*] 10 mg PO BEDTIME PRN 06/11/19 [History Confirmed 06/11/19] Methadone TAB* [Dolophine TAB*] 15 mg PO .AFTERNOON PRN 06/11/19 [History Confirmed 06/11/19] Methocarbamol TAB* [Robaxin 500 MG TAB*] 500 mg PO QID 06/11/19 [History Confirmed 06/11/19] Montelukast Sodium TAB* [Singulair TAB*] 10 mg PO DAILY 06/11/19 [History Confirmed 06/11/19] Ondansetron ODT TAB* [Zofran 4 MG Odt TAB*] 4 - 8 mg PO Q6H PRN MDD 8 tabs 06/11 [History Confirmed 06/11/19] Polyethylene Glycol 3350* [Miralax*] 17 gm PO DAILY PRN 06/11/19 [History Confirmed 06/11/19] Potassium Chlor TAB* [Potassium Chlor TAB 20 MEQ*] 20 meq PO TID 06/11/19 [ History Confirmed 06/11/19] cloNIDine TAB* [Catapres 0.1 MG TAB*] 0.1 mg PO BID 06/11/19 [History Confirmed 06/11/19] PMH/Surg Hx/FS Hx/Imm Hx Previously Healthy: Yes Endocrine/Hematology History: Reports: Hx Anemia Denies: Hx Anticoagulant Therapy, Hx Diabetes, Hx Thyroid Disease Cardiovascular History: Reports: Other Cardiovascular Problems/Disorders - on xarelto for PE Denies: Hx Congestive Heart Failure, Hx Coronary Artery Disease, Hx Hypertension, Hx Pacemaker/ICD Respiratory History: Reports: Hx Asthma, Hx Chronic Obstructive Pulmonary Disease (COPD) - INHAILER, Hx Pulmonary Embolism, Other Respiratory Problems/ Disorders - lung nodules Denies: Hx Chronic Bronchitis, Hx Cystic Fibrosis, Hx Lung Cancer, Hx Pleural Effusion, Hx Pneumonia, Hx Pulmonary Edema, Hx Seasonal Allergies, Hx Sleep Apnea GI History: Reports: Hx Diverticulosis, Hx Gastroesophageal Reflux Disease, Other GI Disorders - DIVERTICULITIS/COLOSTOMY/REVERSAL Denies: Hx Cirrhosis, Hx Crohn's Disease, Hx Gall Bladder Disease, Hx Gastrointestinal Bleed, Hx Hiatal Hernia, Hx Irritable Bowel, Hx Jaundice, Hx Obstructive Bowel, Hx Ileostomy, Hx Pyloric Stenosis, Hx Ulcer History: Denies: Hx Dialysis, Hx Renal Disease, Other Problems/Disorders Musculoskeletal History: Reports: Hx Back Problems - cervical degenerative disk disease, Hx Osteoporosis Denies: Hx Arthritis, Hx Rheumatoid Arthritis, Hx Bursitis, Hx Congenital Bone Abnormalities, Hx Fibromyalgia, Hx Gout, Hx Orthopedic Injury, Hx Scoliosis , Hx Tendonitis, Other Musculoskeletal History Sensory History: Reports: Hx Contacts or Glasses - Glasses @ home Denies: Hx Cataracts, Hx Hearing Aid Opthamlomology History: Reports: Hx Contacts or Glasses - Glasses @ home Denies: Hx Cataracts Neurological History: Reports: Hx Nerve Disease - SPINAL CORD INJURY, Hx Spinal Cord Injury - per pt Denies: Hx Dementia, Hx Developmental Delay, Hx Headaches, Hx Migraine, Hx Seizures, Hx Transient Ischemic Attacks (TIA), Other Neuro Impairments/Disorders Psychiatric History: Reports: Hx Anxiety, Hx Depression, Hx Bipolar Disorder, Hx Substance Abuse Denies: Hx Eating Disorder, Hx Panic Disorder, Hx of Violent Episodes Against Others - Cancer History Cancer Type, Location and Year: Breast Cancer Hx Chemotherapy: No Hx Radiation Therapy: Yes - Surgical History Surgery Procedure, Year, and Place: breast ca- left lumpectomy 2008, hysterectomy 2009, 4 neck surgeries 2010, COLON SURGERY , 2019- right TKA, Hx Anesthesia Reactions: No Infectious Disease History: No Infectious Disease History: Denies: Hx Clostridium Difficile, Hx Hepatitis, Hx Human Immunodeficiency Virus (HIV), Hx of Known/Suspected MRSA, Hx Shingles, Hx Tuberculosis, History Other Infectious Disease, Traveled Outside the [place] in Last 30 Days - Family History Known Family History: Positive: Cardiac Disease - Social History Alcohol Use: None Hx Substance Use: No Substance Use Type: Reports: None Substance Use Comment - Amount & Last Used: methadone, ambien Hx Tobacco Use: Yes Smoking Status (MU): Heavy Every Day Tobacco Smoker Type: Cigarettes Amount Used/How Often: 15 cigarettes/day Have You Smoked in the Last Year: Yes Review of Systems Negative: Fever Positive: Arthralgia, Decreased ROM, Edema All Other Systems Reviewed And Are Negative: Yes Physical Exam - Summary Physical Exam Summary: VITAL SIGNS: Reviewed. GENERAL: Patient is a well-developed and nourished female who is lying comfortable in the stretcher. Patient is not in any acute respiratory distress. HEAD AND FACE: No signs of trauma. No ecchymosis, hematomas or skull depressions. No sinus tenderness. EYES: PERRLA, EOMI x 2, No injected conjunctiva, no nystagmus. EARS: Hearing grossly intact. Ear canals and tympanic membranes are within normal limits. MOUTH: Oropharynx within normal limits. NECK: Supple, trachea is midline, no adenopathy, no JVD, no carotid bruit, no c- spine tenderness, neck with full ROM. CHEST: Symmetric, no tenderness at palpation. LUNGS: Clear to auscultation bilaterally. No wheezing or crackles. CVS: Regular rate and rhythm, S1 and S2 present, no murmurs or gallops appreciated. ABDOMEN: Soft, non-tender. No signs of distention. No rebound, no guarding, and no masses palpated. Bowel sounds are normal. EXTREMITIES: R knee edema, increased temperature, decreased ROM secondary to pain, good pulses, good capillary refill. No erythema. NEURO: Alert and oriented x 3. No acute neurological deficits. Speech is normal and follows commands. SKIN: Dry and warm. Triage Information Reviewed: Yes Vital Signs On Initial Exam: Initial Vitals Temp Pulse Resp BP Pulse Ox 97.8 F 70 18 125/73 95 06/11/19 14:27 06/11/19 14:27 06/11/19 14:27 06/11/19 14:27 06/11/19 14:27 Vital Signs Reviewed: Yes Procedures - Sedation Patient Received Moderate/Deep Sedation with Procedure: No Diagnostics - Vital Signs Vital Signs Temp Pulse Resp BP Pulse Ox 06/11/19 15:48 20 06/11/19 14:27 97.8 F 70 18 125/73 95 - Laboratory Lab Results: Lab Results 06/11/19 Range/Units 15:40 WBC 5.1 (3.5-10.8) 10^3/uL RBC 3.40 L (3.70-4.87) 10^6 /uL Hgb 9.9 L (12.0-16.0) g/dL Hct 29 L (35-47) % MCV 87 (80-97) fL MCH 29 (27-31) pg MCHC 34 (31-36) g/dL RDW 17 H (10-15) % Plt Count 313 (150-450) 10^3/uL MPV 7.2 L (7.4-10.4) fL Neut % (Auto) 74.9 % Lymph % (Auto) 16.0 % Harney % (Auto) 6.3 % Eos % (Auto) 1.4 % Baso % (Auto) 1.4 % Absolute Neuts (auto) 3.8 (1.5-7.7) 10^3/ul Absolute Lymphs (auto) 0.8 L (1.0-4.8) 10^3/ul Absolute Monos (auto) 0.3 (0-0.8) 10^3/ul Absolute Eos (auto) 0.1 (0-0.6) 10^3/ul Absolute Basos (auto) 0.1 (0-0.2) 10^3/ul Absolute Nucleated RBC 0.0 10^3/ul Nucleated RBC % 0.0 ESR Pending Result Diagrams: 06/11/19 15:40 06/11/19 15:40 Lab Statement: Any lab studies that have been ordered have been reviewed, and results considered in the medical decision making process. - Ultrasound Venous Doppler Study Ultrasound Interpretation Completed By: Radiologist Summary of Ultrasound Findings: 1. No evidence for RIGHT lower extremity deep venous thrombosis. 2. Moderate (3.8 x 1.2 x 1.3 cm) complex RIGHT popliteal cyst visualized with echogenic shadowing structures in the dependent portion consistent with ossified loose bodies. ED physician has reviewed this report. Re-Evaluation - Re-Evaluation 1st re-eval Re-Evaluation Time: 17:13 Change: Improved Comment: Pt states she feels much better and would like to go home. Lower Extremity Course/Dx - Course Assessment/Plan: Patient is a 68-year-old female who presents to the emergency department with a chief complaint of right knee pain. Denies any fever or chills, denies any trauma or heavy lifting. Blood test results without any significant abnormality except for a slight anemia with a hemoglobin of 9.9 and hematocrit 29, there is no left shift, and the CRP is only 8.9. Ultrasound of the right lower extremity negative for DVT. In the ED course the patient was given morphine for the pain. I discussed my physical exam and findings with Dr. Petersen of orthopedics surgeons and she recommends for the patient to be discharged home with follow-up with her office. I discussed all the findings and test results with the patient. Patient was instructed to return to the emergency room immediately if any of the symptoms return worsens. Plan of care was discussed with the patient and understands and agrees. All questions were answered at patient satisfaction. There were no further complaints or concerns. Lung exam before discharge: CTA B/L. Good air exchange. No wheezing or crackles heard. CVS: S1 and S2 present. No murmurs appreciated. Patient is alert and oriented x 3. Patient is hemodynamically stable. Patient will be discharged home with follow up PCP in the next 2-3 days - Diagnoses Provider Diagnoses: Knee pain Discharge ED - Sign-Out/Discharge Documenting (check all that apply): Patient Departure - Discharge Plan Condition: Stable Disposition: HOME Patient Education Materials: Knee Pain (ED), Arthralgia (ED) Referrals: Barron Gilmore MD [Primary Care Provider] - Michelle Petersen MD [Medical Doctor] - Additional Instructions: Follow up with Dr. Petersen within the next 1-3 days. Return to the emergency department with any new or worsening symptoms. - Billing Disposition and Condition Condition: STABLE Disposition: Home - Attestation Statements Document Initiated by [place]: Yes Documenting Scribe: Mari Hogue Provider For Whom Ida is Documenting (Include Credential): Alejo Weaver MD. Scribe Attestation: Mari Hamilton, altoned for Alejo Weaver MD. on 06/11/19 at 1856. Scribe Documentation Reviewed: Yes Provider Attestation: The documentation as recorded by the Mari villar accurately reflects the service I personally performed and the decisions made by me, Alejo Weaver MD. Status of Scribe Document: Viewed Consult Consult: [id number] - I spoke with Dr. Petersen about the pt's present condition, who recommends sending the patient home.
[2019-06-11 16:03] LABS: Albumin 3.3 g/dL (3.2-5.2); Albumin/Globulin Ratio 1.1 (1-3); BUN/Creatinine Ratio 10.5 (8-20); C Reactive Protein 8.94 mg/L (<8.01); Calcium 9.1 mg/dL (8.6-10.3); EGFR African American 79.9 (>60); Globulin 3.1 g/dL (2-4); Potassium 4.3 mmol/L (3.5-5.0); Total Bilirubin 0.4 mg/dL (0.2-1.0); Total Protein 6.4 g/dL (6.4-8.9); Uric Acid 4.2 mg/dL (2.3-6.6)
[2019-06-11 17:30] VITALS: BP 123/67
[2019-06-11 17:59] LABS: Erythrocyte Sed Rate 65 mm/Hr (0-29)
== END 2019-06-11 17:29 | disposition home or self-care (01) ==
LOC: ED 14:21
DX: M25.561 Pain in right knee (principal); M71.21 Synovial cyst of popliteal space [Baker], right knee; D64.9 Anemia, unspecified; J44.9 Chronic obstructive pulmonary disease, unspecified; K21.9 Gastro-esophageal reflux disease without esophagitis; F41.9 Anxiety disorder, unspecified; F31.9 Bipolar disorder, unspecified; F17.210 Nicotine dependence, cigarettes, uncomplicated; Z86.711 Personal history of pulmonary embolism; Z79.01 Long term (current) use of anticoagulants; Z85.3 Personal history of malignant neoplasm of breast; Z79.82 Long term (current) use of aspirin; Z79.899 Other long term (current) drug therapy; Z91.041 Radiographic dye allergy status
CPT/HCPCS: 36415; 80053; 83605; 84550; 85025; 85652; 86140; 96361; 96374; 96375; 99283; J2270; J2405

== ENCOUNTER 2019-09-25 06:49 | Emergency (ER) | payer MEDICARE, MEDICAID ==
[2019-09-25] MEDS ORDERED: Diazepam INJ CARPUJECT* 5 MG/ML IV ONE (06:56)
--- NOTE | 2019-09-25 07:28 | ED ---
Lower Extremity - HPI Summary HPI Summary: This patient is a 69-year-old female with a history of right knee replacement in March of last year presenting to the ED with acute onset of right hip right upper leg and right knee pain since this morning. Patient states this is severe , rating it 10 out of 10, intermittent and spasming. She took methadone just before she arrived to the ED and states it did not improve her symptoms at all. She denies any trauma or injury. She denies any strain of the muscle. She states her pain began into the right lateral hip any shooting down into the right knee. She is unable to place any amount of light touch to the area as this intensifies the pain. She does see the pain clinic for a low back pain/ injury. She does not take muscle relaxers, but takes multiple pain medications. She denies any other injuries or symptoms. States she is unable to flex and extend at the hip as well as the knee. On arrival, patient states she is unable to move. She appears to be in severe distress on arrival. No fevers. - History of Current Complaint Chief Complaint: EDWeakness Stated Complaint: R HIP PAIN PER EMS Time Seen by Provider: 09/25/19 06:55 Hx Obtained From: Patient Onset of Pain: Immediate Onset/Duration: Minutes Severity Initially: Severe Severity Currently: Severe Pain Intensity: 10 Pain Scale Used: 0-10 Numeric Timing: Constant Location: Is Discrete @ - right IT band pain Associated Signs And Symptoms: Positive: Swelling Aggravating Factor(s): Standing, Ambulation Alleviating Factor(s): Rest Able to Bear Weight: No - Allergies/Home Medications Allergies/Adverse Reactions: Allergies Allergy/AdvReac Type Severity Reaction Status Date / Time Iodinated Contrast Media Allergy Hives Verified 09/25/19 06:57 [Iodinated Contrast- Oral and IV Dye] iodine Allergy Hives Verified 09/25/19 06:57 iodixanol Allergy Hives Verified 09/25/19 06:57 Adhesive Tape AdvReac Mild See Comment Verified 09/25/19 06:57 PMH/Surg Hx/FS Hx/Imm Hx Previously Healthy: No Endocrine/Hematology History: Reports: Hx Anemia Denies: Hx Anticoagulant Therapy, Hx Diabetes, Hx Thyroid Disease Cardiovascular History: Reports: Other Cardiovascular Problems/Disorders - on xarelto for PE Denies: Hx Congestive Heart Failure, Hx Coronary Artery Disease, Hx Hypertension, Hx Pacemaker/ICD Respiratory History: Reports: Hx Asthma, Hx Chronic Obstructive Pulmonary Disease (COPD) - INHAILER, Hx Pulmonary Embolism, Other Respiratory Problems/ Disorders - lung nodules Denies: Hx Chronic Bronchitis, Hx Cystic Fibrosis, Hx Lung Cancer, Hx Pleural Effusion, Hx Pneumonia, Hx Pulmonary Edema, Hx Seasonal Allergies, Hx Sleep Apnea GI History: Reports: Hx Diverticulosis, Hx Gastroesophageal Reflux Disease, Other GI Disorders - DIVERTICULITIS/COLOSTOMY/REVERSAL Denies: Hx Cirrhosis, Hx Crohn's Disease, Hx Gall Bladder Disease, Hx Gastrointestinal Bleed, Hx Hiatal Hernia, Hx Irritable Bowel, Hx Jaundice, Hx Obstructive Bowel, Hx Ileostomy, Hx Pyloric Stenosis, Hx Ulcer History: Denies: Hx Dialysis, Hx Renal Disease, Other Problems/Disorders Musculoskeletal History: Reports: Hx Back Problems - cervical degenerative disk disease, Hx Osteoporosis Denies: Hx Arthritis, Hx Rheumatoid Arthritis, Hx Bursitis, Hx Congenital Bone Abnormalities, Hx Fibromyalgia, Hx Gout, Hx Orthopedic Injury, Hx Scoliosis , Hx Tendonitis, Other Musculoskeletal History Sensory History: Reports: Hx Contacts or Glasses - Glasses @ home Denies: Hx Cataracts, Hx Hearing Aid Opthamlomology History: Reports: Hx Contacts or Glasses - Glasses @ home Denies: Hx Cataracts Neurological History: Reports: Hx Nerve Disease - SPINAL CORD INJURY, Hx Spinal Cord Injury - per pt Denies: Hx Dementia, Hx Developmental Delay, Hx Headaches, Hx Migraine, Hx Seizures, Hx Transient Ischemic Attacks (TIA), Other Neuro Impairments/Disorders Psychiatric History: Reports: Hx Anxiety, Hx Depression, Hx Bipolar Disorder, Hx Substance Abuse Denies: Hx Eating Disorder, Hx Panic Disorder, Hx of Violent Episodes Against Others - Cancer History Cancer Type, Location and Year: Breast Cancer Hx Chemotherapy: No Hx Radiation Therapy: Yes - Surgical History Surgery Procedure, Year, and Place: breast ca- left lumpectomy 2008, hysterectomy 2009, 4 neck surgeries 2010, COLON SURGERY , 2019- right TKA, Hx Anesthesia Reactions: No - Immunization History Hx Pertussis Vaccination: No Immunizations Up to Date: Yes Infectious Disease History: No Infectious Disease History: Denies: Hx Clostridium Difficile, Hx Hepatitis, Hx Human Immunodeficiency Virus (HIV), Hx of Known/Suspected MRSA, Hx Shingles, Hx Tuberculosis, History Other Infectious Disease, Traveled Outside the [place] in Last 30 Days - Family History Known Family History: Positive: Cardiac Disease - Social History Occupation: Unemployed Lives: Alone Alcohol Use: None Hx Substance Use: No Substance Use Type: Reports: None Substance Use Comment - Amount & Last Used: methadone, ambien Hx Tobacco Use: Yes Smoking Status (MU): Current Some Day Smoker Type: Cigarettes Amount Used/How Often: 15 cigarettes/day Have You Smoked in the Last Year: Yes Review of Systems Negative: Fever, Chills, Fatigue, Skin Diaphoresis Negative: Palpitations, Chest Pain Negative: Shortness Of Breath, Cough Genitourinary: Negative Positive: no symptoms reported, see HPI Positive: Edema, Other - right IT band pain Negative: Rash, Bruising Neurological: Negative All Other Systems Reviewed And Are Negative: Yes Physical Exam Triage Information Reviewed: Yes Vital Signs On Initial Exam: Initial Vitals Temp Pulse Resp BP Pulse Ox 97.7 F 81 19 113/53 95 09/25/19 06:53 09/25/19 06:53 09/25/19 06:53 09/25/19 06:53 09/25/19 06:53 Vital Signs Reviewed: Yes Appearance: Positive: Well-Nourished, Pain Distress Skin: Positive: Warm, Dry Head/Face: Positive: Normal Head/Face Inspection Eyes: Positive: EOMI, CANDI, Conjunctiva Clear Neck: Positive: Supple, Nontender, No Lymphadenopathy Respiratory/Lung Sounds: Positive: Clear to Auscultation, Breath Sounds Present Cardiovascular: Positive: RRR, Pulses are Symmetrical in both Upper and Lower Extremities Musculoskeletal: Positive: Edema Left, Edema Right, Other - unable to flex and extend at the knee or hip Neurological: Positive: Normal, Sensory/Motor Intact Psychiatric: Positive: Normal, Affect/Mood Appropriate AVPU Assessment: Alert Procedures - Sedation Patient Received Moderate/Deep Sedation with Procedure: No Diagnostics - Vital Signs Vital Signs Temp Pulse Resp BP Pulse Ox 09/25/19 07:06 19 09/25/19 06:53 97.7 F 81 19 113/53 95 - Laboratory Result Diagrams: 09/25/19 08:02 09/25/19 08:02 Lab Statement: Any lab studies that have been ordered have been reviewed, and results considered in the medical decision making process. Lower Extremity Course/Dx - Course Course Of Treatment: On arrival into the ED, the patient appears to be in severe pain distress. Unable to palpate the area of the R hip to the R knee d/ t patients discomfort. States she has a pain 10/10 at baseline, which is worse with a light touch to the area. Denies pain to the knee or below the knee. On physical exam, the patient is diaphoretic and in acute distress. On physical exam, light palpation to the R lateral leg responded with severe distress. Appears to be intermittent. Pt able to tolerate small amounts of time of no pain, then will cry out in severe distress. Pain is directly over the IT band. No injury. No trauma. No signs of trauma to the R leg. No pain to the posterior R upper or lower leg on physical exam. No pain to the foot. Pedal and posterior pulses intact. No recent surgeries. R knee replacement in March 2019. No complications. No erythema or warmth to the knee or hip. No fevers. VS remain stable. Pt noted to have hypokalemia and hyponatremia. This was repleted with 1L fluids, 40 mEq of potassium chloride. Pt was given Valium 10mg IV and toradol 30mg IV on arrival. This decreased her sats to 85% and she was placed on O2. Following this, she continues to still be in distress and was subsequently given fentanyl 75 g. She improved enough to be able to hold still for x-rays. Patient continued to be unable to hip and knee. Xrays: No acute findings. On reexamination, patient continues to be unable to flex or extend about the knee or the hip. She still states she is unable to ambulate. She is still claiming a 10/10 pain. Due to her O2 sat dropping and patient appears comfortable otherwise, she was not given additional pain medication. Discussed with hospitalist, Dr. Victoria for admission for pain control. Currently on Robaxin, ibuprofen, gabapentin 900 mg 3 times daily, methadone 10 mg 5 times daily and Ativan 1 mg [address]iscuss[address] with Dr. Vargas. Believes this to be psych related as well. Hx of bipolar. Stopped going to family and childrens recently and her requests for medications has increased. PCP believes this anxiety related/bipolar related. May need rehab vs psych consult. EKG obtained: Right and left arm electrode reversal, interpretation assumes no reversal. Sinus or ectopic atrial rhythm. Right axis deviation. Abnormal T, consider ischemia, lateral leads. No STEMI. - Diagnoses Differential Diagnosis/HQI/PQRI: Positive: Arthritis, Fracture (Closed), Sprain , Strain, Tendonitis Provider Diagnoses: IT band syndrome, Chronic pain - Physician Notifications Discussed Care Of Patient With: Kip Vargas - also discussed with Dr. Victoria Instructed by Provider To: Admit As Inpatient Discharge ED - Sign-Out/Discharge Documenting (check all that apply): Patient Departure - Discharge Plan Condition: Fair Disposition: ADMITTED TO [facility] Referrals: Barron Gilmore MD [Primary Care Provider] - - Billing Disposition and Condition Condition: FAIR Disposition: Admitted to [facility]
[2019-09-25] MEDS ORDERED: Ketorolac INJ* 30 MG/ML 1 ML VIAL IV ONE (07:47)
--- OUTSIDE RECORDS SUMMARY | 2019-09-25 07:51 | XMS REPORT ---
:1950 Author Organization [facility] Care Team Providers Name Role Phone Unavailable Unavailable Unavailable Problems This patient has no known problems. Allergies, Adverse Reactions, Alerts Allergy Allergy Type Status Severity Reaction(s) Onset Inactive Treating Comments Name Date Date Clinician Iodinated Unknown Active Unknown Reaction 2019 Interface Contrast Unknown 9-16 Media iodine Unknown Active Unknown Reaction Unknown Unknown 9-16 iodixanol Base Active Unknown Reaction 20190 Unknown Ingredient Unknown 9-16 Adhesive Unknown Active Unknown Reaction 2019 Interface Tape Unknown 9-16 Medications Ordered Filled Start Stop Current Ordering Indication Dosage Frequency Signature Comments Components Medication Medication Date Date Medication? Clinician (SIG) Name Name No Known No Known No None None None Medications Medications For This For This Patient Patient Procedures This patient has no known procedures. Results This patient has no known results.
--- OUTSIDE RECORDS SUMMARY | 2019-09-25 07:51 | XMS REPORT ---
:1950 Author Organization [facility] Care Team Providers Name Role Phone Unavailable [...]
--- OUTSIDE RECORDS SUMMARY | 2019-09-25 07:51 | XMS REPORT ---
:1950 Author Organization [facility] Care Team Providers Name Role Phone Unavailable Unavailable Unavailable Problems This patient has no known problems. Allergies, Adverse Reactions, Alerts Allergy Allergy Type Status Severity Reaction(s) Onset Inactive Treating Comments Name Date Date Clinician Iodinated Unknown Active Unknown Reaction 2019- Interface Contrast Unknown 9-16 Media iodine Unknown [...]
--- OUTSIDE RECORDS SUMMARY | 2019-09-25 07:51 | XMS REPORT ---
:1950 Author Organization [facility] Care Team Providers Name Role Phone Unavailable [...]
--- OUTSIDE RECORDS SUMMARY | 2019-09-25 07:51 | XMS REPORT ---
:1950 Author Organization [facility] Care Team Providers Name Role Phone Unavailable [...]
--- OUTSIDE RECORDS SUMMARY | 2019-09-25 07:51 | XMS REPORT ---
:1950 Author Organization [facility] Care Team Providers Name Role Phone Unavailable [...]
--- OUTSIDE RECORDS SUMMARY | 2019-09-25 07:51 | XMS REPORT ---
:1950 Author Organization [facility] Care Team Providers Name Role Phone Unavailable [...]
--- OUTSIDE RECORDS SUMMARY | 2019-09-25 07:51 | XMS REPORT ---
:1950 Author Organization [facility] Care Team Providers Name Role Phone Unavailable [...]
--- OUTSIDE RECORDS SUMMARY | 2019-09-25 07:51 | XMS REPORT ---
:1950 Author Organization [facility] Care Team Providers Name Role Phone Unavailable [...] Active Unknown Reaction 2019 Interface Tape Unknown 916 Medications Ordered Filled Start Stop Current Ordering Indication Dosage Frequency Signature Comments Components Medication Medication Date Date Medication? Clinician (SIG) Name Name No Known No Known No None None None Medications Medications For This For This Patient Patient Procedures This patient has no known procedures. Results This patient has no known results.
--- OUTSIDE RECORDS SUMMARY | 2019-09-25 07:51 | XMS REPORT | Continuity of Care Document ---
:1950 External Reference #:[id number] Author Name Barron Gilmore M.D. 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 - Obstetrics & Gynecology Care Team Information Plasticator [facility] - Care Team Information Plasticator [phone] Gastroenterology [facility] Radiology Department - Diagnostic Care Team Information Plasticator Radiology Weston Blair - Endocrinology, Diabetes & Care Team Information Plasticator Metabolism Efra Davis - Oncology Care Team Information Plasticator [phone] Rajiv Narvaez MD - Neurological Care Team Information Plasticator [phone] Surgery Sander Newman MD - Dermatology Care Team Information Plasticator [phone] Mary Jo Mayorga MD - Psychiatry Care Team Information Plasticator Antonieta Hatch MD - Cardiovascular Care Team Information Plasticator [phone] Disease Ga Bright - Orthopaedic Surgery Care Team Information Plasticator Problems Active Problems Provider Date Depressive disorder [...] Restless legs Barron Gilmore M.D. Onset: 04/25/2019 Mixed hyperlipidemia Barron Gilmore M.D. Onset: 09/12/2019 Social History Type Date Description Comments Sex Unknown Tobacco Use Start: Unknown End: Former Cigarette Smoker Now using nicotine Unknown 1/2 Pack Daily vapor Smoking Status Reviewed: 06/22/18 Former Cigarette Smoker Now using nicotine 1/2 Pack Daily vapor Tobacco Use Start: Unknown Patient has never smoked Allergies, Adverse Reactions, Alerts Active Allergies Reaction Severity Comments Date Adhesives 04/19/2010 IV Iodine Contrast [id number] 08/17/2010 Medications Active Medications SIG Qnty Indications Ordering Date Provider Methocarbamol take 2 tablets by 60tabs Barron Cornelius 07/02/2019 500mg mouth 4 times per Brian Gilmore Tablets day for muscle spasm Klor-Con M20 1 by mouth tid 90Tablet Shane Montes 05/31/2019 20Meq MD Elfego Tablets ER Desvenlafaxine take 1 tablet by 90tabs Barron Cornelius 02/15/2019 Succinate ER mouth at bedtime Brian Gilmore 100mg Tablets ER 24HR Furosemide take 1 tablet by 90tabs I50.22 Barron FKatelin 02/09/2019 40mg Tablets mouth once daily Brian Gilmore Clonidine HCL Take 1 Tablet By 60tabs Barron Cornelius 01/25/2019 0.1mg Mouth Twice Daily Brian Gilmore Tablets as Needed Montelukast Sodium 1 by mouth every 90tabs Barron F. 01/15/2019 10mg day Brian Gilmore Tablets Trelegy Ellipta Inhale 1 puff By 60units Barron F. 08/23/2018 Mouth Every Day For Brian Gilmore 100-62.5-25mcg/Inh Obstructive Lung Aerosol Disease Rojelio Aspirin Ec Low 1 by mouth every 100tabs Barron F. 07/03/2018 Dose day Brian Gilmore 81mg Tablets DR Mucinex 1 tab by mouth 30tabs Barron F. 06/26/2018 600mg Tablets twice daily as Brian Gilmore ER 12HR needed for congestion mdd=2x/day/x2days Zolpidem Tartrate take 1 tablet by 30tabs Barron F. 04/04/2018 10mg mouth at bedtime if Brian Gilmore Tablets needed for sleep maximum daily dose of 1 Ativan 1 by mouth three 90tabs Barron F. 10/10/2017 1mg Tablets times a day as Brian Gilmore needed Calcium 600 High 1 tablet by mouth Barron F. 06/06/2017 Potency daily Brian Gilmore 600mg Tablets Zofran Odt 1-2 by mouth every 60tabs R11.0 Barron F. 03/11/2014 4mg Tablets 6 hours as needed Brian Gilmore Dispers nausea mdd 8 Gabapentin 1 by mouth three 90caps Barron F. 02/19/2014 300mg times a day Brian Gilmore Capsules Gabapentin take 1 tablet by 90tabs Barron F. 08/03/2013 600mg mouth three times a Brian Gilmore Tablets day Miralax 17 gm in 8 oz water 527units Barron F. 03/26/2013 3350NF Powder daily as needed for Brian Gilmore constipation Ferrous Gluconate 1 by mouth twice a 60tabs R53.83 Barron F. 12/28/2012 day Brian Gilmore 324(38Fe) mg Tablets Thera M Plus 1 by mouth every 100tabs Barron F. 12/05/2012 Tablets day Brian Gilmore Docqlace take one capsule by 60caps Barron F. 09/28/2012 100mg Capsules mouth twice a day Brian Gilmore Nexium take 1 capsule by Lindencapemily Cornelius 09/13/[address] mouth once daily Brian Gilmore Clobetasol Propionate Apply To The 180units Barron AndradeKatelin 02/18/2010 Affected Area Twice Brian Gilmore 0.05% Cream A Day Vitamin D-3 1 po qd Unknown 1000Unit Capsules Vitamin C 1 po qd Unknown Capsules Methadone HCL 1 in the morning, 1 Unknown 10mg in the afternoon Tablets and 1 at [facility] Medications Administered in Office Medication SIG Qnty Indications Ordering Provider Date TB Intradermal Test El[place]ira Wilks 01/27/1997 Injection Immunizations CPT Code Status Date Vaccine Lot # [id number] Given 06/03/2018 Influenza Vac, [place] [address] Given 05/12/2017 Influenza Vac, Quadrivalent, Slit Virus, Im [id number] 40368 Given 10/06/2016 Pneumococcal Immunization [id number] 13495 Given 05/13/2016 Influenza Vac, Quadrivalent, Slit Virus, Im [id number] 07250 Given 06/04/2015 Influenza Vac, [place] [address] Given 06/04/2015 Pneumococcal Conjugate Vacc-13 90023 Given 06/23/2014 Zostivax [id number] 79550 Given 04/11/2014 DO Not Use Split Influenza Virus Vaccine Q2038 Given 06/17/2013 Split Influenza Medicare: Fluzone [id number] 55042 Given 06/28/2012 DO Not Use Split Influenza Virus Vaccine [id number] 08034 Given 06/28/2012 Tdap Tetanus, W Pertussis [id number] Q2038 Given 06/14/2012 Split Influenza Medicare: Fluzone [id number] Q2038 Given 06/16/2011 Split Influenza Medicare: Fluzone [id number] Q2036 Given 09/22/2010 Split Influenza Medicare Flulaval [id number] 22975 Given 06/21/2007 DO Not Use Split Influenza Virus Vaccine 78052 Given 06/28/2006 DO Not Use Split Influenza Virus Vaccine 34105 Given 07/06/2004 Pneumococcal Immunization 89059 Given 06/28/2004 DO Not Use Split Influenza Virus Vaccine 14580 Given 06/24/2003 Td Immunization, For Use In Individuals 7 Years Or Older 98769 Given 06/24/2003 DO Not Use Split Influenza Virus Vaccine Vital Signs Date Vital Result Comment 09/12/2019 2:46pm BP Systolic 106 mmHg BP Diastolic 68 mmHg Heart Rate 76 /min Body Temperature 97.9 F Respiratory Rate 18 /min Weight 221.00 lb 08/06/2019 5:23pm BP Systolic 118 mmHg BP Diastolic 68 mmHg Heart Rate 88 /min Body Temperature 97.7 F Respiratory Rate 20 /min Weight 223.00 lb Results Test Acquired Date Facility Test Result H/L Range Note Laboratory test 09/12/2019 Drew Cochran([facility]) TSH <pending> 0.5-5.0 finding CBC Electronic ([facility] 09/12/2019 family [facility] WBC 4.78 4.0-10.0 New) (607)- - RBC 3.92 Low 3.93-6.0 Hemoglobin (Fma/CMC/CTX) 11.0 g/dL Low 12.0-17.0 Hematocrit (Fma/CMC/CTX) 33.2 % Low 35.0-50.0 Mean Corpuscular Vol 84.7 fL 80-95 Mean Corpuscular Hemoglobin 28.1 pg 25.6-32.2 Mean Corpuscular Hemo Concen 33.1 g/dL 32.2-36.0 Platelets 278 10^3/ul 163-400 RDW-CV 16.6 High 11.6-14.4 Mean Platelet Volume 9.7 fL 8.0-12.4 Absolute Neutrophils BLD 2.71 1.56-6.13 Absolute Lymphocytes 1.46 1.18-3.74 Absolute Monocytes BLD Auto 0.38 0.24-0.82 Absolute Eos Blood 0.19 0.04-0.54 Absolute Basophils 0.04 0.01-0.08 Neutrophil % 56.8 % 34.0-70.0 Lymph% 30.5 % 20.0-52.0 Monocytes % 7.9 % 5.0-12.0 Eos % 4.0 % 0.7-7.0 Basophil% 0.8 % 0-1.2 Comprehensive Metabolic 08/06/2019 Drew Cochran(a) Sodium 123 mEq/L Low 134-149 1 Prof Potassium 3.1 mEq/L Low 3.6-5.5 2 Chloride 85 mEq/L Low 94-112 3 Carbon Dioxide 33 mEq/L High 21-32 Glucose 89 mg/dL 70-105 BUN 11 mg/dL 6-26 Creatinine 0.7 mg/dL 0.6-1.4 BUN/Creat Ratio 15.7 CALC 8.0-36.0 Calcium 9.6 mg/dL 8.6-10.2 Total Protein 7.2 g/dL 6.4-8.3 Albumin 4.3 g/dL 3.8-5.5 Globulin 2.9 g/dL 2.0-4.8 A/G Ratio 1.5 CALC 0.6-2.3 Alk. Phosphatase 96 U/L 30-110 Alt (SGPT) 23 U/L 7-35 Ast (Sgot) 25 U/L 5-34 Total Bilirubin 0.5 mg/dL 0.2-1.3 GFR Non- >60 ml/min/1.73m^ >=60 GFR >60 ml/min/1.73m^ >=60 Laboratory test finding 08/06/2019 Russell Sammie([facility]) TSH 1.79 mIU/L 0.50-6.00 Magnesium, Serum 2.0 mEq/L 1.2-2.1 CBC Electronic ([facility] New) 08/06/2019 [facility] WBC 4.72 4.0-10.0 (607)- - RBC 4.01 3.93-6.0 Hemoglobin (Fma/CMC/CTX) 11.1 g/dL Low 12.0-17.0 Hematocrit (Fma/CMC/CTX) 32.7 % Low 35.0-50.0 Mean Corpuscular Vol 81.5 fL 80-95 Mean Corpuscular Hemoglobin 27.7 pg 25.6-32.2 Mean Corpuscular Hemo Concen 33.9 g/dL 32.2-36.0 Platelets 293 10^3/ul 163-400 RDW-CV 15.2 High 11.6-14.4 Mean Platelet Volume 9.9 fL 8.0-12.4 Absolute Neutrophils BLD 2.84 1.56-6.13 Absolute Lymphocytes 1.29 1.18-3.74 Absolute Monocytes BLD Auto 0.45 0.24-0.82 Absolute Eos Blood 0.09 0.04-0.54 Absolute Basophils 0.05 0.01-0.08 Neutrophil % 60.2 % 34.0-70.0 Lymph% 27.3 % 20.0-52.0 Monocytes % 9.5 % 5.0-12.0 Eos % 1.9 % 0.7-7.0 Basophil% 1.1 % 0-1.2 Comp Metabolic Panel 06/11/2019 [facility] Sodium 135 mmol/L Normal 135-145 Potassium 4.3 mmol/L Normal 3.5-5.0 Chloride 108 mmol/L Normal 101-111 Co2 Carbon Dioxide 22 mmol/L Normal 22-32 Anion Gap 5 mmol/L Normal 2-11 Glucose 100 mg/dL Normal 70-100 Blood Urea Nitrogen 9 mg/dL Normal 6-24 Creatinine 0.86 mg/dL Normal 0.51-0.95 BUN/Creatinine Ratio 10.5 Normal 8-20 Calcium 9.1 mg/dL Normal 8.6-10.3 Total Protein 6.4 g/dL Normal 6.4-8.9 Albumin 3.3 g/dL Normal 3.2-5.2 Globulin 3.1 g/dL Normal 2-4 Albumin/Globulin Ratio 1.1 Normal 1-3 Total Bilirubin 0.40 mg/dL Normal 0.2-1.0 Alkaline Phosphatase 85 U/L Normal 34-104 Alt 12 U/L Normal 7-52 Ast 14 U/L Normal 13-39 Egfr Non- 66.0 >60 Egfr 79.9 >60 4 Laboratory test finding 06/11/2019 [facility] Uric Acid 4.2 mg/dL Normal 2.3- 6.6 C Reactive Protein 8.94 mg/L High <8.01 Lactic Acid 0.7 mmol/L Normal 0.5-2.0 5 CBC Auto Diff 06/11/2019 [facility] White Blood Count 5.1 10^3/uL Normal 3.5- 10.8 Red Blood Count 3.40 10^6/uL Low 3.70-4.87 Hemoglobin 9.9 g/dL Low 12.0-16.0 Hematocrit 29 % Low 35-47 Mean Corpuscular Volume 87 fL Normal 80-97 Mean Corpuscular Hemoglobin 29 pg Normal 27-31 Mean Corpuscular HGB Conc 34 g/dL Normal 31-36 Red Cell Distribution Width 17 % High 10-15 Platelet Count 313 10^3/uL Normal 150-450 Mean Platelet Volume 7.2 fL Low 7.4-10.4 Abs Neutrophils 3.8 10^3/uL Normal 1.5-7.7 Abs Lymphocytes 0.8 10^3/uL Low 1.0-4.8 Abs Monocytes 0.3 10^3/uL Normal 0-0.8 Abs Eosinophils 0.1 10^3/uL Normal 0-0.6 Abs Basophils 0.1 10^3/uL Normal 0-0.2 Abs Nucleated RBC 0.0 10^3/uL Granulocyte % 74.9 % Lymphocyte % 16.0 % Monocyte % 6.3 % Eosinophil % 1.4 % Basophil % 1.4 % Nucleated Red Blood Cells % 0.0 Laboratory test finding 06/11/2019 [facility] Erythrocyte Sed Rate 65 mm/Hr High 0-29 Comp Metabolic Panel 05/30/2019 [facility] Sodium 132 mmol/L Low 135-145 Potassium 3.4 mmol/L Low 3.5-5.0 Chloride 91 mmol/L Low 101-111 Co2 Carbon Dioxide 34 mmol/L High 22-32 Anion Gap 7 mmol/L Normal 2-11 Glucose 88 mg/dL Normal 70-100 Blood Urea Nitrogen 12 mg/dL Normal 6-24 Creatinine 0.82 mg/dL Normal 0.51-0.95 BUN/Creatinine Ratio 14.6 Normal 8-20 Calcium 8.9 mg/dL Normal 8.6-10.3 Total Protein 6.1 g/dL Low 6.4-8.9 Albumin 3.3 g/dL Normal 3.2-5.2 Globulin 2.8 g/dL Normal 2-4 Albumin/Globulin Ratio 1.2 Normal 1-3 Total Bilirubin 0.50 mg/dL Normal 0.2-1.0 Alkaline Phosphatase 98 U/L Normal 34-104 Alt 15 U/L Normal 7-52 Ast 16 U/L Normal 13-39 Egfr Non- 69.7 >60 Egfr 84.4 >60 6 Laboratory test finding 05/30/2019 [facility] Magnesium 2.2 mg/dL Normal 1.9- 2.7 1 RESULTS VERIFIED BY REPEAT ANALYSIS 2 RESULTS VERIFIED BY REPEAT ANALYSIS 3 RESULTS VERIFIED BY REPEAT ANALYSIS 4 Because ethnic data is not always readily [...] 15-29 5 Kidney failure <15 (or dialysis) 5 [facility] Severe Sepsis and Septic Shock Management Bundle Measure requires all lactic acids initially measuring >2.0 mmol/L be repeated. 6 Because ethnic data is not always readily [...] 15-29 5 Kidney failure <15 (or dialysis) Procedures Date Code Description Status 03/28/2018 [id number] Mammogram Completed 03/14/2017 [id number] Mammogram Completed 10/19/2015 [id number] Mammogram Completed 07/30/2015 [id number] Bone Mineral Density Test Completed 09/11/2014 [id number] Mammogram Completed 08/23/2013 [id number] Mammogram Completed 07/06/2012 [id number] Mammogram Completed 11/21/2011 [id number] Colonoscopy Completed 10/06/2011 [id number] Mammogram Completed 05/26/2010 [id number] Mammogram Completed 11/20/2009 [id number] Mammogram Completed 10/07/2009 [id number] Mammogram Completed 11/20/2008 [id number] Mammogram Completed 05/22/2007 [id number] Colonoscopy Completed Medical Devices Description No Information Available Encounters Type Date Location Provider Dx Diagnosis Office Visit 08/06/2019 Main Office Barron Gilmore, M25.561 Pain in right knee 3:40p M.DKatelin J44.9 Chronic obstructive pulmonary disease, unspecified R60.0 Localized edema Z85.3 Personal history of malignant neoplasm of breast E78.5 Hyperlipidemia, unspecified Office Visit 04/25/2019 3:20p Main Office Barron Gilmore, J44.9 Chronic obstructive M.D. 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 09/12/2019 M25.561 Pain in right knee Barron Gilmore M.D. 09/12/2019 Z85.3 Personal history of malignant neoplasm of Barron Gilmore M.D. breast 09/12/2019 E78.49 Other hyperlipidemia Barron Gilmore M.D. 09/12/2019 G89.4 Chronic pain syndrome Barron Gilmore M.D. 08/31/2019 R60.0 Localized edema Barron Gilmore M.D. 08/06/2019 M25.561 Pain in right knee Barron Gilmore M.D. 08/06/2019 J44.9 Chronic obstructive pulmonary disease, Barron Gilmore M.D. unspecified 08/06/2019 R60.0 Localized edema Barron Gilmore M.D. 08/06/2019 Z85.3 Personal history of malignant neoplasm of Barron Gilmore M.D. breast 08/06/2019 E78.5 Hyperlipidemia, unspecified Barron Gilmore M.D. 05/29/2019 M25.561 Pain in right knee Barron Gilmore M.D. 04/25/2019 J44.9 Chronic obstructive pulmonary disease, Barron Gilmore M.D. unspecified 04/25/2019 Z85.44 Personal history of malignant neoplasm of Barron iGlmore M.D. other female genit 04/25/2019 F32.89 Other specified depressive episodes Barron Gilmore M.D. 04/25/2019 G89.4 Chronic pain syndrome Barron Gilmore M.D. 04/25/2019 M25.561 Pain in right knee Barron Gilmore M.D. 04/25/2019 G25.81 Restless legs syndrome Barron Gilmore M.D. 04/25/2019 Z01.818 Encounter for other preprocedural Barron Gilmore M.D. examination Plan of Treatment 09/12/2019 - Barron Gilmore M.D.R60.0 Localized qegqfR67.561 Pain in right kneeZ85.3 Personal history of malignant neoplasm of odvhgjI90.49 Other rhlactjgdsxtngH63.4 Chronic pain syndromeAllComments:Patient is here for followup on her severe peripheral edema. She had developed hyponatremia while taking both Lasix and metolazone. Metolazone was discontinued and we will recheck her electrolytes today. Her main concern is persistent right knee pain after her total right knee replacement by Dr. Petersen. We discussed a geniculate nerve ablation and will see if this is an option at the local pain clinic. She has an appointment for a mammogram in the near future and will followup with Dr. Davis history of breast cancer. Symptoms of depression are reasonably controlled on her current dose of desvenlafaxine and Ativan. She does have continued followup with the pain clinic and recently saw Dr. Madera lab work today, patient will return in 2-3 months consider a different living situation besides [place] such as [place] [place] Functional Status Description No Information Available Mental Status Description No Information Available Referrals Refer to Reason for Referral Status Appt Date Ga Bright 2nd opinion knee pain s/p replacement in Apr 2019 Sent / 0000 [facility] [address] [place] [address], [facility] [place] [address] [phone]
--- OUTSIDE RECORDS SUMMARY | 2019-09-25 07:51 | XMS REPORT ---
:1950 Author Organization [facility] Care Team Providers Name Role Phone Unavailable Unavailable Unavailable Problems This patient has no known problems. Allergies, Adverse Reactions, Alerts Allergy Allergy Type Status Severity Reaction(s) Onset Inactive Treating Comments Name Date Date Clinician Iodinated Unknown Active Unknown Reaction 2019- Interface Contrast Unknown 9-16 Media iodine Unknown Active Unknown Reaction 2019 Unknown Unknown 9-16 iodixanol Base Active Unknown Reaction 20190 Unknown Ingredient Unknown 9-16 Adhesive Unknown Active Unknown Reaction 20190 Interface Tape Unknown 9-16 Medications Ordered Filled Start Stop Current Ordering Indication Dosage Frequency Signature Comments Components Medication Medication Date Date Medication? Clinician (SIG) Name Name No Known No Known No None None None Medications Medications For This For This Patient Patient Procedures This patient has no known procedures. Results This patient has no known results.
--- OUTSIDE RECORDS SUMMARY | 2019-09-25 07:51 | XMS REPORT ---
:1950 Author Organization [facility] Care Team Providers Name Role Phone Unavailable [...]
--- OUTSIDE RECORDS SUMMARY | 2019-09-25 07:51 | XMS REPORT ---
:1950 Author Organization [facility] Care Team Providers Name Role Phone Unavailable [...]
--- OUTSIDE RECORDS SUMMARY | 2019-09-25 07:51 | XMS REPORT ---
:1950 Author Organization [facility] [place] Care Team Providers Name Role Phone Unavailable [...]
--- OUTSIDE RECORDS SUMMARY | 2019-09-25 07:51 | XMS REPORT ---
:1950 Author Organization [facility] Care Team Providers Name Role Phone Unavailable [...]
--- OUTSIDE RECORDS SUMMARY | 2019-09-25 07:51 | XMS REPORT ---
:1950 Author Organization [facility] Care Team Providers Name Role Phone Unavailable Unavailable Unavailable Problems This patient has no known problems. Allergies, Adverse Reactions, Alerts Allergy Allergy Type Status Severity Reaction(s) Onset Inactive Treating Comments Name Date Date Clinician Iodinated Unknown Active Unknown Reaction Interface Contrast Unknown 9-16 Media iodine Unknown [...]
--- OUTSIDE RECORDS SUMMARY | 2019-09-25 07:51 | XMS REPORT ---
:1950 Author Organization [facility] Care Team Providers Name Role Phone Unavailable [...]
--- OUTSIDE RECORDS SUMMARY | 2019-09-25 07:51 | XMS REPORT ---
:1950 Author Organization [facility] Care Team Providers Name Role Phone Unavailable [...]
--- OUTSIDE RECORDS SUMMARY | 2019-09-25 07:51 | XMS REPORT ---
:1950 Author Organization [facility] [place] Care Team Providers Name Role Phone Unavailable [...]
--- OUTSIDE RECORDS SUMMARY | 2019-09-25 07:51 | XMS REPORT ---
:1950 Author Organization [facility] Care Team Providers Name Role Phone Unavailable [...]
[2019-09-25 08:13] LABS: ABS Basophils 0.1 10^3/ul (0-0.2); ABS Eosinophils 0.1 10^3/ul (0-0.6); ABS Lymphocytes 0.9 10^3/ul (1.0-4.8); ABS Monocytes 0.5 10^3/ul (0-0.8); ABS Neutrophils 4.4 10^3/ul (1.5-7.7); Eosinophil % 1.7 %; Hematocrit 30 % (35-47); Hemoglobin 10.9 g/dL (12.0-16.0); Lymphocyte % 14.7 %; Mean Corpuscular HGB Conc 36 g/dL (31-36); Mean Corpuscular Hemoglobin 30 pg (27-31); Mean Corpuscular Volume 82 fL (80-97); Mean Platelet Volume 8.3 fL (7.4-10.4); Platelet Count 241 10^3/uL (150-450); Red Blood Count 3.67 10^6 /uL (3.70-4.87); Red Cell Distribution Width 17 % (10-15); White Blood Count 5.9 10^3/uL (3.5-10.8)
[2019-09-25 08:19] LABS: INR 0.98 (0.82-1.09)
[2019-09-25 08:28] LABS: Albumin 3.7 g/dL (3.2-5.2); Albumin/Globulin Ratio 1.2 (1-3); BUN/Creatinine Ratio 15.6 (8-20); C Reactive Protein 8.28 mg/L (<8.01); Calcium 9.1 mg/dL (8.6-10.3); EGFR African American 75.6 (>60); EGFR Non-African American 62.5 (>60); Potassium 2.8 mmol/L (3.5-5.0); Total Bilirubin 0.6 mg/dL (0.2-1.0); Total Protein 6.7 g/dL (6.4-8.9)
[2019-09-25] MEDS ORDERED: Potassium Chlor TAB* 20 MEQ TAB.ER PO ONE (08:46)
[2019-09-25] MEDS ORDERED: NS 0.9% 1000 ML** 1,000 ML IV ONE (08:46)
[2019-09-25] MEDS ORDERED: Morphine 4 MG/ML VIAL (1 ml) 4 MG/ML VIAL IV ONE (09:11)
[2019-09-25 09:22] LABS: Hepatitis C Antibody Negative (Negative)
[2019-09-25] MEDS ORDERED: fentaNYL* 50 MCG/ML 2 ML VIAL (100 MCG VIAL) IV SLOW PU ONE (10:10)
[2019-09-25 12:31] LABS: Ferritin 106.5 ng/mL (11-307)
[2019-09-25 16:03] VITALS: BP 129/70
== END 2019-09-25 16:23 | disposition home or self-care (01) ==
LOC: ED 06:49
DX: M76.31 Iliotibial band syndrome, right leg (principal); G89.29 Other chronic pain; Z96.651 Presence of right artificial knee joint; D64.9 Anemia, unspecified; J44.9 Chronic obstructive pulmonary disease, unspecified; K21.9 Gastro-esophageal reflux disease without esophagitis; F41.9 Anxiety disorder, unspecified; F31.9 Bipolar disorder, unspecified; F17.210 Nicotine dependence, cigarettes, uncomplicated; Z85.3 Personal history of malignant neoplasm of breast; Z91.041 Radiographic dye allergy status; Z90.710 Acquired absence of both cervix and uterus; Z86.711 Personal history of pulmonary embolism; Z79.01 Long term (current) use of anticoagulants
CPT/HCPCS: 36415; 80053; 82550; 82728; 83605; 83735; 85025; 85610; 86140; 86803; 93005; 96361; 96374; 96375; 99284; A9270-GY; J1885; J3010; J3360

== ENCOUNTER 2019-11-26 03:09 | Inpatient (IN) | payer MEDICARE, MEDICAID ==
--- NOTE | 2019-11-26 03:20 | ED ---
Lower Extremity - HPI Summary HPI Summary: 69 year old F presenting to [facility] via EMS with a chief complaint of bilateral leg pain and swelling since earlier tonight. The patient is reportedly unable to bear weight. Per EMS the patient pushed her Life Alert button and on their arrival was confused. Symptoms aggravated by weight bearing. Symptoms alleviated by nothing. EMS reports that there were pills scattered throughout the patient's home at [facility]. Patient denies any problems urinating. Medication list reviewed. Allergy list reviewed. THE HPI IS LIMITED DUE TO LEVEL 5 CAVEAT - Altered Mental Status. - History of Current Complaint Stated Complaint: LEG PAIN PER EMS Hx Obtained From: Patient Mechanism Of Injury: Unknown Onset/Duration: Still Present Timing: Constant Aggravating Factor(s): Weight Bearing Alleviating Factor(s): Nothing Able to Bear Weight: No - Allergies/Home Medications Allergies/Adverse Reactions: Allergies Allergy/AdvReac Type Severity Reaction Status Date / Time Iodinated Contrast Media Allergy Hives Verified 10/30/19 14:36 [Iodinated Contrast- Oral and IV Dye] iodine Allergy Hives Verified 10/30/19 14:36 iodixanol Allergy Hives Verified 10/30/19 14:36 Adhesive Tape AdvReac Mild See Comment Verified 10/30/19 14:36 Home Medications: Home Medications Ascorbic Acid TAB* [Vitamin C TAB*] 2,000 mg PO DAILY 06/12/13 [History Confirmed 11/26/19] Ferrous Gluconate TAB* [Fergon TAB*] 324 mg PO BID 12/17/14 [History Confirmed 11/26/19] Gabapentin CAP(*) [Neurontin 300 CAP(*)] 300 mg PO TID 12/17/14 [History Confirmed 11/26/19] Calcium Carbonate [Calcium] 600 mg PO DAILY 06/05/17 [History Confirmed 11/26/19 ] Fluticasone/Umeclidin/Vilanter [Trelegy Ellipta 100-62.5-25] 1 puff INH QAM 03/15 [History Confirmed 11/26/19] LORazepam TAB(*) [Ativan 1 MG TAB (*)] 1 mg PO TID PRN tab 05/15/19 [Rx Confirmed 11/26/19] Aspirin EC TAB* [Ecotrin EC Low Dose 81 MG*] 81 mg PO DAILY 06/11/19 [History Confirmed 11/26/19] Cholecalciferol (Vitamin D3) [Vitamin D3] 1,000 unit PO DAILY 06/11/19 [History Confirmed 11/26/19] Clobetasol 0.05% OINT* 1 applic TOPICAL BID 06/11/19 [History Confirmed 11/26/19 ] Desvenlafaxine (NF) [Pristiq (NF)] 100 mg PO BEDTIME 06/11/19 [History Confirmed 11/26/19] Docusate Sodium [Doc-Q-Lace] 100 mg PO BID 06/11/19 [History Confirmed 11/26/19] Esomeprazole(NF) [Nexium(NF)] 40 mg PO DAILY 06/11/19 [History Confirmed ] Gabapentin TAB(NF) [Neurontin 600 mg TAB(NF)] 600 mg PO TID 06/11/19 [History Confirmed 11/26/19] Methocarbamol TAB* [Robaxin 500 MG TAB*] 1,000 mg PO QID PRN 06/11/19 [History Confirmed 11/26/19] Montelukast Sodium TAB* [Singulair 10 MG TAB*] 10 mg PO DAILY 06/11/19 [History Confirmed 11/26/19] Ondansetron ODT TAB* [Zofran 4 MG Odt TAB*] 4 - 8 mg PO Q6H PRN MDD 8 tabs 06/11 [History Confirmed 11/26/19] Polyethylene Glycol 3350* [Miralax (17 GM DOSE VAIBHAV)] 17 gm PO DAILY PRN [History Confirmed 11/26/19] Potassium Chlor TAB* [Potassium Chlor TAB 20 MEQ*] 20 meq PO TID 06/11/19 [ History Confirmed 11/26/19] cloNIDine TAB* [Catapres 0.1 MG TAB*] 0.1 mg PO BID 06/11/19 [History Confirmed 11/26/19] Furosemide TAB* [Lasix TAB*] 40 mg PO DAILY 08/14/19 [History Confirmed 11/26/19 ] Albuterol HFA INHALER* [Ventolin HFA Inhaler*] 2 puff INH .Q4-6H PRN 11/26/19 [ History Confirmed 11/26/19] Multivitamins/Minerals TAB* [Theragran/minerals TAB*] 1 tab PO DAILY 11/26/19 [ History Confirmed 11/26/19] guaiFENesin ER TAB [Mucinex*] 600 mg PO BID PRN MDD 2 tabs daily for 2 days [History Confirmed 11/26/19] QUEtiapine TAB* [Seroquel 100 MG *] 200 mg PO BEDTIME 30 Days #30 tab 11/29/19 [ Rx] PMH/Surg Hx/FS Hx/Imm Hx Endocrine/Hematology History: Reports: Hx Anemia Denies: Hx Anticoagulant Therapy, Hx Diabetes, Hx Thyroid Disease Cardiovascular History: Reports: Other Cardiovascular Problems/Disorders - on xarelto for PE Denies: Hx Congestive Heart Failure, Hx Coronary Artery Disease, Hx Hypertension, Hx Pacemaker/ICD Respiratory History: Reports: Hx Asthma, Hx Chronic Obstructive Pulmonary Disease (COPD) - INHAILER, Hx Pulmonary Embolism, Other Respiratory Problems/ Disorders - lung nodules Denies: Hx Chronic Bronchitis, Hx Cystic Fibrosis, Hx Lung Cancer, Hx Pleural Effusion, Hx Pneumonia, Hx Pulmonary Edema, Hx Seasonal Allergies, Hx Sleep Apnea GI History: Reports: Hx Diverticulosis, Hx Gastroesophageal Reflux Disease, Other GI Disorders - DIVERTICULITIS/COLOSTOMY/REVERSAL Denies: Hx Cirrhosis, Hx Crohn's Disease, Hx Gall Bladder Disease, Hx Gastrointestinal Bleed, Hx Hiatal Hernia, Hx Irritable Bowel, Hx Jaundice, Hx Obstructive Bowel, Hx Ileostomy, Hx Pyloric Stenosis, Hx Ulcer History: Denies: Hx Dialysis, Hx Renal Disease, Other Problems/Disorders Musculoskeletal History: Reports: Hx Back Problems - cervical degenerative disk disease, Hx Osteoporosis Denies: Hx Arthritis, Hx Rheumatoid Arthritis, Hx Bursitis, Hx Congenital Bone Abnormalities, Hx Fibromyalgia, Hx Gout, Hx Orthopedic Injury, Hx Scoliosis , Hx Tendonitis, Other Musculoskeletal History Sensory History: Reports: Hx Contacts or Glasses - Glasses @ home Denies: Hx Cataracts, Hx Hearing Aid Opthamlomology History: Reports: Hx Contacts or Glasses - Glasses @ home Denies: Hx Cataracts Neurological History: Reports: Hx Nerve Disease - SPINAL CORD INJURY, Hx Spinal Cord Injury - per pt Denies: Hx Dementia, Hx Developmental Delay, Hx Headaches, Hx Migraine, Hx Seizures, Hx Transient Ischemic Attacks (TIA), Other Neuro Impairments/Disorders Psychiatric History: Reports: Hx Anxiety, Hx Depression, Hx Bipolar Disorder, Hx Substance Abuse Denies: Hx Eating Disorder, Hx Panic Disorder, Hx of Violent Episodes Against Others - Cancer History Cancer Type, Location and Year: Breast Cancer Hx Chemotherapy: No Hx Radiation Therapy: Yes - Surgical History Surgery Procedure, Year, and Place: breast ca- left lumpectomy 2008, hysterectomy 2009, 4 neck surgeries 2010, COLON SURGERY 2011/2012, 2019- right TKA, Hx Anesthesia Reactions: No Infectious Disease History: Denies: Hx Clostridium Difficile, Hx Hepatitis, Hx Human Immunodeficiency Virus (HIV), Hx of Known/Suspected MRSA, Hx Shingles, Hx Tuberculosis, History Other Infectious Disease - Family History Known Family History: Positive: Cardiac Disease - Social History Alcohol Use: None Hx Substance Use: No Substance Use Type: Reports: None Hx Tobacco Use: Yes Smoking Status (MU): Current Some Day Smoker Type: Cigarettes Amount Used/How Often: 15 cigarettes/day Have You Smoked in the Last Year: Yes - Additional Comments History Additional Comments: LIMITED DUE TO LEVEL 5 CAVEAT - Altered Mental Status. Review of Systems Positive: no symptoms reported Positive: Other - Leg pain and swelling Neurological/Mental Status: Other - Confusion All Other Systems Reviewed And Are Negative: No - Comments Additional Review of Systems Comments: THE ROS IS LIMITED DUE TO LEVEL 5 CAVEAT - Altered Mental Status. Physical Exam - Summary Physical Exam Summary: LIMITED DUE TO LEVEL 5 CAVEAT - Altered Mental Status. Appearance: Well-appearing, Well-nourished, lying in bed comfortably Skin: Warm, dry, no obvious rash Eyes: sclera anicteric, no conjunctival pallor HENT: mucous membranes moist, pharynx appears normal Neck: Supple, nontender Respiratory: Clear to auscultation, no signs of respiratory distress Cardiovascular: Normal S1, S2. No murmurs. Normal distal pulses in tibial and radial bilaterally. Abdomen: Soft, nontender, normal active bowel sounds present Musculoskeletal: Healed surgical scar from knee replacement on right, knee is quite warm but not apparently swollen. Neurological: Patient is confused, is unable to tell me the month and year though she does know that she lives at [facility], no focal motor weakness, no bulbar signs. GCS 15 Psychiatric: affect is normal, does not appear anxious or depressed Triage Information Reviewed: Yes Vital Signs Reviewed: Yes - Kirby Coma Scale Best Eye Response: 4 - Spontaneous Best Motor Response: 6 - Obeys Commands Best Verbal Response: 5 - Oriented Coma Scale Total: 15 Procedures - Sedation Patient Received Moderate/Deep Sedation with Procedure: No Diagnostics - Laboratory Result Diagrams: 11/29/19 06:09 11/29/19 06:09 Lab Statement: Any lab studies that have been ordered have been reviewed, and results considered in the medical decision making process. - CT Brain CT CT Interpretation Completed By: Radiologist Summary of CT Findings: No acute intracranial abnormality. ED physician has reviewed this report. - EKG 04:34 Cardiac Rate: NL - 64 BPM EKG Rhythm: Sinus Rhythm Summary of EKG Findings: NSR at 64 BPM, P waves, QRS complex, and T waves are within normal limits, T waves and intervals are normal, no ischemic changes. This is a normal EKG. ED physician has reviewed and interpreted this EKG. Lower Extremity Course/Dx - Course Course Of Treatment: LIMITED DUE TO LEVEL 5 CAVEAT - Altered Mental Status. 69 year old F presenting to [facility] via EMS with a chief complaint of bilateral leg pain and swelling since earlier tonight. The patient is reportedly unable to bear weight. Per EMS the patient pushed her Life Alert button and on their arrival was confused. Physical exam findings: Patient is confused, is unable to tell me the month and year though she does know that she lives at [facility], no focal motor weakness, no bulbar signs, GCS 15. Healed surgical scar from knee replacement on right, knee is quite warm but not apparently swollen. An EKG reveals NSR at 64 BPM, P waves, QRS complex, and T waves are within normal limits, T waves and intervals are normal, no ischemic changes. Brain CT reveals, per radiologist, no acute intracranial abnormality. Test results with no significant abnormalities except for an Hgb of 11.7, Hct of 33, RDW 16, potassium of 2.5, glucose of 101, C-Reactive protein of 18.42, urine ketones trace A, ur leukocyte esterase 3+ A, urine WBC 1+ A, ur squamous epith cells present A, and hyaline casts present A. In the ED course, the patient was given potassium chloride and Rocephin. We discussed patient care with Dr. Humphries at 05:46 who recommended admission. Patient will be admitted. - Diagnoses Provider Diagnoses: Acute delirium, UTI (urinary tract infection), Hypokalemia - Physician Notifications Discussed Care Of Patient With: Yfn Humphries Time Discussed With Above Provider: 05:46 Instructed by Provider To: Other - Discussed with Dr. Humphries who accepts the patient for admission and requests that another potassium be drawn. Discharge ED - Sign-Out/Discharge Documenting (check all that apply): Patient Departure - Discharge Plan Condition: Stable Disposition: ADMITTED TO [facility] - Billing Disposition and Condition Condition: STABLE Disposition: Admitted to [facility] - Attestation Statements Document Initiated by [employer]: Yes Documenting Scribe: Anitra Sanford Provider For Whom Ida is Documenting (Include Credential): Lg Del Castillo MD Scribe Attestation: Anitra Hamilton scribed for Lg Del Castillo MD on 12/01/19 at 0047. Scribe Documentation Reviewed: Yes Provider Attestation: The documentation as recorded by the Anitra villar accurately reflects the service I personally performed and the decisions made by , Lg Del Castillo MD Status of Scribe Document: Viewed
[2019-11-26 03:51] LABS: ABS Basophils 0.1 10^3/ul (0-0.2); ABS Lymphocytes 1.2 10^3/ul (1.0-4.8); ABS Monocytes 0.7 10^3/ul (0-0.8); ABS Neutrophils 5.4 10^3/ul (1.5-7.7); Eosinophil % 0.5 %; Hematocrit 33 % (35-47); Hemoglobin 11.7 g/dL (12.0-16.0); Lymphocyte % 15.8 %; Mean Corpuscular HGB Conc 36 g/dL (31-36); Mean Corpuscular Hemoglobin 30 pg (27-31); Mean Corpuscular Volume 85 fL (80-97); Mean Platelet Volume 8.8 fL (7.4-10.4); Platelet Count 204 10^3/uL (150-450); Red Blood Count 3.88 10^6 /uL (3.70-4.87); Red Cell Distribution Width 16 % (10-15); White Blood Count 7.4 10^3/uL (3.5-10.8)
[2019-11-26 04:09] LABS: ALT 17 U/L (7-52); AST 22 U/L (13-39); Albumin 3.8 g/dL (3.2-5.2); Albumin/Globulin Ratio 1.2 (1-3); Alkaline Phosphatase 73 U/L (34-104); BUN/Creatinine Ratio 17.9 (8-20); Blood Urea Nitrogen 14 mg/dL (6-24); C Reactive Protein 18.42 mg/L (<8.01); CO2 Carbon Dioxide 26 mmol/L (22-32); Calcium 9.9 mg/dL (8.6-10.3); Chloride 103 mmol/L (101-111); EGFR African American 89.1 (>60); EGFR Non-African American 73.7 (>60); Globulin 3.1 g/dL (2-4); Glucose 101 mg/dL (70-100); Sodium 139 mmol/L (135-145); Total Protein 6.9 g/dL (6.4-8.9)
[2019-11-26 04:11] LABS: Troponin I 0.01 ng/mL (<0.03)
[2019-11-26 04:13] LABS: Anion Gap 10 mmol/L (2-11); Potassium 2.5 mmol/L (3.5-5.0)
[2019-11-26] MEDS ORDERED: Potassium Chlor TAB* 20 MEQ TAB.ER PO ONE (04:14)
[2019-11-26 04:38] LABS: Urine Benzodiazepine Screen None Detected (None Detect); Urine Opiates Screen None Detected (None Detect)
[2019-11-26 05:02] LABS: Alcohol < 10 mg/dL (<10)
[2019-11-26 05:05] LABS: Urine Appearance Cloudy; Urine Bacteria Absent (Absent); Urine Bilirubin Negative (Negative); Urine Blood Negative (Negative); Urine Color Yellow; Urine Glucose Negative (Negative); Urine Ketones Trace (Negative); Urine Nitrite Negative (Negative); Urine Protein Negative (Negative); Urine Red Blood Cell Trace(0-2/hpf) (Absent); Urine Specific Gravity 1.014 (1.010-1.030); Urine Squamous Epithelial Cell Present (Absent); Urine Urobilinogen Negative (Negative); Urine White Blood Cell 1+(6-10/hpf) (Absent)
[2019-11-26] MEDS ORDERED: cefTRIAXone(*) 1 GM in NS 0.9% 50 ML* 50 ML IVPB ONE (05:28)
[2019-11-26] MEDS ORDERED: NS 0.9% 1000 ML** 1,000 ML IV SCH (06:30)
--- OUTSIDE RECORDS SUMMARY | 2019-11-26 06:45 | XMS REPORT ---
:1950 Author Organization [facility] Care Team Providers Name Role Phone Unavailable [...]
--- OUTSIDE RECORDS SUMMARY | 2019-11-26 06:45 | XMS REPORT | Continuity of Care Document ---
:1950 External Reference #:[id number] Author Name Barron Gilmore M.D. Address [address] [place] [address] Care Team Providers Name Role Phone Barron Gilmore MD - Family Medicine Care Team Information Supervisor Inspection And Testing [phone] couture dressmaker - Obstetrics & Gynecology Care Team Information Supervisor Inspection And Testing [facility] - Care Team Information Supervisor Inspection And Testing [phone] [place] [facility] [place] - Diagnostic Care Team Information Supervisor Inspection And Testing Radiology Weston Blair - Endocrinology, Diabetes & Care Team Information Supervisor Inspection And Testing Metabolism Efra Davis - Oncology Care Team Information Supervisor Inspection And Testing [phone] Rajiv Narvaez MD - Neurological Care Team Information Supervisor Inspection And Testing [phone] Surgery Sander Newman MD - Dermatology Care Team Information Supervisor Inspection And Testing Mary Jo Mayorga MD - Psychiatry Care Team Information Supervisor Inspection And Testing [phone] Antonieta Hatch MD - Cardiovascular Care Team Information Supervisor Inspection And Testing Disease Ga Bright - Orthopaedic Surgery Care Team Information Supervisor Inspection And Testing Marianne Barnes I - Pain Medicine Care Team Information Supervisor Inspection And Testing [phone] Problems Active Problems Provider Date Depressive disorder [...] Restless legs Barron Gilmore M.D. Onset: 04/25/2019 Anxiety state Barron Gilmore M.D. Onset: 11/22/2019 Bipolar disorder Barron Gilmore M.D. Onset: 11/22/2019 Inactive Problems Mixed hyperlipidemia Barron Gilmore M.D. Onset: 09/12/2019 Inactive: 11/22/2019 Social History Type Date Description Comments Sex Unknown Tobacco Use Start: Unknown End: Former Cigarette Smoker Now using nicotine Unknown 1/2 Pack Daily vapor Smoking Status Reviewed: 06/22/18 Former Cigarette Smoker Now using nicotine 1/2 Pack Daily vapor Tobacco Use Start: Unknown Patient has never smoked Allergies, Adverse Reactions, Alerts Active Allergies Reaction Severity Comments Date Adhesives 04/19/2010 IV Iodine Contrast [id number] 08/17/2010 Medications Active Medications SIG Qnty Indications Ordering Date Provider Proair HFA inhale 2 puffs by 8.5units Allyson Dove 09/13/2019 108(90Base) mouth every 4 to 6 Atkins, [employer] MARKET[employer] ANALYST mcg/Act Aerosol hours if needed as directed Methocarbamol take 2 tablets by 60tabs Barron Cornelius 07/02/2019 500mg mouth 4 times per Brian Gilmore Tablets day for muscle spasm Klor-Con M20 1 by mouth tid 90Tablet Shane Montes 05/31/2019 20Meq MD Elfego Tablets ER Desvenlafaxine take 1 tablet by 90tabs Barron F. 02/15/2019 Succinate ER mouth at bedtime Brian Gilmore 100mg Tablets ER 24HR Furosemide take 1 tablet by 90tabs I50.22 Barron F. 02/09/2019 40mg Tablets mouth once daily Brian Gilmore Clonidine HCL Take 1 Tablet By 60tabs Barron F. 01/25/2019 0.1mg Mouth Twice Daily Brian Gilmore Tablets as Needed Montelukast Sodium 1 by mouth every 90tabs Barron F. 01/15/2019 10mg day Brian Gilmore Tablets Trelegy Ellipta inhale 1 puff by 60units Barron F. 08/23/2018 mouth every day for Brian Gilmore 100-62.5-25mcg/Inh obstructive lung Aerosol disease Rojelio Aspirin Ec Low 1 by mouth every 100tabs Barron F. 07/03/2018 Dose day Brian Gilmore 81mg Tablets DR Mucinex Take 1 Tablet By 30tabs Barron F. 06/26/2018 600mg Tablets Mouth Twice Daily Brian Gilmore ER 12HR as Needed For Congestion Maximum Daily Dose Is 2 Tablets Per Day For 2 Days Zolpidem Tartrate take 1 tablet by 30tabs [...] times a day Brian Gilmore Capsules Gabapentin Take 1 Tablet By 90tabs Barron F. 08/03/2013 600mg Mouth Three Times Brian Gilmore Tablets Daily Miralax 17 gm in 8 oz water 527units Barrno F. 03/26/2013 3350NF Powder daily as needed for Brian Gilmore constipation Ferrous Gluconate 1 by mouth twice a 60tabs R53.83 Barron FKatelin 12/28/2012 day Brian Gilmore 324(38Fe) mg Tablets Thera M Plus 1 by mouth every 100tabs Barron F. 12/05/2012 Tablets day Brian Gilmore Docqlace take one capsule by 60caps Barron FKatelin 09/28/2012 100mg Capsules mouth twice a day Brian Gilmore Nexium take 1 capsule by 30caps Barron FKatelin 09/13/[address] mouth once daily Brian Gilmore Clobetasol Propionate Apply To The 180un Barron FKatelin 02/18/2010 Affected Area Twice Brian Gilmore 0.05% Cream A Day Vitamin D-3 1 po qd Unknown 1000Unit Capsules Vitamin C 1 po qd Unknown Capsules Methadone HCL 1 in the morning, 1 Unknown 10mg in the afternoon Tablets and 1 at [facility] Medications Administered in Office Medication SIG Qnty Indications Ordering Provider Date TB Intradermal Test Elmira Wilks 01/27/1997 Injection Immunizations CPT Code Status Date Vaccine Lot # [id number] Given 06/03/2018 Influenza Vac, Quadriv[place], [place] [address] Given 05/12/2017 Influenza Vac, Quadrivalent, Slit Virus, Im [id number] 35357 Given 10/06/2016 Pneumococcal Immunization [id number] 59192 Given 05/13/2016 Influenza Vac, Quadrivalent, Slit Virus, Im [id number] 55153 Given 06/04/2015 Influenza Vac, [place] [address] Given 06/04/2015 Pneumococcal Conjugate Vacc-13 51231 Given 06/23/2014 Zostivax [id number] 28209 Given 04/11/2014 DO Not Use Split Influenza Virus Vaccine Q2038 Given 06/17/2013 Split Influenza Medicare: Fluzone [id number] 97726 Given 06/28/2012 DO Not Use Split Influenza Virus Vaccine [id number] 74874 Given 06/28/2012 Tdap Tetanus, W Pertussis [id number] Q2038 Given 06/14/2012 Split Influenza Medicare: Fluzone [id number] Q2038 Given 06/16/2011 Split Influenza Medicare: Fluzone [id number] Q2036 Given 09/22/2010 Split Influenza Medicare Flulaval [id number] 56931 Given 06/21/2007 DO Not Use Split Influenza Virus Vaccine 31917 Given 06/28/2006 DO Not Use Split Influenza Virus Vaccine 67403 Given 07/06/2004 Pneumococcal Immunization 58630 Given 06/28/2004 DO Not Use Split Influenza Virus Vaccine 80033 Given 06/24/2003 Td Immunization, For Use In Individuals 7 Years Or Older 16592 Given 06/24/2003 DO Not Use Split Influenza [...] Test Result H/L Range Note Laboratory test 09/25/2019 [facility] Lactic Acid 1.7 mmol/L Normal 0.5-2.0 1 finding CBC Auto Diff 09/25/2019 [facility] White Blood 5.9 10^3/uL Normal 3.5-10.8 Count Red Blood Count 3.67 10^6/uL Low 3.70-4.87 Hemoglobin 10.9 g/dL Low 12.0-16.0 Hematocrit 30 % Low 35-47 Mean Corpuscular Volume 82 fL Normal 80-97 Mean Corpuscular Hemoglobin 30 pg Normal 27-31 Mean Corpuscular HGB Conc 36 g/dL Normal 31-36 Red Cell Distribution Width 17 % High 10-15 Platelet Count 241 10^3/uL Normal 150-450 Mean Platelet Volume 8.3 fL Normal 7.4-10.4 Abs Neutrophils 4.4 10^3/uL Normal 1.5-7.7 Abs Lymphocytes 0.9 10^3/uL Low 1.0-4.8 Abs Monocytes 0.5 10^3/uL Normal 0-0.8 Abs Eosinophils 0.1 10^3/uL Normal 0-0.6 Abs Basophils 0.1 10^3/uL Normal 0-0.2 Abs Nucleated RBC 0.0 10^3/uL Granulocyte % 73.9 % Lymphocyte % 14.7 % Monocyte % 8.3 % Eosinophil % 1.7 % Basophil % 1.4 % Nucleated Red Blood Cells % 0.0 Inr/Protime 09/25/2019 [facility] Inr 0.98 Normal 0.82-1.09 2 Comp Metabolic Panel 09/25/2019 [facility] Sodium 132 mmol/L Low 135-145 Potassium 2.8 mmol/L Low 3.5-5.0 Chloride 90 mmol/L Low 101-111 Co2 Carbon Dioxide 32 mmol/L Normal 22-32 Anion Gap 10 mmol/L Normal 2-11 Glucose 99 mg/dL Normal 70-100 Blood Urea Nitrogen 14 mg/dL Normal 6-24 Creatinine 0.90 mg/dL Normal 0.51-0.95 BUN/Creatinine Ratio 15.6 Normal 8-20 Calcium 9.1 mg/dL Normal 8.6-10.3 Total Protein 6.7 g/dL Normal 6.4-8.9 Albumin 3.7 g/dL Normal 3.2-5.2 Globulin 3.0 g/dL Normal 2-4 Albumin/Globulin Ratio 1.2 Normal 1-3 Total Bilirubin 0.60 mg/dL Normal 0.2-1.0 Alkaline Phosphatase 92 U/L Normal 34-104 Alt 26 U/L Normal 7-52 Ast 20 U/L Normal 13-39 Egfr Non- 62.5 >60 Egfr 75.6 >60 3 Laboratory test finding 09/25/2019 [facility] C Reactive Protein 8.28 mg/L High <8.01 Magnesium 2.0 mg/dL Normal 1.9-2.7 Creatine Kinase(CK) 63 U/L Normal 10-223 Ferritin 106.5 ng/mL Normal 11-307 Lipid Profile 09/12/2019 Russell Sammie([facility]) Cholesterol 186 mg/dL 120- 200 Triglycerides 97 mg/dL 30-200 HDL Cholesterol 55 mg/dL 30-85 LDL (Calculated) 112 CALC 0-129 VLDL Cholesterol 19 mg/dL 0-50 HDL Risk Factor 3.4 CALC 0.0-4.4 Comprehensive Metabolic 09/12/2019 [facility] Sammie([facility]) Sodium 136 mEq/L 134-149 Prof Potassium 4.0 mEq/L 3.6-5.5 Chloride 100 mEq/L 94-112 Carbon Dioxide 26 mEq/L 21-32 Glucose 87 mg/dL 70-105 BUN 14 mg/dL 6-26 Creatinine 0.8 mg/dL 0.6-1.4 BUN/Creat Ratio 17.5 CALC 8.0-36.0 Calcium 9.8 mg/dL 8.6-10.2 Total Protein 6.8 g/dL 6.4-8.3 Albumin 4.0 g/dL 3.8-5.5 Globulin 2.8 g/dL 2.0-4.8 A/G Ratio 1.4 CALC 0.6-2.3 Alk. Phosphatase 92 U/L 30-110 Alt (SGPT) 16 U/L 7-35 Ast (Sgot) 15 U/L 5-34 Total Bilirubin 0.4 mg/dL 0.2-1.3 GFR Non- >60 ml/min/1.73m^ >=60 GFR >60 ml/min/1.73m^ >=60 Laboratory test finding 09/12/2019 Russell Sammie([facility]) TSH 2.17 mIU/L 0.50-6.00 CBC Electronic (a New) 09/12/2019 [facility] WBC 4.78 4.0-10.0 (607)- - RBC 3.92 Low 3.93-6.0 Hemoglobin [...] 4.0 % 0.7-7.0 Basophil% 0.8 % 0-1.2 CBC Electronic (a New) 08/06/2019 family medicine WBC 4.72 4.0-10.0 (607)- - RBC 4.01 [...] 1.9 % 0.7-7.0 Basophil% 1.1 % 0-1.2 Laboratory test finding 08/06/2019 Drew Sammie([facility]) TSH 1.79 mIU/L 0.50-6.00 Magnesium, Serum 2.0 mEq/L 1.2-2.1 Comprehensive Metabolic 08/06/2019 Drew Sammie([facility]) Sodium 123 mEq/L Low 134-149 4 Prof Potassium 3.1 mEq/L Low 3.6-5.5 5 Chloride 85 mEq/L Low 94-112 6 Carbon Dioxide 33 mEq/L High 21-32 Glucose [...] >60 ml/min/1.73m^ >=60 GFR >60 ml/min/1.73m^ >=60 Comp Metabolic Panel 06/11/2019 [facility] Sodium 135 mmol/L Normal 135-145 Potassium 4.3 [...] Egfr Non- 66.0 >60 Egfr 79.9 >60 7 Laboratory test finding 06/11/2019 [facility] Uric Acid 4.2 mg/dL Normal 2.3- 6.6 C Reactive Protein 8.94 mg/L High <8.01 Lactic Acid 0.7 mmol/L Normal 0.5-2.0 8 CBC Auto Diff 06/11/2019 [facility] White Blood Count 5.1 10^3/uL Normal 3.5- [...] Cells % 0.0 Laboratory test finding 06/11/2019 [facility] Erythrocyte Sed Rate 65 mm/Hr High 0-29 Comp Metabolic Panel 05/30/2019 [facility] Sodium 132 mmol/L Low 135-145 Potassium 3.4 [...] Egfr Non- 69.7 >60 Egfr 84.4 >60 9 Laboratory test finding 05/30/2019 [facility] Magnesium 2.2 mg/dL Normal 1.9- 2.7 1 [facility] Severe Sepsis and Septic Shock Management Bundle Measure requires all lactic acids initially measuring >2.0 mmol/L be repeated. 2 Standard intensity warfarin therapeutic range: 2.0-3.0 High intensity warfarin therapeutic range: 2.5-3.5 3 Because ethnic data is not always [...] 5 Kidney failure <15 (or dialysis) 4 RESULTS VERIFIED BY REPEAT ANALYSIS 5 RESULTS VERIFIED BY REPEAT ANALYSIS 6 RESULTS VERIFIED BY REPEAT ANALYSIS 7 Because ethnic data is not always readily [...] 15-29 5 Kidney failure <15 (or dialysis) 8 [facility] Severe Sepsis and Septic Shock Management Bundle Measure requires all lactic acids initially measuring >2.0 mmol/L be repeated. 9 Because ethnic data is not always readily [...] dialysis) Procedures Date Code Description Status 03/28/2018 [id number] Mammogram Completed 03/14/2017 [id number] Mammogram Completed 10/19/2015 [id number] Mammogram Completed 07/30/2015 [id number] Bone Mineral Density Test Completed 09/11/2014 [id number] Mammogram Completed 08/23/2013 [id number] Mammogram Completed 07/06/2012 [id number] Mammogram Completed 11/21/2011 [id number] Colonoscopy Completed 10/06/2011 [id number] Mammogram Completed 05/26/2010 [id number] Mammogram Completed 11/20/2009 [id number] Mammogram Completed 10/07/2009 [id number] Mammogram Completed 11/20/2008 [id number] Mammogram Completed 05/22/2007 [id number] Colonoscopy Completed Medical Devices Description No Information Available Encounters Type Date Location Provider Dx Diagnosis Office Visit 09/12/2019 2:30p Main Office Barron Gilmore, R60.0 Localized edema M.D. M25.561 Pain in right knee Z85.3 Personal history of malignant neoplasm of breast E78.49 Other hyperlipidemia G89.4 Chronic pain syndrome Office Visit 08/06/2019 3:40p Main Office Barron Gilmore, M25.561 Pain in right M.D. knee J44.9 Chronic obstructive pulmonary disease, unspecified R60.0 Localized edema Z85.3 Personal history of malignant neoplasm of breast E78.5 Hyperlipidemia, unspecified Assessments Date Code Description Provider 11/22/2019 M25.561 Pain in right knee Braron Gilmore M.D. 11/22/2019 Z85.3 Personal history of malignant neoplasm of Barron Gilmore M.D. breast 11/22/2019 F31.9 Bipolar disorder, unspecified Barron Gilmore M.D. 11/22/2019 F41.9 Anxiety disorder, unspecified Barron Gilmore M.D. 11/22/2019 J44.9 Chronic obstructive pulmonary disease, Barron Gilmore M.D. unspecified 09/12/2019 E78.49 Other hyperlipidemia Barron Gilmore M.D. 09/12/2019 R60.0 Localized edema Barron Gilmore M.D. [...] Pain in right knee Barron Gilmore M.D. Plan of Treatment 11/22/2019 - Barron Gilmore M.D.M25.561 Pain in right kneeComments:has continued pain in the right knee, to see Dr Barnett in the near future and we'll refer to Dr Petersenfor follow up on her TKRZ85.3 Personal history of malignant neoplasm of breastComments:get hhooqpzzzZ12.9 Bipolar disorder, unspecifiedComments:to continue present dose of gabapentin, and pristique, symptoms are aaseqwY25.9 Anxiety disorder, unspecifiedComments:ativan refilled , to continue zolpidem for periodic vbissafjW06.9 Chronic obstructive pulmonary disease, unspecifiedComments:to continue present inhalers of Trelegy and albuterol Functional Status Description No Information Available Mental Status Description No Information Available Referrals Refer to Reason for Referral Status Appt [facility] Physical PHYSICAL THERAPY evaluate and Scheduled Therapy treat for right hip and knee pain [address] [place] [address] [phone] Marianne Barnes I consult and tx--? geniculate nerve block/ablation Scheduled for severe right knee pain after a total knee replacement , she continues to have severe right knee pain [facility] [address] [phone] Ga Bright 2nd opinion knee pain s/p replacement in Apr 2019 [facility] [address], [place] [address] [phone]
--- OUTSIDE RECORDS SUMMARY | 2019-11-26 06:45 | XMS REPORT ---
:1950 Author Organization [facility] Care Team Providers Name Role Phone Unavailable Unavailable Unavailable Problems This patient has no known problems. Allergies, Adverse Reactions, Alerts Allergy Allergy Status Severity Reaction(s) Onset Inactive Treating Comments Name Type Date Date Clinician Unknown None Active Unknown None Unknown No Known Allergies For This Patient Medications Ordered Filled Start Stop Current Ordering Indication Dosage Frequency Signature Comments Components Medication Medication Date Date Medication? Clinician (SIG) Name Name No Known No Known No None None None Medications Medications For This For This Patient Patient Procedures This patient has no known procedures. Results This patient has no known results.
--- OUTSIDE RECORDS SUMMARY | 2019-11-26 06:45 | XMS REPORT ---
:1950 Author Organization [facility] Care Team Providers Name Role Phone Unavailable [...]
--- OUTSIDE RECORDS SUMMARY | 2019-11-26 06:45 | XMS REPORT ---
:1950 Author Organization [facility] Care Team Providers Name Role Phone Unavailable [...]
--- OUTSIDE RECORDS SUMMARY | 2019-11-26 06:45 | XMS REPORT ---
:1950 Author Organization [facility] Care Team Providers Name Role Phone Unavailable [...]
--- OUTSIDE RECORDS SUMMARY | 2019-11-26 06:45 | XMS REPORT ---
:1950 Author Organization [facility] Care Team Providers Name Role Phone Unavailable [...]
--- OUTSIDE RECORDS SUMMARY | 2019-11-26 06:45 | XMS REPORT ---
:1950 Author Organization [facility] Care Team Providers Name Role Phone Unavailable [...]
--- OUTSIDE RECORDS SUMMARY | 2019-11-26 06:45 | XMS REPORT ---
:1950 Author Organization [facility] Care Team Providers Name Role Phone Unavailable [...]
--- OUTSIDE RECORDS SUMMARY | 2019-11-26 06:45 | XMS REPORT ---
:1950 Author Organization [facility] Care Team Providers Name Role Phone Unavailable [...]
--- OUTSIDE RECORDS SUMMARY | 2019-11-26 06:45 | XMS REPORT ---
:1950 Author Organization [facility] Care Team Providers Name Role Phone Unavailable [...]
--- OUTSIDE RECORDS SUMMARY | 2019-11-26 06:45 | XMS REPORT ---
:1950 Author Organization [facility] Care Team Providers Name Role Phone Unavailable [...]
--- OUTSIDE RECORDS SUMMARY | 2019-11-26 06:45 | XMS REPORT ---
:1950 Author Organization [facility] Care Team Providers Name Role Phone Unavailable Unavailable Unavailable Problems This patient has no known problems. Allergies, Adverse Reactions, Alerts Allergy Allergy Type Status Severity Reaction(s) Onset Inactive Treating Comments Name Date Date Clinician Iodinated Unknown Active Unknown Reaction Interface Contrast Unknown 9 Media iodine Unknown Active Unknown Reaction Unknown Unknown 9-13 iodixanol Base Active Unknown Reaction Interface Ingredient Unknown 05-10 Adhesive Unknown Active Unknown Reaction Unknown Tape Unknown 05-10 Medications Ordered Filled Start Stop Current Ordering Indication Dosage Frequency Signature Comments Components Medication Medication Date Date Medication? Clinician (SIG) Name Name No Known No Known No None None None Medications Medications For This For This Patient Patient Procedures This patient has no known procedures. Results This patient has no known results.
--- OUTSIDE RECORDS SUMMARY | 2019-11-26 06:45 | XMS REPORT ---
:1950 Author Organization [facility] Care Team Providers Name Role Phone Unavailable [...]
--- OUTSIDE RECORDS SUMMARY | 2019-11-26 06:45 | XMS REPORT ---
:1950 Author Organization [facility] Care Team Providers Name Role Phone Unavailable [...]
--- OUTSIDE RECORDS SUMMARY | 2019-11-26 06:45 | XMS REPORT ---
:1950 Author Organization [facility] Care Team Providers Name Role Phone Unavailable [...]
--- OUTSIDE RECORDS SUMMARY | 2019-11-26 06:45 | XMS REPORT ---
:1950 Author Organization [facility] Care Team Providers Name Role Phone Unavailable [...]
--- OUTSIDE RECORDS SUMMARY | 2019-11-26 06:45 | XMS REPORT ---
:1950 Author Organization [facility] Care Team Providers Name Role Phone Unavailable [...]
--- OUTSIDE RECORDS SUMMARY | 2019-11-26 06:45 | XMS REPORT ---
:1950 Author Organization [facility] Care Team Providers Name Role Phone Unavailable [...]
--- OUTSIDE RECORDS SUMMARY | 2019-11-26 06:45 | XMS REPORT ---
:1950 Author Organization [facility] Care Team Providers Name Role Phone Unavailable [...]
--- OUTSIDE RECORDS SUMMARY | 2019-11-26 06:45 | XMS REPORT ---
:1950 Author Organization [facility] Care Team Providers Name Role Phone Unavailable Unavailable Unavailable Problems This patient has no known problems. Allergies, Adverse Reactions, Alerts Allergy Allergy Type Status Severity Reaction(s) Onset Inactive Treating Comments Name Date Date Clinician Iodinated Unknown Active Unknown Reaction Interface Contrast Unknown 9-16 Media iodine Unknown Active Unknown Reaction Unknown Unknown 9-16 iodixanol Base Active Unknown Reaction 2019 Unknown Ingredient Unknown 9-16 Adhesive Unknown Active [...]
--- OUTSIDE RECORDS SUMMARY | 2019-11-26 06:45 | XMS REPORT ---
:1950 Author Organization [facility] Care Team Providers Name Role Phone Unavailable [...]
--- OUTSIDE RECORDS SUMMARY | 2019-11-26 06:45 | XMS REPORT ---
:1950 Author Organization [facility] Care Team Providers Name Role Phone Unavailable [...]
--- OUTSIDE RECORDS SUMMARY | 2019-11-26 06:45 | XMS REPORT ---
:1950 Author Organization [facility] Care Team Providers Name Role Phone Unavailable [...]
--- OUTSIDE RECORDS SUMMARY | 2019-11-26 06:45 | XMS REPORT ---
:1950 Author Organization [facility] Care Team Providers Name Role Phone Unavailable [...]
[2019-11-26] MEDS: NS 0.9% 1000 ML** 1,000 ML IV SCH ×3 (07:42→22:07)
[2019-11-26] MEDS: KCL 20 MEQ/100 ML IVPREMIX* 20 MEQ/100 ML BAG IV SCH ×2 (07:42→11:20)
[2019-11-26] MEDS: FLUTICASONE/UMECLIDIN/VILANTER 1 PUFF MDI INH SCH (08:37)
[2019-11-26] MEDS: Enoxaparin(*) 40 MG/0.4 ML SYR SUBCUT SCH (09:10)
[2019-11-26] MEDS: Potassium Chlor TAB* 20 MEQ TAB.ER PO SCH ×3 (09:12→22:02)
[2019-11-26] MEDS: Ferrous Gluconate TAB* 324 MG TAB PO SCH (09:12)
[2019-11-26] MEDS: Furosemide TAB* 40 MG PO SCH (09:13)
[2019-11-26] MEDS: Gabapentin CAP(*) 300 MG PO SCH ×3 (09:13→22:02)
[2019-11-26] MEDS: cloNIDine TAB* 0.1 MG PO SCH ×2 (09:13→22:02)
[2019-11-26] MEDS: Montelukast Sodium TAB* 10 MG PO SCH (09:13)
[2019-11-26] MEDS: Metolazone TAB* 5 MG PO SCH (09:14)
[2019-11-26] MEDS: Aspirin EC TAB* 81 MG TAB.EC PO SCH (09:16)
[2019-11-26] MEDS: Pantoprazole TAB * 40 MG TAB PO SCH (09:16)
--- NOTE | 2019-11-26 11:15 | HP ---
DATE OF ADMISSION: 11/26/2019. PROVIDER: Nini Ivy NP. ATTENDING PHYSICIAN: Dr. Humphries * (dictated by Nini Ivy NP). PRIMARY CARE PHYSICIAN: Dr. Gilmore. CHIEF COMPLAINT: Altered mental status. HISTORY OF PRESENT ILLNESS: This is a 69-year-old female with a past medical history significant for COPD, breast cancer, uterine cancer, and chronic pain who came to the emergency room on 11/25/2019 via EMS after having pushed her emergency alert button, but without knowing why. Initially, she reported to EMS that she was having bilateral leg pain and swelling that started earlier in the evening. When EMS got there, they reported that pills were scattered throughout the patient's home in [place] and initially she denied any problem urinating. In the emergency room, EKG was done, labs were drawn, and CT of her brain was performed. The Hospitalists were asked to evaluate the patient for admission; however, upon seeing the patient, her story was completely different. She stated that she had had chest pain three days ago that was mid sternal without any radiation, with no stressors and no alleviating factors, but denied any chest pain currently, and even though she initially reported to the emergency room physician that she had had no troubles urinating, she told me that she was urinating frequently. PAST MEDICAL HISTORY: Asthma, anemia, COPD, breast cancer with radiation, uterine cancer, lymphedema, obesity, PE, anxiety, depression, osteopenia, chronic pain with spasticity secondary to a spinal injury. PAST SURGICAL HISTORY: Colostomy with reversal, incomplete cervical spinal cord injury with the resulting ACDF to C5 through C6 and posterior laminectomy, she had a lumpectomy in 2008, and a hysterectomy. HOME MEDICATIONS: Her home medications have not been reconciled at this time; however, the most recent list is as such: 1. Clonidine 0.1 mg p.o. b.i.d. 2. Zolpidem 10 mg p.o. at bedtime prn. 3. Potassium Chloride 20 mEq p.o. t.i.d. 4. Polyethylene Glycol 17 gm p.o. daily prn. 5. Ondansetron 4 to 8 mg p.o. q.6 hours prn. 6. Montelukast Sodium 10 mg p.o. daily. 7. Metolazone 2.5 mg p.o. daily. 8. Methocarbamol 500 mg p.o. q.i.d. 9. Methadone 10 mg p.o. 5 times a day. 10. Lorazepam 1 mg p.o. t.i.d. prn. 11. Furosemide 40 mg p.o. daily. 12. Trelegy Ellipta 100-12.5-25 one puff inhalation q.a.m. 13. Ferrous Gluconate 324 mg p.o. daily. 14. Esomeprazole 40 mg p.o. daily. 15. Docusate 100 mg p.o. b.i.d. 16. Desvenlafaxine 100 mg p.o. at bedtime. 17. Clobetasol 0.05% one application topically b.i.d. 18. Cholecalciferol 1,000 units p.o. daily. 19. Calcium Carbonate 600 mg p.o. at bedtime. 20. Aspirin 81 mg p.o. daily. 21. Ascorbic acid 2,000 mg p.o. q.a.m. ALLERGIES: IODINATED CONTRAST MEDIA, IODINE, ADHESIVE TAPE. FAMILY HISTORY: Mother had breast cancer. Sister had meningioma. SOCIAL HISTORY: The patient was unable to clearly answer whether or not she currently smoked, though said that she recently had smoked up to half-a-pack a day. Denies any alcohol or substance abuse. She is retired. She lives alone at [facility] and has one child named Stephani who is her healthcare proxy. REVIEW OF SYSTEMS: Review of systems was limited secondary to altered mental status. PHYSICAL EXAMINATION GENERAL: This is a well-developed woman seen resting in the bed. She is fidgety and appears to be in mild distress. VITAL SIGNS: Temperature 98.0 Fahrenheit, 61 pulse, 18 respirations, 97 percent oxygen on room air, 144/67 blood pressure. HEENT: Conjunctivae pink and moist. PERRLA. EOM's intact. Oropharynx: Clear mucus membranes, most. NECK: Supple. CARDIAC: S1, S2 present. Heart rate regular. No murmurs, gallops, or rubs appreciated. RESPIRATORY: Noted expiratory wheezes to bilateral lower lung portillo. Otherwise lungs are clear on room air with no accessory muscle use noted. ABDOMEN: Soft, tender to bilateral lower quadrants with positive bowel sounds times four. MUSCULOSKELETAL: No clubbing or cyanosis of the digits. There are 2 to 3+ nonpitting edema to the left lower extremity and 2+ nonpitting edema to the right lower extremity, though cap refills is in 3 seconds. 2+ positive pedal pulses. SKIN: Skin to left leg and foot is pink and blanching, but without additional warmth. Bilateral lower extremities have small scaly patches scattered. NEUROLOGIC: Sensation is intact to light touch. No focal deficits appreciated. PSYCH: She is alert and oriented to self only, though thought content is organized. DIAGNOSTIC STUDIES: Brain CT showed no acute intracranial pathology. PERTINENT LABORATORY DATA: WBC 7.4, hemoglobin 11.7, hematocrit 33; potassium 2.5, glucose 101, lactic acid 1.3, C-reactive protein 18.42. Urine showed trace ketones, 3+ leukocyte esterase, 1+ WBC, squamous epithelial cells and hyaline casts. ASSESSMENT AND PLAN: My impression is that this is a 69-year-old female with a past medical history significant for uterine breast cancer, COPD, and chronic pain who is being admitted on 11/26/2019 due to altered mental status and UTI. 1. Urinary tract infection: Even though her urinalysis is lacking in nitrates and bacteria, she is symptomatic, stating that she is urinating more frequently and is tender upon palpation to bilateral lower quadrants. Will treat with Ceftriaxone 1 gm daily and encourage p.o. fluid. 2. Altered mental status: The etiology is unclear at this time. CT scan had no remarkable findings. It is possible that this is secondary to a UTI. It could also possibly be due to the number of narcotics and benzodiazepines that she is on and so at this point I will hold all of those medications and also will check an ammonia level. Social Work has been consulted as I am concerned for her ability to care for herself at home, especially with EMS finding pills scattered all over her apartment. She does have aides who help with her ADL's. PT and OT were ordered. 3. GERD: She can continue her Esomeprazole. There are no signs or symptoms of indigestion at this time. 4. Lymphedema: Her left leg is more swollen than her right. She may continue her Furosemide and Metolazone, as well as potassium supplement. 5. Chronic pain: The patient is typically on Methadone, Methocarbamol and Gabapentin. I will hold everything except for the Gabapentin to see if this will help and improve her mentation. 6. Depression: She may continue her Desvenlafaxine. 7. DVT prophylaxis: Initiate Lovenox. 8. Code status is full code. TIME SPENT: Time spent on patient was about 60 minutes with 30 of that spent face- to-face. CONDITION: Guarded. DISPOSITION: Admit inpatient to [facility]. NINI IVY, SED SPECIAL EDUCATION TEACHER [id number]/CPS #: [id number] SARAH
[2019-11-26] MEDS ORDERED: KCL 20 MEQ/100 ML IVPREMIX* 20 MEQ/100 ML BAG IV ONE (12:09)
--- NOTE | 2019-11-26 12:18 | PN ---
Subjective Date of Service: 11/26/19 Interval History: Pt presents as paranoid believes that people are trying to take her away, also is not aware of when she arrived at the hospital. pt very worried about her cat because she believes that she has been at the hospital for many days. Pt very shocked and relieved when reoriented to the fact that she arrived just last evening. Pt complains of bilateral lower leg pain and right knee pain. According to medical records patient was seen by her PCP on 11/21 for complaints of knee pain. Family History: Unchanged from Admission Social History: Unchanged from Admission Past Medical History: Unchanged from Admission Objective Active Medications: Acetaminophen (Tylenol Tab*) 650 mg PO Q4H PRN PRN Reason: MILD PAIN or TEMP > 100.4 Aspirin (Aspirin Ec Tab*) 81 mg PO DAILY [facility] Last Admin: 11/26/19 09:16 Dose: 81 mg Clonidine HCl (Catapres Tab*) 0.1 mg PO BID [facility] Last Admin: 11/26/19 09:13 Dose: 0.1 mg Desvenlafaxine Succinate (Pristiq(Nf)) 100 mg PO BEDTIME [facility] Enoxaparin Sodium (Lovenox(*)) 40 mg SUBCUT Q24H [facility] Last Admin: 11/26/19 09:10 Dose: 40 mg Ferrous Gluconate (Fergon Tab*) 324 mg PO DAILY [facility] Last Admin: 11/26/19 09:12 Dose: 324 mg Fluticasone/Umeclidinium/Vilanterol (Trelegy Ellipta 100-62.5-25) 1 puff INH QAM [facility] Last Admin: 11/26/19 08:37 Dose: Not Given Furosemide (Lasix Tab*) 40 mg PO DAILY [facility] Last Admin: 11/26/19 09:13 Dose: 40 mg Gabapentin (Neurontin Cap(*)) 300 mg PO TID [facility] Last Admin: 11/26/19 09:13 Dose: 300 mg Ceftriaxone Sodium 1 gm/ (Sodium Chloride) 50 mls @ 100 mls/hr IVPB Q24H [facility] Sodium Chloride (Ns 0.9% 1000 Ml) 1,000 mls @ 100 mls/hr IV PER RATE [facility] Last Admin: 11/26/19 07:42 Dose: 100 mls/hr Metolazone (Zaroxolyn Tab*) 2.5 mg PO DAILY [facility] Last Admin: 11/26/19 09:14 Dose: 2.5 mg Montelukast Sodium (Singulair Tab*) 10 mg PO DAILY [facility] Last Admin: 11/26/19 09:13 Dose: 10 mg Pantoprazole Sodium (Protonix Tab*) 40 mg PO DAILY [facility]; Protocol Last Admin: 11/26/19 09:16 Dose: 40 mg Potassium Chloride (Klor Con Er Tab*) 20 meq PO TID [facility] Last Admin: 11/26/19 09:12 Dose: 20 meq Vital Signs - 8 hr 11/26/19 11/26/19 11/26/19 07:37 08:25 09:13 Temperature 97.8 F 98.5 F Pulse Rate 59 52 Respiratory 16 18 18 Rate Blood Pressure 123/68 132/56 (mmHg) O2 Sat by Pulse 98 100 Oximetry 11/26/19 11/26/19 11:20 11:50 Temperature 97.8 F Pulse Rate 62 Respiratory 14 16 Rate Blood Pressure 125/54 (mmHg) O2 Sat by Pulse 100 Oximetry Oxygen Devices in Use Now: None Appearance: Elderly woman sitting up in bed attempting to eat breakfast. Does not appear to be in distress. Eyes: No Scleral Icterus, PERRLA Ears/Nose/Mouth/Throat: NL Teeth, Lips, Gums, Clear Oropharnyx, Mucous Membranes Moist Neck: NL Appearance and Movements; NL JVP, Trachea Midline, No Thyroid Enlargement, Masses Respiratory: Symmetrical Chest Expansion and Respiratory Effort, Clear to Auscultation Cardiovascular: NL Sounds; No Murmurs; No JVD, RRR Abdominal: NL Sounds; No Tenderness; No Distention, No Hepatosplenomegaly Lymphatic: No Cervical Adenopathy Extremities: No Clubbing, Cyanosis, - - bilateral lower extrems +3 pitting edema. Left great toe with large callused wound with central eschar non tender, wound consult ordered Skin: No Rash or Ulcers - many small ulcerations on lower legs, nonweeping, circular and dry in center Neurological: NL Sensation, - - confused but alert to self and place, pt unable to report the date. pt very weak on transfer, 2 assist out of bed to commode, Result Diagrams: 11/26/19 03:45 11/26/19 14:12 Assess/Plan/Problems-Billing Assessment: 69 Female with hx significant for Bipolar, Anxiety, COPD, R knee pain, Hyperlipidemia that presents to with complaints of leg pain and swelling. - Patient Problems (1) Bipolar disorder Current Visit: Yes Comment: - Pt is likely not taking meds as ordered while at home. EMS found pills "all over" in her home. -Will continue holding meds -Psych consult has been ordered -Social work consult has been ordered- determine if patient is in unsafe situation at home (2) Urinary tract infection Current Visit: Yes Comment: -Presents with acute mental status changes -No nitrates or bacteria in urine however patient reports increased frequency of urination as well as AMS, Based on these abnormals pt will be treated empirically with IV ceftriaxone (3) Hyponatremia Current Visit: Yes Comment: -Pt is likely not taking home supplementation of postassium. Will continue dosing as needed. -K+ 2.5 elevated to 2.6 after 2 runs will recheck level at 2200. -KCL 20meq x 2 runs -KCL 20meq PO TID (4) Acquired lymphedema of leg Current Visit: Yes Comment: -Chronic lower extremity edema -Continue home dosing of lasix (5) COPD (chronic obstructive pulmonary disease) Current Visit: No Comment: -No c/o SOB lung sounds clear -Con't home meds (6) Right knee pain Current Visit: No Comment: -Has referral to Dr. Petersen by her PCP office -Chronic pain right knee (7) Hypomagnesemia Current Visit: Yes Comment: -1.4 -Replace with 2gm MG IV x 2 (8) Hyperammonemia Current Visit: Yes Comment: -Altered Mental status cannot be ruled out due to hyperammonemia of 69, will treat and recheck level tomorrow. -Lactulose 30ml x 1 dose -Continue monitoring mentation (9) Weakness Current Visit: No Comment: - PT/OT Evaluation ordered - Very poor transfer ability, unable to do independently at this time. (10) DVT prophylaxis Comment: -Lovenox Status and Disposition: Guarded
[2019-11-26] MEDS: Acetaminophen TAB* 325 MG PO PRN ×2 (12:41→17:49)
[2019-11-26 14:34] LABS: BUN/Creatinine Ratio 20.3 (8-20); Calcium 9.4 mg/dL (8.6-10.3); EGFR African American 94.7 (>60); EGFR Non-African American 78.3 (>60)
[2019-11-26 14:36] LABS: Potassium 2.6 mmol/L (3.5-5.0)
[2019-11-26 15:13] LABS: Magnesium 1.4 mg/dL (1.9-2.7)
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
[2019-11-26] MEDS ORDERED: Magnesium Sulfate 2 GM IV* 2 GM/50 ML BAG IVPB ONE ×2 (15:49→15:50)
[2019-11-26] MEDS ORDERED: Magnesium Sulfate 4 GM IV IVPB ONE (17:00)
[2019-11-26] MEDS ORDERED: DESVENLAFAXINE 100 MG PO SCH (21:00)
[2019-11-26] MEDS ORDERED: QUEtiapine TAB* 25 MG PO SCH (21:00)
[2019-11-26 22:13] LABS: BUN/Creatinine Ratio 18.2 (8-20); Calcium 9.7 mg/dL (8.6-10.3); EGFR African American 90.5 (>60); EGFR Non-African American 74.8 (>60)
[2019-11-26 22:21] LABS: Potassium 2.6 mmol/L (3.5-5.0)
[2019-11-26] MEDS: KCL 10 MEQ/50 ML IVPREMIX* 10 MEQ/50 ML BAG IV SCH ×2 (22:42→23:59)
[2019-11-27] MEDS: Acetaminophen TAB* 325 MG PO PRN ×5 (00:05→20:55)
[2019-11-27] MEDS: KCL 10 MEQ/50 ML IVPREMIX* 10 MEQ/50 ML BAG IV SCH (01:39)
[2019-11-27] MEDS: cefTRIAXone(*) 1 GM in NS 0.9% 50 ML* 50 ML IVPB SCH (06:01)
[2019-11-27] MEDS: Enoxaparin(*) 40 MG/0.4 ML SYR SUBCUT SCH (07:53)
[2019-11-27 07:59] LABS: BUN/Creatinine Ratio 14.9 (8-20); Calcium 8.9 mg/dL (8.6-10.3); EGFR African American 94.7 (>60); EGFR Non-African American 78.3 (>60)
[2019-11-27 08:03] LABS: Potassium 2.4 mmol/L (3.5-5.0)
[2019-11-27] MEDS: FLUTICASONE/UMECLIDIN/VILANTER 1 PUFF MDI INH SCH (08:22)
[2019-11-27] MEDS: Ferrous Gluconate TAB* 324 MG TAB PO SCH (08:37)
[2019-11-27] MEDS: Montelukast Sodium TAB* 10 MG PO SCH (08:37)
[2019-11-27] MEDS: Pantoprazole TAB * 40 MG TAB PO SCH (08:37)
[2019-11-27] MEDS: KCL 20 MEQ/100 ML IVPREMIX* 20 MEQ/100 ML BAG IV SCH ×3 (08:37→16:51)
[2019-11-27] MEDS: Aspirin EC TAB* 81 MG TAB.EC PO SCH (08:37)
[2019-11-27] MEDS: Metolazone TAB* 5 MG PO SCH (08:37)
[2019-11-27] MEDS: Furosemide TAB* 40 MG PO SCH (08:37)
[2019-11-27] MEDS: cloNIDine TAB* 0.1 MG PO SCH ×2 (08:37→20:56)
[2019-11-27] MEDS: Gabapentin CAP(*) 300 MG PO SCH ×3 (08:38→20:55)
[2019-11-27] MEDS: Potassium Chlor TAB* 20 MEQ TAB.ER PO SCH ×3 (08:38→20:56)
--- NOTE | 2019-11-27 10:51 | PN ---
Subjective Date of Service: 11/27/19 Interval History: pt status unchanged, continues to be paranoid, continues to believe that people are out to get her, people cleaning a room next door are spying on her. Pt continues to report pain in right knee. Denies any chest pain, SOB, Dizziness at this time. Family History: Unchanged from Admission Social History: Unchanged from Admission Past Medical History: Unchanged from Admission Objective Active Medications: Acetaminophen (Tylenol Tab*) 650 mg PO Q4H PRN PRN Reason: MILD PAIN or TEMP > 100.4 Last Admin: 11/27/19 04:21 Dose: 650 mg Aspirin (Aspirin Ec Tab*) 81 mg PO DAILY [facility] Last Admin: 11/27/19 08:37 Dose: 81 mg Clonidine HCl (Catapres Tab*) 0.1 mg PO BID [facility] Last Admin: 11/27/19 08:37 Dose: 0.1 mg Desvenlafaxine Succinate (Pristiq(Nf)) 100 mg PO BEDTIME [facility] Last Admin: 11/26/19 21:35 Dose: Not Given Enoxaparin Sodium (Lovenox(*)) 40 mg SUBCUT Q24H [facility] Last Admin: 11/27/19 07:53 Dose: 40 mg Ferrous Gluconate (Fergon Tab*) 324 mg PO DAILY [facility] Last Admin: 11/27/19 08:37 Dose: 324 mg Fluticasone/Umeclidinium/Vilanterol (Trelegy Ellipta 100-62.5-25) 1 puff INH QAM [facility] Last Admin: 11/27/19 08:22 Dose: Not Given Furosemide (Lasix Tab*) 40 mg PO DAILY [facility] Last Admin: 11/27/19 08:37 Dose: 40 mg Gabapentin (Neurontin Cap(*)) 300 mg PO TID [facility] Last Admin: 11/27/19 08:38 Dose: 300 mg Ceftriaxone Sodium 1 gm/ (Sodium Chloride) 50 mls @ 100 mls/hr IVPB Q24H [facility] Last Admin: 11/27/19 06:01 Dose: 100 mls/hr Sodium Chloride (Ns 0.9% 1000 Ml) 1,000 mls @ 100 mls/hr IV PER RATE [facility] Last Admin: 11/26/19 22:07 Dose: 100 mls/hr Potassium Chloride (Potassium Chloride 20 Meq/100 Ml Ivpremix*) 20 meq in 100 mls @ 50 mls/hr IV Q2H [facility] Stop: 11/27/19 14:59 Last Admin: 11/27/19 08:37 Dose: 50 mls/hr Metolazone (Zaroxolyn Tab*) 2.5 mg PO DAILY [facility] Last Admin: 11/27/19 08:37 Dose: 2.5 mg Montelukast Sodium (Singulair Tab*) 10 mg PO DAILY [facility] Last Admin: 11/27/19 08:37 Dose: 10 mg Pantoprazole Sodium (Protonix Tab*) 40 mg PO DAILY [facility]; Protocol Last Admin: 11/27/19 08:37 Dose: 40 mg Potassium Chloride (Klor Con Er Tab*) 40 meq PO TID [facility] Stop: 11/27/19 21:01 Last Admin: 11/27/19 08:38 Dose: 40 meq Quetiapine Fumarate (Seroquel Tab*) 50 mg PO BEDTIME [facility] Last Admin: 11/26/19 22:02 Dose: 50 mg Vital Signs - 8 hr 11/27/19 11/27/19 11/27/19 03:15 07:15 08:00 Temperature 98.7 F 97.7 F Pulse Rate 72 58 Respiratory 17 20 20 Rate Blood Pressure 148/59 124/58 (mmHg) O2 Sat by Pulse 97 97 Oximetry 11/27/19 08:38 Temperature Pulse Rate Respiratory 20 Rate Blood Pressure (mmHg) O2 Sat by Pulse Oximetry Oxygen Devices in Use Now: None Appearance: Elderly woman sitting up in bed, washing face. Does not appear to be in any distress. Ears/Nose/Mouth/Throat: NL Teeth, Lips, Gums, Clear Oropharnyx, Mucous Membranes Moist, - - edentulous Neck: NL Appearance and Movements; NL JVP, Trachea Midline, No Thyroid Enlargement, Masses Respiratory: Symmetrical Chest Expansion and Respiratory Effort, Clear to Auscultation Cardiovascular: NL Sounds; No Murmurs; No JVD, RRR, - - +2 edema bilat lower extrems Abdominal: NL Sounds; No Tenderness; No Distention, No Hepatosplenomegaly Lymphatic: No Cervical Adenopathy Extremities: No Clubbing, Cyanosis Skin: No Rash or Ulcers, No Nodules or Sclerosis Neurological: Alert and Oriented x 3, NL Sensation, NL Muscle Strength and Tone Nutrition: Taking PO's Result Diagrams: 11/28/19 06:12 11/28/19 06:12 Microbiology and Other Data: Microbiology 11/26/19 04:05 Urine Culture - Final Urine No Growth (<1,000 CFU/mL) Assess/Plan/Problems-Billing Assessment: 69 Female with hx significant for Bipolar, Anxiety, COPD, R knee pain, Hyperlipidemia that presents to with complaints of leg pain and swelling. - Patient Problems (1) Bipolar disorder Current Visit: Yes Comment: -Pt remains paranoid today - Pt is likely not taking meds as ordered while at home. EMS found pills "all over" in her home. -Will continue holding meds -Psych has ordered seroquel for bedtime -Social work consult has been ordered- determine if patient is in unsafe situation at home (2) Urinary tract infection Current Visit: Yes Comment: -ceftriaxone cont'd -Presents with acute mental status changes- Unchanged today -No nitrates or bacteria in urine however patient reports increased frequency of urination as well as AMS, Based on these abnormals pt will be treated empirically with IV ceftriaxone (3) Hyponatremia Current Visit: Yes Comment: -K+ 2.4 today after recieving multiple IV runs yesterday. Will continue to to administer IV potassium today 20meq x 3 runs and increase PO potassium to 40meq TID -Pt is likely not taking home supplementation of postassium. Will continue dosing as needed. (4) Acquired lymphedema of leg Current Visit: Yes Comment: -Mild improvement today, skin less taught than yesterday. -Chronic lower extremity edema -Continue home dosing of lasix (5) COPD (chronic obstructive pulmonary disease) Current Visit: No Comment: -No c/o SOB lung sounds clear -Spiriva and Dulera ordered today (6) Right knee pain Current Visit: No Comment: -Has referral to Dr. Petersen by her PCP office -Chronic pain right knee -PT/OT working with patient (7) Hypomagnesemia Current Visit: Yes Comment: -1.4 -Replace with 2gm MG IV x 2 (8) Hyperammonemia Current Visit: Yes Comment: -Level has returned to normal @ 51 on 11/26 -Altered Mental status cannot be ruled out due to hyperammonemia of 67, will treat and recheck level tomorrow. -Continue monitoring mentation (9) Weakness Current Visit: No Comment: - PT/OT Evaluation ordered - Very poor transfer ability, unable to do independently at this time. (10) DVT prophylaxis Comment: -Lovenox Status and Disposition: Guarded
[2019-11-27] MEDS: NS 0.9% 1000 ML** 1,000 ML IV SCH (12:40)
[2019-11-27] MEDS: SPIRIVA Respimat* (tiotropium) 2.5 mcg/inh Inhaler INH SCH (12:50)
[2019-11-27] MEDS: Mometasone/Formoter 100/5 MDI INH SCH ×2 (12:51→19:43)
--- NOTE | 2019-11-27 14:38 | CONSULT ---
Identification - Patient Identification Reason for Psychiatric Consultation: Incapacitating Symptoms -: Patient is a 69 year old, F admitted on 11/26/19. - MHU Identification Employment Status: Disabled Hx Psychiatric Hospitalization: Yes History - Objective HPI: Tiffanie is seen for psychiatric follow up. [facility] staff indicates that she is more pleasant today with no overt delusions, however, when I enter her room and ask about conspiratorial statements she made yesterday she continues to endorse them. "Am I in trouble? I was watching the relaxation channel on my TV here and all of a sudden it started showing all these pictures of people with cancer on their faces. It said that people who smoke will be arrested." Tiffanie accepts some reassurance that this is not the case and she does appear to have a brighter affect than yesterday. She denies untoward effects from Seroquel and continues to deny SI or HI. Exam Appearance: Well Developed/Nourished Hygiene: Normal Grooming: Well Kept Psychomotor Activities: Normal Exhibits Abnormal Movement: No Attitude and Relatedness: Cooperative Eye Contact: Good - Speech Quality: Unpressured Latencies: Normal Quantity: Appropriate Patient's Decription of Mood: "Good" Observed Affect: Fair Affect Consistent with: Euthymia Patient's Thought Process: Disorganized Thought Content: Yes Paranoid Ideation, No Passive Wish, No Suicidal Planning, No Homicidal Ideation Experiencing Hallucinations: Yes Type of Hallucinations: Visual: Yes, Auditory: Yes, Command: No Level of Consciousness: Alert Orientation: Yes Intact, Yes Orientated to Time, Yes Orientated to Place, Yes Orientated to Person Impulse Control: Tenuous Insight and Judgement: Impaired Impression - Impression Clinical Impression: 69 y.o. , white female with a history of alcohol dependence in remission and bipolar disorder brought in by EMS following an episode of activating her Medic-alert bracelet and being discovered in her apartment in a confused state with medications allegedly strewn about the floor. Inpatient DSM-V Dx: R41.0 Merits Inpatient Hospitalization: No BSU: Problem List - Patient Problems (1) Delirium Current Visit: Yes Status: Acute Priority: Medium Code(s): R41.0 - DISORIENTATION, UNSPECIFIED SNOMED Code(s): 4825970 Plan - Treatment Plan Treatment Plan: The patient continues to have encepholopathy. Will increase quetiapine from 50 to 100mg PO qhs. Psychiatry will follow up tomorrow (11/27). Continued Medication Management: Start Medication Medications: Current Medications Acetaminophen (Tylenol Tab*) 650 mg PO Q4H PRN PRN Reason: MILD PAIN or TEMP > 100.4 Last Admin: 11/27/19 12:00 Dose: 650 mg Aspirin (Aspirin Ec Tab*) 81 mg PO DAILY [facility] Last Admin: 11/27/19 08:37 Dose: 81 mg Clonidine HCl (Catapres Tab*) 0.1 mg PO BID [facility] Last Admin: 11/27/19 08:37 Dose: 0.1 mg Desvenlafaxine Succinate (Pristiq (Nf)) 100 mg PO BEDTIME [facility] Enoxaparin Sodium (Lovenox(*)) 40 mg SUBCUT Q24H [facility] Last Admin: 11/27/19 07:53 Dose: 40 mg Ferrous Gluconate (Fergon Tab*) 324 mg PO DAILY [facility] Last Admin: 11/27/19 08:37 Dose: 324 mg Fluticasone/Umeclidinium/Vilanterol (Trelegy Ellipta 100-62.5-25) 1 puff INH QAM [facility] Last Admin: 11/27/19 08:22 Dose: Not Given Furosemide (Lasix Tab*) 40 mg PO DAILY [facility] Last Admin: 11/27/19 08:37 Dose: 40 mg Gabapentin (Neurontin Cap(*)) 300 mg PO TID [facility] Last Admin: 11/27/19 14:00 Dose: 300 mg Ceftriaxone Sodium 1 gm/ (Sodium Chloride) 50 mls @ 100 mls/hr IVPB Q24H [facility] Last Admin: 11/27/19 06:01 Dose: 100 mls/hr Sodium Chloride (Ns 0.9% 1000 Ml) 1,000 mls @ 100 mls/hr IV PER RATE [facility] Last Admin: 11/27/19 12:40 Dose: 100 mls/hr Potassium Chloride (Potassium Chloride 20 Meq/100 Ml Ivpremix*) 20 meq in 100 mls @ 50 mls/hr IV Q2H [facility] Stop: 11/27/19 14:59 Last Admin: 11/27/19 14:00 Dose: 50 mls/hr Metolazone (Zaroxolyn Tab*) 2.5 mg PO DAILY [facility] Last Admin: 11/27/19 08:37 Dose: 2.5 mg Mometasone Furoate/Formoterol Fumar (Dulera 100/5 Mdi*) 2 puff INH BID [facility] Last Admin: 11/27/19 12:51 Dose: 2 puff Montelukast Sodium (Singulair Tab*) 10 mg PO DAILY [facility] Last Admin: 11/27/19 08:37 Dose: 10 mg Pantoprazole Sodium (Protonix Tab*) 40 mg PO DAILY [facility]; Protocol Last Admin: 11/27/19 08:37 Dose: 40 mg Potassium Chloride (Klor Con Er Tab*) 40 meq PO TID [facility] Stop: 11/27/19 21:01 Last Admin: 11/27/19 14:00 Dose: 40 meq Tiotropium [place] (Spiriva Respimat 2.5 Mcg) 2 puff INH DAILY [facility] Last Admin: 11/27/19 12:50 Dose: 2 puff
[2019-11-27 20:27] LABS: BUN/Creatinine Ratio 12.8 (8-20); Calcium 8.9 mg/dL (8.6-10.3); EGFR African American 79.6 (>60); EGFR Non-African American 65.8 (>60); Potassium 3.2 mmol/L (3.5-5.0)
[2019-11-27] MEDS: DESVENLAFAXINE 50 MG PO SCH (20:56)
[2019-11-27] MEDS ORDERED: QUEtiapine TAB* 100 MG PO SCH (21:00)
[2019-11-27] MEDS ORDERED: oxyCODONE TAB* 5 MG TAB PO ONE (22:27)
[2019-11-28] MEDS: Melatonin 3 MG TAB PO PRN ×2 (00:43→22:45)
[2019-11-28] MEDS: NS 0.9% 1000 ML** 1,000 ML IV SCH ×2 (03:35→12:14)
[2019-11-28] MEDS: Acetaminophen TAB* 325 MG PO PRN ×3 (03:36→14:28)
[2019-11-28] MEDS: cefTRIAXone(*) 1 GM in NS 0.9% 50 ML* 50 ML IVPB SCH (05:46)
[2019-11-28 06:28] LABS: ABS Basophils 0.1 10^3/ul (0-0.2); ABS Eosinophils 0.1 10^3/ul (0-0.6); ABS Lymphocytes 1.4 10^3/ul (1.0-4.8); ABS Monocytes 0.7 10^3/ul (0-0.8); ABS Neutrophils 3.7 10^3/ul (1.5-7.7); Eosinophil % 1.7 %; Hematocrit 30 % (35-47); Hemoglobin 10.5 g/dL (12.0-16.0); Lymphocyte % 23.8 %; Mean Corpuscular HGB Conc 35 g/dL (31-36); Mean Corpuscular Hemoglobin 30 pg (27-31); Mean Corpuscular Volume 84 fL (80-97); Mean Platelet Volume 8.5 fL (7.4-10.4); Nucleated Red Blood Cells % 0.1; Platelet Count 182 10^3/uL (150-450); Red Blood Count 3.53 10^6 /uL (3.70-4.87); Red Cell Distribution Width 16 % (10-15); White Blood Count 5.9 10^3/uL (3.5-10.8)
[2019-11-28 06:49] LABS: BUN/Creatinine Ratio 13.3 (8-20); Calcium 8.8 mg/dL (8.6-10.3); EGFR African American 93.3 (>60); EGFR Non-African American 77.1 (>60); Potassium 3.3 mmol/L (3.5-5.0)
[2019-11-28] MEDS: FLUTICASONE/UMECLIDIN/VILANTER 1 PUFF MDI INH SCH (08:13)
[2019-11-28] MEDS: Mometasone/Formoter 100/5 MDI INH SCH ×2 (08:15→20:28)
[2019-11-28] MEDS: SPIRIVA Respimat* (tiotropium) 2.5 mcg/inh Inhaler INH SCH (08:15)
[2019-11-28] MEDS: Furosemide TAB* 40 MG PO SCH (08:58)
[2019-11-28] MEDS: Aspirin EC TAB* 81 MG TAB.EC PO SCH (08:58)
[2019-11-28] MEDS: Montelukast Sodium TAB* 10 MG PO SCH (08:59)
[2019-11-28] MEDS: Metolazone TAB* 5 MG PO SCH (08:59)
[2019-11-28] MEDS: cloNIDine TAB* 0.1 MG PO SCH ×2 (08:59→20:42)
[2019-11-28] MEDS: Ferrous Gluconate TAB* 324 MG TAB PO SCH (08:59)
[2019-11-28] MEDS: Gabapentin CAP(*) 300 MG PO SCH ×3 (09:00→20:45)
[2019-11-28] MEDS: Enoxaparin(*) 40 MG/0.4 ML SYR SUBCUT SCH (09:00)
[2019-11-28] MEDS: Pantoprazole TAB * 40 MG TAB PO SCH (09:00)
--- NOTE | 2019-11-28 10:28 | PN ---
Subjective Date of Service: 11/28/19 Interval History: Pt is alert and oriented x 3 very talkative. However, continues to be paranoid, reports that vasc tech that was working with patients roommate yesterday was listening to everything she said and told on her. She reports that as a result nobody would answer her call sullivan and nobody would come in her room. Pt did forget that I was at her bedside yesterday, pt also reports later on in the conversation that there were nurses in her room helping her. Pt continues to complain of right knee pain. Family History: Unchanged from Admission Social History: Unchanged from Admission Past Medical History: Unchanged from Admission Objective Active Medications: Acetaminophen (Tylenol Tab*) 650 mg PO Q4H PRN PRN Reason: MILD PAIN or TEMP > 100.4 Last Admin: 11/28/19 08:58 Dose: 650 mg Aspirin (Aspirin Ec Tab*) 81 mg PO DAILY [facility] Last Admin: 11/28/19 08:58 Dose: 81 mg Clonidine HCl (Catapres Tab*) 0.1 mg PO BID [facility] Last Admin: 11/28/19 08:59 Dose: 0.1 mg Desvenlafaxine Succinate (Pristiq (Nf)) 100 mg PO BEDTIME [facility] Last Admin: 11/27/19 20:56 Dose: 100 mg Enoxaparin Sodium (Lovenox(*)) 40 mg SUBCUT Q24H [facility] Last Admin: 11/28/19 09:00 Dose: 40 mg Ferrous Gluconate (Fergon Tab*) 324 mg PO DAILY [facility] Last Admin: 11/28/19 08:59 Dose: 324 mg Fluticasone/Umeclidinium/Vilanterol (Trelegy Ellipta 100-62.5-25) 1 puff INH QAM [facility] Last Admin: 11/28/19 08:13 Dose: Not Given Furosemide (Lasix Tab*) 40 mg PO DAILY [facility] Last Admin: 11/28/19 08:58 Dose: 40 mg Gabapentin (Neurontin Cap(*)) 300 mg PO TID [facility] Last Admin: 11/28/19 09:00 Dose: 300 mg Ceftriaxone Sodium 1 gm/ (Sodium Chloride) 50 mls @ 100 mls/hr IVPB Q24H [facility] Last Admin: 11/28/19 05:46 Dose: 100 mls/hr Sodium Chloride (Ns 0.9% 1000 Ml) 1,000 mls @ 100 mls/hr IV PER RATE [facility] Last Admin: 11/28/19 03:35 Dose: 100 mls/hr Potassium Chloride (Potassium Chloride 20 Meq/100 Ml Ivpremix*) 20 meq in 100 mls @ 50 mls/hr IV Q2H [facility] Stop: 11/28/19 16:59 Melatonin (Melatonin) 3 mg PO BEDTIME PRN PRN Reason: SLEEP Last Admin: 11/28/19 00:43 Dose: 3 mg Metolazone (Zaroxolyn Tab*) 2.5 mg PO DAILY [facility] Last Admin: 11/28/19 08:59 Dose: 2.5 mg Mometasone Furoate/Formoterol Fumar (Dulera 100/5 Mdi*) 2 puff INH BID [facility] Last Admin: 11/28/19 08:15 Dose: 2 puff Montelukast Sodium (Singulair Tab*) 10 mg PO DAILY [facility] Last Admin: 11/28/19 08:59 Dose: 10 mg Pantoprazole Sodium (Protonix Tab*) 40 mg PO DAILY [facility]; Protocol Last Admin: 11/28/19 09:00 Dose: 40 mg Quetiapine Fumarate (Seroquel Tab*) 100 mg PO BEDTIME [facility] Last Admin: 11/27/19 20:56 Dose: 100 mg Tiotropium [place] (Spiriva Respimat 2.5 Mcg) 2 puff INH DAILY [facility] Last Admin: 11/28/19 08:15 Dose: 2 puff Vital Signs - 8 hr 11/28/19 11/28/19 11/28/19 03:17 07:55 08:18 Temperature 97.5 F 98.7 F Pulse Rate 61 55 67 Respiratory 16 16 18 Rate Blood Pressure 142/66 133/86 (mmHg) O2 Sat by Pulse 96 98 91 Oximetry 11/28/19 09:00 Temperature Pulse Rate Respiratory 18 Rate Blood Pressure (mmHg) O2 Sat by Pulse Oximetry Oxygen Devices in Use Now: None Appearance: Elderly woman sitting up in bed watching TV. Does not appear to be in any distress. Eyes: No Scleral Icterus, PERRLA Ears/Nose/Mouth/Throat: NL Teeth, Lips, Gums - Edentulous, Clear Oropharnyx, Mucous Membranes Moist Neck: NL Appearance and Movements; NL JVP, Trachea Midline, No Thyroid Enlargement, Masses Respiratory: Symmetrical Chest Expansion and Respiratory Effort, - - End expiratory wheezes bilateral bases, do not clear with cough Cardiovascular: NL Sounds; No Murmurs; No JVD, RRR, No Edema Abdominal: NL Sounds; No Tenderness; No Distention, No Hepatosplenomegaly Lymphatic: No Cervical Adenopathy Skin: No Rash or Ulcers, No Nodules or Sclerosis Neurological: Alert and Oriented x 3, NL Sensation, NL Muscle Strength and Tone Nutrition: Taking PO's Result Diagrams: 11/28/19 06:12 11/28/19 06:12 Microbiology and Other Data: Microbiology 11/26/19 04:05 Urine Culture - Final Urine No Growth (<1,000 CFU/mL) Assess/Plan/Problems-Billing Assessment: 69 Female with hx significant for Bipolar, Anxiety, COPD, R knee pain, Hyperlipidemia that presents to with complaints of leg pain and swelling. - Patient Problems (1) Bipolar disorder Current Visit: Yes Comment: -Dr. Joseph following patient and adjusting seroquel dose. -Pt's paranoia continues today. -Pt is likely not taking meds as ordered while at home. EMS found pills "all over" in her home. -Will continue holding meds -Social work consult has been ordered- Looking for placement for patient as she is not safe to live alone at home. (2) Urinary tract infection Current Visit: Yes Comment: -ceftriaxone cont'd -Although patient remains paranoid she is fully alert and oriented and appears to be less drowsy. (3) Hyponatremia Current Visit: Yes Comment: -K+ 3.3 today after recieving multiple IV runs yesterday. Will continue to to administer IV potassium today 20meq x 3 runs -PO potassium to 40meq TID -Pt is likely not taking home supplementation of postassium. Will continue dosing as needed. (4) Acquired lymphedema of leg Current Visit: Yes Comment: -legs remain swollen bilaterally, no longer pitting -Chronic lower extremity edema -Continue home dosing of lasix (5) COPD (chronic obstructive pulmonary disease) Current Visit: No Comment: -No c/o SOB, -Lung sounds with faint wheezes at bases does not clear with cough. remains without distress. -Spiriva and Dulera (6) Right knee pain Current Visit: No Comment: -Has referral to Dr. Petersen by her PCP office -Chronic pain right knee -PT/OT continues working with patient (7) Hyperammonemia Current Visit: Yes Comment: -Level has returned to normal @ 51 on 11/26 -Altered Mental status cannot be ruled out due to hyperammonemia of 67, will treat and recheck level tomorrow. -Continue monitoring mentation (8) Weakness Current Visit: No Comment: - PT/OT continues - Continues to have poor transfer ability, unable to transfer independently at this time. - PT recommending skilled PT and rehab prior to discharge home (9) DVT prophylaxis Comment: -Lovenox Status and Disposition: Guarded
[2019-11-28] MEDS: KCL 20 MEQ/100 ML IVPREMIX* 20 MEQ/100 ML BAG IV SCH ×3 (12:14→16:54)
--- NOTE | 2019-11-28 12:14 | CONSULT ---
Identification - Patient Identification Reason for Psychiatric Consultation: Incapacitating Symptoms -: Patient is a 69 year old, F admitted on 11/26/19. - MHU Identification Employment Status: Disabled Hx Psychiatric Hospitalization: Yes History - Objective HPI: Tiffanie is seen for psychiatric follow up. She is engaged and interactive and denies visual hallucinations today. She does, however, remain paranoid. She confabulates a somewhat detailed delusion that her doctor on the unit asked her neighbor in the hospital room next door to quiet down and that this caused a "whole big fight between the doctors and the aides in the hospital." "It was ugly, I heard the whole thing." She goes on to request that I call her daughter Stephani to see if she is mad at her. "I heard the nurses all talking out there that she's blocked out my number and doesn't want to talk to me anymore." Tiffanie denies SI or HI. She reports tolerating the quetiapine well. Exam Appearance: Well Developed/Nourished Hygiene: Normal Grooming: Well Kept Psychomotor Activities: Normal Exhibits Abnormal Movement: No Attitude and Relatedness: Cooperative Eye Contact: Good - Speech Quality: Unpressured Latencies: Normal Quantity: Appropriate Patient's Decription of Mood: "Good" Observed Affect: Fair Affect Consistent with: Euthymia Patient's Thought Process: Disorganized Thought Content: Yes Paranoid Ideation, No Passive Wish, No Suicidal Planning, No Homicidal Ideation Experiencing Hallucinations: Yes Type of Hallucinations: Visual: Yes, Auditory: Yes, Command: No Level of Consciousness: Alert Orientation: Yes Intact, Yes Orientated to Time, Yes Orientated to Place, Yes Orientated to Person Impulse Control: Tenuous Insight and Judgement: Impaired Impression - Impression Clinical Impression: 69 y.o. , white female with a history of alcohol dependence in remission and bipolar disorder brought in by EMS following an episode of activating her Medic-alert bracelet and being discovered in her apartment in a confused state with medications allegedly strewn about the floor. Inpatient DSM-V Dx: R41.0 Merits Inpatient Hospitalization: No BSU: Problem List - Patient Problems (1) Delirium Current Visit: Yes Status: Acute Priority: Medium Code(s): R41.0 - DISORIENTATION, UNSPECIFIED SNOMED Code(s): 8895523 Plan - Treatment Plan Treatment Plan: The patient continues to have encepholopathy. Will increase quetiapine from 100 to 200mg PO qhs. Psychiatry will follow up tomorrow (11/28). Continued Medication Management: Start Medication Medications: Current Medications Acetaminophen (Tylenol Tab*) 650 mg PO Q4H PRN PRN Reason: MILD PAIN or TEMP > 100.4 Last Admin: 11/28/19 08:58 Dose: 650 mg Aspirin (Aspirin Ec Tab*) 81 mg PO DAILY [facility] Last Admin: 11/28/19 08:58 Dose: 81 mg Clonidine HCl (Catapres Tab*) 0.1 mg PO BID [facility] Last Admin: 11/28/19 08:59 Dose: 0.1 mg Desvenlafaxine Succinate (Pristiq (Nf)) 100 mg PO BEDTIME [facility] Last Admin: 11/27/19 20:56 Dose: 100 mg Enoxaparin Sodium (Lovenox(*)) 40 mg SUBCUT Q24H [facility] Last Admin: 11/28/19 09:00 Dose: 40 mg Ferrous Gluconate (Fergon Tab*) 324 mg PO DAILY [facility] Last Admin: 11/28/19 08:59 Dose: 324 mg Fluticasone/Umeclidinium/Vilanterol (Trelegy Ellipta 100-62.5-25) 1 puff INH QAM [facility] Last Admin: 11/28/19 08:13 Dose: Not Given Furosemide (Lasix Tab*) 40 mg PO DAILY [facility] Last Admin: 11/28/19 08:58 Dose: 40 mg Gabapentin (Neurontin Cap(*)) 300 mg PO TID [facility] Last Admin: 11/28/19 09:00 Dose: 300 mg Ceftriaxone Sodium 1 gm/ (Sodium Chloride) 50 mls @ 100 mls/hr IVPB Q24H [facility] Last Admin: 11/28/19 05:46 Dose: 100 mls/hr Sodium Chloride (Ns 0.9% 1000 Ml) 1,000 mls @ 100 mls/hr IV PER RATE [facility] Last Admin: 11/28/19 03:35 Dose: 100 mls/hr Potassium Chloride (Potassium Chloride 20 Meq/100 Ml Ivpremix*) 20 meq in 100 mls @ 50 mls/hr IV Q2H [facility] Stop: 11/28/19 16:59 Melatonin (Melatonin) 3 mg PO BEDTIME PRN PRN Reason: SLEEP Last Admin: 11/28/19 00:43 Dose: 3 mg Metolazone (Zaroxolyn Tab*) 2.5 mg PO DAILY [facility] Last Admin: 11/28/19 08:59 Dose: 2.5 mg Mometasone Furoate/Formoterol Fumar (Dulera 100/5 Mdi*) 2 puff INH BID [facility] Last Admin: 11/28/19 08:15 Dose: 2 puff Montelukast Sodium (Singulair Tab*) 10 mg PO DAILY [facility] Last Admin: 11/28/19 08:59 Dose: 10 mg Pantoprazole Sodium (Protonix Tab*) 40 mg PO DAILY [facility]; Protocol Last Admin: 11/28/19 09:00 Dose: 40 mg Quetiapine Fumarate (Seroquel Tab*) 100 mg PO BEDTIME [facility] Last Admin: 11/27/19 20:56 Dose: 100 mg Tiotropium [place] (Spiriva Respimat 2.5 Mcg) 2 puff INH DAILY [facility] Last Admin: 11/28/19 08:15 Dose: 2 puff
[2019-11-28] MEDS: DESVENLAFAXINE 50 MG PO SCH (20:45)
[2019-11-28] MEDS ORDERED: QUEtiapine TAB* 100 MG PO SCH (21:00)
[2019-11-29] MEDS: NS 0.9% 1000 ML** 1,000 ML IV SCH (02:47)
[2019-11-29] MEDS: cefTRIAXone(*) 1 GM in NS 0.9% 50 ML* 50 ML IVPB SCH (05:44)
[2019-11-29] MEDS: Enoxaparin(*) 40 MG/0.4 ML SYR SUBCUT SCH (05:47)
[2019-11-29 06:47] LABS: ABS Basophils 0.1 10^3/ul (0-0.2); ABS Eosinophils 0.1 10^3/ul (0-0.6); ABS Lymphocytes 1.3 10^3/ul (1.0-4.8); ABS Monocytes 0.6 10^3/ul (0-0.8); ABS Neutrophils 3.9 10^3/ul (1.5-7.7); Eosinophil % 1.3 %; Hematocrit 34 % (35-47); Lymphocyte % 21.5 %; Mean Corpuscular HGB Conc 36 g/dL (31-36); Mean Corpuscular Hemoglobin 30 pg (27-31); Mean Corpuscular Volume 84 fL (80-97); Mean Platelet Volume 8.7 fL (7.4-10.4); Platelet Count 211 10^3/uL (150-450); Red Cell Distribution Width 16 % (10-15); White Blood Count 5.9 10^3/uL (3.5-10.8)
[2019-11-29 07:04] LABS: BUN/Creatinine Ratio 11.4 (8-20); Calcium 9.8 mg/dL (8.6-10.3); EGFR African American 87.8 (>60); EGFR Non-African American 72.6 (>60); Potassium 3.4 mmol/L (3.5-5.0)
[2019-11-29] MEDS: Mometasone/Formoter 100/5 MDI INH SCH (07:40)
[2019-11-29] MEDS: SPIRIVA Respimat* (tiotropium) 2.5 mcg/inh Inhaler INH SCH (07:40)
[2019-11-29] MEDS: FLUTICASONE/UMECLIDIN/VILANTER 1 PUFF MDI INH SCH (08:18)
[2019-11-29] MEDS: Pantoprazole TAB * 40 MG TAB PO SCH (09:06)
[2019-11-29] MEDS: Aspirin EC TAB* 81 MG TAB.EC PO SCH (09:06)
[2019-11-29] MEDS: Ferrous Gluconate TAB* 324 MG TAB PO SCH (09:06)
[2019-11-29] MEDS: Gabapentin CAP(*) 300 MG PO SCH ×2 (09:07→14:18)
[2019-11-29] MEDS: cloNIDine TAB* 0.1 MG PO SCH (09:09)
[2019-11-29] MEDS: Metolazone TAB* 5 MG PO SCH (09:10)
[2019-11-29] MEDS: Furosemide TAB* 40 MG PO SCH (09:11)
[2019-11-29] MEDS: Montelukast Sodium TAB* 10 MG PO SCH (09:12)
--- NOTE | 2019-11-29 15:26 | CONSULT ---
Identification - Patient Identification Reason for Psychiatric Consultation: Incapacitating Symptoms -: Patient is a 69 year old, F admitted on 11/26/19. - MHU Identification Employment Status: Disabled Hx Psychiatric Hospitalization: Yes History - Objective HPI: Tiffanie is seen for psychiatric follow up. She appears much better today, denying hallucinations and not voicing any delusional thoughts. She is agreeable with subacute rehab and I understand she's already been accepted at [facility]. The patient continues to deny SI or HI and has no untoward effects from the addition of quetiapine therapy. Exam Appearance: Well Developed/Nourished Hygiene: Normal Grooming: Well Kept Psychomotor Activities: Normal Exhibits Abnormal Movement: No Attitude and Relatedness: Cooperative Eye Contact: Good - Speech Quality: Unpressured Latencies: Normal Quantity: Appropriate Patient's Decription of Mood: "Good" Observed Affect: Fair Affect Consistent with: Euthymia Patient's Thought Process: Coherent, Disorganized Thought Content: No Passive Wish, No Suicidal Planning, No Homicidal Ideation, No Paranoid Ideation Experiencing Hallucinations: No, Sensorium is Clear Type of Hallucinations: Visual: No, Auditory: No, Command: No Level of Consciousness: Alert Orientation: Yes Intact, Yes Orientated to Time, Yes Orientated to Place, Yes Orientated to Person Impulse Control: Intact Insight and Judgement: Fair Impression - Impression Clinical Impression: 69 y.o. , white female with a history of alcohol dependence in remission and bipolar disorder brought in by EMS following an episode of activating her Medic-alert bracelet and being discovered in her apartment in a confused state with medications allegedly strewn about the floor. Inpatient DSM-V Dx: R41.0 Merits Inpatient Hospitalization: No BSU: Problem List - Patient Problems (1) Delirium Current Visit: Yes Status: Acute Priority: Medium Code(s): R41.0 - DISORIENTATION, UNSPECIFIED SNOMED Code(s): 2769049 Plan - Treatment Plan Treatment Plan: The patient's encepholopathy appears resolved. Will continue quetiapine 200mg PO qhs. Psychiatry will sign off. Thanks for the consult. Continued Medication Management: Start Medication Medications: Current Medications Acetaminophen (Tylenol Tab*) 650 mg PO Q4H PRN PRN Reason: MILD PAIN or TEMP > 100.4 Last Admin: 04/02/20 14:28 Dose: 650 mg Aspirin (Aspirin Ec Tab*) 81 mg PO DAILY [facility] Last Admin: 11/29/19 09:06 Dose: 81 mg Clonidine HCl (Catapres Tab*) 0.1 mg PO BID [facility] Last Admin: 11/29/19 09:09 Dose: 0.1 mg Desvenlafaxine Succinate (Pristiq (Nf)) 100 mg PO BEDTIME [facility] Last Admin: 11/28/19 20:45 Dose: 100 mg Enoxaparin Sodium (Lovenox(*)) 40 mg SUBCUT Q24H [facility] Last Admin: 11/29/19 05:47 Dose: 40 mg Ferrous Gluconate (Fergon Tab*) 324 mg PO DAILY [facility] Last Admin: 11/29/19 09:06 Dose: 324 mg Fluticasone/Umeclidinium/Vilanterol (Trelegy Ellipta 100-62.5-25) 1 puff INH QAM [facility] Last Admin: 11/29/19 08:18 Dose: Not Given Furosemide (Lasix Tab*) 40 mg PO DAILY [facility] Last Admin: 11/29/19 09:11 Dose: 40 mg Gabapentin (Neurontin Cap(*)) 300 mg PO TID [facility] Last Admin: 11/29/19 14:18 Dose: 300 mg Ceftriaxone Sodium 1 gm/ (Sodium Chloride) 50 mls @ 100 mls/hr IVPB Q24H [facility] Last Admin: 11/29/19 05:44 Dose: 100 mls/hr Sodium Chloride (Ns 0.9% 1000 Ml) 1,000 mls @ 100 mls/hr IV PER RATE [facility] Last Admin: 11/29/19 02:47 Dose: 100 mls/hr Melatonin (Melatonin) 3 mg PO BEDTIME PRN PRN Reason: SLEEP Last Admin: 11/28/19 22:45 Dose: 3 mg Metolazone (Zaroxolyn Tab*) 2.5 mg PO DAILY [facility] Last Admin: 11/29/19 09:10 Dose: 2.5 mg Mometasone Furoate/Formoterol Fumar (Dulera 100/5 Mdi*) 2 puff INH BID [facility] Last Admin: 11/29/19 07:40 Dose: 2 puff Montelukast Sodium (Singulair Tab*) 10 mg PO DAILY [facility] Last Admin: 11/29/19 09:12 Dose: 10 mg Pantoprazole Sodium (Protonix Tab*) 40 mg PO DAILY [facility]; Protocol Last Admin: 11/29/19 09:06 Dose: 40 mg Quetiapine Fumarate (Seroquel Tab*) 200 mg PO BEDTIME [facility] Last Admin: 11/28/19 20:47 Dose: 200 mg Tiotropium Strabane (Spiriva Respimat 2.5 Mcg) 2 puff INH DAILY [facility] Last Admin: 11/29/19 07:40 Dose: 2 puff
--- NOTE | 2019-11-29 19:28 | DS ---
CC: Dr. Barron Gilmore * DISCHARGE SUMMARY: DATE OF ADMISSION: 11/26/19 DATE OF DISCHARGE: 11/29/19 PROVIDER: Cindy Perez NP PRIMARY CARE PROVIDER: Dr. Barron Gilmore. ATTENDING PHYSICIAN: Dr. Lia Gray * (dictated by Cindy Perez NP). PRIMARY DIAGNOSES: 1. Urinary tract infection. 2. Weakness. 3. Paranoia. SECONDARY DIAGNOSES: 1. Bipolar disorder. 2. Hypokalemia. 3. Lymphedema. 4. Chronic obstructive pulmonary disease. 5. Right knee pain. 6. Hyperammonemia. 7. Weakness. STUDIES WHILE IN THE HOSPITAL: 1. On 11/26/19, brain CT: No acute intracranial abnormality. 2. On 11/26/19, electrocardiogram: Sinus rhythm, normal, rate of 64. CONSULTATIONS WHILE IN THE HOSPITAL: Dr. Wing Joseph from Psychiatry. HISTORY OF PRESENT ILLNESS AND HOSPITAL COURSE: Ms. Lomeli is a 69-year-old female with past medical history significant for bipolar disorder, asthma, COPD , lymphedema, anxiety. The patient presents to ER on 11/26/19 with complaints of bilateral leg pain and swelling and inability to bear weight on legs. The patient arrived via EMS, which they report they saw pills scattered throughout the patient's home at [facility]. The patient also presents with acute confusion. With great concern for the patient's confusion, it is reported by the patient's daughter, Stephani Ayala, the patient is normally not confused and alert and oriented, which is contrary to the patient's current presentation. On the ER, the patient does report having increased frequency of urination and some lower abdominal pain. It is suspected that confusion may have been in part related to urinary tract infection, so the patient was treated empirically with ceftriaxone 1 g daily IV and the patient also has history of multiple narcotics and benzodiazepine prescriptions. We also suspect the patient was not taking her medications as ordered as EMS reported that there were pills found all over her home. So, the patient's methadone and lorazepam were held while in the hospital and did not appear to go through any withdrawal not taking the medication. The patient never requested medication. The other concerning finding that the patient exhibited was paranoid delusions. The patient felt that staff was talking about her. The patient also had paranoid delusions about Rodo Oneal and also saw some various hallucinations while watching TV, reported seeing patients pop up on the television that had cancer on their faces. For these concerns, Dr. Wing Joseph was consulted for psychiatry and Dr. Joseph was also concerned about the paranoid delusions. The patient was started on Seroquel 50 mg by mouth q.h.s. on 11/26/19. Following day on 11/27/19 , the patient's Seroquel was increased to 100 and then once again on 11/28/19, Seroquel was increased to 200 mg by mouth q.h.s. With each increase, the patient's affect was becoming brighter. Although the paranoid delusions did not cease, they did lessen in frequency. The patient's lower extremity pain and weakness was addressed by Physical Therapy. Physical Therapy revealed progressive improvements towards the goals that Physical Therapy had established and they recommend that the patient would benefit greatly from short - term rehab and the patient was in agreement with that as well. Today on 11/28 while preparing the patient for discharge, she was questioned whether or not she would like to have the methadone continued and she was adamant that it not be restarted because she did not feel she needed it. She was not in any significant pain and she did not like taking it to begin with, so this medication was not restarted. Ms. Lomeli has experienced great improvement since arrival to the hospital in her mental status and strength. It has been established that she is stable for discharge to [facility] for short-term rehab. PHYSICAL EXAMINATION: The patient is alert and oriented x4 with no focal neurological deficits. Heart has regular rate and rhythm without murmurs, rubs , or gallops. Lungs are clear to auscultation without rhonchi, wheezes, or rubs. There is +2 bilateral lower extremity edema which has been unchanged since admission. Abdomen is soft, nontender to palpation. Physical exam is otherwise benign. Ms. Lomeli is stable for discharge. Most recent vital signs are: 97.9 for temperature, pulse rate 76, respiratory rate 18, oxygen saturation 94% on room air, blood pressure 111/55. DISCHARGE MEDICATIONS: Medications added: 1. Seroquel 200 mg p.o. at bedtime. Continued medications: 1. Aspirin 81 mg p.o. daily. 2. Clonidine 0.1 mg p.o. b.i.d. 3. Pristiq 100 mg p.o. h.s. 4. Esomeprazole 40 mg p.o. daily. 5. Ferrous gluconate 324 mg p.o. b.i.d. 6. Trelegy Ellipta 1 puff inhaled every morning. 7. Furosemide 40 mg p.o. daily. 8. Gabapentin 300 mg p.o. t.i.d. 9. Montelukast sodium 10 mg p.o. daily. 10. Albuterol inhaler 2 puffs inhaled every 4 to 6 hours as needed for shortness of breath or wheezing. 11. Ascorbic acid 2000 mg p.o. daily. 12. Calcium carbonate 600 mg p.o. daily. 13. Vitamin D3 1000 units p.o. daily. 14. Clobetasol 0.05% ointment 1 application topically b.i.d. 15. Colace 100 mg p.o. b.i.d. 16. Gabapentin 600 mg p.o. t.i.d. 17. Guaifenesin 600 mg p.o. b.i.d. 18. Lorazepam 1 mg p.o. t.i.d. anxiety. 19. Robaxin 1000 mg p.o. 4 times a day as needed for muscle spasms. 20. Multivitamin tablet 1 tab p.o. daily. 21. Zofran 4 to 8 mg p.o. q.6 hours as needed for nausea, vomiting. 22. Polyethylene glycol 3350, 17 g p.o. daily. 23. Potassium chloride. DISCHARGE PLAN: Please continue with physical therapy while at [facility]. New medication Seroquel 200 mg p.o. q.h.s. You have been responding well to this medication, please continue and methadone was discontinued as you have not received a dose since admission on 11/26/19. You are in agreement with this plan. You should return to the hospital if you develop any fevers, shortness of breath, chest pain, dizziness, weakness, or any other concerning symptoms. DISCHARGE CONDITION: Stable. DISCHARGE DISPOSITION: Short-term rehab. This is a summarized report of a complex medical history and hospital stay. For further details, please see the entire medical record. TIME SPENT: Approximately 45 minutes on this discharge. CINDY PEREZ, SALES SERVICE SUPERVISOR [id number]/[facility] #: [id number] [facility] HEALTH SYSTEMRomario
[2019-11-29 19:56] VITALS: BP 135/69
== END 2019-11-29 15:29 | DRG 690 ==
LOC: ED 03:09 → MEDTELE 06:21
PROVIDERS: ADMIT Family Medicine; ATTEND Hospitalist
DX: N39.0 Urinary tract infection, site not specified (principal); G93.40 Encephalopathy, unspecified; E72.20 Disorder of urea cycle metabolism, unspecified; R53.1 Weakness; F31.9 Bipolar disorder, unspecified; F22 Delusional disorders; E87.6 Hypokalemia; I89.0 Lymphedema, not elsewhere classified; R41.0 Disorientation, unspecified; J44.9 Chronic obstructive pulmonary disease, unspecified; M25.561 Pain in right knee; E66.9 Obesity, unspecified; K21.9 Gastro-esophageal reflux disease without esophagitis; F41.9 Anxiety disorder, unspecified; M85.80 Other specified disorders of bone density and structure, unspecified site; F17.210 Nicotine dependence, cigarettes, uncomplicated; G89.29 Other chronic pain; R25.2 Cramp and spasm; F10.21 Alcohol dependence, in remission; Z79.82 Long term (current) use of aspirin; Z68.31 Body mass index [BMI] 31.0-31.9, adult; Z79.891 Long term (current) use of opiate analgesic; Z79.899 Other long term (current) drug therapy; Z91.041 Radiographic dye allergy status; Z91.048 Other nonmedicinal substance allergy status; Z80.3 Family history of malignant neoplasm of breast; Z80.8 Family history of malignant neoplasm of other organs or systems; Z85.3 Personal history of malignant neoplasm of breast; Z85.42 Personal history of malignant neoplasm of other parts of uterus; Z92.3 Personal history of irradiation
CPT/HCPCS: 36415; 70450; 80048; 80053; 80307; 80320; 81003; 81015; 82140; 83605; 83735; 84484; 85025; 86140; 87086; 93005; 94640; 96365; 99284; A9270-GY; G0480; J0696; J1650; J3475; J3480; J3535

== ENCOUNTER 2020-03-09 02:22 | Inpatient (IN) ==
[2020-03-09 03:11] LABS: ABS Basophils 0.1 10^3/ul (0-0.2); ABS Eosinophils 0.2 10^3/ul (0-0.6); ABS Lymphocytes 1.3 10^3/ul (1.0-4.8); ABS Monocytes 0.6 10^3/ul (0-0.8); Eosinophil % 3.1 %; Hematocrit 32 % (35-47); Hemoglobin 11.3 g/dL (12.0-16.0); Lymphocyte % 22.1 %; Mean Corpuscular HGB Conc 35 g/dL (31-36); Mean Corpuscular Hemoglobin 30 pg (27-31); Mean Corpuscular Volume 85 fL (80-97); Mean Platelet Volume 8.3 fL (7.4-10.4); Platelet Count 262 10^3/uL (150-450); Red Blood Count 3.76 10^6 /uL (3.70-4.87); Red Cell Distribution Width 15 % (10-15); White Blood Count 5.9 10^3/uL (3.5-10.8)
[2020-03-09 03:28] LABS: BUN/Creatinine Ratio 36.8 (8-20); C Reactive Protein 64.13 mg/L (<8.01); EGFR Non-African American 105.8 (>60); Potassium 3.1 mmol/L (3.5-5.0)
[2020-03-09] MEDS ORDERED: Potassium Chlor 20 meq TAB.ER PO ONE (04:44)
[2020-03-09] MEDS ORDERED: Magnesium CITRATE LIQ 300 ML BTL PO ONE (04:46)
[2020-03-09 05:07] LABS: Magnesium 1.8 mg/dL (1.9-2.7)
[2020-03-09] MEDS ORDERED: Albuterol 2.5mg/3 ml (0.083%) NEB.SOLN INH PRN (05:24)
[2020-03-09] MEDS ORDERED: Gabapentin 600 mg TAB (NF) PO SCH (09:00)
[2020-03-09] MEDS: Morphine 2 MG/ML SYRINGE IV PRN ×3 (09:08→23:52)
[2020-03-09] MEDS: Multivitamins/Minerals TAB PO SCH (09:45)
[2020-03-09] MEDS: Aspirin EC 81 mg TAB.EC (enteric coated) PO SCH (09:46)
[2020-03-09] MEDS: Potassium Chlor 20 meq TAB.ER PO SCH ×3 (09:46→20:31)
[2020-03-09] MEDS: Enoxaparin 40 MG/0.4 ML SYR(*) SUBCUT SCH (10:02)
[2020-03-09] MEDS: FLUTICASONE INH SCH (11:36)
[2020-03-09] MEDS: VILANTER INH SCH (11:36)
[2020-03-09] MEDS: UMECLIDIN MDI INH SCH (11:36)
[2020-03-09] MEDS ORDERED: Morphine 2 MG/ML SYRINGE IV ONE (12:19)
[2020-03-09] MEDS ORDERED: HYDROmorphone 0.5 MG/0.5 ML SYRINGE IV SLOW PU ONE (12:25)
[2020-03-09] MEDS: HYDROcodone/ACETAMIN 5/325 mg TAB PO PRN (16:54)
[2020-03-09 17:31] LABS: Uric Acid 6.2 mg/dL (2.3-6.6)
[2020-03-09] MEDS: CMCS:Desvenlafaxine 50 mg TAB (NF) PO SCH (22:07)
[2020-03-10 06:42] LABS: Calcium 8.8 mg/dL (8.6-10.3); Magnesium 1.8 mg/dL (1.9-2.7); Potassium 3.6 mmol/L (3.5-5.0)
[2020-03-10 06:48] LABS: BUN/Creatinine Ratio 32.4 (8-20); C Reactive Protein 40.17 mg/L (<8.01); EGFR African American 99.4 (>60); EGFR Non-African American 82.1 (>60)
[2020-03-10] MEDS: FLUTICASONE INH SCH (07:34)
[2020-03-10] MEDS: VILANTER INH SCH (07:34)
[2020-03-10] MEDS: UMECLIDIN MDI INH SCH (07:34)
[2020-03-10] MEDS: Potassium Chlor 20 meq TAB.ER PO SCH ×3 (09:02→22:10)
[2020-03-10] MEDS: Multivitamins/Minerals TAB PO SCH (09:02)
[2020-03-10] MEDS: Aspirin EC 81 mg TAB.EC (enteric coated) PO SCH (09:03)
[2020-03-10] MEDS: Enoxaparin 40 MG/0.4 ML SYR(*) SUBCUT SCH (09:04)
[2020-03-10 09:16] LABS: ABS Basophils 0.1 10^3/ul (0-0.2); ABS Eosinophils 0.3 10^3/ul (0-0.6); ABS Lymphocytes 1.5 10^3/ul (1.0-4.8); ABS Monocytes 0.5 10^3/ul (0-0.8); Eosinophil % 5.9 %; Hematocrit 34 % (35-47); Hemoglobin 11.7 g/dL (12.0-16.0); Lymphocyte % 29.3 %; Mean Corpuscular HGB Conc 35 g/dL (31-36); Mean Corpuscular Hemoglobin 30 pg (27-31); Mean Corpuscular Volume 85 fL (80-97); Mean Platelet Volume 8.6 fL (7.4-10.4); Nucleated Red Blood Cells % 0.1; Platelet Count 266 10^3/uL (150-450); Red Blood Count 3.97 10^6 /uL (3.70-4.87); Red Cell Distribution Width 15 % (10-15); White Blood Count 5.1 10^3/uL (3.5-10.8)
[2020-03-10] MEDS: HYDROcodone/ACETAMIN 5/325 mg TAB PO PRN ×3 (10:56→22:07)
[2020-03-10] MEDS: Nicotine Lozenge mini 2 MG LOZNG.MINI MT PRN ×3 (10:57→23:05)
[2020-03-10] MEDS: Polyethylene Glycol 3350 17 GM PACKET PO PRN (11:01)
[2020-03-10] MEDS: Morphine 2 MG/ML SYRINGE IV PRN ×2 (17:11→23:48)
[2020-03-10] MEDS: Mometasone/Formoter 200/5 MDI INH SCH (19:16)
[2020-03-10] MEDS: CMCS:Desvenlafaxine 50 mg TAB (NF) PO SCH (22:03)
[2020-03-10] MEDS: SPIRIVA Respimat (tiotropium) 2.5 mcg/inh Inhaler INH SCH ×2 (22:25→22:31)
[2020-03-11] MEDS: Morphine 2 MG/ML SYRINGE IV PRN (06:05)
[2020-03-11] MEDS: Mometasone/Formoter 200/5 MDI INH SCH ×2 (07:36→20:40)
[2020-03-11] MEDS: SPIRIVA Respimat (tiotropium) 2.5 mcg/inh Inhaler INH SCH (07:36)
[2020-03-11] MEDS: Potassium Chlor 20 meq TAB.ER PO SCH ×3 (08:16→20:59)
[2020-03-11] MEDS: Multivitamins/Minerals TAB PO SCH (08:16)
[2020-03-11] MEDS: Enoxaparin 40 MG/0.4 ML SYR(*) SUBCUT SCH (08:17)
[2020-03-11] MEDS: Aspirin EC 81 mg TAB.EC (enteric coated) PO SCH (08:17)
[2020-03-11] MEDS: HYDROcodone/ACETAMIN 5/325 mg TAB PO PRN ×3 (12:29→22:49)
[2020-03-11] MEDS: Nicotine Lozenge mini 2 MG LOZNG.MINI MT PRN ×2 (14:03→21:02)
[2020-03-11] MEDS: CMCS:Desvenlafaxine 50 mg TAB (NF) PO SCH (20:58)
[2020-03-12] MEDS: HYDROcodone/ACETAMIN 5/325 mg TAB PO PRN ×5 (03:27→20:54)
[2020-03-12] MEDS: Mometasone/Formoter 200/5 MDI INH SCH ×2 (07:58→19:23)
[2020-03-12] MEDS: SPIRIVA Respimat (tiotropium) 2.5 mcg/inh Inhaler INH SCH (07:58)
[2020-03-12] MEDS: Aspirin EC 81 mg TAB.EC (enteric coated) PO SCH (08:42)
[2020-03-12] MEDS: Potassium Chlor 20 meq TAB.ER PO SCH ×3 (08:43→20:55)
[2020-03-12] MEDS: Multivitamins/Minerals TAB PO SCH (08:43)
[2020-03-12] MEDS: Enoxaparin 40 MG/0.4 ML SYR(*) SUBCUT SCH (08:44)
[2020-03-12] MEDS ORDERED: NS 0.9% 500 ml BAG 500 ML IV ONE ×2 (13:28→16:13)
[2020-03-12] MEDS: Nicotine Lozenge mini 2 MG LOZNG.MINI MT PRN (20:55)
[2020-03-12] MEDS: CMCS:Desvenlafaxine 50 mg TAB (NF) PO SCH (21:02)
[2020-03-13] MEDS: HYDROcodone/ACETAMIN 5/325 mg TAB PO PRN ×5 (00:02→22:31)
[2020-03-13] MEDS ORDERED: Morphine 2 MG/ML SYRINGE IV ONE (02:13)
[2020-03-13] MEDS: SPIRIVA Respimat (tiotropium) 2.5 mcg/inh Inhaler INH SCH (07:11)
[2020-03-13] MEDS: Mometasone/Formoter 200/5 MDI INH SCH ×2 (07:11→19:29)
[2020-03-13] MEDS: Enoxaparin 40 MG/0.4 ML SYR(*) SUBCUT SCH (08:47)
[2020-03-13] MEDS: Aspirin EC 81 mg TAB.EC (enteric coated) PO SCH (08:51)
[2020-03-13] MEDS: Multivitamins/Minerals TAB PO SCH (08:51)
[2020-03-13] MEDS: Potassium Chlor 20 meq TAB.ER PO SCH ×3 (08:52→21:24)
[2020-03-13] MEDS: Polyethylene Glycol 3350 17 GM PACKET PO PRN (09:15)
[2020-03-13] MEDS: CMCS:Desvenlafaxine 50 mg TAB (NF) PO SCH (21:21)
[2020-03-14] MEDS: HYDROcodone/ACETAMIN 5/325 mg TAB PO PRN ×6 (02:47→21:14)
[2020-03-14] MEDS: Potassium Chlor 20 meq TAB.ER PO SCH ×3 (08:01→21:14)
[2020-03-14] MEDS: Enoxaparin 40 MG/0.4 ML SYR(*) SUBCUT SCH (08:02)
[2020-03-14] MEDS: Multivitamins/Minerals TAB PO SCH (08:02)
[2020-03-14] MEDS: Aspirin EC 81 mg TAB.EC (enteric coated) PO SCH (08:02)
[2020-03-14] MEDS: Mometasone/Formoter 200/5 MDI INH SCH ×2 (08:28→19:26)
[2020-03-14] MEDS: SPIRIVA Respimat (tiotropium) 2.5 mcg/inh Inhaler INH SCH (08:28)
[2020-03-14] MEDS: CMCS:Desvenlafaxine 50 mg TAB (NF) PO SCH (21:13)
[2020-03-15] MEDS: HYDROcodone/ACETAMIN 5/325 mg TAB PO PRN ×5 (05:08→19:37)
[2020-03-15] MEDS: SPIRIVA Respimat (tiotropium) 2.5 mcg/inh Inhaler INH SCH (07:58)
[2020-03-15] MEDS: Mometasone/Formoter 200/5 MDI INH SCH ×2 (07:58→19:18)
[2020-03-15] MEDS: Potassium Chlor 20 meq TAB.ER PO SCH ×3 (08:48→19:38)
[2020-03-15] MEDS: Enoxaparin 40 MG/0.4 ML SYR(*) SUBCUT SCH (08:48)
[2020-03-15] MEDS: Multivitamins/Minerals TAB PO SCH (08:49)
[2020-03-15] MEDS: Aspirin EC 81 mg TAB.EC (enteric coated) PO SCH (08:49)
[2020-03-15] MEDS: CMCS:Desvenlafaxine 50 mg TAB (NF) PO SCH (19:37)
[2020-03-16] MEDS: HYDROcodone/ACETAMIN 5/325 mg TAB PO PRN ×4 (00:38→13:39)
[2020-03-16] MEDS: SPIRIVA Respimat (tiotropium) 2.5 mcg/inh Inhaler INH SCH (08:02)
[2020-03-16] MEDS: Mometasone/Formoter 200/5 MDI INH SCH (08:02)
[2020-03-16] MEDS: Potassium Chlor 20 meq TAB.ER PO SCH ×2 (09:01→13:39)
[2020-03-16] MEDS: Multivitamins/Minerals TAB PO SCH (09:01)
[2020-03-16] MEDS: Enoxaparin 40 MG/0.4 ML SYR(*) SUBCUT SCH (09:01)
[2020-03-16] MEDS: Polyethylene Glycol 3350 17 GM PACKET PO PRN (09:01)
[2020-03-16] MEDS: Aspirin EC 81 mg TAB.EC (enteric coated) PO SCH (09:01)
[2020-03-16 13:34] VITALS: BP 111/47
== END 2020-03-16 14:00 | DRG 558 ==
LOC: ED 02:22 → MED 08:20
PROVIDERS: ADMIT Hospitalist; ATTEND Internal Medicine

== ENCOUNTER 2020-04-23 18:36 | Inpatient (IN) ==
[2020-04-23] MEDS ORDERED: Morphine 10 MG/ML VIAL (1 ml) IM ONE (19:23)
[2020-04-23] MEDS ORDERED: HYDROmorphone 1 MG/1 ML SYRINGE IV SLOW PU ONE (21:02)
[2020-04-23 21:46] LABS: ABS Basophils 0.1 10^3/ul (0-0.2); ABS Eosinophils 0.2 10^3/ul (0-0.6); ABS Lymphocytes 1.6 10^3/ul (1.0-4.8); ABS Neutrophils 5.8 10^3/ul (1.5-7.7); Eosinophil % 2.2 %; Hematocrit 32 % (35-47); Hemoglobin 11.4 g/dL (12.0-16.0); Lymphocyte % 18.1 %; Mean Corpuscular HGB Conc 36 g/dL (31-36); Mean Corpuscular Hemoglobin 30 pg (27-31); Mean Corpuscular Volume 85 fL (80-97); Mean Platelet Volume 8.3 fL (7.4-10.4); Platelet Count 218 10^3/uL (150-450); Red Blood Count 3.79 10^6 /uL (3.70-4.87); Red Cell Distribution Width 17 % (10-15); White Blood Count 8.7 10^3/uL (3.5-10.8)
[2020-04-23 22:02] LABS: Albumin 3.6 g/dL (3.2-5.2); Albumin/Globulin Ratio 1.1 (1-3); BUN/Creatinine Ratio 35.3 (8-20); C Reactive Protein 9.42 mg/L (<8.01); Calcium 9.3 mg/dL (8.6-10.3); EGFR African American 104.4 (>60); EGFR Non-African American 86.3 (>60); Globulin 3.2 g/dL (2-4); Magnesium 1.8 mg/dL (1.9-2.7); Potassium 3.5 mmol/L (3.5-5.0); Total Bilirubin 0.4 mg/dL (0.2-1.0); Total Protein 6.8 g/dL (6.4-8.9); Uric Acid 4.3 mg/dL (2.3-6.6)
[2020-04-23 22:49] LABS: TSH Ultra Thyroid Stim Horm 0.85 mcIU/mL (0.34-5.60)
[2020-04-23] MEDS ORDERED: Polyethylene Glycol 3350 17 GM PACKET PO PRN (23:42)
[2020-04-24] MEDS ORDERED: Albuterol HFA INHALER 8 gm MDI INH PRN (01:09)
[2020-04-24] MEDS: Nystatin TOP POWDER 15 GM BTL TOPICAL SCH ×3 (04:27→19:59)
[2020-04-24] MEDS: Heparin 5000 UNITS/ML 1 mL VIAL SUBCUT SCH ×3 (06:01→19:59)
[2020-04-24] MEDS: FLUTICASONE/UMECLIDIN/VILANTER 1 PUFF MDI INH SCH (07:12)
[2020-04-24] MEDS: Multivitamins/Minerals TAB PO SCH (08:56)
[2020-04-24] MEDS: Aspirin EC 81 mg TAB.EC (enteric coated) PO SCH (08:56)
[2020-04-24 11:39] LABS: Urine Appearance Cloudy; Urine Bilirubin Negative (Negative); Urine Blood Negative (Negative); Urine Color Yellow; Urine Glucose Negative (Negative); Urine Ketones Negative (Negative); Urine Nitrite Negative (Negative); Urine Protein Negative (Negative); Urine Specific Gravity 1.025 (1.010-1.030); Urine Urobilinogen Negative (Negative)
[2020-04-24 11:45] LABS: Urine Bacteria Absent (Absent); Urine Red Blood Cell 1+(3-5/hpf) (Absent); Urine Squamous Epithelial Cell Present (Absent); Urine White Blood Cell 2+(11-20/hpf) (Absent)
[2020-04-24] MEDS: CMCS:Desvenlafaxine 50 mg TAB (NF) PO SCH (20:20)
[2020-04-25] MEDS: Heparin 5000 UNITS/ML 1 mL VIAL SUBCUT SCH ×3 (06:00→19:59)
[2020-04-25] MEDS: FLUTICASONE/UMECLIDIN/VILANTER 1 PUFF MDI INH SCH (07:48)
[2020-04-25] MEDS: Aspirin EC 81 mg TAB.EC (enteric coated) PO SCH (10:15)
[2020-04-25] MEDS: Multivitamins/Minerals TAB PO SCH (10:16)
[2020-04-25] MEDS: Nystatin TOP POWDER 15 GM BTL TOPICAL SCH ×3 (10:58→20:01)
[2020-04-25] MEDS: CMCS:Desvenlafaxine 50 mg TAB (NF) PO SCH (19:59)
[2020-04-25] MEDS: Collagenase 250 units/gm OINT 1 tube TOPICAL SCH (20:02)
[2020-04-26] MEDS: Heparin 5000 UNITS/ML 1 mL VIAL SUBCUT SCH ×3 (04:18→21:26)
[2020-04-26] MEDS: FLUTICASONE/UMECLIDIN/VILANTER 1 PUFF MDI INH SCH (07:35)
[2020-04-26] MEDS: Aspirin EC 81 mg TAB.EC (enteric coated) PO SCH (07:53)
[2020-04-26] MEDS: Multivitamins/Minerals TAB PO SCH (07:53)
[2020-04-26] MEDS: Nystatin TOP POWDER 15 GM BTL TOPICAL SCH ×2 (09:18→21:26)
[2020-04-26] MEDS: Collagenase 250 units/gm OINT 1 tube TOPICAL SCH ×2 (09:18→22:07)
[2020-04-26] MEDS: CMCS:Desvenlafaxine 50 mg TAB (NF) PO SCH (21:26)
[2020-04-27] MEDS: Heparin 5000 UNITS/ML 1 mL VIAL SUBCUT SCH ×2 (05:22→13:49)
[2020-04-27] MEDS: FLUTICASONE/UMECLIDIN/VILANTER 1 PUFF MDI INH SCH (07:23)
[2020-04-27] MEDS: Multivitamins/Minerals TAB PO SCH (08:23)
[2020-04-27] MEDS: Aspirin EC 81 mg TAB.EC (enteric coated) PO SCH (08:23)
[2020-04-27] MEDS: Collagenase 250 units/gm OINT 1 tube TOPICAL SCH (08:23)
[2020-04-27] MEDS: Nystatin TOP POWDER 15 GM BTL TOPICAL SCH (08:24)
[2020-04-27 12:11] VITALS: BP 103/52
== END 2020-04-27 14:30 | DRG 556 ==
LOC: ED 18:36 → MED 18:36 → OBSVTOIN 23:44 → MED 04-24 01:26
PROVIDERS: ADMIT Internal Medicine; ATTEND Internal Medicine

== ENCOUNTER 2020-06-03 15:06 | Inpatient (IN) ==
[2020-06-03 15:56] LABS: ABS Basophils 0.1 10^3/ul (0-0.2); ABS Eosinophils 0.1 10^3/ul (0-0.6); ABS Lymphocytes 1.5 10^3/ul (1.0-4.8); ABS Monocytes 0.4 10^3/ul (0-0.8); ABS Neutrophils 2.6 10^3/ul (1.5-7.7); Eosinophil % 2.7 %; Hematocrit 34 % (35-47); Hemoglobin 11.5 g/dL (12.0-16.0); Lymphocyte % 30.9 %; Mean Corpuscular HGB Conc 34 g/dL (31-36); Mean Corpuscular Hemoglobin 28 pg (27-31); Mean Corpuscular Volume 83 fL (80-97); Mean Platelet Volume 8.4 fL (7.4-10.4); Platelet Count 229 10^3/uL (150-450); Red Blood Count 4.12 10^6 /uL (3.70-4.87); Red Cell Distribution Width 17 % (10-15); White Blood Count 4.7 10^3/uL (3.5-10.8)
[2020-06-03 16:05] LABS: INR 1.02 (0.82-1.09)
[2020-06-03] MEDS ORDERED: Ondansetron 4 mg VIAL 2 MG/ML 2 ml VIAL IV PRN (16:11)
[2020-06-03 16:13] LABS: Albumin 3.1 g/dL (3.2-5.2); BUN/Creatinine Ratio 20.3 (8-20); Calcium 8.6 mg/dL (8.6-10.3); EGFR African American 94.7 (>60); EGFR Non-African American 78.3 (>60); Globulin 3.1 g/dL (2-4); Potassium 4.2 mmol/L (3.5-5.0); Total Bilirubin 0.3 mg/dL (0.2-1.0); Total Protein 6.2 g/dL (6.4-8.9)
[2020-06-03] MEDS ORDERED: Heparin 5000 UNITS/ML 1 mL VIAL SUBCUT ONE (16:13)
[2020-06-03] MEDS: oxyCODONE SR 10 mg TAB PO PRN (19:49)
[2020-06-03] MEDS: CMCS:Desvenlafaxine 50 mg TAB (NF) PO SCH (19:57)
[2020-06-03] MEDS ORDERED: DOXYCYCLINE HYCLATE 100 MG PO SCH (21:00)
[2020-06-03] MEDS: Diclofenac 1% GEL (NF) 100 GM TUBE TOPICAL SCH (22:45)
[2020-06-03] MEDS: Collagenase 250 units/gm OINT 1 tube TOPICAL SCH (22:45)
[2020-06-04] MEDS: Diclofenac 1% GEL (NF) 100 GM TUBE TOPICAL SCH ×2 (08:41→21:40)
[2020-06-04] MEDS: oxyCODONE SR 10 mg TAB PO PRN (08:47)
[2020-06-04] MEDS: SPIRIVA Respimat (tiotropium) 2.5 mcg/inh Inhaler INH SCH (08:49)
[2020-06-04] MEDS: Mometasone/Formoter 100/5 MDI INH SCH ×2 (08:50→19:20)
[2020-06-04] MEDS: Collagenase 250 units/gm OINT 1 tube TOPICAL SCH (08:59)
[2020-06-04] MEDS ORDERED: Influenza VAC *QUAD* 2020-21* 0.5 ML SYRINGE IM ONE (09:00)
[2020-06-04] MEDS: Morphine 2 MG/ML SYRINGE IV PRN (12:40)
[2020-06-04] MEDS ORDERED: ceFAZolin 2 GM PREMIX 2 GM/50 ML BAG ONE (15:58)
[2020-06-04] MEDS ORDERED: Propofol 10 MG/ML 20 ML BTL ONE (19:06)
[2020-06-04] MEDS ORDERED: Succinylcholine 200 mg VIAL 20 mg/ml 10 ml VIAL (200 mg) ONE (19:06)
[2020-06-04] MEDS ORDERED: Lidocaine 2% PF 5 ML VIAL ONE (19:06)
[2020-06-04] MEDS ORDERED: Midazolam 5 mg/5 ml VIAL 1 mg/ml 5 ml VIAL (5 mg) ONE (19:06)
[2020-06-04] MEDS ORDERED: Rocuronium 50 mg VIAL 10 mg/ml 5 ml VIAL (50 mg) ONE ×2 (19:06→19:36)
[2020-06-04] MEDS ORDERED: fentaNYL 250 mcg/5 ml 50 MCG/ML 5 ml VIAL (250 MCG) ONE (19:06)
[2020-06-04] MEDS ORDERED: Phenylephrine 40 mcg/mL 10mL (400mcg) SYRINGE ONE (19:34)
[2020-06-04] MEDS ORDERED: ROPIVACAINE 5 MG/ML 30 ML BTL (0.5%) ONE (19:35)
[2020-06-04] MEDS ORDERED: fentaNYL 100 mcg/2 ml 50 MCG/ML VIAL ONE ×4 (20:21→21:26)
[2020-06-04] MEDS ORDERED: HYDROcodone/ACETAMIN 5/325 mg TAB PO PRN (21:10)
[2020-06-04] MEDS ORDERED: oxyCODONE/Acetamin 5/325 mg TAB PO PRN (21:10)
[2020-06-04] MEDS ORDERED: Naloxone 0.4 mg VIAL 0.4 mg/ml 1 ml VIAL IV PRN (21:10)
[2020-06-04] MEDS ORDERED: Morphine 4 MG/ML VIAL (1 ml) ONE (21:12)
[2020-06-04] MEDS: fentaNYL 100 mcg/2 ml 50 MCG/ML VIAL IV PRN ×4 (21:13→21:53)
[2020-06-04] MEDS: Morphine 4 MG/ML VIAL (1 ml) IV PRN ×2 (21:18→21:25)
[2020-06-04] MEDS ORDERED: oxyCODONE/Acetamin 5/325 mg TAB ONE (21:26)
[2020-06-04] MEDS: CMCS:Desvenlafaxine 50 mg TAB (NF) PO SCH (21:40)
[2020-06-05] MEDS: Morphine 2 MG/ML SYRINGE IV PRN (01:32)
[2020-06-05] MEDS: HYDROmorphone 1 MG/1 ML SYRINGE IV SLOW PU PRN ×3 (03:03→09:34)
[2020-06-05] MEDS: ceFAZolin 1 GM in Dextrose 1 GM/50 ML BAG IVPB SCH ×3 (03:03→19:36)
[2020-06-05] MEDS ORDERED: HYDROmorphone 0.5 MG/0.5 ML SYRINGE IV SLOW PU ONE (04:12)
[2020-06-05 07:27] LABS: BUN/Creatinine Ratio 17.6 (8-20); Calcium 8.3 mg/dL (8.6-10.3); EGFR African American 94.7 (>60); EGFR Non-African American 78.3 (>60); Magnesium 1.7 mg/dL (1.9-2.7); Potassium 3.8 mmol/L (3.5-5.0)
[2020-06-05 08:50] LABS: ABS Eosinophils 0.1 10^3/ul (0-0.6); ABS Lymphocytes 0.9 10^3/ul (1.0-4.8); ABS Monocytes 0.6 10^3/ul (0-0.8); ABS Neutrophils 4.9 10^3/ul (1.5-7.7); Eosinophil % 0.9 %; Hematocrit 32 % (35-47); Hemoglobin 10.9 g/dL (12.0-16.0); Lymphocyte % 13.5 %; Mean Corpuscular HGB Conc 34 g/dL (31-36); Mean Corpuscular Hemoglobin 28 pg (27-31); Mean Corpuscular Volume 83 fL (80-97); Mean Platelet Volume 8.5 fL (7.4-10.4); Platelet Count 191 10^3/uL (150-450); Red Blood Count 3.89 10^6 /uL (3.70-4.87); Red Cell Distribution Width 17 % (10-15); White Blood Count 6.5 10^3/uL (3.5-10.8)
[2020-06-05] MEDS ORDERED: Influenza VAC *QUAD* 2020-21* 0.5 ML SYRINGE IM ONE (09:00)
[2020-06-05] MEDS: SPIRIVA Respimat (tiotropium) 2.5 mcg/inh Inhaler INH SCH (09:21)
[2020-06-05] MEDS: Mometasone/Formoter 100/5 MDI INH SCH ×2 (09:21→19:04)
[2020-06-05] MEDS ORDERED: Magnesium Sulfate 2 gm BAG 2 GM/50 ML BAG IVPB ONE (09:58)
[2020-06-05] MEDS: Polyethylene Glycol 3350 17 GM PACKET PO PRN (10:19)
[2020-06-05] MEDS: oxyCODONE SR 10 mg TAB PO PRN ×2 (10:19→22:46)
[2020-06-05] MEDS ORDERED: Senna TAB 8.6 mg TAB PO PRN (10:45)
[2020-06-05] MEDS ORDERED: HYDROmorphone 1 MG/1 ML SYRINGE IV SLOW PU PRN (10:51)
[2020-06-05] MEDS: CMCS:Desvenlafaxine 50 mg TAB (NF) PO SCH (21:20)
[2020-06-05] MEDS: Magnesium Hydroxide LIQ 30 ML UDC PO PRN (21:21)
[2020-06-05] MEDS ORDERED: NS 0.9% 1000 ml BAG 1,000 ML IV ONE (22:20)
[2020-06-06 08:35] LABS: ABS Eosinophils 0.1 10^3/ul (0-0.6); ABS Lymphocytes 1.2 10^3/ul (1.0-4.8); ABS Monocytes 0.6 10^3/ul (0-0.8); ABS Neutrophils 3.1 10^3/ul (1.5-7.7); Eosinophil % 2.2 %; Hematocrit 28 % (35-47); Hemoglobin 9.4 g/dL (12.0-16.0); Lymphocyte % 24.2 %; Mean Corpuscular HGB Conc 34 g/dL (31-36); Mean Corpuscular Hemoglobin 28 pg (27-31); Mean Corpuscular Volume 83 fL (80-97); Mean Platelet Volume 8.5 fL (7.4-10.4); Platelet Count 166 10^3/uL (150-450); Red Blood Count 3.32 10^6 /uL (3.70-4.87); Red Cell Distribution Width 17 % (10-15); White Blood Count 5.1 10^3/uL (3.5-10.8)
[2020-06-06] MEDS: Magnesium Hydroxide LIQ 30 ML UDC PO PRN (08:36)
[2020-06-06] MEDS: Mometasone/Formoter 100/5 MDI INH SCH ×2 (08:37→19:51)
[2020-06-06] MEDS: SPIRIVA Respimat (tiotropium) 2.5 mcg/inh Inhaler INH SCH (08:38)
[2020-06-06] MEDS: Polyethylene Glycol 3350 17 GM PACKET PO PRN (08:42)
[2020-06-06 08:44] LABS: BUN/Creatinine Ratio 18.7 (8-20); EGFR African American 93.3 (>60); EGFR Non-African American 77.1 (>60)
[2020-06-06] MEDS: oxyCODONE SR 10 mg TAB PO PRN (12:39)
[2020-06-06] MEDS: CMCS:Desvenlafaxine 50 mg TAB (NF) PO SCH (22:02)
[2020-06-07 05:14] LABS: Hematocrit 26 % (35-47); Hemoglobin 9.1 g/dL (12.0-16.0)
[2020-06-07 05:32] LABS: BUN/Creatinine Ratio 17.6 (8-20); Calcium 8.3 mg/dL (8.6-10.3); EGFR African American 74.6 (>60); EGFR Non-African American 61.7 (>60); Potassium 3.4 mmol/L (3.5-5.0)
[2020-06-07] MEDS: oxyCODONE SR 10 mg TAB PO PRN ×2 (06:13→18:10)
[2020-06-07] MEDS ORDERED: Potassium Chloride LIQUID 20 MEQ/15 ML LIQUID PO ONE (06:47)
[2020-06-07] MEDS ORDERED: Potassium Chlor 20 meq TAB.ER PO ONE (08:00)
[2020-06-07] MEDS: SPIRIVA Respimat (tiotropium) 2.5 mcg/inh Inhaler INH SCH (08:56)
[2020-06-07] MEDS: Mometasone/Formoter 100/5 MDI INH SCH ×2 (08:57→19:31)
[2020-06-07] MEDS: CMCS:Desvenlafaxine 50 mg TAB (NF) PO SCH (22:29)
[2020-06-08 05:54] LABS: Hematocrit 28 % (35-47); Hemoglobin 9.6 g/dL (12.0-16.0)
[2020-06-08] MEDS: oxyCODONE SR 10 mg TAB PO PRN (06:10)
[2020-06-08 06:25] LABS: BUN/Creatinine Ratio 14.7 (8-20); Calcium 8.8 mg/dL (8.6-10.3); EGFR African American 93.3 (>60); EGFR Non-African American 77.1 (>60); Potassium 4.4 mmol/L (3.5-5.0)
[2020-06-08 08:26] VITALS: BP 104/40
[2020-06-08] MEDS: SPIRIVA Respimat (tiotropium) 2.5 mcg/inh Inhaler INH SCH (08:26)
[2020-06-08] MEDS: Mometasone/Formoter 100/5 MDI INH SCH (08:26)
== END 2020-06-08 09:50 | DRG 489 ==
LOC: ED 15:06 → SSU 15:06 → OBSVTOIN 16:11 → SSU 17:16
PROVIDERS: ADMIT Pediatrics; ATTEND Orthopaedic Surgery Adult Reconstructive Orthopaedic Surgery

== ENCOUNTER 2020-10-14 12:24 | Inpatient (IN) ==
[2020-10-14 14:55] LABS: ABS Basophils 0.1 10^3/ul (0-0.2); ABS Eosinophils 0.2 10^3/ul (0-0.6); ABS Lymphocytes 1.3 10^3/ul (1.0-4.8); ABS Monocytes 0.6 10^3/ul (0-0.8); ABS Neutrophils 4.4 10^3/ul (1.5-7.7); Eosinophil % 2.7 %; Hematocrit 35 % (35-47); Hemoglobin 11.9 g/dL (12.0-16.0); Lymphocyte % 20.4 %; Mean Corpuscular HGB Conc 34 g/dL (31-36); Mean Corpuscular Hemoglobin 30 pg (27-31); Mean Corpuscular Volume 87 fL (80-97); Mean Platelet Volume 8.3 fL (7.4-10.4); Platelet Count 258 10^3/uL (150-450); Red Blood Count 4.02 10^6 /uL (3.70-4.87); Red Cell Distribution Width 15 % (10-15); White Blood Count 6.6 10^3/uL (3.5-10.8)
[2020-10-14 14:59] LABS: INR 1.21 (0.82-1.09)
[2020-10-14 15:22] LABS: BUN/Creatinine Ratio 30.3 (8-20); Blood Urea Nitrogen 20 mg/dL (6-24); C Reactive Protein 49.32 mg/L (<8.01); CO2 Carbon Dioxide 23 mmol/L (22-32); Calcium 8.9 mg/dL (8.6-10.3); Chloride 105 mmol/L (101-111); EGFR African American 107.8 (>60); EGFR Non-African American 89.1 (>60); Glucose 92 mg/dL (70-100); Sodium 135 mmol/L (135-145)
[2020-10-14 15:47] LABS: Anion Gap 7 mmol/L (2-11)
[2020-10-14] MEDS ORDERED: Morphine 2 MG/ML SYRINGE IV PRN (16:10)
[2020-10-14] MEDS ORDERED: Ondansetron ODT 4 mg TAB 4 MG TAB PO PRN (16:10)
[2020-10-14] MEDS ORDERED: Ondansetron 4 mg VIAL 2 MG/ML 2 ml VIAL IV PRN (16:10)
[2020-10-14] MEDS ORDERED: diPHENhydraMINE IV 50 MG/ML 1 ml VIAL (BENADRYL) IV PRN (16:10)
[2020-10-14] MEDS ORDERED: Magnesium Hydroxide LIQ 30 ML UDC PO PRN ×2 (16:10→16:15)
[2020-10-14] MEDS ORDERED: Lactulose 30 ml UDC PO PRN (16:10)
[2020-10-14 16:44] LABS: Erythrocyte Sed Rate 109 mm/Hr (0-29)
[2020-10-14] MEDS ORDERED: Vancomycin per Pharmacy 1 EA NOTE FOLLOW UP SCH (18:00)
[2020-10-14] MEDS ORDERED: Vancomycin 1500 MG IV - x ONCE IVPB ONE (18:00)
[2020-10-14 19:14] LABS: TSH Ultra Thyroid Stim Horm 1.11 mcIU/mL (0.34-5.60)
[2020-10-14] MEDS ORDERED: Cefepime 2 GM in Dextrose 2 GM/50 ML BAG IV SCH (19:30)
[2020-10-14 19:48] LABS: Activated Partial Thrombo Time 29.5 seconds (26.0-38.0); INR 1.18 (0.82-1.09)
[2020-10-14 20:05] LABS: EGFR African American 100.7 (>60); EGFR Non-African American 83.2 (>60)
[2020-10-14] MEDS: Magnesium Hydroxide LIQ 30 ML UDC PO SCH (20:25)
[2020-10-14] MEDS: Senna TAB 8.6 mg TAB PO SCH (20:26)
[2020-10-14] MEDS: Morphine ER 15 mg TAB ** extended release PO SCH (20:26)
[2020-10-14] MEDS ORDERED: Sulfamethox/Trimethoprim DS TAB 800/160 mg PO SCH (21:00)
[2020-10-14] MEDS ORDERED: Heparin 5000 UNITS/ML 1 mL VIAL SUBCUT SCH (22:00)
[2020-10-14 23:00] LABS: ABS Basophils 0.1 10^3/ul (0-0.2); ABS Eosinophils 0.1 10^3/ul (0-0.6); ABS Lymphocytes 1.3 10^3/ul (1.0-4.8); ABS Monocytes 0.4 10^3/ul (0-0.8); ABS Neutrophils 3.8 10^3/ul (1.5-7.7); Eosinophil % 1.9 %; Hematocrit 32 % (35-47); Hemoglobin 11.2 g/dL (12.0-16.0); Lymphocyte % 22.9 %; Mean Corpuscular HGB Conc 35 g/dL (31-36); Mean Corpuscular Hemoglobin 29 pg (27-31); Mean Corpuscular Volume 84 fL (80-97); Platelet Count 251 10^3/uL (150-450); Red Blood Count 3.84 10^6 /uL (3.70-4.87); Red Cell Distribution Width 15 % (10-15); White Blood Count 5.5 10^3/uL (3.5-10.8)
[2020-10-15] MEDS ORDERED: Buffered Lidocaine 1% SYRIN 1 ml INTRADERM ONE (06:00)
[2020-10-15 06:16] LABS: ABS Eosinophils 0.2 10^3/ul (0-0.6); ABS Lymphocytes 1.4 10^3/ul (1.0-4.8); ABS Monocytes 0.4 10^3/ul (0-0.8); ABS Neutrophils 2.6 10^3/ul (1.5-7.7); Eosinophil % 4.3 %; Hematocrit 32 % (35-47); Hemoglobin 11.1 g/dL (12.0-16.0); Lymphocyte % 30.8 %; Mean Corpuscular HGB Conc 35 g/dL (31-36); Mean Corpuscular Hemoglobin 29 pg (27-31); Mean Corpuscular Volume 85 fL (80-97); Mean Platelet Volume 8.5 fL (7.4-10.4); Platelet Count 258 10^3/uL (150-450); Red Blood Count 3.76 10^6 /uL (3.70-4.87); Red Cell Distribution Width 14 % (10-15); White Blood Count 4.7 10^3/uL (3.5-10.8)
[2020-10-15 06:20] LABS: INR 1.16 (0.82-1.09)
[2020-10-15 06:30] LABS: BUN/Creatinine Ratio 22.9 (8-20); Calcium 8.7 mg/dL (8.6-10.3); EGFR African American 100.7 (>60); EGFR Non-African American 83.2 (>60)
[2020-10-15] MEDS: VANCOMYCIN 1500 MG IVPB SCH (06:52)
[2020-10-15] MEDS ORDERED: Perflutren Lipid Microsphere 3 ML VIAL ONE (08:03)
[2020-10-15] MEDS: Magnesium Hydroxide LIQ 30 ML UDC PO SCH (08:21)
[2020-10-15] MEDS: Senna TAB 8.6 mg TAB PO SCH (08:34)
[2020-10-15] MEDS: Morphine ER 15 mg TAB ** extended release PO SCH (08:35)
[2020-10-15] MEDS: DULoxetine DR 30 mg CAP PO SCH (08:36)
[2020-10-15] MEDS: Vitamin THERAPEUTIC TAB PO SCH (08:53)
[2020-10-15] MEDS: Cefepime 2 GM in Dextrose 2 GM/50 ML BAG IV SCH (09:38)
[2020-10-15] MEDS: Mometasone 220 MCG MDI INH SCH (10:27)
[2020-10-15] MEDS: Tiotropium Brom/Olodaterol MDI INH SCH (10:27)
[2020-10-15] MEDS: Lactated Ringers 1000 ml BAG 1,000 ML IV SCH (13:53)
[2020-10-15] MEDS ORDERED: ceFAZolin 2 GM PREMIX 2 GM/50 ML BAG ONE (18:03)
[2020-10-15] MEDS ORDERED: Bacitracin INJECTION 50,000 UNITS ONE (19:18)
[2020-10-15] MEDS ORDERED: fentaNYL 100 mcg/2 ml 50 MCG/ML VIAL ONE (19:29)
[2020-10-15] MEDS ORDERED: Lidocaine 2% PF 5 ML VIAL ONE (19:29)
[2020-10-15] MEDS ORDERED: Rocuronium 50 mg VIAL 10 mg/ml 5 ml VIAL (50 mg) ONE (19:29)
[2020-10-15] MEDS ORDERED: Propofol 10 MG/ML 20 ML BTL ONE (19:29)
[2020-10-15] MEDS ORDERED: Ketamine HCL 50 mg/ml 10 ml VIAL (500 MG) ONE (20:58)
[2020-10-15] MEDS ORDERED: Ondansetron 4 mg VIAL 2 MG/ML 2 ml VIAL ONE (22:01)
[2020-10-15] MEDS ORDERED: Dexamethasone IV 4 MG/ML VIAL 1 ml VIAL ONE (22:01)
[2020-10-16] MEDS: Lactated Ringers 1000 ml BAG 1,000 ML IV SCH (00:55)
[2020-10-16] MEDS: VANCOMYCIN 1500 MG IVPB SCH ×3 (00:58→13:27)
[2020-10-16] MEDS: Morphine ER 15 mg TAB ** extended release PO SCH ×4 (01:03→20:34)
[2020-10-16] MEDS: Magnesium Hydroxide LIQ 30 ML UDC PO SCH ×3 (01:04→20:35)
[2020-10-16] MEDS: Senna TAB 8.6 mg TAB PO SCH ×3 (01:05→20:35)
[2020-10-16] MEDS: Cefepime 2 GM in Dextrose 2 GM/50 ML BAG IV SCH ×5 (02:14→16:36)
[2020-10-16 04:14] LABS: Urine Appearance Cloudy; Urine Bilirubin Negative (Negative); Urine Blood Negative (Negative); Urine Color Yellow; Urine Glucose Negative (Negative); Urine Ketones Trace (Negative); Urine Nitrite Negative (Negative); Urine Protein Negative (Negative); Urine Specific Gravity 1.021 (1.010-1.030); Urine Urobilinogen Negative (Negative)
[2020-10-16 05:22] LABS: ABS Lymphocytes 0.5 10^3/ul (1.0-4.8); ABS Monocytes 0.1 10^3/ul (0-0.8); ABS Neutrophils 3.8 10^3/ul (1.5-7.7); Eosinophil % 0.2 %; Hematocrit 32 % (35-47); Hemoglobin 11.1 g/dL (12.0-16.0); Lymphocyte % 11.4 %; Mean Corpuscular HGB Conc 35 g/dL (31-36); Mean Corpuscular Hemoglobin 29 pg (27-31); Mean Corpuscular Volume 85 fL (80-97); Mean Platelet Volume 8.2 fL (7.4-10.4); Nucleated Red Blood Cells % 0.1; Platelet Count 258 10^3/uL (150-450); Red Blood Count 3.78 10^6 /uL (3.70-4.87); Red Cell Distribution Width 14 % (10-15); White Blood Count 4.4 10^3/uL (3.5-10.8)
[2020-10-16 05:37] LABS: Vancomycin Trough 29.3 mcg/mL
[2020-10-16] MEDS ORDERED: Vancomycin Trough Check NOTE FOLLOW UP ONE (06:00)
[2020-10-16] MEDS: DULoxetine DR 30 mg CAP PO SCH (08:32)
[2020-10-16] MEDS: Vitamin THERAPEUTIC TAB PO SCH (08:33)
[2020-10-16] MEDS: Tiotropium Brom/Olodaterol MDI INH SCH (08:36)
[2020-10-16] MEDS: Mometasone 220 MCG MDI INH SCH (08:36)
[2020-10-16 09:17] LABS: Calcium 8.6 mg/dL (8.6-10.3); Potassium 3.9 mmol/L (3.5-5.0)
[2020-10-16 09:23] LABS: BUN/Creatinine Ratio 20.3 (8-20); C Reactive Protein 53.98 mg/L (<8.01); EGFR African American 111.7 (>60); EGFR Non-African American 92.3 (>60)
[2020-10-16] MEDS: Enoxaparin 40 MG/0.4 ML SYR SUBCUT SCH (11:43)
[2020-10-17] MEDS: VANCOMYCIN 1500 MG IVPB SCH ×2 (01:44→13:54)
[2020-10-17] MEDS: Cefepime 2 GM in Dextrose 2 GM/50 ML BAG IV SCH ×2 (03:47→14:30)
[2020-10-17 06:20] LABS: ABS Eosinophils 0.2 10^3/ul (0-0.6); ABS Lymphocytes 1.4 10^3/ul (1.0-4.8); ABS Monocytes 0.3 10^3/ul (0-0.8); ABS Neutrophils 1.5 10^3/ul (1.5-7.7); Eosinophil % 5.3 %; Hematocrit 29 % (35-47); Hemoglobin 9.9 g/dL (12.0-16.0); Lymphocyte % 40.4 %; Mean Corpuscular HGB Conc 34 g/dL (31-36); Mean Corpuscular Hemoglobin 29 pg (27-31); Mean Corpuscular Volume 85 fL (80-97); Mean Platelet Volume 8.3 fL (7.4-10.4); Nucleated Red Blood Cells % 0.1; Platelet Count 252 10^3/uL (150-450); Red Blood Count 3.42 10^6 /uL (3.70-4.87); Red Cell Distribution Width 14 % (10-15); White Blood Count 3.5 10^3/uL (3.5-10.8)
[2020-10-17 06:30] LABS: Calcium 8.2 mg/dL (8.6-10.3); EGFR African American 125.1 (>60); EGFR Non-African American 103.4 (>60); Potassium 3.3 mmol/L (3.5-5.0)
[2020-10-17 06:44] LABS: Urine Appearance Cloudy; Urine Bilirubin Negative (Negative); Urine Blood Negative (Negative); Urine Color Yellow; Urine Glucose Negative (Negative); Urine Ketones Negative (Negative); Urine Nitrite Negative (Negative); Urine Protein 1+(30 mg/dL) (Negative); Urine Specific Gravity 1.012 (1.010-1.030); Urine Urobilinogen Negative (Negative)
[2020-10-17 06:48] LABS: Urine Bacteria Absent (Absent); Urine Red Blood Cell Absent (Absent); Urine Squamous Epithelial Cell Present (Absent); Urine White Blood Cell Trace(0-5/hpf) (Absent)
[2020-10-17] MEDS: Albuterol HFA INHALER 8 gm MDI INH PRN (09:03)
[2020-10-17] MEDS: Tiotropium Brom/Olodaterol MDI INH SCH (09:04)
[2020-10-17] MEDS: Mometasone 220 MCG MDI INH SCH (09:04)
[2020-10-17] MEDS: Magnesium Hydroxide LIQ 30 ML UDC PO SCH ×2 (09:22→20:03)
[2020-10-17] MEDS: DULoxetine DR 30 mg CAP PO SCH (09:23)
[2020-10-17] MEDS: Morphine ER 15 mg TAB ** extended release PO SCH ×2 (09:23→20:00)
[2020-10-17] MEDS: Senna TAB 8.6 mg TAB PO SCH ×2 (09:23→20:00)
[2020-10-17] MEDS: Vitamin THERAPEUTIC TAB PO SCH (09:24)
[2020-10-17] MEDS: Enoxaparin 40 MG/0.4 ML SYR SUBCUT SCH (10:46)
[2020-10-17] MEDS ORDERED: Vancomycin Trough Check NOTE FOLLOW UP ONE (12:30)
[2020-10-17] MEDS: Vancomycin 1,250 MG in NS 0.9% 250 ml 250 ML IVPB SCH (20:06)
[2020-10-17] MEDS: KCL 20 MEQ/100 ML IVPREMIX 20 MEQ/100 ML BAG IV SCH (21:55)
[2020-10-18] MEDS: Cefepime 2 GM in Dextrose 2 GM/50 ML BAG IV SCH ×2 (02:02→14:57)
[2020-10-18] MEDS: KCL 20 MEQ/100 ML IVPREMIX 20 MEQ/100 ML BAG IV SCH (03:36)
[2020-10-18 06:32] LABS: Hematocrit 30 % (35-47); Hemoglobin 10.4 g/dL (12.0-16.0); Platelet Count 266 10^3/uL (150-450)
[2020-10-18 06:49] LABS: BUN/Creatinine Ratio 15.6 (8-20); Calcium 8.4 mg/dL (8.6-10.3); EGFR African American 111.7 (>60); EGFR Non-African American 92.3 (>60); Potassium 3.7 mmol/L (3.5-5.0)
[2020-10-18 07:45] LABS: C Reactive Protein 13.85 mg/L (<8.01)
[2020-10-18] MEDS: Mometasone 220 MCG MDI INH SCH (07:45)
[2020-10-18] MEDS: Tiotropium Brom/Olodaterol MDI INH SCH (07:45)
[2020-10-18] MEDS: Albuterol HFA INHALER 8 gm MDI INH PRN (07:46)
[2020-10-18] MEDS: Vancomycin 1,250 MG in NS 0.9% 250 ml 250 ML IVPB SCH ×2 (08:12→20:47)
[2020-10-18] MEDS: Vitamin THERAPEUTIC TAB PO SCH (08:13)
[2020-10-18] MEDS: Morphine ER 15 mg TAB ** extended release PO SCH ×2 (08:14→20:47)
[2020-10-18] MEDS: DULoxetine DR 30 mg CAP PO SCH (08:15)
[2020-10-18] MEDS: Magnesium Hydroxide LIQ 30 ML UDC PO SCH ×2 (08:48→20:48)
[2020-10-18] MEDS: Senna TAB 8.6 mg TAB PO SCH ×2 (08:49→20:48)
[2020-10-18] MEDS: Enoxaparin 40 MG/0.4 ML SYR SUBCUT SCH (11:33)
[2020-10-18] MEDS: Lactated Ringers 1000 ml BAG 1,000 ML IV SCH (11:38)
[2020-10-18] MEDS: diPHENhydraMINE 25 mg TAB PO PRN (22:35)
[2020-10-19] MEDS: Cefepime 2 GM in Dextrose 2 GM/50 ML BAG IV SCH (04:42)
[2020-10-19] MEDS: Mometasone 220 MCG MDI INH SCH (07:28)
[2020-10-19] MEDS: Tiotropium Brom/Olodaterol MDI INH SCH (07:28)
[2020-10-19] MEDS ORDERED: Vancomycin Trough Check NOTE FOLLOW UP ONE (07:30)
[2020-10-19 08:23] LABS: Hematocrit 31 % (35-47); Mean Platelet Volume 7.8 fL (7.4-10.4); Platelet Count 266 10^3/uL (150-450)
[2020-10-19 08:37] LABS: BUN/Creatinine Ratio 11.7 (8-20); Calcium 8.8 mg/dL (8.6-10.3); EGFR African American 120.3 (>60); EGFR Non-African American 99.4 (>60); Potassium 3.7 mmol/L (3.5-5.0)
[2020-10-19] MEDS: Vancomycin 1,250 MG in NS 0.9% 250 ml 250 ML IVPB SCH (08:57)
[2020-10-19] MEDS: DULoxetine DR 30 mg CAP PO SCH (09:45)
[2020-10-19] MEDS: Morphine ER 15 mg TAB ** extended release PO SCH ×2 (09:45→19:54)
[2020-10-19] MEDS: Vitamin THERAPEUTIC TAB PO SCH (09:46)
[2020-10-19] MEDS: Senna TAB 8.6 mg TAB PO SCH ×2 (10:25→19:55)
[2020-10-19] MEDS: Magnesium Hydroxide LIQ 30 ML UDC PO SCH ×2 (10:25→19:55)
[2020-10-19] MEDS: Enoxaparin 40 MG/0.4 ML SYR SUBCUT SCH (13:40)
[2020-10-19] MEDS: cefTRIAXone 1 gm/50 mL NS BAG 1 GM/50 ML BAG IVPB SCH (13:41)
[2020-10-19] MEDS: diPHENhydraMINE 25 mg TAB PO PRN (19:54)
[2020-10-19] MEDS ORDERED: Vancomycin 750 MG in NS 0.9% 250 ML IVPB SCH (20:00)
[2020-10-20] MEDS ORDERED: Propofol 10 MG/ML 20 ML BTL ONE (06:48)
[2020-10-20] MEDS ORDERED: Lidocaine 2% PF 5 ML VIAL ONE (06:49)
[2020-10-20] MEDS ORDERED: Midazolam 2 mg/2 ml VIAL 1 mg/ml 2 ml VIAL (2 mg) ONE (07:09)
[2020-10-20] MEDS ORDERED: fentaNYL 250 mcg/5 ml 50 MCG/ML 5 ml VIAL (250 MCG) ONE (07:09)
[2020-10-20] MEDS ORDERED: ceFAZolin 2 GM PREMIX 2 GM/50 ML BAG ONE (07:23)
[2020-10-20] MEDS ORDERED: Vancomycin Trough Check NOTE FOLLOW UP ONE (07:30)
[2020-10-20 07:32] LABS: Hematocrit 33 % (35-47); Hemoglobin 11.3 g/dL (12.0-16.0); Mean Platelet Volume 8.2 fL (7.4-10.4); Platelet Count 273 10^3/uL (150-450)
[2020-10-20] MEDS: Mometasone 220 MCG MDI INH SCH ×2 (07:36→10:43)
[2020-10-20] MEDS: Tiotropium Brom/Olodaterol MDI INH SCH ×2 (07:37→10:43)
[2020-10-20] MEDS ORDERED: Bacitracin INJECTION 50,000 UNITS ONE ×2 (07:44→07:49)
[2020-10-20] MEDS ORDERED: Rocuronium 50 mg VIAL 10 mg/ml 5 ml VIAL (50 mg) ONE (07:46)
[2020-10-20 07:52] LABS: Anion Gap 7 mmol/L (2-11); BUN/Creatinine Ratio 20.9 (8-20); Blood Urea Nitrogen 14 mg/dL (6-24); C Reactive Protein 9.38 mg/L (<8.01); CO2 Carbon Dioxide 23 mmol/L (22-32); Calcium 8.9 mg/dL (8.6-10.3); Chloride 109 mmol/L (101-111); EGFR African American 105.9 (>60); EGFR Non-African American 87.5 (>60); Glucose 100 mg/dL (70-100); Potassium 3.9 mmol/L (3.5-5.0); Sodium 139 mmol/L (135-145)
[2020-10-20] MEDS ORDERED: Phenylephrine 40 mcg/mL 10mL (400mcg) SYRINGE ONE (08:11)
[2020-10-20] MEDS ORDERED: Dexamethasone IV 4 MG/ML VIAL 1 ml VIAL ONE (08:12)
[2020-10-20] MEDS ORDERED: Ondansetron 4 mg VIAL 2 MG/ML 2 ml VIAL ONE (08:12)
[2020-10-20] MEDS ORDERED: EPHEDrine (Pressors) 50 MG/ML VIAL ONE (08:23)
[2020-10-20] MEDS ORDERED: ROPIVACAINE 5 MG/ML 30 ML BTL (0.5%) ONE (08:36)
[2020-10-20] MEDS ORDERED: Naloxone 0.4 mg VIAL 0.4 mg/ml 1 ml VIAL IV PRN (08:41)
[2020-10-20] MEDS ORDERED: Ondansetron 4 mg VIAL 2 MG/ML 2 ml VIAL IV PRN (08:41)
[2020-10-20] MEDS ORDERED: Acetaminophen IV 1 GM/100ML 1,000 MG/100 ML VIAL IVPB PRN (08:41)
[2020-10-20] MEDS ORDERED: fentaNYL 100 mcg/2 ml 50 MCG/ML VIAL ONE (09:06)
[2020-10-20] MEDS ORDERED: Acetaminophen IV 1 GM/100ML 100 ML ONE (09:06)
[2020-10-20] MEDS: fentaNYL 100 mcg/2 ml 50 MCG/ML VIAL IV PRN ×4 (09:08→09:36)
[2020-10-20] MEDS: Senna TAB 8.6 mg TAB PO SCH ×2 (10:58→20:48)
[2020-10-20] MEDS: Vitamin THERAPEUTIC TAB PO SCH (11:00)
[2020-10-20] MEDS: DULoxetine DR 30 mg CAP PO SCH (11:01)
[2020-10-20] MEDS: Morphine ER 15 mg TAB ** extended release PO SCH ×2 (11:02→20:47)
[2020-10-20] MEDS: Magnesium Hydroxide LIQ 30 ML UDC PO SCH ×2 (11:03→20:49)
[2020-10-20] MEDS: cefTRIAXone 1 gm/50 mL NS BAG 1 GM/50 ML BAG IVPB SCH (14:12)
[2020-10-20 17:03] LABS: % Iron Saturation 14 % (15-55); Iron 37 ug/dL (50-212); Total Iron Binding Capacity 259 mcg/dL (250-450); Transferrin 185 mg/dL (203-362); Unsaturated Iron Binding < 244 ug/dL
[2020-10-20 17:17] LABS: Ferritin 161.2 ng/mL (11-307)
[2020-10-20 17:20] LABS: Folate 10.44 ng/mL (>3.99)
[2020-10-20 17:21] LABS: Vitamin B12 545 pg/mL (180-914)
[2020-10-21 07:17] LABS: ABS Basophils 0.1 10^3/ul (0-0.2); ABS Eosinophils 0.1 10^3/ul (0-0.6); ABS Lymphocytes 1.8 10^3/ul (1.0-4.8); ABS Monocytes 0.5 10^3/ul (0-0.8); ABS Neutrophils 2.5 10^3/ul (1.5-7.7); Eosinophil % 2.5 %; Hematocrit 30 % (35-47); Hemoglobin 10.1 g/dL (12.0-16.0); Lymphocyte % 35.7 %; Mean Corpuscular HGB Conc 34 g/dL (31-36); Mean Corpuscular Hemoglobin 29 pg (27-31); Mean Corpuscular Volume 86 fL (80-97); Mean Platelet Volume 8.5 fL (7.4-10.4); Platelet Count 256 10^3/uL (150-450); Red Blood Count 3.49 10^6 /uL (3.70-4.87); Red Cell Distribution Width 15 % (10-15)
[2020-10-21 07:38] LABS: BUN/Creatinine Ratio 17.5 (8-20); Calcium 8.4 mg/dL (8.6-10.3); EGFR African American 86.3 (>60); EGFR Non-African American 71.3 (>60); Potassium 3.7 mmol/L (3.5-5.0)
[2020-10-21] MEDS: Senna TAB 8.6 mg TAB PO SCH ×2 (09:16→20:42)
[2020-10-21] MEDS: Magnesium Hydroxide LIQ 30 ML UDC PO SCH ×2 (09:16→20:38)
[2020-10-21] MEDS: Morphine ER 15 mg TAB ** extended release PO SCH ×2 (09:22→20:37)
[2020-10-21] MEDS: DULoxetine DR 30 mg CAP PO SCH (09:22)
[2020-10-21] MEDS: Vitamin THERAPEUTIC TAB PO SCH (09:22)
[2020-10-21] MEDS: Tiotropium Brom/Olodaterol MDI INH SCH (09:23)
[2020-10-21] MEDS: Mometasone 220 MCG MDI INH SCH (09:23)
[2020-10-21] MEDS: cefTRIAXone 1 gm/50 mL NS BAG 1 GM/50 ML BAG IVPB SCH (14:27)
[2020-10-22 05:00] LABS: ABS Basophils 0.1 10^3/ul (0-0.2); ABS Eosinophils 0.3 10^3/ul (0-0.6); ABS Lymphocytes 1.9 10^3/ul (1.0-4.8); ABS Monocytes 0.4 10^3/ul (0-0.8); ABS Neutrophils 1.9 10^3/ul (1.5-7.7); Eosinophil % 6.3 %; Hematocrit 32 % (35-47); Hemoglobin 10.7 g/dL (12.0-16.0); Lymphocyte % 40.7 %; Mean Corpuscular HGB Conc 33 g/dL (31-36); Mean Corpuscular Hemoglobin 29 pg (27-31); Mean Corpuscular Volume 87 fL (80-97); Mean Platelet Volume 8.2 fL (7.4-10.4); Platelet Count 239 10^3/uL (150-450); Red Blood Count 3.71 10^6 /uL (3.70-4.87); Red Cell Distribution Width 15 % (10-15); White Blood Count 4.6 10^3/uL (3.5-10.8)
[2020-10-22] MEDS: Mometasone 220 MCG MDI INH SCH (08:19)
[2020-10-22] MEDS: Tiotropium Brom/Olodaterol MDI INH SCH (08:19)
[2020-10-22] MEDS: Morphine ER 15 mg TAB ** extended release PO SCH ×2 (08:38→21:34)
[2020-10-22] MEDS: Vitamin THERAPEUTIC TAB PO SCH (08:38)
[2020-10-22] MEDS: DULoxetine DR 30 mg CAP PO SCH (08:38)
[2020-10-22] MEDS: Senna TAB 8.6 mg TAB PO SCH ×2 (08:39→21:38)
[2020-10-22] MEDS: Magnesium Hydroxide LIQ 30 ML UDC PO SCH ×2 (08:39→21:35)
[2020-10-22] MEDS: cefTRIAXone 1 gm/50 mL NS BAG 1 GM/50 ML BAG IVPB SCH (13:11)
[2020-10-23] MEDS: Tiotropium Brom/Olodaterol MDI INH SCH (07:29)
[2020-10-23] MEDS: Mometasone 220 MCG MDI INH SCH (07:29)
[2020-10-23] MEDS: Magnesium Hydroxide LIQ 30 ML UDC PO SCH (08:55)
[2020-10-23] MEDS: Senna TAB 8.6 mg TAB PO SCH (08:56)
[2020-10-23] MEDS: Vitamin THERAPEUTIC TAB PO SCH (09:49)
[2020-10-23] MEDS: Morphine ER 15 mg TAB ** extended release PO SCH (09:49)
[2020-10-23] MEDS: DULoxetine DR 30 mg CAP PO SCH (09:49)
[2020-10-23 11:02] VITALS: BP 116/71
== END 2020-10-23 13:10 | DRG 580 ==
LOC: ED 12:24 → SSU 18:40
PROVIDERS: ADMIT Orthopaedic Surgery Adult Reconstructive Orthopaedic Surgery; ATTEND Internal Medicine

== ENCOUNTER 2024-05-04 17:21 | Observation (INO) ==
[2024-05-04] MEDS: Acetaminophen IV 1 GM/100ML 1,000 MG/100 ML BAG IV ONE (17:54)
[2024-05-04] MEDS: Piperacillin/Tazobac 3.375 BAG 3.375 GM/100 ML BAG IV ONE (18:00)
[2024-05-04] MEDS: LACTATED RINGERS SEPSIS IV ONE (18:01)
[2024-05-04 18:11] LABS: ABS Lymphocytes 0.4 10^3/uL (1.0-4.8); ABS Monocytes 0.7 10^3/uL (0.0-0.9); ABS Neutrophils 8.9 10^3/uL (1.5-7.6); ABS Nucleated RBC 0.01 10^3/ul; Eosinophil % 0.1 %; Hematocrit 35.5 % (35-45); Hemoglobin 12.2 g/dL (11.5-14.3); Lymphocyte % 4.3 %; Mean Corpuscular Hemoglobin 30.4 pg (27-33); Mean Corpuscular Hgb Conc 34.5 g/dL (31-36); Mean Corpuscular Volume 88.3 fL (80-97); Mean Platelet Volume 7.8 fL (7.5-11.2); Nucleated Red Blood Cells % 0.1 %/100WBC (0.0-0.8); Platelet Count 269 10^3/uL (150-450); Red Blood Count 4.02 10^6/uL (3.63-4.92); Red Cell Distribution Width 15.1 % (12-17); White Blood Count 10.1 10^3/uL (3.8-11.8)
[2024-05-04 18:51] LABS: Albumin 3.5 g/dL (3.2-5.2); Albumin/Globulin Ratio 1.1 (1-3); Calcium 8.5 mg/dL (8.6-10.3); Creatinine, Serum 0.59 mg/dL (0.51-0.95); Globulin 3.3 g/dL (2-4); Potassium 4.5 mmol/L (3.5-5.0); Total Bilirubin 1.1 mg/dL (0.2-1.0); Total Protein 6.8 g/dL (6.4-8.9); eGFR CKD-EPI 96.3 (>60)
[2024-05-04 18:53] LABS: INR 1.38 (0.85-1.14)
[2024-05-04 19:27] LABS: High Sensitivity Troponin 1 Hr 9 pg/mL (<15)
[2024-05-04] MEDS ORDERED: Iohexol 350 (CONTRAST) 500 ML MDV IV ONE (19:40)
[2024-05-04 21:24] LABS: Urine Appearance Clear; Urine Bilirubin Negative (Negative); Urine Blood 2+ (Negative); Urine Color Light-Yellow; Urine Glucose Negative (Negative); Urine Ketones 1+ (Negative); Urine Nitrite 1+ (Negative); Urine Protein Negative (Negative); Urine Urobilinogen Negative (Negative); Urine pH 7.5 (5.0-8.0)
[2024-05-04 21:28] LABS: Urine Bacteria 1+ /HPF (Absent); Urine Red Blood Cell 2+(6-10/hpf) /HPF (0-Trace); Urine Squamous Epithelial Cell Present /HPF (Absent); Urine White Blood Cell 3+(>20/hpf) /HPF (0-Trace)
[2024-05-04] MEDS ORDERED: Albuterol/Ipratropium NEB.SOL (2.5/0.5 MG) 3 ML NEB.SOLN INH PRN (23:16)
[2024-05-05] MEDS: cefTRIAXone 1 gm/50 mL D5W 1 GM/50 ML BAG IV SCH ×2 (00:35→22:28)
[2024-05-05] MEDS: Morphine ER 15 mg TAB ** extended release PO SCH (00:39)
[2024-05-05] MEDS: Azithromycin 500 mg/250 ml NS 500 MG/250 ML BAG IVPB SCH (00:56)
[2024-05-05] MEDS: Lamotrigine XR 50 mg TAB (NF) PO SCH (02:23)
[2024-05-05] MEDS: FLUTICAS/UMECLI/VILANT 200-62.5-25 MDI (NF) INH SCH (02:23)
[2024-05-05 08:32] LABS: Hematocrit 31.5 % (35-45); Hemoglobin 10.9 g/dL (11.5-14.3); Mean Corpuscular Hemoglobin 30.4 pg (27-33); Mean Corpuscular Hgb Conc 34.7 g/dL (31-36); Mean Corpuscular Volume 87.7 fL (80-97); Red Blood Count 3.59 10^6/uL (3.63-4.92); Red Cell Distribution Width 15.6 % (12-17); White Blood Count 6.8 10^3/uL (3.8-11.8)
[2024-05-05 08:33] LABS: ABS Lymphocytes 0.5 10^3/uL (1.0-4.8); ABS Monocytes 0.2 10^3/uL (0.0-0.9); Lymphocyte % 7.9 %; Mean Platelet Volume 8.2 fL (7.5-11.2); Nucleated Red Blood Cells % 0.1 %/100WBC (0.0-0.8); Platelet Count 277 10^3/uL (150-450)
[2024-05-05 09:01] LABS: C Reactive Protein 300.32 mg/L (<8.01); Calcium 8.5 mg/dL (8.6-10.3); Creatinine, Serum 0.42 mg/dL (0.51-0.95); Magnesium 2.1 mg/dL (1.9-2.7); Phosphorus 2.9 mg/dL (2.5-5.0); Potassium 4.9 mmol/L (3.5-5.0); eGFR CKD-EPI 104.5 (>60)
[2024-05-05] MEDS: Senna TAB 8.6 mg TAB PO SCH (10:51)
[2024-05-05] MEDS: Multivitamins/Minerals TAB PO SCH (10:51)
[2024-05-05] MEDS: Polyethylene Glycol 3350 17 GM PACKET PO SCH (10:51)
[2024-05-05] MEDS: Furosemide 40 mg/4 ml IV VIAL IV SLOW PU ONE (12:40)
[2024-05-05] MEDS: Albuterol/Ipratropium NEB.SOL (2.5/0.5 MG) 3 ML NEB.SOLN INH SCH (15:14)
[2024-05-05] MEDS ORDERED: methylPREDNISolone SOD SUCC 40 mg/ml 1 ml VIAL IV SCH (17:00)
[2024-05-05] MEDS: methylPREDNISolone SOD SUCC 125 mg 2 ML VIAL IV ONE (19:30)
[2024-05-06 06:41] LABS: ABS Lymphocytes 0.4 10^3/uL (1.0-4.8); ABS Monocytes 0.3 10^3/uL (0.0-0.9); ABS Neutrophils 6.7 10^3/uL (1.5-7.6); Hematocrit 30.4 % (35-45); Hemoglobin 10.6 g/dL (11.5-14.3); Mean Corpuscular Hemoglobin 30.1 pg (27-33); Mean Corpuscular Hgb Conc 34.8 g/dL (31-36); Mean Corpuscular Volume 86.7 fL (80-97); Platelet Count 311 10^3/uL (150-450); Red Blood Count 3.51 10^6/uL (3.63-4.92); Red Cell Distribution Width 15.5 % (12-17); White Blood Count 7.4 10^3/uL (3.8-11.8)
[2024-05-06 07:00] LABS: C Reactive Protein 159.56 mg/L (<8.01); Calcium 8.3 mg/dL (8.6-10.3); Creatinine, Serum 0.51 mg/dL (0.51-0.95); Potassium 3.7 mmol/L (3.5-5.0); eGFR CKD-EPI 99.7 (>60)
[2024-05-06] MEDS: methylPREDNISolone SOD SUCC 40 mg/ml 1 ml VIAL IV SCH (08:07)
[2024-05-06] MEDS: Albuterol 2.5mg/3 ml (0.083%) NEB.SOLN INH ONE ×2 (08:56→09:33)
[2024-05-06] MEDS: Lactated Ringers 1000 ml BAG 1,000 ML IV SCH (10:48)
[2024-05-07] MEDS: Albuterol/Ipratropium NEB.SOL (2.5/0.5 MG) 3 ML NEB.SOLN INH SCH (12:54)
[2024-05-07 14:29] VITALS: BP 135/72
== END 2024-05-07 15:47 ==
LOC: ED 17:21 → EDHOLD 17:21 → MED 05-05 07:33
PROVIDERS: ADMIT Internal Medicine; ATTEND Internal Medicine

== ENCOUNTER 2024-08-16 00:36 | Observation (INO) ==
[2024-08-16] MEDS: Morphine 4 MG/ML VIAL (1 ml) IV ONE ×2 (02:08→04:21)
[2024-08-16 02:24] LABS: Activated Partial Thrombo Time 28.8 seconds (26.0-38.0); INR 1.06 (0.85-1.14)
[2024-08-16 02:33] LABS: ABS Basophils 0.1 10^3/uL (0.0-0.1); ABS Eosinophils 0.1 10^3/uL (0.0-0.5); ABS Lymphocytes 1.8 10^3/uL (1.0-4.8); ABS Neutrophils 7.2 10^3/uL (1.5-7.6); Eosinophil % 0.9 %; Hematocrit 37.3 % (35-45); Hemoglobin 12.4 g/dL (11.5-14.3); Lymphocyte % 17.8 %; Mean Corpuscular Hemoglobin 29.5 pg (27-33); Mean Corpuscular Hgb Conc 33.2 g/dL (31-36); Mean Corpuscular Volume 88.9 fL (80-97); Mean Platelet Volume 7.9 fL (7.5-11.2); Platelet Count 248 10^3/uL (150-450); Red Cell Distribution Width 16.1 % (12-17); White Blood Count 10.1 10^3/uL (3.8-11.8)
[2024-08-16 03:01] LABS: Albumin 3.7 g/dL (3.5-5.7); Albumin/Globulin Ratio 1.5 (1-3); C Reactive Protein 22.4 mg/L (<8.01); Calcium 9.1 mg/dL (8.6-10.3); Creatinine, Serum 0.64 mg/dL (0.51-0.95); Globulin 2.5 g/dL (2-4); Potassium 4.3 mmol/L (3.5-5.0); Total Bilirubin 1.1 mg/dL (0.2-1.0); Total Protein 6.2 g/dL (6.4-8.9); eGFR CKD-EPI 94.4 (>60)
[2024-08-16 03:40] LABS: Erythrocyte Sed Rate 13 mm/Hr (0-29)
[2024-08-16 04:01] LABS: High Sensitivity Troponin 1 Hr 5 pg/mL (<15)
[2024-08-16 04:10] LABS: Urine Appearance Extra Turbid; Urine Bilirubin Negative (Negative); Urine Blood 3+ (Negative); Urine Color Yellow; Urine Glucose Negative (Negative); Urine Ketones Negative (Negative); Urine Nitrite Negative (Negative); Urine Protein 2+ (>=100 mg/dL) (Negative); Urine Specific Gravity 1.033 (1.002-1.030); Urine Urobilinogen Negative (Negative)
[2024-08-16 04:21] LABS: Urine Bacteria 1+ /HPF (Absent); Urine Red Blood Cell 3+(>10/hpf) /HPF (0-Trace); Urine Squamous Epithelial Cell Present /HPF (Absent); Urine White Blood Cell 3+(>20/hpf) /HPF (0-Trace)
[2024-08-16] MEDS: NS 0.9% 1000 ml BAG 1,000 ML IV ONE (04:21)
[2024-08-16] MEDS: Piperacillin/Tazobac 3.375 BAG 3.375 GM/100 ML BAG IV ONE (05:53)
[2024-08-16] MEDS ORDERED: Al Hydrox/Mg Hydrox/Simet LIQ 30 ML UDC PO PRN (08:15)
[2024-08-16] MEDS ORDERED: Magnesium Hydroxide LIQ 30 ML UDC PO PRN (08:17)
[2024-08-16] MEDS: Morphine ER 15 mg TAB ** extended release PO SCH (11:15)
[2024-08-16] MEDS: Albuterol/Ipratropium NEB.SOL (2.5/0.5 MG) 3 ML NEB.SOLN INH SCH (11:16)
[2024-08-16] MEDS ORDERED: cefTRIAXone 1 gm/50 mL D5W 1 GM/50 ML BAG IV SCH ×2 (12:00→14:00)
[2024-08-16] MEDS: NS 0.9% 1000 ml BAG 1,000 ML IV SCH (13:50)
[2024-08-16] MEDS: cefTRIAXone 1 gm/50 mL D5W 1 GM/50 ML BAG IV SCH (14:27)
[2024-08-16] MEDS ORDERED: Albuterol/Ipratropium NEB.SOL (2.5/0.5 MG) 3 ML NEB.SOLN INH PRN (18:33)
[2024-08-16] MEDS: Nystatin TOP POWDER 15 GM BTL TOPICAL SCH (21:08)
[2024-08-17 10:47] LABS: ABS Eosinophils 0.1 10^3/uL (0.0-0.5); ABS Lymphocytes 0.7 10^3/uL (1.0-4.8); ABS Monocytes 0.4 10^3/uL (0.0-0.9); ABS Neutrophils 6.2 10^3/uL (1.5-7.6); Eosinophil % 1.3 %; Hematocrit 31.7 % (35-45); Hemoglobin 10.8 g/dL (11.5-14.3); Lymphocyte % 9.9 %; Mean Corpuscular Hemoglobin 30.1 pg (27-33); Mean Corpuscular Hgb Conc 34.1 g/dL (31-36); Mean Corpuscular Volume 88.3 fL (80-97); Mean Platelet Volume 7.8 fL (7.5-11.2); Platelet Count 179 10^3/uL (150-450); Red Blood Count 3.59 10^6/uL (3.63-4.92); Red Cell Distribution Width 16.1 % (12-17); White Blood Count 7.5 10^3/uL (3.8-11.8)
[2024-08-17 11:04] LABS: Calcium 8.1 mg/dL (8.6-10.3); Creatinine, Serum 0.6 mg/dL (0.51-0.95); Potassium 3.8 mmol/L (3.5-5.0); eGFR CKD-EPI 95.9 (>60)
[2024-08-19 06:38] LABS: Rapid COVID-19 Molecular Undetected (Undetected)
[2024-08-19 09:14] VITALS: BP 115/71
== END 2024-08-19 10:40 ==
LOC: ED 00:36 → EDHOLD 00:36 → SUATTDRO 08:15 → MED 12:54
PROVIDERS: ADMIT Internal Medicine; ATTEND Student in an Organized Health Care Education/Training Program